=== PATIENT | female | born 1940 | race Caucasian/White ===

== ENCOUNTER → 2016-10-04 | Outpatient (CLI) | payer MEDICARE ==
[~2016-10-04] MED LIST: ALPR.25T; ALPR.25T PO; ALPR.5T PO; ALPR0.5T PO; ALPR1T PO; ALPR1TAB7 PO; AMLO1CAP4 PO; AMLO1CAP7 PO; ARPZ10T PO; ASP81CT PO; ASPI-983 PO; ASPI81TA19 PO; ATOR10TA66 PO; ATOR40TA; ATOR40TA PO; ATOR80TA PO; Apixaban PO; CARI250T; CARV12.53 PO; CARV6.252 PO; CHOL10003 PO; CIPR500T78 PO; CLCX200C PO; CLIN300C3; CLOP75TA PO; CLOP75TA28 PO; CLPD75T PO; CRS350T PO; CYCL5TAB11 PO; DIABETIC MED; DOXA2TAB2 PO; DULO60CA6 PO; DXZS2T PO; ETOD400T PO; FERR-57 PO; FRS325T PO; FRSM20T PO; FURO20TA4 PO; GABA300C; GBPN300C PO; HCT25T; HYDR-34; HYDR-3583 PO; HYDR-3720 PO; HYDR1TAB PO; INSU100I14 SQ; INSU100V6 SQ; INSU100V8; ISM30TCR PO; ISOS30TA3 PO; KETO-22 PO; LEVO250T7 PO; LEVO500T69 PO; LINA5TAB PO; LISI10TA PO; LISI10TA2 PO; LOSA-35 PO; LOSA1TAB20 PO; LOSA25TA15 PO; LRT10T PO; MAGN400C PO; MNTL10T PO; MPR22T TOP; MS15TCR PO; NAPR-243 PO; NITR0.3T6 SL; NOVALOG; NOVALOG INSULIN SQ; NTR.4SL SL; OMEG1CAP51 PO; OXYC-12 PO; OXYC-202 PO; OXYC-465 PO; OXYC1TAB17 PO; OXYC1TAB25 PO; OXYC1TAB28 PO; OXYC1TAB95 PO; Oxycodone Hcl/Acetaminophen PO; PHEN200T27 PO; PNT40TEC PO; POTA10CA43 PO; POTA10TA6 PO; PRAV40TA PO; PRAV40TA2 PO; PROP1TAB77; SULF1TAB35 PO; TIZA4TAB55 PO; TRAM-21 PO; TRAM50TA2 PO; TRM50T PO; VITAMIN D PO; [UNRECOGNIZED DRUG - OTHER]; muscle relaxant
[2016-10-04 09:02] LABS: ALANINE AMINOTRANSFERASE 11 U/L (0-55); ALBUMIN 4.1 GM/DL (3.2-4.5); ANION GAP 8 MMOL/L (5-14); ASPARTATE AMINO TRANSFERASE 15 U/L (5-34); BILIRUBIN,TOTAL 0.5 MG/DL (0.1-1.0); BLOOD UREA NITROGEN 12 MG/DL (7-18); BUN/CREATININE RATIO 17; CALCIUM 9.5 MG/DL (8.5-10.1); CARBON DIOXIDE 24 MMOL/L (21-32); CHLORIDE 107 MMOL/L (98-107); CHOLESTEROL 141 MG/DL (< 200); CREATININE SERUM 0.71 MG/DL (0.60-1.30); DIRECT LDL 83 MG/DL (1-129); GFR ESTIMATED > 60; GLUCOSE 107 MG/DL (70-105); POTASSIUM 4.3 MMOL/L (3.6-5.0); SODIUM 139 MMOL/L (135-145); TOTAL PROTEIN 6.9 GM/DL (6.4-8.2); TRIGLYCERIDES 84 MG/DL (<150); VLDL CHOLESTEROL 17 MG/DL (5-40)
[2016-10-04 09:22] LABS: THYROID STIMULATING HORMONE 0.68 UIU/ML (0.35-4.94)
== END ==
LOC: LAB 08:21
PROVIDERS: ATTEND Internal Medicine Cardiovascular Disease
DX: I25.10 Atherosclerotic heart disease of native coronary artery without angina pectoris (principal); E11.9 Type 2 diabetes mellitus without complications; I65.23 Occlusion and stenosis of bilateral carotid arteries; E78.4 Other hyperlipidemia
CPT/HCPCS: 36415; 80053; 80061; 84443

== ENCOUNTER 2016-11-05 18:47 | Emergency (ER) | payer MEDICARE ==
[~2016-11-05] VITALS: Ht 170.2 cm; Wt 65.3 kg
[~2016-11-05 18:47] MED LIST changes: -SULF1TAB35 PO
[2016-11-05] MEDS ORDERED: ONDANSETRON 4 MG/2 ML (SDV) Z0FRAN IVP ONE (21:30)
[2016-11-05] MEDS ORDERED: KETOROLAC 30 MG/ML VIAL IVP ONE (21:30)
[2016-11-05] MEDS ORDERED: fentaNYL INJECTION 100 MCG/2 ML AMP IVP ONE (21:30)
--- NOTE | 2016-11-05 21:43 | Diagnostic Imaging Report ---
INDICATION: Right forearm injury COMPARISON: None FINDINGS: Two views of the right forearm demonstrate no fracture or dislocation. 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 There is no joint effusion or foreign body. IMPRESSION: No fracture or dislocation Dictated by: Dictated on workstation # [id number]
[2016-11-05 21:46] LABS: BASOPHILS # (AUTO) 0.1 10^3/uL (0.0-0.1); BASOPHILS % (AUTO) 1 % (0-10); EOSINOPHILS # (AUTO) 0.3 10^3/uL (0.0-0.3); EOSINOPHILS % (AUTO) 4 % (0-10); LYMPHOCYTES # (AUTO) 1.1 X 10^3 (1.0-4.0); LYMPHOCYTES % (AUTO) 17 % (12-44); MEAN CORPUSCULAR HEMOGLOBIN 28 PG (25-34); MEAN CORPUSCULAR HGB CONC 33 G/DL (32-36); MEAN CORPUSCULAR VOLUME 87 FL (80-99); MEAN PLATELET VOLUME 9.5 FL (7.4-10.4); MONOCYTES # (AUTO) 0.5 X 10^3 (0.0-1.0); MONOCYTES % (AUTO) 8 % (0-12); NEUTROPHILS # (AUTO) 4.7 X 10^3 (1.8-7.8); NEUTROPHILS % (AUTO) 71 % (42-75); PLATELET COUNT 169 10^3/uL (130-400); RED BLOOD COUNT 4.38 10^6/uL (4.35-5.85); RED CELL DISTRIBUTION WIDTH 13.8 % (10.0-14.5); WHITE BLOOD COUNT 6.7 10^3/uL (4.3-11.0)
--- NOTE | 2016-11-05 21:51 | ED General ---
General Chief Complaint: Upper Extremity Stated Complaint: BITE,SWELLING Nursing Triage Note: Brought to ED with family, family speak for patient and report she awoke at 0800 with swelling and bruising on right FA. Denies injury/falls. Family state a resident at their work awoke with a same situation. Pt reports pain is "10" but she has not taken any of her maintenance "Percocet" today. Nursing Sepsis Screen: No Definite Risk Allergies and Home Medications Allergies Coded Allergies: Penicillins (Verified Allergy, Unknown, 05/12/05) morphine (Verified Allergy, Unknown, TAKES PERCOCET @ HOME, 10/22/15) CAUSES SKIN TO COME OFF FINGERS tetracycline (Verified Allergy, Unknown, 05/12/05) hydromorphone (Unverified Adverse Reaction, Unknown, STATES QUIT BREATHING , TAKES PERCOCET AT HOME, 10/22/15) Uncoded Allergies: PAPER TAPE (Allergy, Mild, 07/28/08) Home Medications Alprazolam 1 Mg Tablet, 1 MG PO Q8H PRN for ANXIETY, (Reported) Alprazolam 0.5 Mg Tablet, 0.5 MG PO TID, #90 Prescribed by: MURIEL PHELAN on 10/23/15 0736 Aspirin 81 Mg Tablet.dr, 81 MG PO BID, (Reported) Atorvastatin Calcium 10 Mg Tablet, 10 MG PO DAILY, #30 Prescribed by: MURIEL PHELAN on 10/23/15 0707 Carvedilol 12.5 Mg Tablet, 12.5 MG PO BID, (Reported) Clopidogrel Bisulfate 75 Mg Tablet, 75 MG PO DAILY, (Reported) Doxazosin Mesylate 2 Mg Tablet, 2 MG PO HS, (Reported) Etodolac 400 Mg Tablet, 400 MG PO BID PRN for MUSCLE SPASMS, (Reported) Linagliptin 5 Mg Tablet, 5 MG PO DAILY, (Reported) Lisinopril 10 Mg Tablet, 10 MG PO DAILY, (Reported) Magnesium Oxide 400 Mg Capsule, 400 MG PO HS, (Reported) Nitroglycerin 0.4 Mg Tab, 0 SL UD PRN for CHEST PAIN, (Reported) 1 TABLET EVERY 5 MINUTES X 3 DOSES NEEDED FOR CHEST PAIN [place]-3 Fatty Acids/Fish Oil 1 Each Capsule, 1,000 MG PO DAILY, (Reported) Oxycodone HCl/Acetaminophen 1 Each Tablet, 1 TAB PO QID, (Reported) Oxycodone HCl/Acetaminophen 1 Each Tablet, 1 EACH PO BID PRN, #60 Prescribed by: MURIEL PHELAN on 10/23/15 0736 Potassium Chloride 10 Meq Capsule.er, 10 MEQ PO DAILY, (Reported) Pravastatin Sodium 40 Mg Tablet, 40 MG PO HS, (Reported) Past Bgqpilu-Zdxayn-Rjernr Hx Patient Social History Alcohol Use: Denies Use Recreational Drug Use: No Smoking Status: Never a Smoker 2nd Hand Smoke Exposure: No Recent Foreign Travel: No Contact w/Someone Who Travel: No Recent Infectious Disease Expo: No Recent Hopitalizations: No Immunizations Up To Date Date of Pneumonia Vaccine: Mar 20, 2010 Date of Influenza Vaccine: Dec 18, 2013 Seasonal Allergies Seasonal Allergies: No Surgeries HX Surgeries: Yes (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) Surgeries: CABG, Coronary Stent, Gallbladder, Joint Replacement, Orthopedic Respiratory Hx Respiratory Disorders: No Cardiovascular Hx Cardiac Disorders: Yes (CABG,STENTS) Cardiac Disorders: Coronary Artery Disease, High Cholesterol, Hypertension Neurological Hx Neurological Disorders: Yes (PERIPHERAL NEUROPATHY) Neurological Disorders: Neuropathy Reproductive System Hx Reproductive Disorders: No Sexually Transmitted Disease: No HIV/AIDS: No Genitourinary Hx Genitourinary Disorders: No Gastrointestinal Hx Gastrointestinal Disorders: Yes Gastrointestinal Disorders: Gastroesophageal Reflux Musculoskeletal Hx Musculoskeletal Disorders: Yes (NECK FX WITH TENDON SPASMS) Musculoskeletal Disorders: Arthritis, Chronic Back Pain, Spasms Endocrine Hx Endocrine Disorders: Yes Endocrine Disorders: Diabetes, Non-Insulin dep HEENT HX ENT Disorders: Yes HEENT Disorders: Cataract Hearing Impairment: Denies Cancer Hx Cancer: No (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) Psychosocial Hx 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) Behavioral Health Disorders: Anxiety, Depression Integumentary HX Skin/Integumentary Disorder: No Blood Transfusions Hx Blood Disorders: Yes (Vit D deficiency) Adverse Reaction to a Blood Tr: Yes Family Medical History Significant Family History: No Pertinent Family Hx Family Medial History: Congestive heart failure 19 MOTHER Family history: Cardiovascular disease Family history: Diabetes mellitus 19 MOTHER Family history: Hypertension 19 FATHER Physical Exam Vital Signs Vital Sign - Last 12Hours 11/05/16 19:00 Temp 97.4 Pulse 60 Resp 20 B/P (MAP) 221/94 Pulse Ox 98 O2 Delivery Room Air Capillary Refill : Less Than 3 Seconds Progress/Results/Core Measures Results/Orders Lab Results Laboratory Tests Test 11/05/16 21:35 Range/Units White Blood Count 6.7 4.3-11.0 10^3/uL Red Blood Count 4.38 4.35-5.85 10^6/uL Hemoglobin 12.4 11.5-16.0 G/DL Hematocrit 38 35-52 % Mean Corpuscular Volume 87 80-99 FL Mean Corpuscular Hemoglobin 28 25-34 PG Mean Corpuscular Hemoglobin Concent 33 32-36 G/DL Red Cell Distribution Width 13.8 10.0-14.5 % Platelet Count 169 130-400 10^3/uL Mean Platelet Volume 9.5 7.4-10.4 FL Neutrophils (%) (Auto) 71 42-75 % Lymphocytes (%) (Auto) 17 12-44 % Monocytes (%) (Auto) 8 0-12 % Eosinophils (%) (Auto) 4 0-10 % Basophils (%) (Auto) 1 0-10 % Neutrophils # (Auto) 4.7 1.8-7.8 X 10^3 Lymphocytes # (Auto) 1.1 1.0-4.0 X 10^3 Monocytes # (Auto) 0.5 0.0-1.0 X 10^3 Eosinophils # (Auto) 0.3 0.0-0.3 10^3/uL Basophils # (Auto) 0.1 0.0-0.1 10^3/uL Sodium Level 142 135-145 MMOL/L Potassium Level 4.2 3.6-5.0 MMOL/L Chloride Level 107 98-107 MMOL/L Carbon Dioxide Level 21 21-32 MMOL/L Anion Gap 14 5-14 MMOL/L Blood Urea Nitrogen 9 7-18 MG/DL Creatinine 0.65 0.60-1.30 MG/DL Estimat Glomerular Filtration Rate > 60 BUN/Creatinine Ratio 14 Glucose Level 104 70-105 MG/DL Calcium Level 9.6 8.5-10.1 MG/DL Total Bilirubin 0.5 0.1-1.0 MG/DL Aspartate Amino Transf (AST/SGOT) 21 5-34 U/L Alanine Aminotransferase (ALT/SGPT) 15 0-55 U/L Alkaline Phosphatase 64 40-136 U/L C-Reactive Protein High Sensitivity 0.16 0.00-0.50 MG/DL Total Protein 7.0 6.4-8.2 GM/DL Albumin 4.1 3.2-4.5 GM/DL My Orders Orders - ROGERIO MONREAL MD Saline Lock/Iv-Start (11/05/16 21:18) Cbc With Automated Diff (11/05/16 21:18) Comprehensive Metabolic Panel (11/05/16 21:18) Hs C Reactive Protein (11/05/16 21:18) Forearm, Right, 2 Views (11/05/16 21:18) Fentanyl Injection (Sublimaze Injection (11/05/16 21:30) Ondansetron Injection (Zofran Injectio (11/05/16 21:30) Ketorolac Injection (Toradol Injection) (11/05/16 21:30) Sulfamethoxazole/Trimet Ds Tab (Bactrim (11/05/16 23:00) Medications Given in ED Current Medications Medications Dose Ordered Sig/Margarita Route Start Time Stop Time Status Last Admin Dose Admin Fentanyl Citrate 75 mcg ONCE ONCE IVP 11/05/16 21:30 11/05/16 21:31 DC 11/05/16 21:45 75 MCG Ketorolac Tromethamine 30 mg ONCE ONCE IVP 11/05/16 21:30 11/05/16 21:31 DC 11/05/16 21:45 30 MG Ondansetron HCl 4 mg ONCE ONCE IVP 11/05/16 21:30 11/05/16 21:31 DC 11/05/16 21:45 4 MG Vital Signs/I&O Vital Sign - Last 12Hours 11/05/16 11/05/16 11/05/16 19:00 21:45 21:45 Temp 97.4 97.4 97.4 Pulse 60 Resp 20 B/P (MAP) 221/94 Pulse Ox 98 O2 Delivery Room Air Blood Pressure Mean: 136 Progress Note : Progress Note x-rays and labs were unremarkable. Blood pressure improved significantly with treatment of pain. Patient was given a dose of Bactrim prior to dismissal. Nausea was treated with Zofran. Diagnostic Imaging Diagonstic Imaging: Xray Plain Films/CT/US/NM/MRI: forearm Comments Right forearm x-ray viewed by me and report reviewed. See report below: NAME: PERLITA PEREZ Mat Richard Pauer - 3P REC#: [id number] PT STATUS: REG ER : 1940 PHYSICIAN: ROGERIO MONREAL MD ADMIT DATE: 11/05/16/ER Signed Date of Exam:11/05/16 FOREARM, RIGHT, 2 VIEWS INDICATION: Right forearm injury COMPARISON: None FINDINGS: Two views of the right forearm demonstrate no fracture or dislocation. 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 There is no joint effusion or foreign body. IMPRESSION: No fracture or dislocation Dictated by: Dictated on workstation # [id number] Dict: 11/05/162139 Trans: 11/05/162143 [facility] [phone] Interpreted by: JOSÉ ALVARENGA Electronically signed by: JOSÉ ALVARENGA 11/05/162143 Departure Impression Impression: Primary Impression: Skin lesion of right arm Additional Impression: Hypertensive urgency Disposition: 01 HOME, SELF-CARE Condition: Improved Departure-Patient Inst. Decision time for Depature: 22:45 Referrals: WEST PHELAN MD (PCP/Family) Primary Care Physician Patient Instructions: Cellulitis (Skin Infection), Adult (DC), Spider Bites Add. Discharge Instructions: The exact cause of your skin lesion is uncertain but it may be related to cellulitis (skin infection and (and/or spider bite. Complete the antibiotics as prescribed. Return to care if symptoms worsen, especially if you develop fever. Follow-up with your primary care provider early next week. All discharge instructions reviewed with patient and/or family. Voiced understanding. Scripts Sulfamethoxazole/Trimethoprim (Bactrim Ds Tablet) 1 Each Tablet 1 EACH PO BID PRN, #14 TAB Prov: ROGERIO MONREAL MD 11/05/16 ROGERIO MONREAL MD Nov 05, 2016 21:51
[2016-11-05 22:06] LABS: ALANINE AMINOTRANSFERASE 15 U/L (0-55); ALBUMIN 4.1 GM/DL (3.2-4.5); ANION GAP 14 MMOL/L (5-14); ASPARTATE AMINO TRANSFERASE 21 U/L (5-34); BILIRUBIN,TOTAL 0.5 MG/DL (0.1-1.0); BLOOD UREA NITROGEN 9 MG/DL (7-18); BUN/CREATININE RATIO 14; CALCIUM 9.6 MG/DL (8.5-10.1); CARBON DIOXIDE 21 MMOL/L (21-32); CHLORIDE 107 MMOL/L (98-107); CREATININE SERUM 0.65 MG/DL (0.60-1.30); GFR ESTIMATED > 60; GLUCOSE 104 MG/DL (70-105); POTASSIUM 4.2 MMOL/L (3.6-5.0); SODIUM 142 MMOL/L (135-145); hs C REACTIVE PROTEIN 0.16 MG/DL (0.00-0.50)
[2016-11-05] MEDS ORDERED: SULF1TAB35 PO (22:57)
[2016-11-05] MEDS ORDERED: TRIM/SULFAMETH 160/800 (SEPTRA DS) TAB PO ONE (23:00)
[2016-11-05 23:16] VITALS: BP 150/66
== END 2016-11-05 23:16 | disposition home or self-care (01) ==
LOC: EDUNIT# 18:47 → ER 18:48
DX: L98.9 Disorder of the skin and subcutaneous tissue, unspecified (principal); I16.0 Hypertensive urgency; F41.9 Anxiety disorder, unspecified; F32.9 Major depressive disorder, single episode, unspecified; E11.40 Type 2 diabetes mellitus with diabetic neuropathy, unspecified; K21.9 Gastro-esophageal reflux disease without esophagitis; I25.10 Atherosclerotic heart disease of native coronary artery without angina pectoris; E78.00 Pure hypercholesterolemia, unspecified; I10 Essential (primary) hypertension; Z95.1 Presence of aortocoronary bypass graft; Z95.5 Presence of coronary angioplasty implant and graft; Z86.018 Personal history of other benign neoplasm; Z79.82 Long term (current) use of aspirin; Z87.81 Personal history of (healed) traumatic fracture; Z96.60 Presence of unspecified orthopedic joint implant
CPT/HCPCS: 36415; 73090; 80053; 85025; 86141; 96374; 96375

== ENCOUNTER 2017-02-17 21:36 | Emergency (ER) | payer MEDICARE ==
[~2017-02-17] VITALS: Ht 170.2 cm; Wt 65.3 kg
[~2017-02-17 21:36] MED LIST changes: +SULF1TAB35 PO
[2017-02-17] MEDS ORDERED: LACTATED RINGERS 1,000 ML IV ONE (22:33)
--- NOTE | 2017-02-17 22:57 | ED Abdominal Pain ---
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 She is having some nausea intermittently but has gotten better now. 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 She routinely takes Percocet every 4 hours as needed. She had a bowel movement yesterday which was hard. She has not vomited. She's had no fevers or chills. Her pain is worse with movement or palpation of her left side of her belly or rib cage. All her bones hurt. She's had her gallbladder and appendix removed in the past. She says the Percocet she took 2 hours ago is just now starting to control her pain and she is not needing anything else for pain at this time. Allergies and Home Medications Allergies Coded Allergies: Penicillins (Verified Allergy, Unknown, 05/12/05) morphine (Verified Allergy, Unknown, TAKES PERCOCET @ HOME, 10/22/15) CAUSES SKIN TO COME OFF FINGERS tetracycline (Verified Allergy, Unknown, 05/12/05) hydromorphone (Unverified Adverse Reaction, Unknown, STATES QUIT BREATHING , TAKES PERCOCET AT HOME, 10/22/15) Uncoded Allergies: PAPER TAPE (Allergy, Mild, 07/28/08) Home Medications Alprazolam 1 Mg Tablet, 1 MG PO Q8H PRN for ANXIETY, (Reported) Alprazolam 0.5 Mg Tablet, 0.5 MG PO TID, #90 Prescribed by: MURIEL PHELAN on 10/23/15 0736 Aspirin 81 Mg Tablet.dr, 81 MG PO BID, (Reported) Atorvastatin Calcium 10 Mg Tablet, 10 MG PO DAILY, #30 Prescribed by: MURIEL PHELAN on 10/23/15 0707 Carvedilol 12.5 Mg Tablet, 12.5 MG PO BID, (Reported) Clopidogrel Bisulfate 75 Mg Tablet, 75 MG PO DAILY, (Reported) Doxazosin Mesylate 2 Mg Tablet, 2 MG PO HS, (Reported) Etodolac 400 Mg Tablet, 400 MG PO BID PRN for MUSCLE SPASMS, (Reported) Linagliptin 5 Mg Tablet, 5 MG PO DAILY, (Reported) Lisinopril 10 Mg Tablet, 10 MG PO DAILY, (Reported) Magnesium Oxide 400 Mg Capsule, 400 MG PO HS, (Reported) Nitroglycerin 0.4 Mg Tab, 0 SL UD PRN for CHEST PAIN, (Reported) 1 TABLET EVERY 5 MINUTES X 3 DOSES NEEDED FOR CHEST PAIN [place]-3 Fatty Acids/Fish Oil 1 Each Capsule, 1,000 MG PO DAILY, (Reported) Oxycodone HCl/Acetaminophen 1 Each Tablet, 1 TAB PO QID, (Reported) Oxycodone HCl/Acetaminophen 1 Each Tablet, 1 EACH PO BID PRN, #60 Prescribed by: MURIEL PHELAN on 10/23/15 0736 Potassium Chloride 10 Meq Capsule.er, 10 MEQ PO DAILY, (Reported) Pravastatin Sodium 40 Mg Tablet, 40 MG PO HS, (Reported) Sulfamethoxazole/Trimethoprim 1 Each Tablet, 1 EACH PO BID PRN, #14 Prescribed by: ROGERIO MCKENZIE on 11/05/16 8469 Review of Systems Constitutional: No chills, No diaphoresis, No fever, No malaise EENTM: No Symptoms Reported, No Blurred Vision, No Double Vision Respiratory: Denies Cough, Denies Shortness of Air Cardiovascular: Denies Chest Pain, Denies Lightheadedness Gastrointestinal: See HPI, Denies Abdomen Distended, Abdominal Pain, Constipated, Nausea, Denies Vomiting Genitourinary: Denies Burning, Denies Discharge Musculoskeletal: back pain, joint pain Skin: No pruritus, No rash Psychiatric/Neurological: Denies Headache, Denies Numbness, Denies Paresthesia Past Dhukjdr-Jllogv-Elhsbu Hx Patient Social History Alcohol Use: Denies Use Recreational Drug Use: No 2nd Hand Smoke Exposure: No Recent Foreign Travel: No Contact w/Someone Who Travel: No Recent Infectious Disease Expo: No Recent Hopitalizations: No Immunizations Up To Date Date of Pneumonia Vaccine: Mar 20, 2010 Date of Influenza Vaccine: Dec 18, 2013 Seasonal Allergies Seasonal Allergies: No Surgeries History of Surgeries: Yes (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) Surgeries: CABG, Coronary Stent, Gallbladder, Joint Replacement, Orthopedic Respiratory History of Respiratory Disorde: No Currently Using CPAP: No Currently Using BIPAP: No Cardiovascular History of Cardiac Disorders: Yes (CABG,STENTS) Cardiac Disorders: Coronary Artery Disease, High Cholesterol, Hypertension Neurological History of Neurological Disord: Yes (PERIPHERAL NEUROPATHY) Neurological Disorders: Neuropathy Reproductive System Hx Reproductive Disorders: No Sexually Transmitted Disease: No HIV/AIDS: No Genitourinary History of Genitourinary Disor: No Gastrointestinal History of Gastrointestinal Di: Yes Gastrointestinal Disorders: Gastroesophageal Reflux Musculoskeletal History of Musculoskeletal Dis: Yes (NECK FX WITH TENDON SPASMS) Musculoskeletal Disorders: Arthritis, Chronic Back Pain, Spasms Endocrine History of Endocrine Disorders: Yes Endocrine Disorders: Diabetes, Non-Insulin dep HEENT History of HEENT Disorders: Yes HEENT Disorders: Cataract Hearing Impairment: Denies Cancer History of Cancer: No (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) Psychosocial History of Psychiatric Problem: Yes (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) Behavioral Health Disorders: Anxiety, Depression Integumentary History of Skin or Integumenta: No Blood Transfusions History of Blood Disorders: Yes (Vit D deficiency) Adverse Reaction to a Blood Tr: Yes Family Medical History Significant Family History: No Pertinent Family Hx Family Medial History: Congestive heart failure 19 MOTHER Family history: Cardiovascular disease Family history: Diabetes mellitus 19 MOTHER Family history: Hypertension 19 FATHER Physical Exam Vital Signs VS - Last 72 Hours, by Label 02/17/17 21:52 Temp 98.7 Pulse 51 Resp 18 B/P (MAP) 163/71 (101) Pulse Ox 96 Capillary Refill : Less Than 3 Seconds General Appearance: WD/WN, moderate distress HEENT: PERRL/EOMI, normal ENT inspection, pharynx normal Neck: non-tender, full range of motion, normal inspection Respiratory: lungs clear, normal breath sounds, no respiratory distress (chest is tender to palpation.), no accessory muscle use, other Cardiovascular: normal peripheral pulses, regular rate, rhythm, no edema Peripheral Pulses: 2+ Radial Pulses (R), 2+ Radial Pulses (L) Gastrointestinal: normal bowel sounds, guarding, tenderness (left upper quadrant), other (no palpable masses. Also tender in right upper quadrant.) Back: normal inspection, no vertebral tenderness Neurologic/Psychiatric: alert, normal mood/affect, oriented x 3 Skin: normal color, warm/dry Focused Exam Evaluation Lactate Level Laboratory Tests 02/18/17 00:36: Lactic Acid Level Laboratory Tests Test 02/18/17 00:36 Progress/Results/Core Measures Results/Orders Lab Results Laboratory Tests Test 02/17/17 23:03 02/17/17 23:10 02/18/17 00:36 Range/Units Urine Color YELLOW Urine Clarity VERY CLOUDY H Urine pH 5 5-9 Urine Specific Rose 1.030 H 1.016-1.022 Urine Protein 2+ H NEGATIVE Urine Glucose (UA) NEGATIVE NEGATIVE Urine Ketones 1+ H NEGATIVE Urine Nitrite NEGATIVE NEGATIVE Urine Bilirubin 1+ H NEGATIVE Urine Urobilinogen 4 H NORMAL MG/DL Urine Leukocyte Esterase 3+ H NEGATIVE Urine RBC (Auto) 2+ H NEGATIVE Urine RBC 0-2 /HPF Urine WBC TNTC H /HPF Urine Squamous Epithelial Cells 10-25 H /HPF Urine Crystals NONE /LPF Urine Bacteria MODERATE H /HPF Urine Casts NONE /LPF Urine Mucus MODERATE H /LPF Urine Culture Indicated YES White Blood Count 6.0 4.3-11.0 10^3/uL Red Blood Count 3.94 L 4.35-5.85 10^6/uL Hemoglobin 11.4 L 11.5-16.0 G/DL Hematocrit 35 35-52 % Mean Corpuscular Volume 88 80-99 FL Mean Corpuscular Hemoglobin 29 25-34 PG Mean Corpuscular Hemoglobin Concent 33 32-36 G/DL Red Cell Distribution Width 13.8 10.0-14.5 % Platelet Count 142 130-400 10^3/uL Mean Platelet Volume 9.3 7.4-10.4 FL Neutrophils (%) (Auto) 67 42-75 % Lymphocytes (%) (Auto) 20 12-44 % Monocytes (%) (Auto) 8 0-12 % Eosinophils (%) (Auto) 4 0-10 % Basophils (%) (Auto) 0 0-10 % Neutrophils # (Auto) 4.0 1.8-7.8 X 10^3 Lymphocytes # (Auto) 1.2 1.0-4.0 X 10^3 Monocytes # (Auto) 0.5 0.0-1.0 X 10^3 Eosinophils # (Auto) 0.2 0.0-0.3 10^3/uL Basophils # (Auto) 0.0 0.0-0.1 10^3/uL Sodium Level 141 135-145 MMOL/L Potassium Level 3.8 3.6-5.0 MMOL/L Chloride Level 107 98-107 MMOL/L Carbon Dioxide Level 27 21-32 MMOL/L Anion Gap 7 5-14 MMOL/L Blood Urea Nitrogen 9 7-18 MG/DL Creatinine 0.68 0.60-1.30 MG/DL Estimat Glomerular Filtration Rate > 60 BUN/Creatinine Ratio 13 Glucose Level 120 H 70-105 MG/DL Calcium Level 8.8 8.5-10.1 MG/DL Total Bilirubin 0.4 0.1-1.0 MG/DL Aspartate Amino Transf (AST/SGOT) 49 H 5-34 U/L Alanine Aminotransferase (ALT/SGPT) 23 0-55 U/L Alkaline Phosphatase 65 40-136 U/L Total Protein 6.3 L 6.4-8.2 GM/DL Albumin 3.8 3.2-4.5 GM/DL My Orders Orders - LAURA RUSSELL Cbc With Automated Diff (02/17/17 22:33) Comprehensive Metabolic Panel (02/17/17 22:33) Ua Culture If Indicated (02/17/17 22:33) Saline Lock/Iv-Start (02/17/17 22:33) Lactated Ringers (Lr 1000 Ml Iv Solution (02/17/17 22:33) Lactic Acid Analyzer (02/17/17 22:33) Urine Culture (02/17/17 23:03) Ct Abdomen/Pelvis W (02/18/17 00:01) Iohexol Injection (Omnipaque 350 Mg/Ml 1 (02/18/17 00:45) Ns (Ivpb) (Sodium Chloride 0.9% Ivpb Bag (02/18/17 00:45) Medications Given in ED Current Medications Medications Dose Ordered Sig/Margarita Route Start Time Stop Time Status Last Admin Dose Admin Iohexol 100 ml ONCE ONCE IV 02/18/17 00:45 02/18/17 00:46 UNV 02/18/17 00:36 100 ML Lactated Ringer's 1,000 ml @ 0 mls/hr Q0M ONCE IV 02/17/17 22:33 12 22:36 DC 02/17/17 23:13 0 MLS/HR Sodium Chloride 80 ml ONCE ONCE IV 02/18/17 00:45 02/18/17 00:46 UNV 02/18/17 00:36 80 ML Vital Signs/I&O Vital Sign - Last 12Hours 02/17/17 21:52 Temp 98.7 Pulse 51 Resp 18 B/P (MAP) 163/71 (101) Pulse Ox 96 Blood Pressure Mean: 101 Progress Note : Time: 22:56 Progress Note Patient says she's had this pain in the past but never this severe. She's never had it worked up. We'll obtain CT as well as Leiden urine samples. Her vitals are okay at this time so we'll give her some fluids IV to help. Certainly opiate -induced constipation rises in the differential. ECG Initial ECG Impression Date: Feb 17, 2017 Initial ECG Impression Time: 22:14 Initial ECG Rate: 44 Initial ECG Rhythm: S.Jaswinder Initial ECG Intervals: Normal Initial ECG Impression: Normal, Nonspecific Changes (left axis deviation) Initial ECG Comparisson: Unchanged (except for its now sinus bradycardia) Comment No T-wave elevation or depression. Diagnostic Imaging Diagonstic Imaging: CT Plain Films/CT/US/NM/MRI: abdomen, pelvis (with contrast) Comments Stat read impression: 1 no evidence of bowel obstruction, appendicitis or diverticular this. 2 no free fluid or free air. 3 mild distention of the debris filled stomach. For cholecystectomy. 5 additional chronic and incidental findings noted above Reviewed: Reviewed by Me Departure Impression Impression: Primary Impression: Urinary tract infection Qualified Codes: N30.01 - Acute cystitis with hematuria Disposition: HOME, SELF-CARE Condition: Stable Departure-Patient Inst. Decision time for Depature: 01:04 Referrals: WEST PHELAN MD (PCP/Family) Primary Care Physician Patient Instructions: Urinary Tract Infection, Adult (DC) Add. Discharge Instructions: Drink a lot of fluids. 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 Follow-up with her primary care physician as needed. Return to the ER for intractable nausea vomiting or fever. All discharge instructions reviewed with patient and/or family. Voiced understanding. Scripts Cephalexin (Cephalexin) 500 Mg Tablet 500 MG PO BID for 7 Days, #13 TAB 0 Refills Prov: LAURA RUSSELL 02/18/17 Copy Copies To 1: WEST PHELAN MD, TITUS J Feb 17, 2017 22:57
[2017-02-17 23:11] LABS: KETONES,URINE 1+ (NEGATIVE); LEUKOCYTE ESTERASE ,URINE 3+ (NEGATIVE); NITRITE,URINE NEGATIVE (NEGATIVE); PH,URINE 5 (5-9); PROTEIN,URINE 2+ (NEGATIVE); UROBILINOGEN,URINE 4 MG/DL (NORMAL)
[2017-02-17 23:21] LABS: BASOPHILS % (AUTO) 0 % (0-10); EOSINOPHILS # (AUTO) 0.2 10^3/uL (0.0-0.3); EOSINOPHILS % (AUTO) 4 % (0-10); LYMPHOCYTES # (AUTO) 1.2 X 10^3 (1.0-4.0); LYMPHOCYTES % (AUTO) 20 % (12-44); MEAN CORPUSCULAR HEMOGLOBIN 29 PG (25-34); MEAN CORPUSCULAR HGB CONC 33 G/DL (32-36); MEAN CORPUSCULAR VOLUME 88 FL (80-99); MEAN PLATELET VOLUME 9.3 FL (7.4-10.4); MONOCYTES # (AUTO) 0.5 X 10^3 (0.0-1.0); MONOCYTES % (AUTO) 8 % (0-12); NEUTROPHILS % (AUTO) 67 % (42-75); PLATELET COUNT 142 10^3/uL (130-400); RED BLOOD COUNT 3.94 10^6/uL (4.35-5.85); RED CELL DISTRIBUTION WIDTH 13.8 % (10.0-14.5)
[2017-02-17 23:25] LABS: BILIRUBIN,URINE 1+ (NEGATIVE); WBC,URINE TNTC /HPF
[2017-02-17 23:36] LABS: ALANINE AMINOTRANSFERASE 23 U/L (0-55); ALBUMIN 3.8 GM/DL (3.2-4.5); ANION GAP 7 MMOL/L (5-14); ASPARTATE AMINO TRANSFERASE 49 U/L (5-34); BILIRUBIN,TOTAL 0.4 MG/DL (0.1-1.0); BLOOD UREA NITROGEN 9 MG/DL (7-18); BUN/CREATININE RATIO 13; CALCIUM 8.8 MG/DL (8.5-10.1); CARBON DIOXIDE 27 MMOL/L (21-32); CHLORIDE 107 MMOL/L (98-107); CREATININE SERUM 0.68 MG/DL (0.60-1.30); GFR ESTIMATED > 60; GLUCOSE 120 MG/DL (70-105); POTASSIUM 3.8 MMOL/L (3.6-5.0); SODIUM 141 MMOL/L (135-145); TOTAL PROTEIN 6.3 GM/DL (6.4-8.2)
[2017-02-18] MEDS ORDERED: IOHEXOL 350 MG/ML 100 ML (OMNIPAQUE 350) VIAL IV ONE (00:45)
[2017-02-18] MEDS ORDERED: NS 100 ML (IVPB) BAG IV ONE (00:45)
[2017-02-18] MEDS ORDERED: CEPH500T PO (01:05)
[2017-02-18 01:22] VITALS: BP 162/85
--- NOTE | 2017-02-18 06:17 | Diagnostic Imaging Report ---
PROCEDURE: CT abdomen and pelvis with contrast. TECHNIQUE: Multiple contiguous axial images were obtained through the abdomen and pelvis after administration of intravenous contrast. INDICATION: Pain COMPARISON: None available. FINDINGS: Bibasilar scarring and/or atelectasis. Prior median sternotomy. Cholecystectomy. The liver, spleen, adrenal glands, and pancreas are unremarkable. Punctate 2 mm nonobstructing right renal calculus. The kidneys are otherwise unremarkable. Extensive vascular calcifications within the abdominal aorta and branch vessels without aneurysmal dilatation of the abdominal aorta. The appendix is unremarkable. The lower pelvis is not optimally evaluated secondary to spray artifact from a left total hip arthroplasty. Within the limits of the examination, the urinary bladder is grossly unremarkable. Calcifications are noted within the uterus. Small duodenal diverticulum without adjacent fat stranding. The stomach is debris-filled. No bowel obstruction or pneumatosis. No significant adenopathy, free air, or free fluid within the abdomen or pelvis. Chronic appearing anterior wedge deformity of T12. Scattered Schmorl's nodes. Scattered degenerative changes. No acute osseous abnormality. IMPRESSION: Cholecystectomy. Mildly distended debris-filled stomach. No evidence of bowel obstruction or free air. Additional chronic and postsurgical changes as above. Calcified uterine fibroids. Agree with preliminary interpretation. Dictated by: Dictated on workstation # [id number]
== END 2017-02-18 01:22 | disposition home or self-care (01) ==
LOC: EDUNIT# 21:36 → ER 21:37
DX: N39.0 Urinary tract infection, site not specified (principal); E78.00 Pure hypercholesterolemia, unspecified; I10 Essential (primary) hypertension; I25.10 Atherosclerotic heart disease of native coronary artery without angina pectoris; K21.9 Gastro-esophageal reflux disease without esophagitis; E11.22 Type 2 diabetes mellitus with diabetic chronic kidney disease; F41.9 Anxiety disorder, unspecified; F32.9 Major depressive disorder, single episode, unspecified; Z95.1 Presence of aortocoronary bypass graft; Z95.5 Presence of coronary angioplasty implant and graft
CPT/HCPCS: 36415; 74177; 80053; 81000; 83605; 85025; 87088

== ENCOUNTER 2017-04-27 20:30 | Emergency (ER) | payer MEDICARE ==
[~2017-04-27] VITALS: Ht 170.2 cm; Wt 62.6 kg
[~2017-04-27 20:30] MED LIST changes: +CEPH500T PO
[2017-04-27 22:44] LABS: BASOPHILS % (AUTO) 0 % (0-10); EOSINOPHILS # (AUTO) 0.1 10^3/uL (0.0-0.3); EOSINOPHILS % (AUTO) 2 % (0-10); HEMATOCRIT 37 % (35-52); HEMOGLOBIN 12.6 G/DL (11.5-16.0); LYMPHOCYTES # (AUTO) 0.5 X 10^3 (1.0-4.0); LYMPHOCYTES % (AUTO) 7 % (12-44); MEAN CORPUSCULAR HEMOGLOBIN 30 PG (25-34); MEAN CORPUSCULAR HGB CONC 34 G/DL (32-36); MEAN CORPUSCULAR VOLUME 88 FL (80-99); MEAN PLATELET VOLUME 10.1 FL (7.4-10.4); MONOCYTES # (AUTO) 0.6 X 10^3 (0.0-1.0); MONOCYTES % (AUTO) 9 % (0-12); NEUTROPHILS # (AUTO) 5.6 X 10^3 (1.8-7.8); NEUTROPHILS % (AUTO) 82 % (42-75); PLATELET COUNT 139 10^3/uL (130-400); RED BLOOD COUNT 4.25 10^6/uL (4.35-5.85); RED CELL DISTRIBUTION WIDTH 14.1 % (10.0-14.5); WHITE BLOOD COUNT 6.8 10^3/uL (4.3-11.0)
[2017-04-27 22:52] LABS: INR 1.1 (0.8-1.4); PROTHROMBIN TIME PATIENT 14.3 SEC (12.2-14.7)
[2017-04-27 22:54] LABS: ALANINE AMINOTRANSFERASE 19 U/L (0-55); ALBUMIN 4.1 GM/DL (3.2-4.5); ALKALINE PHOSPHATASE 70 U/L (40-136); BILIRUBIN,TOTAL 0.8 MG/DL (0.1-1.0); BUN/CREATININE RATIO 18; CALCIUM 9.1 MG/DL (8.5-10.1); CARBON DIOXIDE 24 MMOL/L (21-32); CHLORIDE 105 MMOL/L (98-107); CREATININE SERUM 0.72 MG/DL (0.60-1.30); GFR ESTIMATED > 60; GLUCOSE 146 MG/DL (70-105); MAGNESIUM 2.1 MG/DL (1.8-2.4); POTASSIUM 4.3 MMOL/L (3.6-5.0); SODIUM 140 MMOL/L (135-145); TOTAL PROTEIN 6.8 GM/DL (6.4-8.2)
[2017-04-27 22:59] LABS: BAND NEUTROPHILS 4 %; BASOPHILS % (MANUAL) 0 %; EOSINOPHILS % (MANUAL) 0 %; LYMPHOCYTES % (MANUAL) 7 %; MONOCYTES % (MANUAL) 9 %; NEUTROPHILS % (MANUAL) 80 %; RBC MORPH NORMAL
[2017-04-27 23:01] LABS: MYOGLOBIN SERUM 20.5 NG/ML (10.0-92.0)
[2017-04-27] MEDS ORDERED: ONDANSETRON 4 MG/2 ML (SDV) Z0FRAN IVP ONE (23:15)
[2017-04-28 00:08] LABS: BILIRUBIN,URINE NEGATIVE (NEGATIVE); CLARITY,URINE CLEAR; COLOR,URINE YELLOW; GLUCOSE, URINE (UA) NEGATIVE (NEGATIVE); KETONES,URINE NEGATIVE (NEGATIVE); LEUKOCYTE ESTERASE ,URINE 2+ (NEGATIVE); NITRITE,URINE NEGATIVE (NEGATIVE); PH,URINE 5 (5-9); PROTEIN,URINE 1+ (NEGATIVE); UROBILINOGEN,URINE NORMAL (NORMAL)
[2017-04-28 00:42] LABS: BACTERIA,URINE FEW /HPF; WBC,URINE 0-2 /HPF
--- NOTE | 2017-04-28 02:39 | ED Chest Pain ---
General Chief Complaint: Abdominal/GI Problems Stated Complaint: NECK PAIN, VOMITING Nursing Triage Note: pt reports having severe nausea, headache, being extremely hot, neck pain, excess, gas. pt does report having chest pain earlier but took a pain pill and has had no pain since. hx: cabg approx 8 yrs ago, neck fx 9 yrs ago. Nursing Sepsis Screen: No Definite Risk Source: patient, old records Exam Limitations: no limitations History of Present Illness Date Seen by Provider: Apr 27, 2017 Time Seen by Provider: 22:20 Initial Comments This 76 presents to the emergency room with complaints of chest pain, nausea with dry heaving neck discomfort, and a feeling of being flushed/hot She was mopping when symptoms started.. This happened several hours ago. Patient took a Percocet and went to bed. The pain resolved. She had one brief episode of chest pain in the exam room shortly after initial assessment. Patient does have a significant history of cardiovascular disease. She last had a stress test in 2015 which was negative. She feels relatively well now. Allergies and Home Medications Allergies Coded Allergies: Penicillins (Verified Allergy, Unknown, 05/12/05) morphine (Verified Allergy, Unknown, TAKES PERCOCET @ HOME, 10/22/15) CAUSES SKIN TO COME OFF FINGERS tetracycline (Verified Allergy, Unknown, 05/12/05) hydromorphone (Unverified Adverse Reaction, Unknown, STATES QUIT BREATHING , TAKES PERCOCET AT HOME, 10/22/15) Uncoded Allergies: PAPER TAPE (Allergy, Mild, 07/28/08) Home Medications Alprazolam 0.5 Mg Tablet, 0.5 MG PO TID, #90 Prescribed by: MURIEL PHELAN on 10/23/15 0736 Aspirin 81 Mg Tablet.dr, 81 MG PO BID, (Reported) Atorvastatin Calcium 10 Mg Tablet, 10 MG PO DAILY, #30 Prescribed by: MURIEL PHELAN on 10/23/15 0707 Carvedilol 12.5 Mg Tablet, 12.5 MG PO BID, (Reported) Cephalexin 500 Mg Tablet, 500 MG PO BID for 7 Days, #13 Ref 0 Prescribed by: LAURA RUSSELL on 02/18/17 0105 Clopidogrel Bisulfate 75 Mg Tablet, 75 MG PO DAILY, (Reported) Doxazosin Mesylate 2 Mg Tablet, 2 MG PO HS, (Reported) Etodolac 400 Mg Tablet, 400 MG PO BID PRN for MUSCLE SPASMS, (Reported) Linagliptin 5 Mg Tablet, 5 MG PO DAILY, (Reported) Lisinopril 10 Mg Tablet, 10 MG PO DAILY, (Reported) Magnesium Oxide 400 Mg Capsule, 400 MG PO HS, (Reported) Nitroglycerin 0.4 Mg Tab, 0 SL UD PRN for CHEST PAIN, (Reported) 1 TABLET EVERY 5 MINUTES X 3 DOSES NEEDED FOR CHEST PAIN [place]-3 Fatty Acids/Fish Oil 1 Each Capsule, 1,000 MG PO DAILY, (Reported) Oxycodone HCl/Acetaminophen 1 Each Tablet, 1 TAB PO QID, (Reported) Potassium Chloride 10 Meq Capsule.er, 10 MEQ PO DAILY, (Reported) Review of Systems Constitutional: no symptoms reported EENTM: No Symptoms Reported Respiratory: No Symptoms Reported Cardiovascular: See HPI Gastrointestinal: See HPI Genitourinary: No Symptoms Reported Musculoskeletal: see HPI Skin: no symptoms reported Psychiatric/Neurological: No Symptoms Reported Endocrine: No Symptoms Reported Hematologic/Lymphatic: No Symptoms Reported Past Wzvwsiw-Xlifqa-Fwxomy Hx Patient Social History Alcohol Use: Denies Use Recreational Drug Use: No Smoking Status: Never a Smoker 2nd Hand Smoke Exposure: No Recent Foreign Travel: No Contact w/Someone Who Travel: No Recent Infectious Disease Expo: No Recent Hopitalizations: No Immunizations Up To Date PED Vaccines UTD: Yes Date of Pneumonia Vaccine: Dec 20, 2016 Date of Influenza Vaccine: Dec 20, 2016 Seasonal Allergies Seasonal Allergies: No Surgeries History of Surgeries: Yes (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) Surgeries: CABG, Coronary Stent, Gallbladder, Joint Replacement, Orthopedic Respiratory History of Respiratory Disorde: No Currently Using CPAP: No Currently Using BIPAP: No Cardiovascular History of Cardiac Disorders: Yes (CABG,STENTS) Cardiac Disorders: Coronary Artery Disease, Heart Attack, High Cholesterol, Hypertension Neurological History of Neurological Disord: Yes (PERIPHERAL NEUROPATHY) Neurological Disorders: Neuropathy Reproductive System : No Hx Reproductive Disorders: No Sexually Transmitted Disease: No HIV/AIDS: No Genitourinary History of Genitourinary Disor: No Gastrointestinal History of Gastrointestinal Di: Yes Gastrointestinal Disorders: Gastroesophageal Reflux Musculoskeletal History of Musculoskeletal Dis: Yes (NECK FX WITH TENDON SPASMS) Musculoskeletal Disorders: Arthritis, Chronic Back Pain, Spasms Endocrine History of Endocrine Disorders: Yes Endocrine Disorders: Diabetes, Non-Insulin dep HEENT History of HEENT Disorders: Yes HEENT Disorders: Cataract Hearing Impairment: Denies Cancer History of Cancer: No (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) Psychosocial History of Psychiatric Problem: Yes (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) Behavioral Health Disorders: Anxiety, Depression Integumentary History of Skin or Integumenta: No Blood Transfusions History of Blood Disorders: Yes (Vit D deficiency) Adverse Reaction to a Blood Tr: Yes Family Medical History Significant Family History: No Pertinent Family Hx Family Medial History: Congestive heart failure 19 MOTHER Family history: Cardiovascular disease Family history: Diabetes mellitus 19 MOTHER Family history: Hypertension 19 FATHER Physical Exam Vital Signs Vital Signs - First Documented 04/27/17 21:53 Temp 100.3 Pulse 80 Resp 20 B/P (MAP) 146/70 (95) Pulse Ox 98 O2 Delivery Room Air Capillary Refill : Less Than 3 Seconds General Appearance: No Apparent Distress, WD/WN HEENT: PERRL/EOMI, Normal ENT Inspection, Pharynx Normal Neck: Normal Inspection Respiratory: Lungs Clear, Normal Breath Sounds, No Accessory Muscle Use, No Respiratory Distress Cardiovascular: Regular Rate, Rhythm, No Edema, No Murmur Gastrointestinal: Normal Bowel Sounds, Non Tender, Soft Extremity: Normal Inspection, No Pedal Edema Neurologic/Psychiatric: Alert, Oriented x3, No Motor/Sensory Deficits, Normal 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, 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 Norm as Tested Skin: Normal Color, Warm/Dry Progress/Results/Core Measures Results/Orders Lab Results Laboratory Tests Test 04/27/17 22:06 04/27/17 23:45 04/28/17 01:30 Range/Units White Blood Count 6.8 4.3-11.0 10^3/uL Red Blood Count 4.25 L 4.35-5.85 10^6/uL Hemoglobin 12.6 11.5-16.0 G/DL Hematocrit 37 35-52 % Mean Corpuscular Volume 88 80-99 FL Mean Corpuscular Hemoglobin 30 25-34 PG Mean Corpuscular Hemoglobin Concent 34 32-36 G/DL Red Cell Distribution Width 14.1 10.0-14.5 % Platelet Count 139 130-400 10^3/uL Mean Platelet Volume 10.1 7.4-10.4 FL Neutrophils (%) (Auto) 82 H 42-75 % Lymphocytes (%) (Auto) 7 L 12-44 % Monocytes (%) (Auto) 9 0-12 % Eosinophils (%) (Auto) 2 0-10 % Basophils (%) (Auto) 0 0-10 % Neutrophils # (Auto) 5.6 1.8-7.8 X 10^3 Lymphocytes # (Auto) 0.5 L 1.0-4.0 X 10^3 Monocytes # (Auto) 0.6 0.0-1.0 X 10^3 Eosinophils # (Auto) 0.1 0.0-0.3 10^3/uL Basophils # (Auto) 0.0 0.0-0.1 10^3/uL Neutrophils % (Manual) 80 % Lymphocytes % (Manual) 7 % Monocytes % (Manual) 9 % Eosinophils % (Manual) 0 % Basophils % (Manual) 0 % Band Neutrophils 4 % Blood Morphology Comment NORMAL Prothrombin Time 14.3 12.2-14.7 SEC INR Comment 1.1 0.8-1.4 Activated Partial Thromboplast Time 25 24-35 SEC Sodium Level 140 135-145 MMOL/L Potassium Level 4.3 3.6-5.0 MMOL/L Chloride Level 105 98-107 MMOL/L Carbon Dioxide Level 24 21-32 MMOL/L Anion Gap 11 5-14 MMOL/L Blood Urea Nitrogen 13 7-18 MG/DL Creatinine 0.72 0.60-1.30 MG/DL Estimat Glomerular Filtration Rate > 60 BUN/Creatinine Ratio 18 Glucose Level 146 H 70-105 MG/DL Calcium Level 9.1 8.5-10.1 MG/DL Magnesium Level 2.1 1.8-2.4 MG/DL Total Bilirubin 0.8 0.1-1.0 MG/DL Aspartate Amino Transf (AST/SGOT) 22 5-34 U/L Alanine Aminotransferase (ALT/SGPT) 19 0-55 U/L Alkaline Phosphatase 70 40-136 U/L Myoglobin 20.5 10.0-92.0 NG/ML Troponin I < 0.30 < 0.30 <0.30 NG/ML Total Protein 6.8 6.4-8.2 GM/DL Albumin 4.1 3.2-4.5 GM/DL Urine Color YELLOW Urine Clarity CLEAR Urine pH 5 5-9 Urine Specific [place] 1.025 H 1.016-1.022 Urine Protein 1+ H NEGATIVE Urine Glucose (UA) NEGATIVE NEGATIVE Urine Ketones NEGATIVE NEGATIVE Urine Nitrite NEGATIVE NEGATIVE Urine Bilirubin NEGATIVE NEGATIVE Urine Urobilinogen NORMAL NORMAL MG/DL Urine Leukocyte Esterase 2+ H NEGATIVE Urine RBC (Auto) NEGATIVE NEGATIVE Urine RBC NONE /HPF Urine WBC 0-2 /HPF Urine Squamous Epithelial Cells 2-5 /HPF Urine Crystals NONE /LPF Urine Bacteria FEW H /HPF Urine Casts NONE /LPF Urine Mucus LARGE H /LPF Urine Culture Indicated NO Micro Results Microbiology 04/27/17 Influenza Types A,B Antigen (SEGUNDO) - Final, Complete My Orders Orders - ROGERIO MONREAL MD Cbc With Automated Diff (04/27/17 22:23) Magnesium (04/27/17 22:23) Chest 1 View, Ap/Pa Only (04/27/17 22:23) Ekg Tracing (04/27/17 22:23) Cardiac Profile 1 (04/27/17 22:23) Comprehensive Metabolic Panel (04/27/17 22:23) Myoglobin Serum (04/27/17 22:23) Protime With Inr (04/27/17 22:23) Partial Thromboplastin Time (04/27/17 22:23) O2 (04/27/17 22:23) Monitor-Rhythm Ecg Trace Only (04/27/17 22:23) Saline Lock/Iv-Start (04/27/17 22:23) Manual Differential (04/27/17 22:06) Ua Culture If Indicated (04/27/17 23:13) Influenza A And B Antigens (04/27/17 23:13) Ondansetron Injection (Zofran Injectio (04/27/17 23:15) Troponin I (04/28/17 01:24) Rx-Ondansetron Po (Rx-Zofran Po) (04/28/17 03:15) Iv Push Electrical And Instrumentation Manager Ed (04/27/17 ) Medications Given in ED Vital Signs/I&O Vital Sign - Last 12Hours 04/27/17 04/28/17 21:53 03:30 Temp 100.3 98.0 Pulse 80 70 Resp 20 16 B/P (MAP) 146/70 (95) Pulse Ox 98 100 O2 Delivery Room Air Room Air Blood Pressure Mean: 95 Progress Note : Progress Note Patient had a fairly unremarkable ER stay. She had one brief episode of recurrent chest pain lasting only minutes. Case was reviewed with Dr. Cordoba who recommended either three-hour troponin rule out or admission. Patient did not think highly of admission and requested the three-hour troponin rule out. Troponin was negative and patient had no further chest pain. Patient did have a mild fever. No source of infection was identified.She was dismissed outpatient follow-up. ECG Initial ECG Impression Date: Apr 27, 2017 Initial ECG Impression Time: 22:25 Initial ECG Rate: 72 Initial ECG Rhythm: Normal Sinus Comment sinus rhythm with PACs. No ST elevation or depression. Left axis deviation. Diagnostic Imaging Diagonstic Imaging: Xray Plain Films/CT/US/NM/MRI: chest Comments Chest x-ray viewed by me and compared with prior. Report not yet available. No acute abnormalities appreciated. Departure Impression Impression: Primary Impression: Chest pain Qualified Codes: R07.9 - Chest pain, unspecified Additional Impressions: Nausea and vomiting Qualified Codes: R11.2 - Nausea with vomiting, unspecified Fever Qualified Codes: R50.9 - Fever, unspecified Disposition: 01 HOME, SELF-CARE Condition: Improved Departure-Patient Inst. Decision time for Depature: 02:38 Referrals: WEST PHELAN MD (PCP/Family) Primary Care Physician Patient Instructions: Chest Pain Add. Discharge Instructions: Drink plenty of clear liquids. Follow-up with your primary care provider and floor supervisor as soon as possible. Call tomorrow for appointment. Dissolve Zofran (ondansetron) under the tongue every 4 hours as needed for nausea and vomiting. Continue with your current medicines. Return to the ER if symptoms worsen again. All discharge instructions reviewed with patient and/or family. Voiced understanding. Copy Copies To 1: WEST PHELAN MD, JOSHUA T MD Apr 28, 2017 02:39
[2017-04-28] MEDS ORDERED: RX-ONDANSETRON 4 MG ODT (ZOFRAN) PPK #4 ONE (03:15)
[2017-04-28 03:30] VITALS: BP 176/70
--- NOTE | 2017-04-28 04:25 | Diagnostic Imaging Report ---
Indication: Chest pain and cough Portable chest 10:38 PM There are postop changes from CABG surgery. Heart size and pulmonary vascular normal. Lungs are clear. There are no effusions or pneumothoraces. Impression: No acute abnormalities in the chest Dictated by: Dictated on workstation # [id number]
--- OUTSIDE RECORDS SUMMARY | 2017-04-30 07:25 | XMS REPORT | Continuity of Care Document ---
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 VESSEL, NATIV 10/04/2016 BAIMA, SAURABH L [employer] INSTALLER Ot 447.9 ARTERIAL DISEASE NOS 10/04/2016 BAIMA, SAURABH L [employer] INSTALLER Ot 272.4 HYPERLIPIDEMIA NEC/NOS 10/04/2016 BAIMA, SAURABH L [employer] INSTALLER Ot 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 VESSEL, NATIV 10/04/2016 BAIMA, SAURABH L [employer] INSTALLER Ot 447.9 ARTERIAL DISEASE NOS 10/04/2016 BAIMA, SAURABH L [employer] INSTALLER Ot 782.3 EDEMA 10/04/2016 BAIMA, SAURABH L [employer] INSTALLER Ot 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 10/04/2016 WALE COHEN MD, FACC, FACP CCDS Ot E11.9 TYPE 2 DIABETES MELLITUS WITHOUT COMPLIC 10/04/2016 WALE COHEN MD, FACC, FACP CCDS Ot I25.10 ATHSCL HEART DISEASE OF [place] CORONARY 10/10/2016 NOEL AGUAYO FACC, WALE OMER CCDS Ot E11.9 TYPE 2 DIABETES MELLITUS WITHOUT COMPLIC 10/10/2016 NOEL AGUAYO FACC, ALI FACP CCDS Ot E78.4 OTHER HYPERLIPIDEMIA 10/10/2016 NOEL AGUAYO [facility], ALI FACP CCDS Ot I25.10 ATHSCL HEART DISEASE OF [place] CORONARY 10/10/2016 [facility] F[facility] CCDS Ot 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 10/14/2016 [facility] FACP CCDS Ot E11.9 TYPE 2 DIABETES MELLITUS WITHOUT COMPLIC 10/14/2016 NOEL AGUAYO [facility], ALI FACP CCDS Ot E78.4 OTHER HYPERLIPIDEMIA 10/14/2016 NOEL AGUAYO [facility], ALI FACP CCDS Ot I25.10 ATHSCL HEART DISEASE OF [place] CORONARY 10/14/2016 [facility] FACP CCDS Ot 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 11/05/2016 ROGERIO MONREAL MD Ot E11.40 TYPE 2 DIABETES MELLITUS WITH DIABETIC N 11/05/2016 ROGERIO MONREAL MD, Ot E78.00 PURE HYPERCHOLESTEROLEMIA, UNSPECIFIED 11/05/2016 ROGERIO MONREAL MD Ot F32.9 MAJOR DEPRESSIVE DISORDER, SINGLE EPISOD 11/05/2016 ROGERIO MONREAL MD, Ot F41.9 ANXIETY DISORDER, UNSPECIFIED 11/05/2016 ROGERIO MONREAL MD Ot I10 ESSENTIAL (PRIMARY) HYPERTENSION 11/05/2016 ROGERIO MONREAL MD Ot I16.0 HYPERTENSIVE URGENCY 11/05/2016 ROGERIO MONREAL MD Ot I25.10 ATHSCL HEART DISEASE OF [place] CORONARY 11/05/2016 ROGERIO MONREAL MD Ot K21.9 GASTRO-ESOPHAGEAL REFLUX DISEASE WITHOUT 11/05/2016 ROGERIO MONREAL MD Ot L98.9 DISORDER OF THE SKIN AND SUBCUTANEOUS TI 11/05/2016 ROGERIO MONREAL MD, Ot S50.861A INSECT BITE (NONVENOMOUS) OF RIGHT [place] 11/05/2016 ROGERIO MONREAL MD, Ot Z79.82 [employer] TE[employer]ER (CURRENT) USE OF ASPIRIN 11/05/2016 ROGERIO MONREAL MD, Ot Z86.018 PERSONAL HISTORY OF OTHER BENIGN NEOPLAS 11/05/2016 ROGERIO MONREAL MD, Ot Z87.81 PERSONAL HISTORY OF (HEALED) TRAUMATIC F 11/05/2016 ROGERIO MONREAL MD Ot Z95.1 PRESENCE OF AORTOCORONARY BYPASS GRAFT 11/05/2016 ROGERIO MONREAL MD Ot Z95.5 PRESENCE OF CORONARY ANGIOPLASTY IMPLANT 11/05/2016 ROGERIO MONREAL MD Ot Z96.60 PRESENCE OF UNSPECIFIED ORTHOPEDIC JOINT 11/08/2016 ROGERIO MONREAL MD Ot E11.40 TYPE 2 DIABETES MELLITUS WITH DIABETIC N 11/08/2016 ROGERIO MONREAL MD Ot E78.00 PURE HYPERCHOLESTEROLEMIA, UNSPECIFIED 11/08/2016 ROGERIO MONREAL MD Ot F32.9 MAJOR DEPRESSIVE DISORDER, SINGLE EPISOD 11/08/2016 ROGERIO MONREAL MD, Ot F41.9 ANXIETY DISORDER, UNSPECIFIED 11/08/2016 ROGERIO MONREAL MD Ot I10 ESSENTIAL (PRIMARY) HYPERTENSION 11/08/2016 ROGERIO MONREAL MD Ot I16.0 HYPERTENSIVE URGENCY 11/08/2016 ROGERIO MONREAL MD Ot I25.10 ATHSCL HEART DISEASE OF [place] CORONARY 11/08/2016 ROGERIO MONREAL MD, Ot K21.9 GASTRO-ESOPHAGEAL REFLUX DISEASE WITHOUT 11/08/2016 ROGERIO MONREAL MD Ot L98.9 DISORDER OF THE SKIN AND SUBCUTANEOUS TI 11/08/2016 ROGERIO MONREAL MD Ot S50.861A INSECT BITE (NONVENOMOUS) OF RIGHT [place] 11/08/2016 ROGERIO MONREAL MD Ot Z79.82 [employer] TE[employer]ER (CURRENT) USE OF ASPIRIN 11/08/2016 ROGERIO MONREAL MD Ot Z86.018 PERSONAL HISTORY OF OTHER BENIGN NEOPLAS 11/08/2016 ROGERIO MONREAL MD Ot Z87.81 PERSONAL HISTORY OF (HEALED) TRAUMATIC F 11/08/2016 ROGERIO MONREAL MD Ot Z95.1 PRESENCE OF AORTOCORONARY BYPASS GRAFT 11/08/2016 ROGERIO MONREAL MD Ot Z95.5 PRESENCE OF CORONARY ANGIOPLASTY IMPLANT 11/08/2016 ROGERIO MONREAL MD, Ot Z96.60 PRESENCE OF UNSPECIFIED ORTHOPEDIC JOINT 11/11/2016 ROGERIO MONREAL MD Ot E11.40 TYPE 2 DIABETES MELLITUS WITH DIABETIC N 11/11/2016 ROGERIO MONREAL MD, Ot E78.00 PURE HYPERCHOLESTEROLEMIA, UNSPECIFIED 11/11/2016 ROGERIO MONREAL MD, Ot F32.9 MAJOR DEPRESSIVE DISORDER, SINGLE EPISOD 11/11/2016 ROGERIO MONREAL MD, Ot F41.9 ANXIETY DISORDER, UNSPECIFIED 11/11/2016 ROGERIO MONREAL MD, Ot I10 ESSENTIAL (PRIMARY) HYPERTENSION 11/11/2016 ROGERIO MONREAL MD, Ot I16.0 HYPERTENSIVE URGENCY 11/11/2016 ROGERIO MONREAL MD, Ot I25.10 ATHSCL HEART DISEASE OF [place] CORONARY 11/11/2016 ROGERIO MONREAL MD, Ot K21.9 GASTRO-ESOPHAGEAL REFLUX DISEASE WITHOUT 11/11/2016 ROGERIO MONREAL MD, Ot L98.9 DISORDER OF THE SKIN AND SUBCUTANEOUS TI 11/11/2016 ROGERIO MONREAL MD, Ot S50.861A INSECT BITE (NONVENOMOUS) OF RIGHT [place] 11/11/2016 ROGERIO MONREAL MD, Ot Z79.82 [employer] TE[employer]ER (CURRENT) USE OF ASPIRIN 11/11/2016 ROGERIO MONREAL MD, Ot Z86.018 PERSONAL HISTORY OF OTHER BENIGN NEOPLAS 11/11/2016 ROGERIO MONREAL MD, Ot Z87.81 PERSONAL HISTORY OF (HEALED) TRAUMATIC F 11/11/2016 ROGERIO MONREAL MD, Ot Z95.1 PRESENCE OF AORTOCORONARY BYPASS GRAFT 11/11/2016 ROGERIO MONREAL MD, Ot Z95.5 PRESENCE OF CORONARY ANGIOPLASTY IMPLANT 11/11/2016 ROGERIO MONREAL MD, Ot Z96.60 PRESENCE OF UNSPECIFIED ORTHOPEDIC JOINT 02/18/2017 LAURA RUSSELL MD Ot 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 02/18/2017 LAURA RUSSELL MD Ot E78.00 PURE HYPERCHOLESTEROLEMIA, UNSPECIFIED 02/18/2017 LAURA RUSSELL MD Ot F32.9 MAJOR DEPRESSIVE DISORDER, SINGLE EPISOD 02/18/2017 LAURA RUSSELL MD Ot F41.9 ANXIETY DISORDER, UNSPECIFIED 02/18/2017 LAURA RUSSELL MD Ot I10 ESSENTIAL (PRIMARY) HYPERTENSION 02/18/2017 LAURA RUSSELL MD Ot I25.10 ATHSCL HEART DISEASE OF [place] CORONARY 02/18/2017 LAURA RUSSELL MD Ot K21.9 GASTRO-ESOPHAGEAL REFLUX DISEASE WITHOUT 02/18/2017 LAURA RUSSELL MD Ot N39.0 URINARY TRACT INFECTION, SITE NOT SPECIF 02/18/2017 LAURA RUSSELL MD J Ot Z95.1 PRESENCE OF AORTOCORONARY BYPASS GRAFT 02/18/2017 LAURA RUSSELL MD Ot Z95.5 PRESENCE OF CORONARY ANGIOPLASTY IMPLANT 02/20/2017 LAURA RUSSELL MD Ot 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 02/20/2017 LAURA RUSSELL MD Ot E78.00 PURE HYPERCHOLESTEROLEMIA, UNSPECIFIED 02/20/2017 LAURA RUSSELL MD Ot F32.9 MAJOR DEPRESSIVE DISORDER, SINGLE EPISOD 02/20/2017 LAURA RUSSELL MD Ot F41.9 ANXIETY DISORDER, UNSPECIFIED 02/20/2017 LAURA RUSSELL MD Ot I10 ESSENTIAL (PRIMARY) HYPERTENSION 02/20/2017 LAURA RUSSELL MD Ot I25.10 ATHSCL HEART DISEASE OF [place] CORONARY 02/20/2017 LAURA RUSSELL MD Ot K21.9 GASTRO-ESOPHAGEAL REFLUX DISEASE WITHOUT 02/20/2017 LAURA RUSSELL MD Ot N39.0 URINARY TRACT INFECTION, SITE NOT SPECIF 02/20/2017 LAURA RUSSELL MD Ot Z95.1 PRESENCE OF AORTOCORONARY BYPASS GRAFT 02/20/2017 LAURA RUSSELL MD Ot Z95.5 PRESENCE OF CORONARY ANGIOPLASTY IMPLANT 02/23/2017 LAURA RUSSELL MD J Ot 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 02/23/2017 LAURA RUSSELL MD J Ot E78.00 PURE HYPERCHOLESTEROLEMIA, UNSPECIFIED 02/23/2017 LAURA RUSSELL MD Ot F32.9 MAJOR DEPRESSIVE DISORDER, SINGLE EPISOD 02/23/2017 LAURA RUSSELL MD Ot F41.9 ANXIETY DISORDER, UNSPECIFIED 02/23/2017 LAURA RUSSELL MD Ot I10 ESSENTIAL (PRIMARY) HYPERTENSION 02/23/2017 LAURA RUSSELL MD, Ot I25.10 ATHSCL HEART DISEASE OF [place] CORONARY 02/23/2017 LAURA RUSSELL MD, Ot K21.9 GASTRO-ESOPHAGEAL REFLUX DISEASE WITHOUT 02/23/2017 LAURA RUSSELL MD, Ot N39.0 URINARY TRACT INFECTION, SITE NOT SPECIF 02/23/2017 LAURA RUSSELL MD, Ot Z95.1 PRESENCE OF AORTOCORONARY BYPASS GRAFT 02/23/2017 LAURA RUSSELL MD, Ot Z95.5 PRESENCE OF CORONARY ANGIOPLASTY IMPLANT Procedures Code Description Performed By Performed On 37.22 LEFT HEART CARDIAC CATH 07/09/2012 88.42 CONTRAST AORTOGRAM 07/09/2012 88.53 LT HEART ANGIOCARDIOGRAM 07/09/2012 88.56 CORONAR ARTERIOGR-2 CATH 07/09/2012 81.52 PARTIAL HIP REPLACEMENT 02/05/2014 Results Test Result Range Complete blood count (CBC) with automated white blood cell (WBC) differential - 10/21/15 15:40 Blood leukocytes automated count (number/volume) 6.4 10*3/uL 4.3-11.0 Blood erythrocytes automated count (number/volume) 4.22 10*6/uL 4.35-5.85 Venous blood hemoglobin measurement (mass/volume) 12.2 g/dL 11.5-16.0 Blood hematocrit (volume fraction) 36 % 35-52 Automated erythrocyte mean corpuscular volume 86 [foz_us] 80-99 Automated erythrocyte mean corpuscular hemoglobin (mass per erythrocyte) 29 pg 25-34 Automated erythrocyte mean corpuscular hemoglobin concentration measurement ( mass/volume) 34 g/dL 32-36 Automated erythrocyte distribution width ratio 14.0 % 10.0-14.5 Automated blood platelet count (count/volume) 195 10*3/uL 130-400 Automated blood platelet mean volume measurement 9.4 [foz_us] 7.4-10.4 Automated blood neutrophils/100 leukocytes 66 % 42-75 Automated blood lymphocytes/100 leukocytes 23 % 12-44 Blood monocytes/100 leukocytes 7 % 0-12 Automated blood eosinophils/100 leukocytes 4 % 0-10 Automated blood basophils/100 leukocytes 1 % 0-10 Blood neutrophils automated count (number/volume) 4.2 10*3 1.8-7.8 Blood lymphocytes automated count (number/volume) 1.4 10*3 1.0-4.0 Blood monocytes automated count (number/volume) 0.4 10*3 0.0-1.0 Automated eosinophil count 0.3 10*3/uL 0.0-0.3 Automated blood basophil count (count/volume) 0.0 10*3/uL 0.0-0.1 Comprehensive metabolic panel - 10/21/15 15:40 Serum or plasma sodium measurement (moles/volume) 141 mmol/L 135-145 Serum or plasma potassium measurement (moles/volume) 4.0 mmol/L 3.6-5.0 Serum or plasma chloride measurement (moles/volume) 108 mmol/L 98-107 Carbon dioxide 27 mmol/L 21-32 Serum or plasma anion gap determination (moles/volume) 6 mmol/L 5-14 Serum or plasma urea nitrogen measurement (mass/volume) 10 mg/dL 7-18 Serum or plasma creatinine measurement (mass/volume) 0.72 mg/dL 0.60-1.30 Serum or plasma urea nitrogen/creatinine mass ratio 14 NRG Serum or plasma creatinine measurement with calculation of estimated glomerular filtration rate > NRG Serum or plasma glucose measurement (mass/volume) 158 mg/dL 70-105 Serum or plasma calcium measurement (mass/volume) 9.1 mg/dL 8.5-10.1 Serum or plasma total bilirubin measurement (mass/volume) 0.4 mg/dL 0.1-1.0 Serum or plasma alkaline phosphatase measurement (enzymatic activity/volume) 56 U/L 40-136 Serum or plasma aspartate aminotransferase measurement (enzymatic activity/ volume) 13 U/L 5-34 Serum or plasma alanine aminotransferase measurement (enzymatic activity/volume ) 12 U/L 0-55 Serum or plasma protein measurement (mass/volume) 6.1 g/dL 6.4-8.2 Serum or plasma albumin measurement (mass/volume) 3.8 g/dL 3.2-4.5 Magnesium - 10/21/15 15:40 Magnesium 2.1 mg/dL 1.8-2.4 Serum or plasma troponin i.cardiac measurement (mass/volume) - 10/21/15 15:40 Serum or plasma troponin i.cardiac measurement (mass/volume) < ng/ mL <0.30 Myoglobin, serum - 10/21/15 15:40 Myoglobin, serum 24.5 ng/mL 10.0-92.0 PT panel in platelet poor plasma by coagulation assay - 10/21/15 15:40 Prothrombin time (PT) in platelet poor plasma by coagulation assay 14.1 s 12.2-14.7 INR in platelet poor plasma or blood by coagulation assay 1.1 0.8-1.4 Activated partial thromboplastin time (aPTT) in platelet poor plasma bycoagulation assay - 10/21/15 15:40 Activated partial thromboplastin time (aPTT) in platelet poor plasma bycoagulation assay 27 s 24-35 Serum or plasma creatine kinase measurement (enzymatic activity/volume) - 10/21 02:38 Serum or plasma creatine kinase measurement (enzymatic activity/volume) 22 U/L 29-168 Serum or plasma troponin i.cardiac measurement (mass/volume) - 10/22/15 02:38 Serum or plasma troponin i.cardiac measurement (mass/volume) < ng/ mL <0.30 Lipid 1996 panel - 10/22/15 02:38 Serum or plasma triglyceride measurement (mass/volume) 140 mg/dL <150 Serum or plasma cholesterol measurement (mass/volume) 208 mg/dL < 200 Serum or plasma cholesterol in HDL measurement (mass/volume) 39 mg/ dL 40-60 Cholesterol in LDL [mass/volume] in serum or plasma by direct assay 152 mg/dL 1-129 Serum or plasma cholesterol in VLDL measurement (mass/volume) 28 mg/ dL 5-40 Complete blood count (CBC) with automated white blood cell (WBC) differential - 11/05/16 21:35 Blood leukocytes automated count (number/volume) 6.7 10*3/uL 4.3-11.0 Blood erythrocytes automated count (number/volume) 4.38 10*6/uL 4.35-5.85 Venous blood hemoglobin measurement (mass/volume) 12.4 g/dL 11.5-16.0 Blood hematocrit (volume fraction) 38 % 35-52 Automated erythrocyte mean corpuscular volume 87 [foz_us] 80-99 Automated erythrocyte mean corpuscular hemoglobin (mass per erythrocyte) 28 pg 25-34 Automated erythrocyte mean corpuscular hemoglobin concentration measurement ( mass/volume) 33 g/dL 32-36 Automated erythrocyte distribution width ratio 13.8 % 10.0-14.5 Automated blood platelet count (count/volume) 169 10*3/uL 130-400 Automated blood platelet mean volume measurement 9.5 [foz_us] 7.4-10.4 Automated blood neutrophils/100 leukocytes 71 % 42-75 Automated blood lymphocytes/100 leukocytes 17 % 12-44 Blood monocytes/100 leukocytes 8 % 0-12 Automated blood eosinophils/100 leukocytes 4 % 0-10 Automated blood basophils/100 leukocytes 1 % 0-10 Blood neutrophils automated count (number/volume) 4.7 10*3 1.8-7.8 Blood lymphocytes automated count (number/volume) 1.1 10*3 1.0-4.0 Blood monocytes automated count (number/volume) 0.5 10*3 0.0-1.0 Automated eosinophil count 0.3 10*3/uL 0.0-0.3 Automated blood basophil count (count/volume) 0.1 10*3/uL 0.0-0.1 Comprehensive metabolic panel - 11/05/16 21:35 Serum or plasma sodium measurement (moles/volume) 142 mmol/L 135-145 Serum or plasma potassium measurement (moles/volume) 4.2 mmol/L 3.6-5.0 Serum or plasma chloride measurement (moles/volume) 107 mmol/L 98-107 Carbon dioxide 21 mmol/L 21-32 Serum or plasma anion gap determination (moles/volume) 14 mmol/L 5-14 Serum or plasma urea nitrogen measurement (mass/volume) 9 mg/dL 7-18 Serum or plasma creatinine measurement (mass/volume) 0.65 mg/dL 0.60-1.30 Serum or plasma urea nitrogen/creatinine mass ratio 14 NRG Serum or plasma creatinine measurement with calculation of estimated glomerular filtration rate > NRG Serum or plasma glucose measurement (mass/volume) 104 mg/dL 70-105 Serum or plasma calcium measurement (mass/volume) 9.6 mg/dL 8.5-10.1 Serum or plasma total bilirubin measurement (mass/volume) 0.5 mg/dL 0.1-1.0 Serum or plasma alkaline phosphatase measurement (enzymatic activity/volume) 64 U/L 40-136 Serum or plasma aspartate aminotransferase measurement (enzymatic activity/ volume) 21 U/L 5-34 Serum or plasma alanine aminotransferase measurement (enzymatic activity/volume ) 15 U/L 0-55 Serum or plasma protein measurement (mass/volume) 7.0 g/dL 6.4-8.2 Serum or plasma albumin measurement (mass/volume) 4.1 g/dL 3.2-4.5 Serum or plasma C reactive protein measurement (mass/volume) - 11/05/16 21:35 Serum or plasma C reactive protein measurement (mass/volume) 0.16 mg /dL 0.00-0.50 Complete urinalysis with reflex to culture - 02/17/17 23:03 Urine color determination YELLOW NRG Urine clarity determination VERY CLOUDY NRG Urine pH measurement by test strip 5 5-9 Specific gravity of urine by test strip 1.030 1.016- 1.022 Urine protein assay by test strip, semi-quantitative 2+ NEGATIVE Urine glucose detection by automated test strip NEGATIVE NEGATIVE Erythrocytes detection in urine sediment by light microscopy 2+ NEGATIVE Urine ketones detection by automated test strip 1+ NEGATIVE Urine nitrite detection by test strip NEGATIVE NEGATIVE Urine total bilirubin detection by test strip 1+ NEGATIVE Urine urobilinogen measurement by automated test strip (mass/volume) 4 mg/dL NORMAL Urine leukocyte esterase detection by dipstick 3+ NEGATIVE Automated urine sediment erythrocyte count by microscopy (number/high power field) [HPF] NRG Automated urine sediment leukocyte count by microscopy (number/high power field ) TNTC NRG Bacteria detection in urine sediment by light microscopy MODERATE NRG Squamous epithelial cells detection in urine sediment by light microscopy 10-25 NRG Crystals detection in urine sediment by light microscopy NONE NRG Casts detection in urine sediment by light microscopy NONE NRG Mucus detection in urine sediment by light microscopy MODERATE NRG Complete urinalysis with reflex to culture YES NRG Bacterial urine culture - 02/17/17 23:03 URINE CULTURE RESULTS MORE THAN 3 ISOLATES NRG Complete blood count (CBC) with automated white blood cell (WBC) differential - 02/17/17 23:10 Blood leukocytes automated count (number/volume) 6.0 10*3/uL 4.3-11.0 Blood erythrocytes automated count (number/volume) 3.94 10*6/uL 4.35-5.85 Venous blood hemoglobin measurement (mass/volume) 11.4 g/dL 11.5-16.0 Blood hematocrit (volume fraction) 35 % 35-52 Automated erythrocyte mean corpuscular volume 88 [foz_us] 80-99 Automated erythrocyte mean corpuscular hemoglobin (mass per erythrocyte) 29 pg 25-34 Automated erythrocyte mean corpuscular hemoglobin concentration measurement ( mass/volume) 33 g/dL 32-36 Automated erythrocyte distribution width ratio 13.8 % 10.0-14.5 Automated blood platelet count (count/volume) 142 10*3/uL 130-400 Automated blood platelet mean volume measurement 9.3 [foz_us] 7.4-10.4 Automated blood neutrophils/100 leukocytes 67 % 42-75 Automated blood lymphocytes/100 leukocytes 20 % 12-44 Blood monocytes/100 leukocytes 8 % 0-12 Automated blood eosinophils/100 leukocytes 4 % 0-10 Automated blood basophils/100 leukocytes 0 % 0-10 Blood neutrophils automated count (number/volume) 4.0 10*3 1.8-7.8 Blood lymphocytes automated count (number/volume) 1.2 10*3 1.0-4.0 Blood monocytes automated count (number/volume) 0.5 10*3 0.0-1.0 Automated eosinophil count 0.2 10*3/uL 0.0-0.3 Automated blood basophil count (count/volume) 0.0 10*3/uL 0.0-0.1 Comprehensive metabolic panel - 02/17/17 23:10 Serum or plasma sodium measurement (moles/volume) 141 mmol/L 135-145 Serum or plasma potassium measurement (moles/volume) 3.8 mmol/L 3.6-5.0 Serum or plasma chloride measurement (moles/volume) 107 mmol/L 98-107 Carbon dioxide 27 mmol/L 21-32 Serum or plasma anion gap determination (moles/volume) 7 mmol/L 5-14 Serum or plasma urea nitrogen measurement (mass/volume) 9 mg/dL 7-18 Serum or plasma creatinine measurement (mass/volume) 0.68 mg/dL 0.60-1.30 Serum or plasma urea nitrogen/creatinine mass ratio 13 NRG Serum or plasma creatinine measurement with calculation of estimated glomerular filtration rate > NRG Serum or plasma glucose measurement (mass/volume) 120 mg/dL 70-105 Serum or plasma calcium measurement (mass/volume) 8.8 mg/dL 8.5-10.1 Serum or plasma total bilirubin measurement (mass/volume) 0.4 mg/dL 0.1-1.0 Serum or plasma alkaline phosphatase measurement (enzymatic activity/volume) 65 U/L 40-136 Serum or plasma aspartate aminotransferase measurement (enzymatic activity/ volume) 49 U/L 5-34 Serum or plasma alanine aminotransferase measurement (enzymatic activity/volume ) 23 U/L 0-55 Serum or plasma protein measurement (mass/volume) 6.3 g/dL 6.4-8.2 Serum or plasma albumin measurement (mass/volume) 3.8 g/dL 3.2-4.5 Blood lactic acid measurement (moles/volume) - 02/18/17 00:36 Blood lactic acid measurement (moles/volume) 1.24 mmol/L 0.50-2.00 Complete blood count (CBC) with automated white blood cell (WBC) differential - 04/27/17 22:06 Blood leukocytes automated count (number/volume) 6.8 10*3/uL 4.3-11.0 Blood erythrocytes automated count (number/volume) 4.25 10*6/uL 4.35-5.85 Venous blood hemoglobin measurement (mass/volume) 12.6 g/dL 11.5-16.0 Blood hematocrit (volume fraction) 37 % 35-52 Automated erythrocyte mean corpuscular volume 88 [foz_us] 80-99 Automated erythrocyte mean corpuscular hemoglobin (mass per erythrocyte) 30 pg 25-34 Automated erythrocyte mean corpuscular hemoglobin concentration measurement ( mass/volume) 34 g/dL 32-36 Automated erythrocyte distribution width ratio 14.1 % 10.0-14.5 Automated blood platelet count (count/volume) 139 10*3/uL 130-400 Automated blood platelet mean volume measurement 10.1 [foz_us] 7.4-10.4 Automated blood neutrophils/100 leukocytes 82 % 42-75 Automated blood lymphocytes/100 leukocytes 7 % 12-44 Blood monocytes/100 leukocytes 9 % 0-12 Automated blood eosinophils/100 leukocytes 2 % 0-10 Automated blood basophils/100 leukocytes 0 % 0-10 Blood neutrophils automated count (number/volume) 5.6 10*3 1.8-7.8 Blood lymphocytes automated count (number/volume) 0.5 10*3 1.0-4.0 Blood monocytes automated count (number/volume) 0.6 10*3 0.0-1.0 Automated eosinophil count 0.1 10*3/uL 0.0-0.3 Automated blood basophil count (count/volume) 0.0 10*3/uL 0.0-0.1 Comprehensive metabolic panel - 04/27/17 22:06 Serum or plasma sodium measurement (moles/volume) 140 mmol/L 135-145 Serum or plasma potassium measurement (moles/volume) 4.3 mmol/L 3.6-5.0 Serum or plasma chloride measurement (moles/volume) 105 mmol/L 98-107 Carbon dioxide 24 mmol/L 21-32 Serum or plasma anion gap determination (moles/volume) 11 mmol/L 5-14 Serum or plasma urea nitrogen measurement (mass/volume) 13 mg/dL 7-18 Serum or plasma creatinine measurement (mass/volume) 0.72 mg/dL 0.60-1.30 Serum or plasma urea nitrogen/creatinine mass ratio 18 NRG Serum or plasma creatinine measurement with calculation of estimated glomerular filtration rate > NRG Serum or plasma glucose measurement (mass/volume) 146 mg/dL 70-105 Serum or plasma calcium measurement (mass/volume) 9.1 mg/dL 8.5-10.1 Serum or plasma total bilirubin measurement (mass/volume) 0.8 mg/dL 0.1-1.0 Serum or plasma alkaline phosphatase measurement (enzymatic activity/volume) 70 U/L 40-136 Serum or plasma aspartate aminotransferase measurement (enzymatic activity/ volume) 22 U/L 5-34 Serum or plasma alanine aminotransferase measurement (enzymatic activity/volume ) 19 U/L 0-55 Serum or plasma protein measurement (mass/volume) 6.8 g/dL 6.4-8.2 Serum or plasma albumin measurement (mass/volume) 4.1 g/dL 3.2-4.5 Magnesium - 04/27/17 22:06 Magnesium 2.1 mg/dL 1.8-2.4 PT panel in platelet poor plasma by coagulation assay - 04/27/17 22:06 Prothrombin time (PT) in platelet poor plasma by coagulation assay 14.3 s 12.2-14.7 INR in platelet poor plasma or blood by coagulation assay 1.1 0.8-1.4 Activated partial thromboplastin time (aPTT) in platelet poor plasma bycoagulation assay - 04/27/17 22:06 Activated partial thromboplastin time (aPTT) in platelet poor plasma bycoagulation assay 25 s 24-35 Blood manual differential performed detection - 04/27/17 22:06 Blood monocytes/100 leukocytes 9 % NRG Manual blood segmented neutrophils/100 leukocytes 80 % NRG Blood band neutrophils/100 leukocytes 4 % NRG Manual blood lymphocytes/100 leukocytes 7 % NRG Manual eosinophils/100 leukocytes in nose 0 % NRG Manual blood basophils/100 leukocytes 0 % NRG Blood erythrocyte morphology finding identification NORMAL NRG Serum or plasma troponin i.cardiac measurement (mass/volume) - 04/27/17 22:06 Serum or plasma troponin i.cardiac measurement (mass/volume) < ng/ mL <0.30 Myoglobin, serum - 04/27/17 22:06 Myoglobin, serum 20.5 ng/mL 10.0-92.0 Influenza virus A and B antigen detection - 04/27/17 23:39 FLU RESULT NEGATIVE FOR INFLUENZA A AND B ANTIGENS BY IA NRG Complete urinalysis with reflex to culture - 04/27/17 23:45 Urine color determination YELLOW NRG Urine clarity determination CLEAR NRG Urine pH measurement by test strip 5 5-9 Specific gravity of urine by test strip 1.025 1.016- 1.022 Urine protein assay by test strip, semi-quantitative 1+ NEGATIVE Urine glucose detection by automated test strip NEGATIVE NEGATIVE Erythrocytes detection in urine sediment by light microscopy NEGATIVE NEGATIVE Urine ketones detection by automated test strip NEGATIVE NEGATIVE Urine nitrite detection by test strip NEGATIVE NEGATIVE Urine total bilirubin detection by test strip NEGATIVE NEGATIVE Urine urobilinogen measurement by automated test strip (mass/volume) NORMAL NORMAL Urine leukocyte esterase detection by dipstick 2+ NEGATIVE Automated urine sediment erythrocyte count by microscopy (number/high power field) NONE NRG Automated urine sediment leukocyte count by microscopy (number/high power field ) [HPF] NRG Bacteria detection in urine sediment by light microscopy FEW NRG Squamous epithelial cells detection in urine sediment by light microscopy 2-5 NRG Crystals detection in urine sediment by light microscopy NONE NRG Casts detection in urine sediment by light microscopy NONE NRG Mucus detection in urine sediment by light microscopy LARGE NRG Complete urinalysis with reflex to culture NO NRG Serum or plasma troponin i.cardiac measurement (mass/volume) - 04/28/17 01:30 Serum or plasma troponin i.cardiac measurement (mass/volume) < ng/ mL <0.30 Encounters ACCT No. Visit Date/Time Discharge Status Pt. Type Provider Facility Loc./Unit Complaint [id number] 02/17/2017 21:37:00 02/18/2017 01:22:00 DIS Emergency YVONNE AGUAYO, LAURA Rivero [facility] ER RIB AND STOMACH PAIN [id number] 11/05/2016 18:48:00 11/05/2016 23:16:00 DIS Emergency JOCELIN AGUAYO, ROGERIO Olmos [facility] ER BITE,SWELLING [id number] 10/04/2016 08:21:00 10/04/2016 23:59:59 CLS Outpatient NOEL AGUAYO FACC, WALE OMER CCDS [facility] LAB I25.10 I65.23 E11.9 E78.4 [id number] 10/21/2015 19:20:00 10/23/2015 10:15:00 DIS Inpatient WEST PHELAN MD [facility] 4TH BACK PAIN,CAD [id number] 09/22/2014 08:31:00 09/22/2014 23:59:59 CLS Outpatient SAURABH PARRY [employer]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 CAD,ANKLE EDEMA [id number] 08/15/2014 08:31:00 08/15/2014 23:59:59 CLS Outpatient SAURABH PARRY [facility] LAB CAD,CAROTID ARTERIAL DI,HTN,HLP [id number] 05/02/2014 13:30:00 05/02/2014 23:59:59 CLS Outpatient MATHEW SMALL [facility] REHAB L HIP FX [id number] 04/11/2014 10:09:00 04/11/2014 12:35:00 DIS Emergency 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 SYMPTOMS [id number] 02/24/2014 14:49:00 02/24/2014 23:59:59 CLS Outpatient WEST PHELAN MD [facility] LAB ANEMIA [id number] 02/21/2014 15:00:00 02/21/2014 23:59:59 CLS Outpatient WEST PHELAN MD [facility] HH ANTI COAG THERAPY [id number] 02/20/2014 15:00:00 02/20/2014 23:59:59 CLS Outpatient WEST PHELAN MD [facility] HH ANTICOAG THERAPY [id number] 02/05/2014 13:34:00 02/12/2014 13:32:00 DIS Inpatient CLAUDETTE RAO MD [facility] SURGICAL LEFT HIP FRACTURE [id number] 12/13/2013 19:00:00 12/13/2013 20:44:00 DIS Emergency PURNIMA HAM MD [facility] ER CP [id number] 08/21/2013 11:29:00 08/22/2013 10:20:00 DIS Inpatient NOEL AGUAYO FACC, WALE OMER CCDS [facility] CSD CHEST PAIN BACK PAIN CAD SILVESTRE [id number] 08/06/2013 12:16:00 08/06/2013 13:55:00 DIS Emergency ROXI AGUILERA DO [facility] ER LEFT LEG PAIN [id number] 06/03/2013 16:08:00 06/03/2013 18:02:00 DIS Emergency WILLIE THOMAS MD [facility] ER FALL/HEAD TRAUMA [id number] 04/11/2013 09:15:00 04/11/2013 23:59:59 CLS Outpatient SAURABH PARRY [facility] LAB HYPERLIPADEMIA [id number] 01/26/2013 06:46:00 01/26/2013 23:59:59 CLS Emergency [id number] 01/25/2013 20:15:00 01/26/2013 01:04:00 DIS Emergency BETTIE ANDERSON [facility] ER FELL R SHOULDER PAIN AND NECK PAIN [id number] 01/23/2013 14:21:00 01/23/2013 17:10:00 DIS Emergency EILEEN FLORIAN APRN [facility] ER FALL/RIGHT SHOULDER PAIN [id number] 12/26/2012 09:29:00 12/26/2012 23:59:59 CLS Outpatient SAURABH PARRY [facility] LAB CAD,HLP [id number] 11/02/2012 16:17:00 11/02/2012 19:00:00 DIS Emergency BETTIE ANDERSON [facility] ER CP [id number] 11/01/2012 22:45:00 11/02/2012 00:30:00 DIS Emergency PURNIMA HAM MD [facility] ER BILAT LEG PAIN [id number] 10/28/2012 14:42:00 10/28/2012 15:42:00 DIS Emergency WILLY MOLINA ROXI K [facility] ER PAIN IN BOTH LEGS [id number] 09/03/2012 13:51:00 09/25/2012 15:13:00 DIS Outpatient COLE AGUAYO, GREG Odonnell [facility] 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 [id number] 09/07/2012 14:44:00 09/07/2012 17:21:00 DIS Emergency SANDEEP AMOR MD [facility] ER CP [id number] 08/31/2012 14:20:00 08/31/2012 23:59:59 CLS Outpatient SAURABH PARRY [facility] RAD HX OF DVT, RLE EDEMA [id number] 07/16/2012 08:14:00 07/16/2012 23:59:59 CLS Outpatient SAURABH PARRY [facility] LAB HYPOMAGNESIUM [id number] 04/27/2017 22:48:00 Document Registration [id number] 02/26/2014 09:53:00 Document Registration [id number] 02/26/2014 09:53:00 Document Registration [id number] 02/26/2014 09:53:00 Document Registration [id number] 02/26/2014 09:53:00 Document Registration [id number] 02/26/2014 09:53:00 Document Registration [id number] 02/26/2014 09:52:00 Document Registration [id number] 02/26/2014 09:52:00 Document Registration [id number] 02/26/2014 09:52:00 Document Registration [id number] 02/26/2014 09:52:00 Document Registration [id number] 02/26/2014 09:52:00 Document Registration [id number] 02/26/2014 09:52:00 Document Registration [id number] 02/26/2014 09:52:00 Document Registration [id number] 07/09/2012 10:15:00 Document Registration [id number] 05/03/2012 08:04:00 Document Registration [id number] 04/29/2012 17:40:00 Document Registration [id number] 12/02/2011 08:11:00 Document Registration [id number] 12/01/2011 11:55:00 Document Registration [id number] 11/01/2011 08:51:00 Document Registration [id number] 09/06/2011 13:28:00 Document Registration [id number] 08/24/2011 15:00:00 Document Registration [id number] 08/19/2011 08:39:00 Document Registration [id number] 07/20/2011 22:30:00 Document Registration [id number] 06/14/2011 09:54:00 Document Registration [id number] 06/02/2011 17:00:00 Document Registration [id number] 03/09/2011 17:25:00 Document Registration [id number] 03/03/2011 09:10:00 Document Registration [id number] 02/07/2011 12:24:00 Document Registration [id number] 02/04/2011 23:15:00 Document Registration [id number] 01/03/2011 11:27:00 Document Registration [id number] 12/28/2010 11:05:00 Document Registration [id number] 12/12/2010 20:35:00 Document Registration [id number] 12/07/2010 09:08:00 Document Registration [id number] 11/12/2010 16:52:00 Document Registration [id number] 11/11/2010 14:17:00 Document Registration [id number] 09/26/2010 07:52:00 Document Registration [id number] 09/09/2010 09:17:00 Document Registration [id number] 08/13/2010 09:40:00 Document Registration [id number] 08/04/2010 19:13:00 Document Registration [id number] 06/06/2010 20:40:00 Document Registration [id number] 06/02/2010 09:02:00 Document Registration [id number] 03/16/2010 09:21:00 Document Registration [id number] 03/07/2010 11:57:00 Document Registration [id number] 01/24/2010 19:06:00 Document Registration [id number] 12/23/2009 15:08:00 Document Registration [id number] 12/06/2009 09:11:00 Document Registration [id number] 12/04/2009 08:26:00 Document Registration [id number] 09/25/2009 14:09:00 Document Registration [id number] 09/16/2009 20:06:00 Document Registration [id number] 08/31/2009 12:05:00 Document Registration [id number] 08/28/2009 18:33:00 Document Registration [id number] 08/14/2009 19:02:00 Document Registration [id number] 07/01/2009 13:50:00 Document Registration [id number] 09/10/2008 09:34:00 Document Registration
== END 2017-04-28 03:30 | disposition home or self-care (01) ==
LOC: EDUNIT# 20:30 → ER 20:32
DX: R07.9 Chest pain, unspecified (principal); R11.2 Nausea with vomiting, unspecified; R50.9 Fever, unspecified; I25.10 Atherosclerotic heart disease of native coronary artery without angina pectoris; I25.2 Old myocardial infarction; E78.00 Pure hypercholesterolemia, unspecified; I10 Essential (primary) hypertension; K21.9 Gastro-esophageal reflux disease without esophagitis; E11.40 Type 2 diabetes mellitus with diabetic neuropathy, unspecified; F41.9 Anxiety disorder, unspecified; F32.9 Major depressive disorder, single episode, unspecified; Z88.0 Allergy status to penicillin; Z88.5 Allergy status to narcotic agent; Z86.011 Personal history of benign neoplasm of the brain; Z82.49 Family history of ischemic heart disease and other diseases of the circulatory system; Z88.8 Allergy status to other drugs, medicaments and biological substances; Z79.82 Long term (current) use of aspirin; Z95.1 Presence of aortocoronary bypass graft; Z95.5 Presence of coronary angioplasty implant and graft
CPT/HCPCS: 36415; 71045; 80053; 81000; 83735; 83874; 84484; 85007; 85027; 85610; 85730; 87804; 93005; 93041; 96374

== ENCOUNTER 2017-07-03 12:37 | Emergency (ER) | payer MEDICARE ==
[~2017-07-03] VITALS: Ht 170.2 cm; Wt 66.7 kg
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
[2017-07-03] MEDS ORDERED: KETOROLAC 30 MG/ML VIAL IVP ONE (13:00)
[2017-07-03 13:21] LABS: BASOPHILS % (AUTO) 0 % (0-10); EOSINOPHILS # (AUTO) 0.2 10^3/uL (0.0-0.3); EOSINOPHILS % (AUTO) 4 % (0-10); HEMATOCRIT 33 % (35-52); HEMOGLOBIN 10.7 G/DL (11.5-16.0); LYMPHOCYTES # (AUTO) 0.8 X 10^3 (1.0-4.0); LYMPHOCYTES % (AUTO) 15 % (12-44); MEAN CORPUSCULAR HEMOGLOBIN 29 PG (25-34); MEAN CORPUSCULAR HGB CONC 33 G/DL (32-36); MEAN CORPUSCULAR VOLUME 88 FL (80-99); MEAN PLATELET VOLUME 8.9 FL (7.4-10.4); MONOCYTES # (AUTO) 0.5 X 10^3 (0.0-1.0); MONOCYTES % (AUTO) 8 % (0-12); NEUTROPHILS # (AUTO) 4.1 X 10^3 (1.8-7.8); NEUTROPHILS % (AUTO) 72 % (42-75); PLATELET COUNT 165 10^3/uL (130-400); RED BLOOD COUNT 3.68 10^6/uL (4.35-5.85); WHITE BLOOD COUNT 5.6 10^3/uL (4.3-11.0)
--- NOTE | 2017-07-03 13:30 | Diagnostic Imaging Report ---
INDICATION: Bilateral rib pain, no known injury. PA and lateral chest obtained at 141 hours p.m. and compared to 04/27/2017. There is cardiomegaly and post sternotomy change. There is mild central vascular prominence. There is perhaps some minimal infiltrate in the right base. Left lung is clear. There is no pneumothorax or pleural fluid. IMPRESSION: Cardiomegaly and post sternotomy change. No pneumothorax or pleural fluid. Questioned minimal infiltrate in right base. There is no overt bony abnormality. Dictated by: Dictated on workstation # [id number]
[2017-07-03 13:33] LABS: INR 1.1 (0.8-1.4); PROTHROMBIN TIME PATIENT 14.4 SEC (12.2-14.7)
[2017-07-03 13:42] LABS: ALANINE AMINOTRANSFERASE 23 U/L (0-55); ALBUMIN 3.7 GM/DL (3.2-4.5); ALKALINE PHOSPHATASE 62 U/L (40-136); BILIRUBIN,TOTAL 0.4 MG/DL (0.1-1.0); BUN/CREATININE RATIO 19; CALCIUM 8.8 MG/DL (8.5-10.1); CARBON DIOXIDE 27 MMOL/L (21-32); CHLORIDE 106 MMOL/L (98-107); CREATININE SERUM 0.63 MG/DL (0.60-1.30); GFR ESTIMATED > 60; GLUCOSE 174 MG/DL (70-105); MAGNESIUM 1.9 MG/DL (1.8-2.4); SODIUM 139 MMOL/L (135-145); TOTAL PROTEIN 5.9 GM/DL (6.4-8.2)
[2017-07-03 13:48] LABS: MYOGLOBIN SERUM 23.1 NG/ML (10.0-92.0)
--- NOTE | 2017-07-03 14:26 | ED Chest Pain ---
General Chief Complaint: Chest Wall/Rib Pain Stated Complaint: BILAT RIB PAIN Nursing Triage Note: ARRIVED VIA WC TO ROOM 07. 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 PT TOOK A PERCOCET AROUND 0930 FOR OTHER PAIN ISSUES. Nursing Sepsis Screen: No Definite Risk Source: patient, old records Exam Limitations: no limitations History of Present Illness Date Seen by Provider: Jul 03, 2017 Time Seen by Provider: 12:50 Initial Comments This 76-year-old woman presents to the emergency room with complaints of bilateral lower chest wall pain which she identifies as "rib pain". She describes a condition in which her ribs at the costal margins invert and cause her pain. She has increasing pain with movement of the torso and deep breathing. Patient also has history of coronary artery disease and CABG. Dr. Covarrubias is her operations and intelligence assistant and she saw him this morning. She follows closely with cardiology. Pain started about 20 minutes prior to arrival. She describes it as a squeezing sensation and rates it as a 9 out of 10. She took Percocet this morning around 09:30 but has not taken anything else. The affected area is tender to the touch bilaterally. She denies any cough or shortness of breath. She states this pain is distinctly different than cardiac pain she has had in the past. Allergies and Home Medications Allergies Coded Allergies: Penicillins (Verified Allergy, Unknown, 05/12/05) morphine (Verified Allergy, Unknown, TAKES PERCOCET @ HOME, 10/22/15) CAUSES SKIN TO COME OFF FINGERS tetracycline (Verified Allergy, Unknown, 05/12/05) hydromorphone (Unverified Adverse Reaction, Unknown, STATES QUIT BREATHING , TAKES PERCOCET AT HOME, 10/22/15) Uncoded Allergies: PAPER TAPE (Allergy, Mild, 07/28/08) Home Medications Alprazolam 0.5 Mg Tablet, 0.5 MG PO TID Prescribed by: MURIEL PHELAN on 10/23/15 0736 Aspirin 81 Mg Tablet., 81 MG PO BID, (Reported) Atorvastatin Calcium 10 Mg Tablet, 10 MG PO DAILY Prescribed by: MURIEL PHELAN on 10/23/15 0707 Carvedilol 12.5 Mg Tablet, 12.5 MG PO BID, (Reported) Cephalexin 500 Mg Tablet, 500 MG PO BID Prescribed by: LAURA RUSSELL on 02/18/17 0105 Clopidogrel Bisulfate 75 Mg Tablet, 75 MG PO DAILY, (Reported) Doxazosin Mesylate 2 Mg Tablet, 2 MG PO HS, (Reported) Etodolac 400 Mg Tablet, 400 MG PO BID PRN for MUSCLE SPASMS, (Reported) Linagliptin 5 Mg Tablet, 5 MG PO DAILY, (Reported) Lisinopril 10 Mg Tablet, 10 MG PO DAILY, (Reported) Magnesium Oxide 400 Mg Capsule, 400 MG PO HS, (Reported) Nitroglycerin 0.4 Mg Tab, 0 SL UD PRN for CHEST PAIN, (Reported) 1 TABLET EVERY 5 MINUTES X 3 DOSES NEEDED FOR CHEST PAIN [place]-3 Fatty Acids/Fish Oil 1 Each Capsule, 1,000 MG PO DAILY, (Reported) Oxycodone HCl/Acetaminophen 1 Each Tablet, 1 TAB PO QID, (Reported) Potassium Chloride 10 Meq Capsule.er, 10 MEQ PO DAILY, (Reported) Patient Home Medication List Home Medication List Reviewed: Yes Review of Systems Constitutional: no symptoms reported EENTM: No Symptoms Reported Respiratory: See HPI Cardiovascular: No Symptoms Reported Gastrointestinal: No Symptoms Reported Genitourinary: No Symptoms Reported Musculoskeletal: see HPI Skin: no symptoms reported Psychiatric/Neurological: No Symptoms Reported Endocrine: No Symptoms Reported Past Uyeyfki-Walsxh-Zpqtof Hx Patient Social History Alcohol Use: Denies Use Recreational Drug Use: No Smoking Status: Never a Smoker 2nd Hand Smoke Exposure: No Recent Foreign Travel: No Contact w/Someone Who Travel: No Recent Infectious Disease Expo: No Recent Hopitalizations: No Immunizations Up To Date PED Vaccines UTD: Yes Date of Pneumonia Vaccine: Dec 20, 2016 Date of Influenza Vaccine: Dec 20, 2016 Seasonal Allergies Seasonal Allergies: No Past Medical History Surgeries: Yes (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) CABG, Coronary Stent, Gallbladder, Joint Replacement, Orthopedic Respiratory: No Currently Using CPAP: No Currently Using BIPAP: No Cardiac: Yes (CABG,STENTS) Coronary Artery Disease, Heart Attack, High Cholesterol, Hypertension Neurological: Yes (PERIPHERAL NEUROPATHY) Neuropathy Reproductive Disorders: No Sexually Transmitted Disease: No HIV/AIDS: No Genitourinary: No Gastrointestinal: Yes Gastroesophageal Reflux Musculoskeletal: Yes (NECK FX WITH TENDON SPASMS) Arthritis, Chronic Back Pain, Spasms Endocrine: Yes Diabetes, Non-Insulin dep HEENT: Yes Cataract Hearing Impairment: Denies Cancer: No (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) 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) Anxiety, Depression Integumentary: No Blood Disorders: Yes (Vit D deficiency) Adverse Reaction/Blood Tranf: Yes Family Medical History Congestive heart failure 19 MOTHER Family history: Cardiovascular disease Family history: Diabetes mellitus 19 MOTHER Family history: Hypertension 19 FATHER No Pertinent Family Hx Physical Exam Vital Signs Vital Signs - First Documented 07/03/17 12:40 Temp 97.8 Pulse 53 Resp 18 B/P (MAP) 170/76 (107) Pulse Ox 100 O2 Delivery Room Air Capillary Refill : Less Than 3 Seconds General Appearance: WD/WN, Mild Distress HEENT: PERRL/EOMI, Normal ENT Inspection Neck: Normal Inspection, Other (postsurgical changes posteriorly) Respiratory: Lungs Clear, Normal Breath Sounds, No Accessory Muscle Use, No Respiratory Distress, Other (anterior chest tender to palpation bilaterally at the costal margins) Cardiovascular: Regular Rate, Rhythm, No Edema, No Murmur Gastrointestinal: Normal Bowel Sounds, Non Tender, Soft Extremity: Normal Capillary Refill, Normal Inspection, No Pedal Edema Neurologic/Psychiatric: Alert, Oriented x3, No Motor/Sensory Deficits, Normal Mood/Affect, embedder II-XII Norm as Tested Skin: Normal Color, Warm/Dry Progress/Results/Core Measures Lab Results Laboratory Tests Test 07/03/17 13:15 Range/Units White Blood Count 5.6 4.3-11.0 10^3/uL Red Blood Count 3.68 L 4.35-5.85 10^6/uL Hemoglobin 10.7 L 11.5-16.0 G/DL Hematocrit 33 L 35-52 % Mean Corpuscular Volume 88 80-99 FL Mean Corpuscular Hemoglobin 29 25-34 PG Mean Corpuscular Hemoglobin Concent 33 32-36 G/DL Red Cell Distribution Width 14.0 10.0-14.5 % Platelet Count 165 130-400 10^3/uL Mean Platelet Volume 8.9 7.4-10.4 FL Neutrophils (%) (Auto) 72 42-75 % Lymphocytes (%) (Auto) 15 12-44 % Monocytes (%) (Auto) 8 0-12 % Eosinophils (%) (Auto) 4 0-10 % Basophils (%) (Auto) 0 0-10 % Neutrophils # (Auto) 4.1 1.8-7.8 X 10^3 Lymphocytes # (Auto) 0.8 L 1.0-4.0 X 10^3 Monocytes # (Auto) 0.5 0.0-1.0 X 10^3 Eosinophils # (Auto) 0.2 0.0-0.3 10^3/uL Basophils # (Auto) 0.0 0.0-0.1 10^3/uL Prothrombin Time 14.4 12.2-14.7 SEC INR Comment 1.1 0.8-1.4 Activated Partial Thromboplast Time 26 24-35 SEC Sodium Level 139 135-145 MMOL/L Potassium Level 4.0 3.6-5.0 MMOL/L Chloride Level 106 98-107 MMOL/L Carbon Dioxide Level 27 21-32 MMOL/L Anion Gap 6 5-14 MMOL/L Blood Urea Nitrogen 12 7-18 MG/DL Creatinine 0.63 0.60-1.30 MG/DL Estimat Glomerular Filtration Rate > 60 BUN/Creatinine Ratio 19 Glucose Level 174 H 70-105 MG/DL Calcium Level 8.8 8.5-10.1 MG/DL Magnesium Level 1.9 1.8-2.4 MG/DL Total Bilirubin 0.4 0.1-1.0 MG/DL Aspartate Amino Transf (AST/SGOT) 49 H 5-34 U/L Alanine Aminotransferase (ALT/SGPT) 23 0-55 U/L Alkaline Phosphatase 62 40-136 U/L Myoglobin 23.1 10.0-92.0 NG/ML Troponin I < 0.30 <0.30 NG/ML C-Reactive Protein High Sensitivity 0.19 0.00-0.50 MG/DL Total Protein 5.9 L 6.4-8.2 GM/DL Albumin 3.7 3.2-4.5 GM/DL My Orders Orders - ROGERIO MONREAL MD Cbc With Automated Diff (07/03/17 12:57) Magnesium (07/03/17 12:57) Ekg Tracing (07/03/17 12:57) Cardiac Profile 1 (07/03/17 12:57) Comprehensive Metabolic Panel (07/03/17 12:57) Myoglobin Serum (07/03/17 12:57) Protime With Inr (07/03/17 12:57) Partial Thromboplastin Time (07/03/17 12:57) Monitor-Rhythm Ecg Trace Only (07/03/17 12:57) Saline Lock/Iv-Start (07/03/17 12:57) Chest Pa/Lat (2 View) (07/03/17 12:57) Ketorolac Injection (Toradol Injection) (07/03/17 13:00) Hs C Reactive Protein (07/03/17 13:53) Medications Given in ED Vital Signs/I&O 07/03/17 07/03/17 12:40 14:40 Temp 97.8 Pulse 53 49 Resp 18 18 B/P (MAP) 170/76 (107) 132/57 Pulse Ox 100 96 O2 Delivery Room Air Room Air Blood Pressure Mean: 107 Progress Note : Progress Note The nature of patient's pain and exam suggested a musculoskeletal etiology. However, because of patient's history of coronary artery disease, troponin and EKG were also obtained. These were unremarkable. Toradol was given for pain and was effective. Chest x-ray showed some changes in the right lower lung. These were not felt to be pneumonia as she had no cough, fever, leukocytosis, or elevation in CRP. Patient was dismissed and advised to follow-up with her primary care team. She was advised to use naproxen or ibuprofen for this particular type of pain. Initial ECG Impression Date: Jul 03, 2017 Initial ECG Impression Time: 13:22 Initial ECG Rate: 50 Initial ECG Rhythm: Normal Sinus Initial ECG Intervals: Normal Initial ECG Impression: Normal Comment Normal sinus rhythm with no ST elevation or depression. No abnormal intervals or axis deviation. Automated read states left anterior fascicular block. Diagonstic Imaging: Xray Plain Films/CT/US/NM/MRI: chest Comments Chest x-ray viewed by me and report reviewed. Compared with prior. See report below: NAME: PERLITA PEREZ [email or web address] REC#: [id number] PT STATUS: DEP ER : 1940 PHYSICIAN: ROGERIO MONREAL MD ADMIT DATE: 07/03/17/ER Signed Date of Exam: 07/03/17 CHEST PA/LAT (2 VIEW) INDICATION: Bilateral rib pain, no known injury. PA and lateral chest obtained at 141 hours p.m. and compared to 04/27/2017. There is cardiomegaly and post sternotomy change. There is mild central vascular prominence. There is perhaps some minimal infiltrate in the right base. Left lung is clear. There is no pneumothorax or pleural fluid. IMPRESSION: Cardiomegaly and post sternotomy change. No pneumothorax or pleural fluid. Questioned minimal infiltrate in right base. There is no overt bony abnormality. Dictated by: Dictated on workstation # [id number] Dict: 07/03/17 1327 Trans: 07/03/17 1546 Interpreted by: DOREEN AMBROSIO MD Electronically signed by: DOREEN AMBROSIO MD 07/03/17 1546 Departure Impression Primary Impression: Chest wall pain Disposition: 01 HOME, SELF-CARE Condition: Improved Departure-Patient Inst. Decision time for Depature: 14:23 Referrals: WEST PHELAN MD (PCP/Family) Primary Care Physician Patient Instructions: Chest Pain That Is Not Caused by the Heart (DC) Add. Discharge Instructions: You may take an anti-inflammatory medication such as naproxen (Aleve) up to 500 mg twice daily or ibuprofen up to 600 mg every 6 hours. Take with food or milk to avoid irritation on your stomach. You may add your Percocet to these medications for additional pain relief. Follow-up with your primary care provider regarding your chest wall pain. Make an appointment as soon as possible. If you develop symptoms of pneumonia such as cough, fever, or shortness of breath, please return to care for further evaluation. All discharge instructions reviewed with patient and/or family. Voiced understanding. Copy Copies To 1: WALE COVARRUBIAS MD FACP [facility] CCDS Copies To 2: WEST PHELAN MD, JOSHUA T MD Jul 03, 2017 14:26
[2017-07-03 14:40] VITALS: BP 132/57
== END 2017-07-03 14:42 | disposition home or self-care (01) ==
LOC: EDUNIT# 12:37 → ER 12:39
DX: R07.89 Other chest pain (principal); I25.10 Atherosclerotic heart disease of native coronary artery without angina pectoris; I25.2 Old myocardial infarction; E78.00 Pure hypercholesterolemia, unspecified; I10 Essential (primary) hypertension; K21.9 Gastro-esophageal reflux disease without esophagitis; E11.42 Type 2 diabetes mellitus with diabetic polyneuropathy; F41.9 Anxiety disorder, unspecified; F32.9 Major depressive disorder, single episode, unspecified; Z95.1 Presence of aortocoronary bypass graft; Z88.0 Allergy status to penicillin; Z82.49 Family history of ischemic heart disease and other diseases of the circulatory system; Z88.5 Allergy status to narcotic agent; Z88.1 Allergy status to other antibiotic agents; Z91.048 Other nonmedicinal substance allergy status; Z79.82 Long term (current) use of aspirin; Z95.5 Presence of coronary angioplasty implant and graft
CPT/HCPCS: 36415; 71046; 80053; 83735; 83874; 84484; 85025; 85610; 85730; 86141; 93005; 93041; 96374

== ENCOUNTER → 2017-07-26 | Outpatient (CLI) | payer MEDICARE ==
[2017-07-26 08:57] LABS: BASOPHILS # (AUTO) 0.1 10^3/uL (0.0-0.1); BASOPHILS % (AUTO) 1 % (0-10); EOSINOPHILS # (AUTO) 0.5 10^3/uL (0.0-0.3); EOSINOPHILS % (AUTO) 8 % (0-10); HEMATOCRIT 37 % (35-52); LYMPHOCYTES # (AUTO) 1.3 X 10^3 (1.0-4.0); LYMPHOCYTES % (AUTO) 24 % (12-44); MEAN CORPUSCULAR HEMOGLOBIN 29 PG (25-34); MEAN CORPUSCULAR HGB CONC 33 G/DL (32-36); MEAN CORPUSCULAR VOLUME 90 FL (80-99); MEAN PLATELET VOLUME 9.6 FL (7.4-10.4); MONOCYTES # (AUTO) 0.4 X 10^3 (0.0-1.0); MONOCYTES % (AUTO) 8 % (0-12); NEUTROPHILS # (AUTO) 3.2 X 10^3 (1.8-7.8); NEUTROPHILS % (AUTO) 59 % (42-75); PLATELET COUNT 156 10^3/uL (130-400); RED BLOOD COUNT 4.11 10^6/uL (4.35-5.85); RED CELL DISTRIBUTION WIDTH 14.6 % (10.0-14.5); WHITE BLOOD COUNT 5.5 10^3/uL (4.3-11.0)
[2017-07-26 09:08] LABS: ALANINE AMINOTRANSFERASE 13 U/L (0-55); ALBUMIN 4.2 GM/DL (3.2-4.5); ALKALINE PHOSPHATASE 62 U/L (40-136); BILIRUBIN,TOTAL 0.5 MG/DL (0.1-1.0); BUN/CREATININE RATIO 17; CALCIUM 9.2 MG/DL (8.5-10.1); CARBON DIOXIDE 28 MMOL/L (21-32); CHLORIDE 107 MMOL/L (98-107); CREATININE SERUM 0.66 MG/DL (0.60-1.30); GFR ESTIMATED > 60; GLUCOSE 107 MG/DL (70-105); MAGNESIUM 2.4 MG/DL (1.8-2.4); POTASSIUM 4.1 MMOL/L (3.6-5.0); SODIUM 144 MMOL/L (135-145); TOTAL PROTEIN 6.4 GM/DL (6.4-8.2)
[2017-07-26 09:40] LABS: ERYTHROCYTE SEDIMENTATION RATE 12 MM/HR (0-30)
== END ==
LOC: LAB 08:05
PROVIDERS: ATTEND Internal Medicine Cardiovascular Disease
DX: E11.9 Type 2 diabetes mellitus without complications (principal); I25.10 Atherosclerotic heart disease of native coronary artery without angina pectoris; G89.4 Chronic pain syndrome; I10 Essential (primary) hypertension; E78.5 Hyperlipidemia, unspecified; Z86.73 Personal history of transient ischemic attack (TIA), and cerebral infarction without residual deficits; Z86.39 Personal history of other endocrine, nutritional and metabolic disease
CPT/HCPCS: 36415; 80053; 83735; 84443; 85025; 85652

== ENCOUNTER → 2017-07-26 | Outpatient (CLI) | payer MEDICARE | LOC: CARD 11:57 | PROVIDERS: ATTEND Internal Medicine Cardiovascular Disease | DX: I25.10 Atherosclerotic heart disease of native coronary artery without angina pectoris (principal); I10 Essential (primary) hypertension; E78.5 Hyperlipidemia, unspecified; E11.9 Type 2 diabetes mellitus without complications; G89.4 Chronic pain syndrome; Z86.73 Personal history of transient ischemic attack (TIA), and cerebral infarction without residual deficits | CPT/HCPCS: 93306 ==

== ENCOUNTER 2019-08-20 16:01 | Emergency (ER) | payer MEDICARE ==
[~2019-08-20] VITALS: Ht 167 cm; Wt 59.0 kg
[~2019-08-20 16:01] MED LIST changes: -OXYC-202 PO; +OXYC1TAB12 PO
--- NOTE | 2019-08-20 16:52 | ED EENT ---
History of Present Illness General Chief Complaint: Oral/Throat Problems Stated Complaint: ABSCESS Nursing Triage Note: ARRIVED VIA WC TO ROOM 07 ET STATES SHE WAS TOLD TO COME BY DR COX FOR A THROAT ABSCESS. Source: patient Exam Limitations: no limitations History of Present Illness Date Seen by Provider: Aug 20, 2019 Time Seen by Provider: 16:52 Initial Comments 79 year old female who was sent to the ER by Dr. Po Cox for a scan of her neck due to possible abscess. Patient reports that she has been unable to wear her dentures for a couple of weeks due to right lower gum swelling and tenderness. She reports that Dr. Cox is concerned that she has an abscess in her throat. Denies fevers or drainage. Location: mouth Associated Symptoms: facial pain/swelling Allergies and Home Medications Allergies Coded Allergies: Penicillins (Verified Allergy, Unknown, 05/12/05) morphine (Verified Allergy, Unknown, TAKES PERCOCET @ HOME, 10/22/15) CAUSES SKIN TO COME OFF FINGERS tetracycline (Verified Allergy, Unknown, 05/12/05) hydromorphone (Unverified Adverse Reaction, Unknown, STATES QUIT BREATHING, TAKES PERCOCET AT HOME, 10/22/15) Uncoded Allergies: PAPER TAPE (Allergy, Mild, 07/28/08) Home Medications Alprazolam 0.5 Mg Tablet, 0.5 MG PO TID Prescribed by: MURIEL PHELAN on 10/23/15 0736 Aspirin 81 Mg Tablet.dr, 81 MG PO BID, (Reported) Atorvastatin Calcium 10 Mg Tablet, 10 MG PO DAILY Prescribed by: MURIEL PHELAN on 10/23/15 0707 Carvedilol 12.5 Mg Tablet, 12.5 MG PO BID, (Reported) Cephalexin 500 Mg Tablet, 500 MG PO BID Prescribed by: LAURA RUSSELL on 02/18/17 0105 Clindamycin HCl 300 Mg Capsule, 300 MG PO TID Prescribed by: YONY JOYA on 08/20/19 1857 Clopidogrel Bisulfate 75 Mg Tablet, 75 MG PO DAILY, (Reported) Doxazosin Mesylate 2 Mg Tablet, 2 MG PO HS, (Reported) Etodolac 400 Mg Tablet, 400 MG PO BID PRN for MUSCLE SPASMS, (Reported) Linagliptin 5 Mg Tablet, 5 MG PO DAILY, (Reported) Lisinopril 10 Mg Tablet, 10 MG PO DAILY, (Reported) Magnesium Oxide 400 Mg Capsule, 400 MG PO HS, (Reported) Nitroglycerin 0.4 Mg Tab, 0 SL UD PRN for CHEST PAIN, (Reported) 1 TABLET EVERY 5 MINUTES X 3 DOSES NEEDED FOR CHEST PAIN [place]-3 Fatty Acids/Fish Oil 1 Each Capsule, 1,000 MG PO DAILY, (Reported) Oxycodone HCl/Acetaminophen 1 Each Tablet, 1 TAB PO QID, (Reported) Potassium Chloride 10 Meq Capsule.er, 10 MEQ PO DAILY, (Reported) Patient Home Medication List Home Medication List Reviewed: Yes Review of Systems Review of Systems Constitutional: see HPI; No chills, No fever Mouth: see HPI, pain, swelling All Other Systems Reviewed Negative Unless Noted: Yes Past Ipavpog-Aeusnb-Ixsawx Hx Past Med/Social Hx: Reviewed Nursing Past Med/Soc Hx Patient Social History 2nd Hand Smoke Exposure: No Recent Foreign Travel: No Contact w/Someone Who Travel: No Recent Infectious Disease Expo: No Recent Hopitalizations: No Immunizations Up To Date PED Vaccines UTD: Yes Date of Pneumonia Vaccine: Dec 20, 2016 Date of Influenza Vaccine: Dec 20, 2016 Seasonal Allergies Seasonal Allergies: No Past Medical History Surgeries: Yes (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) CABG, Coronary Stent, Gallbladder, Joint Replacement, Orthopedic Respiratory: No Currently Using CPAP: No Currently Using BIPAP: No Cardiac: Yes (CABG,STENTS) Coronary Artery Disease, Heart Attack, High Cholesterol, Hypertension Neurological: Yes (PERIPHERAL NEUROPATHY) Neuropathy Reproductive Disorders: No Sexually Transmitted Disease: No HIV/AIDS: No Genitourinary: No Gastrointestinal: Yes Gastroesophageal Reflux Musculoskeletal: Yes (NECK FX WITH TENDON SPASMS) Arthritis, Chronic Back Pain, Spasms Endocrine: Yes Diabetes, Non-Insulin dep HEENT: Yes Cataract Hearing Impairment: Denies Cancer: No (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) 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 0.0oz. 66.791831zh; 21.00 BMI Method:Stated General Appearance: WD/WN, no apparent distress Mouth/Throat: other (swelling and redness to right lower gums. No flucuations to the area. Area is tender.) Cardiovascular: normal peripheral pulses, regular rate, rhythm, no edema, no gallop, no JVD, no murmur Respiratory: chest non-tender, lungs clear, normal breath sounds, no respiratory distress, no accessory muscle use Neurologic/Psychiatric: alert, normal mood/affect, oriented x 3 Skin: normal color, warm/dry Progress/Results/Core Measures Results/Orders Lab Results Laboratory Tests Test 08/20/19 17:35 Range/Units White Blood Count 6.6 4.3-11.0 10^3/uL Red Blood Count 4.29 L 4.35-5.85 10^6/uL Hemoglobin 12.3 11.5-16.0 G/DL Hematocrit 37 35-52 % Mean Corpuscular Volume 87 80-99 FL Mean Corpuscular Hemoglobin 29 25-34 PG Mean Corpuscular Hemoglobin Concent 33 32-36 G/DL Red Cell Distribution Width 13.8 10.0-14.5 % Platelet Count 192 130-400 10^3/uL Mean Platelet Volume 9.1 7.4-10.4 FL Neutrophils (%) (Auto) 66 42-75 % Lymphocytes (%) (Auto) 22 12-44 % Monocytes (%) (Auto) 9 0-12 % Eosinophils (%) (Auto) 4 0-10 % Basophils (%) (Auto) 1 0-10 % Neutrophils # (Auto) 4.3 1.8-7.8 X 10^3 Lymphocytes # (Auto) 1.4 1.0-4.0 X 10^3 Monocytes # (Auto) 0.6 0.0-1.0 X 10^3 Eosinophils # (Auto) 0.2 0.0-0.3 10^3/uL Basophils # (Auto) 0.0 0.0-0.1 10^3/uL Sodium Level 140 135-145 MMOL/L Potassium Level 3.8 3.6-5.0 MMOL/L Chloride Level 105 98-107 MMOL/L Carbon Dioxide Level 25 21-32 MMOL/L Anion Gap 10 5-14 MMOL/L Blood Urea Nitrogen 12 7-18 MG/DL Creatinine 0.76 0.60-1.30 MG/DL Estimat Glomerular Filtration Rate > 60 BUN/Creatinine Ratio 16 Glucose Level 122 H 70-105 MG/DL Calcium Level 9.0 8.5-10.1 MG/DL Corrected Calcium 9.1 8.5-10.1 MG/DL Total Bilirubin 0.3 0.1-1.0 MG/DL Aspartate Amino Transf (AST/SGOT) 11 5-34 U/L Alanine Aminotransferase (ALT/SGPT) 6 0-55 U/L Alkaline Phosphatase 62 40-136 U/L Total Protein 6.4 6.4-8.2 GM/DL Albumin 3.9 3.2-4.5 GM/DL My Orders Orders - YONY JOYA Comprehensive Metabolic Panel (08/20/19 17:28) Ed Iv/Invasive Line Start (08/20/19 17:28) Cbc With Automated Diff (08/20/19 17:28) Ct Neck (Soft Tissue) W (08/20/19 18:06) Iohexol Injection (Omnipaque 350 Mg/Ml 1 (08/20/19 18:15) Received Contrast (Hold Metformin- Contr (08/20/19 18:15) Ns (Ivpb) (Sodium Chloride 0.9% Ivpb Bag (08/20/19 18:15) Medications Given in ED Vital Signs/I&O Blood Pressure Mean: 130 Progress Progress Note : Time: 18:56 Progress Note I have seen and evaluated the patient. I have informed her of laboratory and imaging studies. She agrees with plan of care, plans for discharge, return precuations were given. Departure Impression Primary Impression: Dental infection Disposition: 01 HOME, SELF-CARE Condition: Stable/Unchanged Departure-Patient Inst. Decision time for Depature: 18:56 Referrals: PO COX MD (PCP/Family) Primary Care Physician Patient Instructions: Dental Pain (DC) Add. Discharge Instructions: Take medication as directed. Follow-up with Dr. Cox within 1 week for recheck. Return back to the emergency room for worsening symptoms or concerns as needed. All discharge instructions reviewed with patient and/or family. Voiced understanding. Scripts Clindamycin HCl (Clindamycin HCl) 300 Mg Capsule 300 MG PO TID for 7 Days, #21 CAP Prov: YONY JOYA 08/20/19 YONY JOYA Aug 20, 2019 16:52
[2019-08-20 17:43] LABS: BASOPHILS % (AUTO) 1 % (0-10); EOSINOPHILS # (AUTO) 0.2 10^3/uL (0.0-0.3); EOSINOPHILS % (AUTO) 4 % (0-10); HEMATOCRIT 37 % (35-52); HEMOGLOBIN 12.3 G/DL (11.5-16.0); LYMPHOCYTES # (AUTO) 1.4 X 10^3 (1.0-4.0); LYMPHOCYTES % (AUTO) 22 % (12-44); MEAN CORPUSCULAR HEMOGLOBIN 29 PG (25-34); MEAN CORPUSCULAR HGB CONC 33 G/DL (32-36); MEAN CORPUSCULAR VOLUME 87 FL (80-99); MEAN PLATELET VOLUME 9.1 FL (7.4-10.4); MONOCYTES # (AUTO) 0.6 X 10^3 (0.0-1.0); MONOCYTES % (AUTO) 9 % (0-12); NEUTROPHILS # (AUTO) 4.3 X 10^3 (1.8-7.8); NEUTROPHILS % (AUTO) 66 % (42-75); PLATELET COUNT 192 10^3/uL (130-400); RED CELL DISTRIBUTION WIDTH 13.8 % (10.0-14.5); WHITE BLOOD COUNT 6.6 10^3/uL (4.3-11.0)
--- OUTSIDE RECORDS SUMMARY | 2019-08-20 17:57 | XMS REPORT ---
Author Author Trinity Cervantes Doctor Organization [facility] Address Unknown Phone Unavailable Care Team Providers Care Guest Services Assistant Name Role Phone Migration, Doctor Unavailable Unavailable PROBLEMS Unknown Problems ALLERGIES No Information ENCOUNTERS Encounter Location Date Diagnosis [facility] [address] [id number] [address] [place] [phone] Nov, [facility] [address] [id number] [address] [place] [phone] Feb, [facility] [address] [id number] [address] [place] [phone] Feb, [facility] [address] [id number] [address] [place] [phone] Jan, [facility] [address] [id number] [address] [place] [phone] Jan, [facility] [address] [id number] [address] [place] [phone] Dec, [facility] [address] [id number] [address] [place] [phone] Dec, [facility] [address] [id number] [address] [place] [phone] Oct, [facility] [address] [id number] [address] [place] [phone] Oct, [facility] [address] [id number] [address] [place] [phone] Sep, [facility] [address] [id number] [address] [place] [phone] July, [facility] [address] [id number] [address] [place] [phone] May, [facility] [address] [id number] [address] [place] [address], [place] [phone] Feb, [facility] [address] [id number] [address] [place] [address], [place] [phone] Feb, [facility] [address] [id number] [address] [place] [address], [place] [phone] Feb, [facility] [address] [id number] [address] [place] [address], [place] [phone] Feb, [facility] [address] [id number] [address] [place] [address], [place] [id number] Feb, [facility] [address] [id number] [address] [place] [address], [place] [phone] Feb, [facility] [address] [id number] [address] [place] [address], [place] [phone] Jan, [facility] [address] [id number] [address] [place] [address], [place] [phone] Jan, [facility] [address] [id number] [address] [place] [address], [place] [id number] 10 Jan, 2010 [facility] [address] [id number] [address] [place] [address], [place] [id number] 02 Jan, 2010 [facility] [address] [id number] [address] [place] [address], [place] [phone] 15 Nov, 2009 [facility] [address] [id number] [address] [place] [address], [place] [id number] 12 Sep, 2009 [facility] [address] [id number] [address] [place] [address], [place] [id number] 20 Jun, 2009 [facility] [address] [id number] [address] [place] [address], [place] [id number] 13 Jun, 2009 [facility] [address] [id number] [address] [place] [address], [place] [id number] 30 Feb, 2009 [facility] [address] [id number] [address] [place] [address], [place] [id number] Feb, [facility] [address] [facility] [id number] [address] [place] [phone] Feb, [facility] [address] [facility] [id number] [address] [place] [phone] Jan, [facility] [address] [facility] [id number] [address] [place] [phone] Jan, [facility] [address] [facility] [id number] [address] [place] [phone] Dec, [facility] [address] [facility] [id number] [address] [place] [phone] Sep, [facility] [address] [facility] [id number] [address] [place] [phone] July, [facility] [address] [facility] [id number] [address] [place] [phone] Jun, [facility] [address] [facility] [id number] [address] [place] [phone] Apr, IMMUNIZATIONS No Known Immunizations SOCIAL HISTORY Never Assessed REASON FOR VISIT EMR[place] [place] OF CARE VITAL SIGNS MEDICATIONS Unknown Medications RESULTS No Results PROCEDURES No Known procedures INSTRUCTIONS MEDICATIONS ADMINISTERED No Known Medications
--- OUTSIDE RECORDS SUMMARY | 2019-08-20 17:57 | XMS REPORT ---
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 Zofran (ondansetron) under the tongue every 4 hours as needed for nausea and vomiting. Continue with your current medicines. Return to the ER if symptoms worsen again. All discharge instructions reviewed with patient and/or family. Voiced understanding. Goals No Information Social History The data below is from unstructured sources History Response Recorde d Date/Time Hx Family Cancer Y DAUGHTER, COMPLET E HYSTERECTOMY 07/08/12 8:00pm Hx Family Cardiac Disorders Y 07/08/12 8:00pm Hx Family Stroke Y MOTHER SLIGHT CVA 07/08/12 8:00pm Hx Family Hypertension Y BROTHER, MOTHER 07/08/12 8:00pm History Response Recorde d Date/Time Alcohol Use Denies Use 0 11/02/12 4:32pm Recreational Drug Use N 11/02/12 4:32pm Recent Foreign Travel N 11/02/12 4:32pm Hospitalization with Isolation Denies 11/02/12 4:32pm History Response Recorde d Date/Time Alcohol Use Denies Use 0 09/07/12 3:21pm Recreational Drug Use N 09/07/12 3:21pm Recent Foreign Travel N 09/07/12 3:21pm Recent Infectious Disease Exposure N 09/07/12 3:21pm Hospitalization with Isolation Denies 09/07/12 3:21pm History Response Recorde d Date/Time Alcohol Use Denies Use 0 11/01/12 10:46pm Recreational Drug Use N 11/01/12 10:46pm Recent Foreign Travel N 11/01/12 10:46pm Hospitalization with Isolation Denies 11/01/12 10:46pm History Response Recorde d Date/Time Alcohol Use Denies Use 0 10/28/12 2:46pm Recreational Drug Use N 10/28/12 2:46pm Recent Foreign Travel N 10/28/12 2:46pm Hospitalization with Isolation Denies 10/28/12 2:46pm Functional Status The data below is from unstructured sources Query Response Date Eric rded Patient Orientation Person Place Time Situation October 23, 2015 10:18am Patient Orientation Person Place Time Situation Eyes Open October 23, 2015 10:18am Comprehension Ability Understands Co ncepts October 23, 2015 7:47am Query Response Date Eric rded Patient Orientation Person Place Time Situation February 12, 2014 1:42pm Comprehension Ability Understands Co ncepts February 11, 2014 8:00pm Mental Status No Information Encounters Encounter Normalized Encounter Encounter Diagnosis Care Provi viola Organization Date Type 07-03-2017 Emergency department no information no name no organization name - patient visit 07-03-2017 11-05-2016 Emergency department no information no name no organization name - patient visit 11-06-2016 12-13-2013 Emergency department no information no name no organization name - patient visit 12-13-2013 08-06-2013 Emergency department no information no name no organization name - patient visit 08-06-2013 06-03-2013 Emergency department no information no name no organization name - patient visit 06-03-2013 01-25-2013 Emergency department no information no name no organization name - patient visit 01-26-2013 01-23-2013 Emergency department no information no name no organization name - patient visit 01-23-2013 05-03-2012 Emergency department no information no name no organization name - patient visit 05-03-2012 04-29-2012 Emergency department no information no name no organization name - patient visit 04-29-2012 09-06-2011 Emergency department no information no name no organization name - patient visit 09-06-2011 06-02-2011 Emergency department no information no name no organization name - patient visit 06-02-2011 08-21-2013 Evaluation and no information no name no organ ization name - management of 08-22-2013 inpatient 08-24-2011 Evaluation and no information no name no organ ization name - management of 08-25-2011 inpatient 07-20-2011 Evaluation and no information no name no organ ization name - management of 07-21-2011 inpatient 07-26-2017 Patient encounter no information no name no or ganization name 07-26-2017 Patient encounter no information no name no or ganization name 07-03-2017 Patient encounter no information no name no or ganization name 02-17-2017 Patient encounter no information no name no or ganization name 10-04-2016 Patient encounter no information no name no or ganization name 09-22-2014 Patient encounter no information no name no or ganization name 08-15-2014 Patient encounter no information no name no or ganization name 05-02-2014 Patient encounter no information no name no or ganization name - 05-12-2014 02-24-2014 Patient encounter no information no name no or ganization name 02-21-2014 Patient encounter no information no name no or ganization name 02-20-2014 Patient encounter no information no name no or ganization name 04-11-2013 Patient encounter no information no name no or ganization name 12-26-2012 Patient encounter no information no name no or ganization name 09-03-2012 Patient encounter no information no name no or ganization name - 09-25-2012 08-31-2012 Patient encounter no information no name no or ganization name 07-16-2012 Patient encounter no information no name no or ganization name 05-20-2019 Patient encounter no information (no phone) [facility] (no phone) 04-24-2019 Patient encounter no information no name no or ganization name procedure 11-05-2016 Patient encounter no information no name no or ganization name procedure 12-02-2011 Patient encounter no information no name no or ganization name procedure 12-01-2011 Patient encounter no information no name no or ganization name procedure 11-01-2011 Patient encounter no information no name no or ganization name procedure 08-19-2011 Patient encounter no information no name no or ganization name procedure 06-14-2011 Patient encounter no information no name no or ganization name procedure Medical Equipment No Information Payers The data below is from unstructured sources Payer Name Policy Number Subscriber Name Relationship [employer] Choice [id number] Trinity Erazo 01 Self / Same As Patient Advance Directives Directive Response Recor ded Date/Time Advance Directives No 7:20pm Health Care Power of Machine Cage Maker No 10/21/15 7:20pm Organ Donor Yes 10/21/15 7:20pm Resuscitation Status Full Code 10/21/15 7:20pm Directive Response Recor ded Date Advance Directives N 4:32pm Health Care Power of Machine Cage Maker N 11/02/12 4:32pm Organ Donor N 11/02/12 4 :32pm Directive Response Recor ded Date/Time Advance Directives No 8:02pm Health Care Power of Machine Cage Maker No 02/05/14 8:02pm Organ Donor No 02/05/14 8:02pm Resuscitation Status Full Code 02/05/14 8:02pm Directive Response Recor ded Date Advance Directives N 3:21pm Health Care Power of Machine Cage Maker N 09/07/12 3:21pm Organ Donor N 09/07/12 3 :21pm Directive Response Recor ded Date Advance Directives N 10:46pm Health Care Power of Machine Cage Maker N 11/01/12 10:46pm Organ Donor N 11/01/12 1 0:46pm Directive Response Recor ded Date/Time Advance Directives No 7:10pm Health Care Power of Machine Cage Maker No 12/13/13 7:10pm Organ Donor No 12/13/13 7:10pm Resuscitation Status Full Code 12/13/13 7:10pm Directive Response Recor ded Date/Time Advance Directives No 10:23am Health Care Power of Machine Cage Maker No 04/11/14 10:23am Organ Donor No 04/11/14 10:23am Resuscitation Status Full Code 04/11/14 10:23am Directive Response Recor ded Date/Time Advance Directives No 10:23am Health Care Power of Machine Cage Maker No 04/11/14 10:23am Organ Donor No 04/11/14 10:23am Directive Response Recor ded Date Advance Directives N 01/30 2:46pm Health Care Power of Machine Cage Maker N 10/28/12 2:46pm Organ Donor N 10/28/12 2 :46pm Directive Response Recor ded Date/Time Advance Directives No 9:52pm Health Care Power of Machine Cage Maker No 02/17/17 9:52pm Organ Donor No 02/17/17 9:52pm Resuscitation Status Full Code 02/17/17 9:52pm Directive Response Recor ded Date/Time Advance Directives No 10:07pm Health Care Power of Machine Cage Maker No 04/27/17 10:07pm Organ Donor No 04/27/17 10:07pm Resuscitation Status Full Code 04/27/17 10:07pm Discharge Instructions Patient Instructions Physician Instructions Prescription: Transmitted to Pharmacy Patient Instructions: Followup in my office one week Discharge Diet: ADA Diet Diet for 24 Hours: No Alcohol Driving Instructions: No Driving for 1 Week Care Plan Patient Instructions:: Followup in my office one week No hospital discharge instructions.No hospital discharge instructions.No hospital discharge instructions.No hospital discharge instructions.No hospital discharge instruction information available.No hospital discharge instruction information available. Additional Source Comments This clinical document has been generated using [employer] software that has been certified by the Office of the National Coordinator for Health Information Technology (ONC 15.99.04.3023.Diam.31.00.0.685473) and the National Committee for Arson And Bomb Investigator (NCQA, as an eMeasure certified technology). FOR RECORDS PERTAINING TO PATIENTS WHO ARE OR HAVE BEEN ENROLLED IN A CHEMICAL D EPENDENCY/SUBSTANCE ABUSE PROGRAM, SOME INFORMATION MAY BE OMITTED. This clinica l summary was aggregated from multiple sources. Caution should be exercised in using it in the provision of clinical care. This summary normalizes information from multiple sources, and as a consequence, information in this document may ma terially change the coding, format and clinical context of patient data. In chitra tion, data may be omitted in some cases. CLINICAL DECISIONS SHOULD BE BASED ON T HE PRIMARY CLINICAL RECORDS. [employer] provides no warranty or guara ntee of the accuracy or completeness of information in this document.The followi ng information is based on time limited clinical information UNRECOGNIZED CONTENT PROVIDED BELOW FOR UNRECOGNIZED SECTION REASON FOR VISIT [id number]
--- OUTSIDE RECORDS SUMMARY | 2019-08-20 17:57 | XMS REPORT ---
Author Author Trinity Cervantes Doctor Organization [facility] Address Unknown Phone Unavailable Care Team Providers Care Data Engineer Name Role Phone Migration, Doctor Unavailable Unavailable PROBLEMS Unknown Problems ALLERGIES No Information ENCOUNTERS Encounter Location Date Diagnosis [facility] [address] [id number] [address] [place] [phone] Nov, [facility] [address] [id number] [address] [place] [phone] Feb, [facility] [address] [id number] [address] [place] [phone] Feb, [facility] [address] [id number] [address] [place] [phone] Jan, [facility] [address] [id number] [address] [place] [phone] Jan, [facility] [address] [id number] [address] [place] [phone] Dec, [facility] [address] [id number] [address] [place] [phone] Dec, [facility] [address] [id number] [address] [place] [phone] Oct, [facility] [address] [id number] [address] [place] [phone] Oct, [facility] [address] [id number] [address] [place] [phone] Sep, [facility] [address] [id number] [address] [place] [phone] July, [facility] [address] [id number] [address] [place] [phone] May, [facility] [address] [id number] [address] [place] [address], [place] [address] Feb, [facility] [address] [id number] [address] [place] [address], [place] [address] Feb, [facility] [address] [id number] [address] [place] [address], [place] [address] Feb, [facility] [address] [id number] [address] [place] [address], [place] [address] Feb, [facility] [address] [id number] [address] [place] [address], [place] [address] Feb, [facility] [address] [id number] [address] [place] [address], [place] [phone] Feb, [facility] [address] [id number] [address] [place] [address], [place] [address] Jan, [facility] [address] [id number] [address] [place] [address], [place] [address] Jan, [facility] [address] [id number] [address] [place] [address], [place] [address] 10 Jan, 2010 [facility] [address] [id number] [address] [place] [address], [place] [address] 02 Jan, 2010 [facility] [address] [id number] [address] [place] [address], [place] [address] 15 Nov, 2009 [facility] [address] [id number] [address] [place] [address], [place] [address] 12 Sep, 2009 [facility] [address] [id number] [address] [place] [address], [place] [address] 20 Jun, 2009 [facility] [address] [id number] [address] [place] [address], [place] [address] 13 Jun, 2009 [facility] [address] [id number] [address] [place] [address], [place] [address] 30 Feb, 2009 [facility] [address] [id number] [address] [place] [address], [place] [address] Feb, [facility] [address] [facility] [id number] [address] [place] [phone] Feb, [facility] [address] [facility] [id number] [address] [place] [phone] Jan, [facility] [address] [facility] [id number] [address] [place] [phone] Jan, [facility] [address] [facility] [id number] [address] [place] [phone] Dec, [facility] [address] [facility] [id number] [address] [place] [phone] Sep, [facility] [address] [facility] [id number] [address] [place] [phone] July, [facility] [address] [facility] [id number] [address] [place] [phone] Jun, [facility] [address] [facility] [id number] [address] [place] [phone] Apr, IMMUNIZATIONS No Known Immunizations SOCIAL HISTORY Never Assessed REASON FOR VISIT [place] [place] C[place] VITAL SIGNS MEDICATIONS Unknown Medications RESULTS No Results PROCEDURES No Known procedures INSTRUCTIONS MEDICATIONS ADMINISTERED No Known Medications
--- OUTSIDE RECORDS SUMMARY | 2019-08-20 17:57 | XMS REPORT ---
Author Author Trinity Cervantes Doctor Organization [facility] Address Unknown Phone Unavailable Care Team Providers Care Mortgage Closer Name Role Phone Migration, Doctor Unavailable Unavailable PROBLEMS Unknown Problems ALLERGIES No Information ENCOUNTERS Encounter Location Date Diagnosis [facility] [address] [id number] [address] [place] [phone] Nov, [facility] [address] [id number] [address] [place] [phone] Feb, [facility] [address] [id number] [address] [place] [phone] Feb, [facility] [address] [id number] [address] [place] [phone] Jan, [facility] [address] [id number] [address] [place] [phone] Jan, [facility] [address] [id number] [address] [place] [phone] Dec, [facility] [address] [id number] [address] [place] [phone] Dec, [facility] [address] [id number] [address] [place] [phone] Oct, [facility] [address] [id number] [address] [place] [phone] Oct, [facility] [address] [id number] [address] [place] [phone] Sep, [facility] [address] [id number] [address] [place] [phone] July, [facility] [address] [id number] [address] [place] [phone] May, [facility] [address] [id number] [address] [place] [address], [place] [address] Feb, [facility] [address] [id number] [address] [place] [address], [place] [address] Feb, [facility] [address] [id number] [address] [place] [address], [place] [address] Feb, [facility] [address] [id number] [address] [place] [address], [place] [address] Feb, [facility] [address] [id number] [address] [place] [address], [place] [address] Feb, [facility] [address] [id number] [address] [place] [address], [place] [address] Feb, [facility] [address] [id number] [address] [place] [address], [place] [address] Jan, [facility] [address] [id number] [address] [place] [address], [place] [address] Jan, [facility] [address] [id number] [address] [place] [address], [place] [address] 10 Jan, 2010 [facility] [address] [id number] [address] [place] [address], [place] [address] 02 Jan, 2010 [facility] [address] [id number] [address] [place] [address], [place] [address] 15 Nov, 2009 [facility] [address] [id number] [address] [place] [address], [place] [address] 12 Sep, 2009 [facility] [address] [id number] [address] [place] [address], [place] [address] 20 Jun, 2009 [facility] [address] [id number] [address] [place] [address], [place] [address] 13 Jun, 2009 [facility] [address] [id number] [address] [place] [address], [place] [address] 30 Feb, 2009 [facility] [address] [id number] [address] [place] [address], [place] [address] Feb, [facility] [address] [facility] [id number] [address] [place] [phone] Feb, [facility] [address] [facility] [id number] [address] [place] [phone] Jan, [facility] [address] [facility] [id number] [address] [place] [phone] Jan, [facility] [address] [facility] [id number] [address] [place] [phone] Dec, [facility] [address] [facility] [id number] [address] [place] [phone] Sep, [facility] [address] [facility] [id number] [address] [place] [phone] July, [facility] [address] [facility] [id number] [address] [place] [phone] Jun, [facility] [address] [facility] [id number] [address] [place] [phone] Apr, IMMUNIZATIONS No Known Immunizations SOCIAL HISTORY Never Assessed REASON FOR VISIT [place] [place] VITAL SIGNS MEDICATIONS Unknown Medications RESULTS No Results PROCEDURES No Known procedures INSTRUCTIONS MEDICATIONS ADMINISTERED No Known Medications
[2019-08-20 17:59] LABS: ALBUMIN 3.9 GM/DL (3.2-4.5); CHLORIDE 105 MMOL/L (98-107); POTASSIUM 3.8 MMOL/L (3.6-5.0); SODIUM 140 MMOL/L (135-145)
--- OUTSIDE RECORDS SUMMARY | 2019-08-20 17:59 | XMS REPORT | Continuity of Care Document ---
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 04/28/2017 ROGERIO MONREAL MD, Ot R50.9 FEVER, UNSPECIFIED 04/28/2017 ROGERIO MONREAL MD, Ot Z79.82 USP (CURRENT) USE OF ASPIRIN 04/28/2017 ROGERIO MONREAL MD, Ot Z82.49 FAMILY HX OF [place] HEART DIS AND OTH DI 04/28/2017 ROGERIO MONREAL MD, Ot 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 04/28/2017 ROGERIO MONREAL MD, Ot Z88.0 ALLERGY STATUS TO PENICILLIN 04/28/2017 ROGERIO MONREAL MD, Ot Z88.5 ALLERGY STATUS TO NARCOTIC AGENT STATUS 04/28/2017 ROGERIO MONREAL MD, Ot Z88.8 ALLERGY STATUS TO OT DRUG/MEDS/BIOL SUB 04/28/2017 ROGERIO MONREAL MD Ot Z95.1 PRESENCE OF AORTOCORONARY BYPASS GRAFT 04/28/2017 ROGERIO MONREAL MD, Ot 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 PRESENCE OF CORONARY ANGIOPLASTY IMPLANT 07/03/2017 ROGERIO MONREAL MD Ot 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 MELLITUS WITH DIABETIC P 07/03/2017 ROGERIO MONREAL MD, Ot E78.00 PURE HYPERCHOLESTEROLEMIA, UNSPECIFIED 07/03/2017 ROGERIO MONREAL MD Ot F32.9 MAJOR DEPRESSIVE DISORDER, SINGLE EPISOD 07/03/2017 ROGERIO MONREAL MD, Ot F41.9 ANXIETY DISORDER, UNSPECIFIED 07/03/2017 ROGERIO MONREAL MD Ot I10 ESSENTIAL (PRIMARY) HYPERTENSION 07/03/2017 ROGERIO MONREAL MD, Ot I25.10 ATHSCL HEART DISEASE OF [place] CORONARY 07/03/2017 ROGERIO MONREAL MD, Ot I25.2 OLD MYOCARDIAL INFARCTION 07/03/2017 ROGERIO MONRAEL MD, Ot K21.9 GASTRO-ESOPHAGEAL REFLUX DISEASE WITHOUT 07/03/2017 ROGERIO MONREAL MD Ot R07.89 OTHER CHEST PAIN 07/03/2017 ROGERIO MONREAL MD Ot Z79.82 USP (CURRENT) USE OF ASPIRIN 07/03/2017 ROGERIO MONREAL MD Ot Z82.49 FAMILY HX OF [place] HEART DIS AND OTH DI 07/03/2017 ROGERIO MONREAL MD Ot Z88.0 ALLERGY STATUS TO PENICILLIN 07/03/2017 ROGERIO MONREAL MD Ot Z88.1 ALLERGY STATUS TO OTHER ANTIBIOTIC AGENT 07/03/2017 ROGERIO MONREAL MD Ot Z88.5 ALLERGY STATUS TO NARCOTIC AGENT STATUS 07/03/2017 ROGERIO MONREAL MD Ot Z91.048 OTHER NONMEDICINAL SUBSTANCE ALLERGY STA 07/03/2017 ROGERIO MONREAL MD Ot Z95.1 PRESENCE OF AORTOCORONARY BYPASS GRAFT 07/03/2017 ROGERIO MONREAL MD Ot Z95.5 PRESENCE OF CORONARY ANGIOPLASTY IMPLANT 07/05/2017 ROGERIO MONREAL MD Ot 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 MELLITUS WITH DIABETIC P 07/05/2017 ROGERIO MONREAL MD Ot E78.00 PURE HYPERCHOLESTEROLEMIA, UNSPECIFIED 07/05/2017 ROGERIO MONREAL MD Ot F32.9 MAJOR DEPRESSIVE DISORDER, SINGLE EPISOD 07/05/2017 ROGERIO MONREAL MD Ot F41.9 ANXIETY DISORDER, UNSPECIFIED 07/05/2017 ROGERIO MONREAL MD Ot I10 ESSENTIAL (PRIMARY) HYPERTENSION 07/05/2017 ROGERIO MONREAL MD Ot I25.10 ATHSCL HEART DISEASE OF [place] CORONARY 07/05/2017 ROGERIO MONREAL MD Ot I25.2 OLD MYOCARDIAL INFARCTION 07/05/2017 ROGERIO MONREAL MD Ot K21.9 GASTRO-ESOPHAGEAL REFLUX DISEASE WITHOUT 07/05/2017 ROGERIO MONREAL MD Ot R07.89 OTHER CHEST PAIN 07/05/2017 ROGERIO MONREAL MD Ot 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 07/05/2017 ROGERIO MONREAL MD Ot Z82.49 FAMILY HX OF [place] HEART DIS AND OTH DI 07/05/2017 JOCELIN AGUAYO, ROGERIO Olmos Ot Z88.0 ALLERGY STATUS TO PENICILLIN 07/05/2017 JOCELIN AGUAYO, ROGERIO Olmos Ot Z88.1 ALLERGY STATUS TO OTHER ANTIBIOTIC AGENT 07/05/2017 ROGERIO MONREAL MD Ot Z88.5 ALLERGY STATUS TO NARCOTIC AGENT STATUS 07/05/2017 ROGERIO MONREAL MD Ot Z91.048 OTHER NONMEDICINAL SUBSTANCE ALLERGY STA 07/05/2017 ROGERIO MONREAL MD Ot Z95.1 PRESENCE OF AORTOCORONARY BYPASS GRAFT 07/05/2017 ROGERIO MONREAL MD Ot Z95.5 PRESENCE OF CORONARY ANGIOPLASTY IMPLANT 07/24/2017 SAURABH PARRY L REGION MANAGER Ot 275.2 DIS MAGNESIUM METABOLISM 07/24/2017 FABIO PARRYHER L REGION MANAGER Ot 782.3 EDEMA 07/24/2017 FABIO PARRYHER L REGION MANAGER Ot V12.51 HX-VENOUS THROMBOSIS EMBOLISM 07/24/2017 SOHAN SAURABH L REGION MANAGER Ot 272.4 HYPERLIPIDEMIA NEC/NOS 07/24/2017 SOHAN SAURABH L REGION MANAGER Ot 414.01 CORONARY ATHEROSCLEROSIS OF [place] CORON 07/24/2017 SAURABH PARRY L REGION MANAGER Ot 272.4 HYPERLIPIDEMIA NEC/NOS 07/24/2017 SOHAN SAURABH L REGION MANAGER Ot V58.69 OTH MED,LT,CURRENT USE 07/24/2017 ZHANE AGUAYO, WEST R Ot V58. 61 ANTICOAGULANTS,LT,CURRENT USE 07/24/2017 ZHANE AGUAYO, WEST R Ot V58. 83 ENCOUNTER FOR THERAPEUTIC DRUG MONITORIN 07/24/2017 ZHANE AGUAYO, WEST R Ot 285. 9 ANEMIA NOS 07/24/2017 ZHANE AGUAYO, WEST R Ot 285. 9 ANEMIA NOS 07/24/2017 SAURABH PARRY L REGION MANAGER Ot 272.4 HYPERLIPIDEMIA NEC/NOS 07/24/2017 SOHAN SAURABH L REGION MANAGER Ot 401.9 HYPERTENSION NOS 07/24/2017 SOHAN SAURABH L REGION MANAGER Ot 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 VESSEL, NATIV 07/24/2017 SOHAN SAURABH L REGION MANAGER Ot 447.9 ARTERIAL DISEASE NOS 07/24/2017 SOHAN SAURABH L REGION MANAGER Ot 272.4 HYPERLIPIDEMIA NEC/NOS 07/24/2017 SAURABH PARRY REGION MANAGER Ot 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 VESSEL, NATIV 07/24/2017 SAURABH PARRY REGION MANAGER Ot 447.9 ARTERIAL DISEASE NOS 07/24/2017 ALEXISSAURABH HAIRSTON REGION MANAGER Ot 782.3 EDEMA 07/24/2017 SAURABH PARRY REGION MANAGER Ot 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 07/24/2017 NOEL AGUAYO FACC, WALE FACP CCDS Ot E11.9 TYPE 2 DIABETES MELLITUS WITHOUT COMPLIC 07/24/2017 NOEL AGUAYO FACC, ALI FACP CCDS Ot E78.4 OTHER HYPERLIPIDEMIA 07/24/2017 NOEL AGUAYO FACC, ALI FACP CCDS Ot I25.10 ATHSCL HEART DISEASE OF [place] CORONARY 07/24/2017 NOEL AGUAYO FACC, ALI FACP CCDS Ot 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 07/27/2017 NOEL AGUAYO FACC, ALI FACP CCDS Ot E11.9 TYPE 2 DIABETES MELLITUS WITHOUT COMPLIC 07/27/2017 NOEL AGUAYO FACC, WALE FACP CCDS Ot E78.5 HYPERLIPIDEMIA, UNSPECIFIED 07/27/2017 NOEL AGUAYO FACC, WALE FACP CCDS Ot G89.4 CHRONIC PAIN SYNDROME 07/27/2017 NOEL AGUAYO FACC, WALE FACP CCDS Ot I10 ESSENTIAL (PRIMARY) HYPERTENSION 07/27/2017 NOEL AGUAYO FACC, ALI FACP CCDS Ot I25.10 ATHSCL HEART DISEASE OF [place] CORONARY 07/27/2017 NOEL AGUAYO FACC, WALE FACP CCDS Ot Z86.39 PERSONAL HISTORY OF ENDO, NUTRITIONAL AN 07/27/2017 NOEL AGUAYO FACC, ALI FACP CCDS Ot Z86.73 PRSNL HX OF TIA (TIA), AND CEREB INFRC W 08/04/2017 NOEL AGUAYO FACC, ALI FACP CCDS Ot E11.9 TYPE 2 DIABETES MELLITUS WITHOUT COMPLIC 08/04/2017 NOEL AGUAYO FACC, ALI FACP CCDS Ot E78.5 HYPERLIPIDEMIA, UNSPECIFIED 08/04/2017 NOEL AGUAYO FACC, ALI FACP CCDS Ot G89.4 CHRONIC PAIN SYNDROME 08/04/2017 NOEL AGUAYO FACC, ALI FACP CCDS Ot I10 ESSENTIAL (PRIMARY) HYPERTENSION 08/04/2017 NOEL AGUAYO FACC, ALI FACP CCDS Ot I25.10 ATHSCL HEART DISEASE OF [place] CORONARY 08/04/2017 NOEL AGUAYO FACC, ALI FACP CCDS Ot Z86.73 PRSNL HX OF TIA (TIA), AND CEREB INFRC W 08/04/2017 NOEL AGUAYO FACC, ALI FACP CCDS Ot E11.9 TYPE 2 DIABETES MELLITUS WITHOUT COMPLIC 08/04/2017 NOEL AGUAYO FACC, ALI FACP CCDS Ot E78.5 HYPERLIPIDEMIA, UNSPECIFIED 08/04/2017 NOEL AGUAYO FACC, ALI FACP CCDS Ot G89.4 CHRONIC PAIN SYNDROME 08/04/2017 NOEL AGUAYO FACC, ALI FACP CCDS Ot I10 ESSENTIAL (PRIMARY) HYPERTENSION 08/04/2017 NOEL AGUAYO FACC, ALI FACP CCDS Ot I25.10 ATHSCL HEART DISEASE OF [place] CORONARY 08/04/2017 NOEL AGUAYO FACC, ALI FACP CCDS Ot Z86.39 PERSONAL HISTORY OF ENDO, NUTRITIONAL AN 08/04/2017 NOEL AGUAYO FACC, ALI FACP CCDS Ot Z86.73 PRSNL HX OF TIA (TIA), AND CEREB INFRC W Procedures Code Description Performed By Per miguel On 37.22 LEFT HEART CARDIAC CATH 07/09/2012 88.42 CONT RAST AORTOGRAM 07/09/2012 88.53 LT H EART ANGIOCARDIOGRAM 07/09/2012 88.56 IRWIN TUAN ARTERIOGR-2 CATH 07/09/2012 81.52 PART IAL HIP REPLACEMENT 02/05/2014 Results Test Result Range Complete blood count (CBC) with automate d white blood cell (WBC) differential - 10/21/15 15:40 Blood leukocytes automated count (number/volume) 6.4 10*3/uL 4.3-11.0 Blood erythrocytes automated count (number/volume) 4.22 10*6/uL 4.35-5.85 Venous blood hemoglobin measurement (mass/volume) 12.2 g/dL 11.5-16.0 Blood hematocrit (volume fraction) 36 % 35-52 Automated erythrocyte mean corpuscular volume 86 [ foz_us] 80-99 Automated erythrocyte mean corpuscular h emoglobin (mass per erythrocyte) 29 pg 25-34 Automated erythrocyte mean corpuscular h emoglobin concentration measurement (mass/volume) 34 g/dL 32-36 Automated erythrocyte distribution width ratio 14. 0 % 10.0- 14.5 Automated blood platelet count (count/volume) 195 10*3/uL [...] 10*3 1.0-4.0 Blood monocytes automated count (number/volume) 0. 4 10*3 0.0-1.0 Automated eosinophil count 0.3 10*3/uL 0 .0-0.3 Automated blood basophil count (count/volume) 0.0 10*3/uL 0.0-0.1 Comprehensive metabolic panel - 10/21/15 15:40 Serum or plasma sodium measurement (moles/volume) 141 mmol/L 135-145 Serum or plasma potassium measurement (moles/volume) 4.0 mmol/L 3.6-5.0 Serum or plasma chloride measurement (moles/volume) 108 mmol/L 98-107 Carbon dioxide 27 mmol/L 21-32 Serum or plasma anion gap determination (moles/volume) 6 mmol/L 5-14 Serum or plasma urea nitrogen measurement (mass/volume ) 10 mg/dL 7-18 Serum or plasma creatinine measurement (mass/volume) 0.72 mg/dL 0.60-1.30 Serum or plasma urea nitrogen/creatinine mass ratio 14 NRG Serum or plasma creatinine measurement w ith calculation of estimated glomerular filtration rate > NRG Serum or plasma glucose measurement (mass/volume) 158 mg/dL 70-105 Serum or plasma calcium measurement (mass/volume) 9.1 mg/dL 8.5-10.1 Serum or plasma total bilirubin measurement (mass/volu me) 0.4 mg/dL 0.1-1.0 Serum or plasma alkaline phosphatase mariama surement (enzymatic activity/volume) 56 U/L 40-136 Serum or plasma aspartate aminotransfera se measurement (enzymatic activity/volume) 13 U/L 5-34 Serum or plasma alanine aminotransferase measurement (enzymatic activity/volume) 12 U/L 0-55 Serum or plasma protein measurement (mass/volume) 6.1 g/dL 6.4-8.2 Serum or plasma albumin measurement (mass/volume) 3.8 g/dL 3.2-4.5 Magnesium - 10/21/15 15:40 Magnesium 2.1 mg/dL 1.8-2.4 Serum or plasma troponin i.cardiac measu rement (mass/volume) - 10/21/15 15:40 Serum or plasma troponin i.cardiac measurement (mass/v olume) < ng/mL <0.30 Myoglobin, serum - 10/21/15 15:40 Myoglobin, serum 24.5 ng/mL 10.0-92.0 PT panel in platelet poor plasma by coag ulation assay - 10/21/15 15:40 Prothrombin time (PT) in platelet poor plasma by coagu lation assay 14.1 s 12.2-14.7 INR in platelet poor plasma or blood by coagulation as say 1.1 0.8-1.4 Activated partial thromboplastin time (a PTT) in platelet poor plasma bycoagulation assay - 10/21/15 15:40 Activated partial thromboplastin time (a PTT) in platelet poor plasma bycoagulation assay 27 s 24-35 Serum or plasma creatine kinase measurem ent (enzymatic activity/volume) - 10/22/15 02:38 Serum or plasma creatine kinase measurem ent (enzymatic activity/volume) 22 U/L 29-168 Serum or plasma troponin i.cardiac measu rement (mass/volume) - 10/22/15 02:38 Serum or plasma troponin i.cardiac measurement (mass/v olume) < ng/mL <0.30 Lipid 1996 panel - 10/22/15 02:38 Serum or plasma triglyceride measurement (mass/volume) 140 mg/dL <150 Serum or plasma cholesterol measurement (mass/volume) 208 mg/dL < 200 Serum or plasma cholesterol in HDL measurement (mass/v olume) 39 mg/dL 40-60 Cholesterol in LDL [mass/volume] in serum or plasma by direct assay 152 mg/dL 1-129 Serum or plasma cholesterol in VLDL measurement (mass/ volume) 28 mg/dL 5-40 Complete blood count (CBC) with automate d white blood cell (WBC) differential - 11/05/16 21:35 Blood leukocytes automated count (number/volume) 6.7 10*3/uL 4.3-11.0 Blood erythrocytes automated count (number/volume) 4.38 10*6/uL 4.35-5.85 Venous blood hemoglobin measurement (mass/volume) 12.4 g/dL 11.5-16.0 Blood hematocrit (volume fraction) 38 % 35-52 Automated erythrocyte mean corpuscular volume 87 [ foz_us] 80-99 Automated erythrocyte mean corpuscular h emoglobin (mass per erythrocyte) 28 pg 25-34 Automated erythrocyte mean corpuscular h emoglobin concentration measurement (mass/volume) 33 g/dL 32-36 Automated erythrocyte distribution width ratio 13. 8 % 10.0- 14.5 Automated blood platelet count (count/volume) 169 10*3/uL [...] 10*3 1.0-4.0 Blood monocytes automated count (number/volume) 0. 5 10*3 0.0-1.0 Automated eosinophil count 0.3 10*3/uL 0 .0-0.3 Automated blood basophil count (count/volume) 0.1 10*3/uL 0.0-0.1 Comprehensive metabolic panel - 11/05/16 21:35 Serum or plasma sodium measurement (moles/volume) 142 mmol/L 135-145 Serum or plasma potassium measurement (moles/volume) 4.2 mmol/L 3.6-5.0 Serum or plasma chloride measurement (moles/volume) 107 mmol/L 98-107 Carbon dioxide 21 mmol/L 21-32 Serum or plasma anion gap determination (moles/volume) 14 mmol/L 5-14 Serum or plasma urea nitrogen measurement (mass/volume ) 9 mg/dL 7-18 Serum or plasma creatinine measurement (mass/volume) 0.65 mg/dL 0.60-1.30 Serum or plasma urea nitrogen/creatinine mass ratio 14 NRG Serum or plasma creatinine measurement w ith calculation of estimated glomerular filtration rate > NRG Serum or plasma glucose measurement (mass/volume) 104 mg/dL 70-105 Serum or plasma calcium measurement (mass/volume) 9.6 mg/dL 8.5-10.1 Serum or plasma total bilirubin measurement (mass/volu me) 0.5 mg/dL 0.1-1.0 Serum or plasma alkaline phosphatase mariama surement (enzymatic activity/volume) 64 U/L 40-136 Serum or plasma aspartate aminotransfera se measurement (enzymatic activity/volume) 21 U/L 5-34 Serum or plasma alanine aminotransferase measurement (enzymatic activity/volume) 15 U/L 0-55 Serum or plasma protein measurement (mass/volume) 7.0 g/dL 6.4-8.2 Serum or plasma albumin measurement (mass/volume) 4.1 g/dL 3.2-4.5 Serum or plasma C reactive protein measu rement (mass/volume) - 11/05/16 21:35 Serum or plasma C reactive protein measurement (mass/v olume) 0.16 mg/dL 0.00-0.50 Complete urinalysis with reflex to cultu re - 02/17/17 23:03 Urine color determination YELLOW NRG Urine clarity determination VERY CLOUDY NRG Urine pH measurement by test strip 5 5-9 Specific gravity of urine by test strip 1.030 1.016-1.022 Urine protein assay by test strip, semi-quantitative 2+ NEGATIVE Urine glucose detection by automated test strip NE GATIVE NEGATIVE Erythrocytes detection in urine sediment by light micr oscopy 2+ NEGATIVE Urine ketones detection by automated test strip 1+ NEGATIVE Urine nitrite detection by test strip NEGATIVE NEGATIVE Urine total bilirubin detection by test strip 1+ NEGATIVE Urine urobilinogen measurement by automated test strip (mass/volume) 4 mg/dL NORMAL Urine leukocyte esterase detection by dipstick 3+ NEGATIVE Automated urine sediment erythrocyte cou nt by microscopy (number/high power field) [HPF] NRG Automated urine sediment leukocyte count by microscopy (number/high power field) TNTC NRG Bacteria detection in urine sediment by light microsco py MODERATE NRG Squamous epithelial cells detection in u rine sediment by light microscopy 10-25 NRG Crystals detection in urine sediment by light microsco py NONE NRG Casts detection in urine sediment by light microscopy NONE NRG Mucus detection in urine sediment by light microscopy MODERATE NRG Complete urinalysis with reflex to culture YES NRG Bacterial urine culture - 02/17/17 23:03 URINE CULTURE RESULTS MORE THAN 3 ISOLATES NRG Complete blood count (CBC) with automate d white blood cell (WBC) differential - 02/17/17 23:10 Blood leukocytes automated count (number/volume) 6.0 10*3/uL 4.3-11.0 Blood erythrocytes automated count (number/volume) 3.94 10*6/uL 4.35-5.85 Venous blood hemoglobin measurement (mass/volume) 11.4 g/dL 11.5-16.0 Blood hematocrit (volume fraction) 35 % 35-52 Automated erythrocyte mean corpuscular volume 88 [ foz_us] 80-99 Automated erythrocyte mean corpuscular h emoglobin (mass per erythrocyte) 29 pg 25-34 Automated erythrocyte mean corpuscular h emoglobin concentration measurement (mass/volume) 33 g/dL 32-36 Automated erythrocyte distribution width ratio 13. 8 % 10.0- 14.5 Automated blood platelet count (count/volume) 142 10*3/uL [...] 10*3 1.0-4.0 Blood monocytes automated count (number/volume) 0. 5 10*3 0.0-1.0 Automated eosinophil count 0.2 10*3/uL 0 .0-0.3 Automated blood basophil count (count/volume) 0.0 10*3/uL 0.0-0.1 Comprehensive metabolic panel - 02/17/17 23:10 Serum or plasma sodium measurement (moles/volume) 141 mmol/L 135-145 Serum or plasma potassium measurement (moles/volume) 3.8 mmol/L 3.6-5.0 Serum or plasma chloride measurement (moles/volume) 107 mmol/L 98-107 Carbon dioxide 27 mmol/L 21-32 Serum or plasma anion gap determination (moles/volume) 7 mmol/L 5-14 Serum or plasma urea nitrogen measurement (mass/volume ) 9 mg/dL 7-18 Serum or plasma creatinine measurement (mass/volume) 0.68 mg/dL 0.60-1.30 Serum or plasma urea nitrogen/creatinine mass ratio 13 NRG Serum or plasma creatinine measurement w ith calculation of estimated glomerular filtration rate > NRG Serum or plasma glucose measurement (mass/volume) 120 mg/dL 70-105 Serum or plasma calcium measurement (mass/volume) 8.8 mg/dL 8.5-10.1 Serum or plasma total bilirubin measurement (mass/volu me) 0.4 mg/dL 0.1-1.0 Serum or plasma alkaline phosphatase mariama surement (enzymatic activity/volume) 65 U/L 40-136 Serum or plasma aspartate aminotransfera se measurement (enzymatic activity/volume) 49 U/L 5-34 Serum or plasma alanine aminotransferase measurement (enzymatic activity/volume) 23 U/L 0-55 Serum or plasma protein measurement (mass/volume) 6.3 g/dL 6.4-8.2 Serum or plasma albumin measurement (mass/volume) 3.8 g/dL 3.2-4.5 Blood lactic acid measurement (moles/vol ume) - 02/18/17 00:36 Blood lactic acid measurement (moles/volume) 1.24 mmol/L 0.50-2.00 Complete blood count (CBC) with automate d white blood cell (WBC) differential - 04/27/17 22:06 Blood leukocytes automated count (number/volume) 6.8 10*3/uL 4.3-11.0 Blood erythrocytes automated count (number/volume) 4.25 10*6/uL 4.35-5.85 Venous blood hemoglobin measurement (mass/volume) 12.6 g/dL 11.5-16.0 Blood hematocrit (volume fraction) 37 % 35-52 Automated erythrocyte mean corpuscular volume 88 [ foz_us] 80-99 Automated erythrocyte mean corpuscular h emoglobin (mass per erythrocyte) 30 pg 25-34 Automated erythrocyte mean corpuscular h emoglobin concentration measurement (mass/volume) 34 g/dL 32-36 Automated erythrocyte distribution width ratio 14. 1 % 10.0- 14.5 Automated blood platelet count (count/volume) 139 10*3/uL [...] 10*3 1.0-4.0 Blood monocytes automated count (number/volume) 0. 6 10*3 0.0-1.0 Automated eosinophil count 0.1 10*3/uL 0 .0-0.3 Automated blood basophil count (count/volume) 0.0 10*3/uL 0.0-0.1 Comprehensive metabolic panel - 04/27/17 22:06 Serum or plasma sodium measurement (moles/volume) 140 mmol/L 135-145 Serum or plasma potassium measurement (moles/volume) 4.3 mmol/L 3.6-5.0 Serum or plasma chloride measurement (moles/volume) 105 mmol/L 98-107 Carbon dioxide 24 mmol/L 21-32 Serum or plasma anion gap determination (moles/volume) 11 mmol/L 5-14 Serum or plasma urea nitrogen measurement (mass/volume ) 13 mg/dL 7-18 Serum or plasma creatinine measurement (mass/volume) 0.72 mg/dL 0.60-1.30 Serum or plasma urea nitrogen/creatinine mass ratio 18 NRG Serum or plasma creatinine measurement w ith calculation of estimated glomerular filtration rate > NRG Serum or plasma glucose measurement (mass/volume) 146 mg/dL 70-105 Serum or plasma calcium measurement (mass/volume) 9.1 mg/dL 8.5-10.1 Serum or plasma total bilirubin measurement (mass/volu me) 0.8 mg/dL 0.1-1.0 Serum or plasma alkaline phosphatase mariama surement (enzymatic activity/volume) 70 U/L 40-136 Serum or plasma aspartate aminotransfera se measurement (enzymatic activity/volume) 22 U/L 5-34 Serum or plasma alanine aminotransferase measurement (enzymatic activity/volume) 19 U/L 0-55 Serum or plasma protein measurement (mass/volume) 6.8 g/dL 6.4-8.2 Serum or plasma albumin measurement (mass/volume) 4.1 g/dL 3.2-4.5 Magnesium - 04/27/17 22:06 Magnesium 2.1 mg/dL 1.8-2.4 PT panel in platelet poor plasma by coag ulation assay - 04/27/17 22:06 Prothrombin time (PT) in platelet poor plasma by coagu lation assay 14.3 s 12.2-14.7 INR in platelet poor plasma or blood by coagulation as say 1.1 0.8-1.4 Activated partial thromboplastin time (a PTT) in platelet poor plasma bycoagulation assay - 04/27/17 22:06 Activated partial thromboplastin time (a PTT) in platelet poor plasma bycoagulation assay 25 s 24-35 Blood manual differential performed dete ction - 04/27/17 22:06 Blood monocytes/100 leukocytes 9 % NRG Manual blood segmented neutrophils/100 leukocytes 80 % NRG Blood band neutrophils/100 leukocytes 4 % NRG Manual blood lymphocytes/100 leukocytes 7 % NRG Manual eosinophils/100 leukocytes in nose 0 % NRG Manual blood basophils/100 leukocytes 0 % NRG Blood erythrocyte morphology finding identification NORMAL NRG Serum or plasma troponin i.cardiac measu rement (mass/volume) - 04/27/17 22:06 Serum or plasma troponin i.cardiac measurement (mass/v olume) < ng/mL <0.30 Myoglobin, serum - 04/27/17 22:06 Myoglobin, serum 20.5 ng/mL 10.0-92.0 Influenza virus A and B antigen detectio n - 04/27/17 23:39 FLU RESULT NEGATIVE FOR INFLUENZA A AND B ANTIGENS BY IA NRG Complete urinalysis with reflex to cultu re - 04/27/17 23:45 Urine color determination YELLOW NRG Urine clarity determination CLEAR NR G Urine pH measurement by test strip 5 5-9 Specific gravity of urine by test strip 1.025 1.016-1.022 Urine protein assay by test strip, semi-quantitative 1+ NEGATIVE Urine glucose detection by automated test strip NE GATIVE NEGATIVE Erythrocytes detection in urine sediment by light micr oscopy NEGATIVE NEGATIVE Urine ketones detection by automated test strip NE GATIVE NEGATIVE Urine nitrite detection by test strip NEGATIVE NEGATIVE Urine total bilirubin detection by test strip NEGA TIVE NEGATIVE Urine urobilinogen measurement by automated test strip (mass/volume) NORMAL NORMAL Urine leukocyte esterase detection by dipstick 2+ NEGATIVE Automated urine sediment erythrocyte cou nt by microscopy (number/high power field) NONE NRG Automated urine sediment leukocyte count by microscopy (number/high power field) [HPF] NRG Bacteria detection in urine sediment by light microsco py FEW NRG Squamous epithelial cells detection in u rine sediment by light microscopy 2-5 NRG Crystals detection in urine sediment by light microsco py NONE NRG Casts detection in urine sediment by light microscopy NONE NRG Mucus detection in urine sediment by light microscopy LARGE NRG Complete urinalysis with reflex to culture NO NRG Serum or plasma troponin i.cardiac measu rement (mass/volume) - 04/28/17 01:30 Serum or plasma troponin i.cardiac measurement (mass/v olume) < ng/mL <0.30 Complete blood count (CBC) with automate d white blood cell (WBC) differential - 07/03/17 13:15 Blood leukocytes automated count (number/volume) 5.6 10*3/uL 4.3-11.0 Blood erythrocytes automated count (number/volume) 3.68 10*6/uL 4.35-5.85 Venous blood hemoglobin measurement (mass/volume) 10.7 g/dL 11.5-16.0 Blood hematocrit (volume fraction) 33 % 35-52 Automated erythrocyte mean corpuscular volume 88 [ foz_us] 80-99 Automated erythrocyte mean corpuscular h emoglobin (mass per erythrocyte) 29 pg 25-34 Automated erythrocyte mean corpuscular h emoglobin concentration measurement (mass/volume) 33 g/dL 32-36 Automated erythrocyte distribution width ratio 14. 0 % 10.0- 14.5 Automated blood platelet count (count/volume) 165 10*3/uL 130-400 Automated blood platelet mean volume measurement 8.9 [foz_us] 7.4-10.4 Automated blood neutrophils/100 leukocytes 72 % 42-75 Automated blood lymphocytes/100 leukocytes 15 % 12-44 Blood monocytes/100 leukocytes 8 % 0-12 Automated blood eosinophils/100 leukocytes 4 % 0-10 Automated blood basophils/100 leukocytes 0 % 0-10 Blood neutrophils automated count (number/volume) 4.1 10*3 1.8-7.8 Blood lymphocytes automated count (number/volume) 0.8 10*3 1.0-4.0 Blood monocytes automated count (number/volume) 0. 5 10*3 0.0-1.0 Automated eosinophil count 0.2 10*3/uL 0 .0-0.3 Automated blood basophil count (count/volume) 0.0 10*3/uL 0.0-0.1 PT panel in platelet poor plasma by coag ulation assay - 07/03/17 13:15 Prothrombin time (PT) in platelet poor plasma by coagu lation assay 14.4 s 12.2-14.7 INR in platelet poor plasma or blood by coagulation as say 1.1 0.8-1.4 Activated partial thromboplastin time (a PTT) in platelet poor plasma bycoagulation assay - 07/03/17 13:15 Activated partial thromboplastin time (a PTT) in platelet poor plasma bycoagulation assay 26 s 24-35 Comprehensive metabolic panel - 07/03/17 13:15 Serum or plasma sodium measurement (moles/volume) 139 mmol/L 135-145 Serum or plasma potassium measurement (moles/volume) 4.0 mmol/L 3.6-5.0 Serum or plasma chloride measurement (moles/volume) 106 mmol/L 98-107 Carbon dioxide 27 mmol/L 21-32 Serum or plasma anion gap determination (moles/volume) 6 mmol/L 5-14 Serum or plasma urea nitrogen measurement (mass/volume ) 12 mg/dL 7-18 Serum or plasma creatinine measurement (mass/volume) 0.63 mg/dL 0.60-1.30 Serum or plasma urea nitrogen/creatinine mass ratio 19 NRG Serum or plasma creatinine measurement w ith calculation of estimated glomerular filtration rate > NRG Serum or plasma glucose measurement (mass/volume) 174 mg/dL 70-105 Serum or plasma calcium measurement (mass/volume) 8.8 mg/dL 8.5-10.1 Serum or plasma total bilirubin measurement (mass/volu me) 0.4 mg/dL 0.1-1.0 Serum or plasma alkaline phosphatase mariama surement (enzymatic activity/volume) 62 U/L 40-136 Serum or plasma aspartate aminotransfera se measurement (enzymatic activity/volume) 49 U/L 5-34 Serum or plasma alanine aminotransferase measurement (enzymatic activity/volume) 23 U/L 0-55 Serum or plasma protein measurement (mass/volume) 5.9 g/dL 6.4-8.2 Serum or plasma albumin measurement (mass/volume) 3.7 g/dL 3.2-4.5 Magnesium - 07/03/17 13:15 Magnesium 1.9 mg/dL 1.8-2.4 Serum or plasma troponin i.cardiac measu rement (mass/volume) - 07/03/17 13:15 Serum or plasma troponin i.cardiac measurement (mass/v olume) < ng/mL <0.30 Myoglobin, serum - 07/03/17 13:15 Myoglobin, serum 23.1 ng/mL 10.0-92.0 Serum or plasma C reactive protein measu rement (mass/volume) - 07/03/17 13:15 Serum or plasma C reactive protein measurement (mass/v olume) 0.19 mg/dL 0.00-0.50 Complete blood count (CBC) with automate d white blood cell (WBC) differential - 08/20/19 17:35 Blood leukocytes automated count (number/volume) 6.6 10*3/uL 4.3-11.0 Blood erythrocytes automated count (number/volume) 4.29 10*6/uL 4.35-5.85 Venous blood hemoglobin measurement (mass/volume) 12.3 g/dL 11.5-16.0 Blood hematocrit (volume fraction) 37 % 35-52 Automated erythrocyte mean corpuscular volume 87 [ foz_us] 80-99 Automated erythrocyte mean corpuscular h emoglobin (mass per erythrocyte) 29 pg 25-34 Automated erythrocyte mean corpuscular h emoglobin concentration measurement (mass/volume) 33 g/dL 32-36 Automated erythrocyte distribution width ratio 13. 8 % 10.0- 14.5 Automated blood platelet count (count/volume) 192 10*3/uL 130-400 Automated blood platelet mean volume measurement 9.1 [foz_us] 7.4-10.4 Automated blood neutrophils/100 leukocytes 66 % 42-75 Automated blood lymphocytes/100 leukocytes 22 % 12-44 Blood monocytes/100 leukocytes 9 % 0-12 Automated blood eosinophils/100 leukocytes 4 % 0-10 Automated blood basophils/100 leukocytes 1 % 0-10 Blood neutrophils automated count (number/volume) 4.3 10*3 1.8-7.8 Blood lymphocytes automated count (number/volume) 1.4 10*3 1.0-4.0 Blood monocytes automated count (number/volume) 0. 6 10*3 0.0-1.0 Automated eosinophil count 0.2 10*3/uL 0 .0-0.3 Automated blood basophil count (count/volume) 0.0 10*3/uL 0.0-0.1 Encounters ACCT No. Visit Date/Time Discharge Status Pt. Type Provider Facility Loc./Unit Complaint [id number] 07/26/2017 11:57:00 018 23:59:59 CLS Outpatient NOEL AGUAYO FACC, WALE RIVASP CC DS [facility] CARD I25.10 CAD [id number] 07/26/2017 08:05:00 018 23:59:59 CLS Outpatient WALE COHEN MD, FACC, FACP CC DS [facility] LAB I25.10 [id number] 07/03/2017 12:39:00 018 14:42:00 DIS Emergency ROGERIO MONREAL MD [facility] ER BILAT RIB PAIN [id number] 04/27/2017 20:32:00 018 03:30:00 DIS Emergency ROGERIO MONREAL MD [facility] ER NECK PAIN, VOMI TING [id number] 02/17/2017 21:37:00 017 01:22:00 DIS Emergency LAURA RUSSELL MD [facility] ER RIB AND STOMACH PAIN [id number] 11/05/2016 18:48:00 017 23:16:00 DIS Emergency ROGERIO MONREAL MD [facility] ER BITE,SWELLING [id number] 10/04/2016 08:21:00 017 23:59:59 CLS Outpatient NOEL AGUAYO FACC, WALE RIVASP CC DS [facility] LAB I25.10 I65. 23 E11.9 E78.4 [id number] 10/21/2015 19:20:00 016 10:15:00 DIS Inpatient WEST PHELAN MD [facility] 4TH BACK PAIN,CAD [id number] 09/22/2014 08:31:00 23:59:59 CLS Outpatient SAURABH PARRY [facility] CARD CAD,ANKLE EDEMA [id number] 08/15/2014 08:31:00 23:59:59 CLS Outpatient SAURABH PARRY [facility] LAB CAD,CAROTID ART ERIAL DI,HTN,HLP [id number] 05/02/2014 13:30:00 23:59:59 CLS Outpatient MATHEW SMALL [facility] REHAB L HIP FX [id number] 04/11/2014 10:09:00 12:35:00 DIS Emergency EILEEN FLORIAN APRN [facility] ER FLU SYMPTOMS [id number] 02/24/2014 14:49:00 23:59:59 CLS Outpatient WEST PHELAN MD [facility] LAB ANEMIA [id number] 02/21/2014 15:00:00 23:59:59 CLS Outpatient WEST PHELAN MD [facility] ANTI COAG THERAPY [id number] 02/20/2014 15:00:00 014 23:59:59 CLS Outpatient WEST PHELAN MD [facility] ANTICOAG THERAPY [id number] 02/05/2014 13:34:00 014 13:32:00 DIS Inpatient CLAUDETTE RAO MD [facility] SURGICAL LEFT HIP FRACTURE [id number] 12/13/2013 19:00:00 014 20:44:00 DIS Emergency PURNIMA HAM MD [facility] ER CP [id number] 08/21/2013 11:29:00 014 10:20:00 DIS Inpatient NOEL AGUAYO FAC, WALE ROCHE S [facility] CSD CHEST PAIN COLLETTE K PAIN CAD SILVESTRE [id number] 08/06/2013 12:16:00 014 13:55:00 DIS Emergency WILLY , ROXI K [facility] ER LEFT LEG PAIN [id number] 06/03/2013 16:08:00 014 18:02:00 DIS Emergency WILLIE THOMAS MD [facility] ER FALL/HEAD TRAUM A [id number] 04/11/2013 09:15:00 23:59:59 CLS Outpatient SAURABH PARRY [facility] LAB HYPERLIPADEMIA [id number] 01/26/2013 06:46:00 23:59:59 CLS Emergency [id number] 01/25/2013 20:15:00 013 01:04:00 DIS Emergency BETTIE ANDERSON [facility] ER FELL R SHOULDER PAIN A ND NECK PAIN [id number] 01/23/2013 14:21:00 17:10:00 DIS Emergency EILEEN FLORIAN APRN [facility] ER FALL/RIGHT SHOULDER RUDDY N [id number] 12/26/2012 09:29:00 23:59:59 CLS Outpatient SAURABH PARRY [facility] LAB CAD,HLP [id number] 11/02/2012 16:17:00 013 19:00:00 DIS Emergency BETTIE ANDERSON [facility] ER CP [id number] 11/01/2012 22:45:00 00:30:00 DIS Emergency PURNIMA HAM MD [facility] ER BILAT LEG PAIN [id number] 10/28/2012 14:42:00 013 15:42:00 DIS Emergency DEVON AGUILERA DOA Sj paulson [facility] ER PAIN IN BOTH LEGS [id number] 09/03/2012 13:51:00 15:13:00 DIS Outpatient GREG GALVAN MD [facility] REHAB CERVICAL SPINE PAIN CO NGENITAL FUSION C2-3 [id number] 09/07/2012 14:44:00 17:21:00 DIS Emergency SANDEEP AMOR MD [facility] ER CP [id number] 08/31/2012 14:20:00 23:59:59 CLS Outpatient SAURABH PARRYP [facility] RAD HX OF DVT, RLE EDEMA [id number] 07/16/2012 08:14:00 23:59:59 CLS Outpatient SAURABH PARRY [employer] [facility] LAB HYPOMAGNESIUM [id number] 08/20/2019 17:44:00 Document Registration [id number] 02/26/2014 09:53:00 Document Registration [id number] 02/26/2014 09:53:00 Document Registration [id number] 02/26/2014 09:53:00 Document Registration [id number] 02/26/2014 09:53:00 Document Registration [id number] 02/26/2014 09:53:00 Document Registration [id number] 02/26/2014 09:52:00 Document Registration [id number] 02/26/2014 09:52:00 Document Registration [id number] 02/26/2014 09:52:00 Document Registration [id number] 02/26/2014 09:52:00 Document Registration [id number] 02/26/2014 09:52:00 Document Registration [id number] 02/26/2014 09:52:00 Document Registration [id number] 02/26/2014 09:52:00 Document Registration [id number] 07/09/2012 10:15:00 Document Registration [id number] 05/03/2012 08:04:00 Document Registration [id number] 04/29/2012 17:40:00 Document Registration [id number] 12/02/2011 08:11:00 Document Registration [id number] 12/01/2011 11:55:00 Document Registration [id number] 11/01/2011 08:51:00 Document Registration [id number] 09/06/2011 13:28:00 Document Registration [id number] 08/24/2011 15:00:00 Document Registration [id number] 08/19/2011 08:39:00 Document Registration [id number] 07/20/2011 22:30:00 Document Registration [id number] 06/14/2011 09:54:00 Document Registration [id number] 06/02/2011 17:00:00 Document Registration [id number] 03/09/2011 17:25:00 Document Registration [id number] 03/03/2011 09:10:00 Document Registration [id number] 02/07/2011 12:24:00 Document Registration [id number] 02/04/2011 23:15:00 Document Registration [id number] 01/03/2011 11:27:00 Document Registration [id number] 12/28/2010 11:05:00 Document Registration [id number] 12/12/2010 20:35:00 Document Registration [id number] 12/07/2010 09:08:00 Document Registration [id number] 11/12/2010 16:52:00 Document Registration [id number] 11/11/2010 14:17:00 Document Registration [id number] 09/26/2010 07:52:00 Document Registration [id number] 09/09/2010 09:17:00 Document Registration [id number] 08/13/2010 09:40:00 Document Registration [id number] 08/04/2010 19:13:00 Document Registration [id number] 06/06/2010 20:40:00 Document Registration [id number] 06/02/2010 09:02:00 Document Registration [id number] 03/16/2010 09:21:00 Document Registration [id number] 03/07/2010 11:57:00 Document Registration [id number] 01/24/2010 19:06:00 Document Registration [id number] 12/23/2009 15:08:00 Document Registration [id number] 12/06/2009 09:11:00 Document Registration [id number] 12/04/2009 08:26:00 Document Registration [id number] 09/25/2009 14:09:00 Document Registration [id number] 09/16/2009 20:06:00 Document Registration [id number] 08/31/2009 12:05:00 Document Registration [id number] 08/28/2009 18:33:00 Document Registration [id number] 08/14/2009 19:02:00 Document Registration [id number] 07/01/2009 13:50:00 Document Registration [id number] 09/10/2008 09:34:00 Document Registration
[2019-08-20 18:01] LABS: GLUCOSE 122 MG/DL (70-105); TOTAL PROTEIN 6.4 GM/DL (6.4-8.2)
[2019-08-20 18:02] LABS: CARBON DIOXIDE 25 MMOL/L (21-32)
[2019-08-20 18:03] LABS: BILIRUBIN,TOTAL 0.3 MG/DL (0.1-1.0)
[2019-08-20 18:05] LABS: ALKALINE PHOSPHATASE 62 U/L (40-136); CREATININE SERUM 0.76 MG/DL (0.60-1.30); GFR ESTIMATED > 60
[2019-08-20 18:06] LABS: BUN/CREATININE RATIO 16
[2019-08-20 18:08] LABS: ALANINE AMINOTRANSFERASE 6 U/L (0-55)
[2019-08-20] MEDS ORDERED: HOLD METFORMIN - RECEIVED CONTRAST 20 ML VIAL IV SCH (18:15)
[2019-08-20] MEDS ORDERED: IOHEXOL 350 MG/ML 100 ML (OMNIPAQUE 350) VIAL IV ONE (18:15)
[2019-08-20] MEDS ORDERED: NS 100 ML (IVPB) BAG IV ONE (18:15)
--- NOTE | 2019-08-20 18:40 | Diagnostic Imaging Report ---
PROCEDURE: CT neck soft tissue with contrast. TECHNIQUE: Multiple contiguous axial images were obtained through the neck after the administration of contrast. Auto Exposure Controls were utilized during the CT exam to meet ALARA standards for radiation dose reduction. INDICATION: Throat pain and swelling The epiglottis appears normal. There is no prevertebral soft tissue swelling. Submandibular glands appear normal. Parotid glands appear normal. There is no pharyngeal mucosal thickening. There is no evidence for retropharyngeal abscess. There are some calcifications at the carotid bifurcations. Thyroid appears normal. IMPRESSION: Unremarkable CT of the neck. Dictated by: Dictated on workstation # [id number]
[2019-08-20] MEDS ORDERED: CLIN300C11 PO (18:57)
--- NOTE | 2019-08-20 18:58 | NUR ---
PT'S DAUGHTER NOTIFIED OF FINDINGS AND THAT SHE IS READY TO BE PICKED UP. REPORT GIVEN TO STEFANI
[2019-08-20 19:14] VITALS: BP 146/92
== END 2019-08-20 19:15 | disposition home or self-care (01) ==
LOC: EDUNIT# 16:01 → ER 16:02
DX: K04.7 Periapical abscess without sinus (principal); I10 Essential (primary) hypertension; I25.2 Old myocardial infarction; E78.00 Pure hypercholesterolemia, unspecified; I25.10 Atherosclerotic heart disease of native coronary artery without angina pectoris; E11.42 Type 2 diabetes mellitus with diabetic polyneuropathy; F41.9 Anxiety disorder, unspecified; F32.9 Major depressive disorder, single episode, unspecified; Z88.0 Allergy status to penicillin; Z88.5 Allergy status to narcotic agent; Z88.1 Allergy status to other antibiotic agents; Z88.8 Allergy status to other drugs, medicaments and biological substances; Z79.82 Long term (current) use of aspirin; Z79.02 Long term (current) use of antithrombotics/antiplatelets; Z79.84 Long term (current) use of oral hypoglycemic drugs; Z95.1 Presence of aortocoronary bypass graft; Z95.5 Presence of coronary angioplasty implant and graft; Z82.49 Family history of ischemic heart disease and other diseases of the circulatory system
CPT/HCPCS: 36415; 70491; 80053; 85025; 99281

== ENCOUNTER 2019-09-12 19:02 | Emergency (ER) | payer MEDICARE ==
[~2019-09-12] VITALS: Ht 170 cm; Wt 64.0 kg
[~2019-09-12 19:02] MED LIST changes: +CLIN300C11 PO
--- NOTE | 2019-09-12 19:24 | ED General ---
General Stated Complaint: FEVER, SOA, SORE THROAT Source of Information: Patient Exam Limitations: No Limitations History of Present Illness Date Seen by Provider: Sep 12, 2019 Time Seen by Provider: 19:23 Initial Comments to ER by private vehicle with reports that her flu shot has worn off and she now has the worst cold of her life. She reports a sore throat, hacking cough and chills/general malaise for about 3 days.reports that she is currently being treated for a mouth infection with some antibiotics, unknown what kind. She has 3 pills left at home. Timing/Duration: 2-3 Days Severity: Moderate Modifying Factors: improves with Medication Associated Systoms: Cough, Fever/Chills Allergies and Home Medications Allergies Coded Allergies: Penicillins (Verified Allergy, Unknown, 05/12/05) morphine (Verified Allergy, Unknown, TAKES PERCOCET @ HOME, 10/22/15) CAUSES SKIN TO COME OFF FINGERS tetracycline (Verified Allergy, Unknown, 05/12/05) hydromorphone (Unverified Adverse Reaction, Unknown, STATES QUIT BREATHING, TAKES PERCOCET AT HOME, 10/22/15) Uncoded Allergies: PAPER TAPE (Allergy, Mild, 07/28/08) Home Medications Alprazolam 0.5 Mg Tablet, 0.5 MG PO TID Prescribed by: MURIEL PHELAN on 10/23/15 0736 Aspirin 81 Mg Tablet.dr, 81 MG PO BID, (Reported) Atorvastatin Calcium 10 Mg Tablet, 10 MG PO DAILY Prescribed by: MURIEL PHELAN on 10/23/15 0707 Carvedilol 12.5 Mg Tablet, 12.5 MG PO BID, (Reported) Cephalexin 500 Mg Tablet, 500 MG PO BID Prescribed by: LAURA RUSSELL on 02/18/17 0105 Clindamycin HCl 300 Mg Capsule, 300 MG PO TID Prescribed by: YONY JOYA on 08/20/19 1857 Clopidogrel Bisulfate 75 Mg Tablet, 75 MG PO DAILY, (Reported) Doxazosin Mesylate 2 Mg Tablet, 2 MG PO HS, (Reported) Etodolac 400 Mg Tablet, 400 MG PO BID PRN for MUSCLE SPASMS, (Reported) Linagliptin 5 Mg Tablet, 5 MG PO DAILY, (Reported) Lisinopril 10 Mg Tablet, 10 MG PO DAILY, (Reported) Magnesium Oxide 400 Mg Capsule, 400 MG PO HS, (Reported) Nitroglycerin 0.4 Mg Tab, 0 SL UD PRN for CHEST PAIN, (Reported) 1 TABLET EVERY 5 MINUTES X 3 DOSES NEEDED FOR CHEST PAIN [place]-3 Fatty Acids/Fish Oil 1 Each Capsule, 1,000 MG PO DAILY, (Reported) Oxycodone HCl/Acetaminophen 1 Each Tablet, 1 TAB PO QID, (Reported) Potassium Chloride 10 Meq Capsule.er, 10 MEQ PO DAILY, (Reported) Patient Home Medication List Home Medication List Reviewed: Yes Review of Systems Review of Systems Constitutional: see HPI EENTM: see HPI Respiratory: see HPI, cough Cardiovascular: no symptoms reported Genitourinary: no symptoms reported Musculoskeletal: no symptoms reported Skin: no symptoms reported Psychiatric/Neurological: No Symptoms Reported Hematologic/Lymphatic: No Symptoms Reported Immunological/Allergic: no symptoms reported Past Fgtlgif-Vvuocd-Lczyrq Hx Patient Social History 2nd Hand Smoke Exposure: No Recent Hopitalizations: No Immunizations Up To Date PED Vaccines UTD: Yes Date of Pneumonia Vaccine: Dec 20, 2016 Date of Influenza Vaccine: Dec 20, 2016 Seasonal Allergies Seasonal Allergies: No Past Medical History Surgeries: Yes (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) CABG, Coronary Stent, Gallbladder, Joint Replacement, Orthopedic Respiratory: No Currently Using CPAP: No Currently Using BIPAP: No Cardiac: Yes (CABG,STENTS) Coronary Artery Disease, Heart Attack, High Cholesterol, Hypertension Neurological: Yes (PERIPHERAL NEUROPATHY) Neuropathy Reproductive Disorders: No Sexually Transmitted Disease: No HIV/AIDS: No Genitourinary: No Gastrointestinal: Yes Gastroesophageal Reflux Musculoskeletal: Yes (NECK FX WITH TENDON SPASMS) Arthritis, Chronic Back Pain, Spasms Endocrine: Yes Diabetes, Non-Insulin dep HEENT: Yes Cataract Hearing Impairment: Denies Cancer: No (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) 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 0.0oz. 66.287884gx; 21.00 BMI Method:Stated General Appearance: No Apparent Distress, WD/WN, Other (very talkative no distress; temperature 102.4 on arrival.) Eyes: Bilateral Eye Normal Inspection, Bilateral Eye PERRL, Bilateral Eye EOMI HEENT: Normal ENT Inspection, Pharynx Normal Neck: Full Range of Motion, Normal Inspection, Other (there is no erythema of her neck but she does have some tenderness to palpation of the submandibular region) Respiratory: No Accessory Muscle Use, No Respiratory Distress Cardiovascular: Regular Rate, Rhythm, Normal Peripheral Pulses Gastrointestinal: Normal Bowel Sounds, Non Tender, Soft Extremity: Normal Capillary Refill, Normal Inspection Neurologic/Psychiatric: Alert, Oriented x3 Skin: Normal Color, Warm/Dry Focused Exam Lactate Level 09/12/19 19:23: Lactic Acid Level 1.68 Lactic Acid Level Laboratory Tests Test 09/12/19 19:23 Lactic Acid Level 1.68 MMOL/L (0.50-2.00) Progress/Results/Core Measures Suspected Sepsis SIRS Temperature: Pulse: Respiratory Rate: Laboratory Tests 09/12/19 19:23: White Blood Count 9.2 Blood Pressure / Mean: 09/12/19 19:23: Lactic Acid Level 1.68 Laboratory Tests 09/12/19 19:23: Creatinine 0.70, Platelet Count 179, Total Bilirubin 0.8 Results/Orders Lab Results Laboratory Tests Test 09/12/19 19:23 09/12/19 19:27 09/12/19 20:23 Range/Units White Blood Count 9.2 4.3-11.0 10^3/uL Red Blood Count 4.13 L 4.35-5.85 10^6/uL Hemoglobin 12.1 11.5-16.0 G/DL Hematocrit 35 35-52 % Mean Corpuscular Volume 86 80-99 FL Mean Corpuscular Hemoglobin 29 25-34 PG Mean Corpuscular Hemoglobin Concent 34 32-36 G/DL Red Cell Distribution Width 13.5 10.0-14.5 % Platelet Count 179 130-400 10^3/uL Mean Platelet Volume 9.2 7.4-10.4 FL Neutrophils (%) (Auto) 81 H 42-75 % Lymphocytes (%) (Auto) 11 L 12-44 % Monocytes (%) (Auto) 7 0-12 % Eosinophils (%) (Auto) 1 0-10 % Basophils (%) (Auto) 0 0-10 % Neutrophils # (Auto) 7.5 1.8-7.8 X 10^3 Lymphocytes # (Auto) 1.0 1.0-4.0 X 10^3 Monocytes # (Auto) 0.6 0.0-1.0 X 10^3 Eosinophils # (Auto) 0.1 0.0-0.3 10^3/uL Basophils # (Auto) 0.0 0.0-0.1 10^3/uL Sodium Level 138 135-145 MMOL/L Potassium Level 3.9 3.6-5.0 MMOL/L Chloride Level 104 98-107 MMOL/L Carbon Dioxide Level 23 21-32 MMOL/L Anion Gap 11 5-14 MMOL/L Blood Urea Nitrogen 8 7-18 MG/DL Creatinine 0.70 0.60-1.30 MG/DL Estimat Glomerular Filtration Rate > 60 BUN/Creatinine Ratio 11 Glucose Level 145 H 70-105 MG/DL Lactic Acid Level 1.68 0.50-2.00 MMOL/L Calcium Level 9.1 8.5-10.1 MG/DL Corrected Calcium 9.1 8.5-10.1 MG/DL Total Bilirubin 0.8 0.1-1.0 MG/DL Aspartate Amino Transf (AST/SGOT) 12 5-34 U/L Alanine Aminotransferase (ALT/SGPT) 8 0-55 U/L Alkaline Phosphatase 62 40-136 U/L C-Reactive Protein High Sensitivity 0.44 0.00-0.50 MG/DL B-Type Natriuretic Peptide 200.4 H <100.0 PG/ML Total Protein 6.5 6.4-8.2 GM/DL Albumin 4.0 3.2-4.5 GM/DL My Orders Orders - EILEEN FLORIAN APRN Ua Culture If Indicated (09/12/19 19:03) Cbc With Automated Diff (09/12/19 19:03) Comprehensive Metabolic Panel (09/12/19 19:03) Rapid Strep A Screen (09/12/19 19:03) Hs C Reactive Protein (09/12/19 19:03) Coronavirus Sars-Cov-2 So 2018 (09/12/19 19:03) Chest 1 View, Ap/Pa Only (09/12/19 19:03) BNP (09/12/19 19:08) Ekg Tracing (09/12/19 19:08) Blood Culture (09/12/19 19:21) Lactic Acid Analyzer (09/12/19 19:21) Acetaminophen Tablet (Tylenol Tablet) (09/12/19 19:30) Ibuprofen Tablet (Motrin Tablet) (09/12/19 19:30) Lactated Ringers (Lr 1000 Ml Iv Solution (09/12/19 19:30) Amlodipine Tablet (Norvasc Tablet) (09/12/19 19:30) Ct Neck (Soft Tissue) W (09/12/19 19:48) Iohexol Injection (Omnipaque 350 Mg/Ml 1 (09/12/19 20:15) Received Contrast (Hold Metformin- Contr (09/12/19 20:15) Sodium Chloride Flush (Catheter Flush Sy (09/12/19 20:15) Ns (Ivpb) (Sodium Chloride 0.9% Ivpb Bag (09/12/19 20:15) Medications Given in ED Current Medications Medications Dose Ordered Sig/Margarita Route Start Time Stop Time Status Last Admin Dose Admin Acetaminophen 1,000 mg ONCE ONCE PO 09/12/19 19:30 09/12/19 19:31 DC 09/12/19 19:49 1,000 MG Amlodipine Besylate 5 mg ONCE ONCE PO 09/12/19 19:30 09/12/19 19:31 DC 09/12/19 20:15 5 MG Ibuprofen 600 mg ONCE ONCE PO 09/12/19 19:30 09/12/19 19:31 DC 09/12/19 19:49 600 MG Iohexol 100 ml ONCE ONCE IV 09/12/19 20:15 09/12/19 20:16 DC 09/12/19 20:35 75 ML Sodium Chloride 10 ml NEEDED PRN IV 09/12/19 20:15 09/12/19 20:35 10 ML Sodium Chloride 100 ml ONCE ONCE IV 09/12/19 20:15 09/12/19 20:16 DC 09/12/19 20:35 80 ML Vital Signs/I&O 09/12/19 09/12/19 09/12/19 09/12/19 19:44 19:49 19:49 20:49 Temp 39.3 39.3 39.3 37.3 Pulse 77 62 Resp 18 16 B/P (MAP) 200/89 (126) 181/83 Pulse Ox 96 98 O2 Delivery Room Air Room Air Capillary Refill : Diagnostic Imaging Comments NAME: PERLITA PEREZ [facility] REC#: [id number] PT STATUS: REG ER : 1940 PHYSICIAN: EILEEN FLORIAN APRN ADMIT DATE: 09/12/19/ER Draft Date of Exam:09/12/19 CT NECK (SOFT TISSUE) W PROCEDURE: CT neck soft tissue with contrast. TECHNIQUE: Multiple contiguous axial images were obtained through the neck after the administration of contrast. Auto Exposure Controls were utilized during the CT exam to meet ALARA standards for radiation dose reduction. INDICATION: Fever, shortness of air, sore throat, history of meningioma at the back. EXAMINATION: CT soft tissue neck dated 09/12/2019 COMPARISON: 08/20/2019 FINDINGS: No soft tissue mass or abscess seen within the prevertebral or retropharyngeal soft tissues. Soft tissues of the neck overall stable from recent imaging with scattered atherosclerotic disease noted. The remaining visualized soft tissues appear unremarkable. Visualized upper lungs demonstrate a nodule on the right, image #73 measuring a centimeter in size. This is nonspecific and should be reevaluated non-emergently with CT chest. Remaining visualized upper lungs demonstrate diffuse chronic changes. The osseous structures stable with diffuse osteopenia and degenerative disease. Within the mediastinum, there are multiple serpiginous appearing areas nonspecific, some of these could represent prominent lymph nodes, others may represent collateral vasculature of uncertain etiology. IMPRESSION: 1. No evidence for abscess or acute process. 2. Nodule right lung; see above recommendations. Other incidental findings as discussed above. Dictated on workstation # [id number] Dict: 09/12/192046 Trans: 09/12/192054 [facility] [id number] Interpreted by: DARSHAN FELICIANO MD Electronically signed by: Departure Impression Primary Impression: Febrile illness Additional Impression: Sore throat Disposition: 01 HOME, SELF-CARE Condition: Stable Departure-Patient Inst. Referrals: PO COX MD (PCP/Family) Primary Care Physician EILEEN FLORIAN APRN Sep 12, 2019 19:24
[2019-09-12] MEDS ORDERED: amLODIPine 5 MG (NORVASC) TAB PO ONE (19:30)
[2019-09-12] MEDS ORDERED: LACTATED RINGERS 1,000 ML IV SCH (19:30)
[2019-09-12] MEDS ORDERED: IBUPROFEN TABLET 200 MG TAB PO ONE (19:30)
[2019-09-12] MEDS ORDERED: ACETAMINOPHEN 500 MG TAB (TYLENOL) PO ONE (19:30)
[2019-09-12 19:49] LABS: BASOPHILS % (AUTO) 0 % (0-10); EOSINOPHILS # (AUTO) 0.1 10^3/uL (0.0-0.3); EOSINOPHILS % (AUTO) 1 % (0-10); HEMATOCRIT 35 % (35-52); HEMOGLOBIN 12.1 G/DL (11.5-16.0); LYMPHOCYTES % (AUTO) 11 % (12-44); MEAN CORPUSCULAR HEMOGLOBIN 29 PG (25-34); MEAN CORPUSCULAR HGB CONC 34 G/DL (32-36); MEAN CORPUSCULAR VOLUME 86 FL (80-99); MEAN PLATELET VOLUME 9.2 FL (7.4-10.4); MONOCYTES # (AUTO) 0.6 X 10^3 (0.0-1.0); MONOCYTES % (AUTO) 7 % (0-12); NEUTROPHILS # (AUTO) 7.5 X 10^3 (1.8-7.8); NEUTROPHILS % (AUTO) 81 % (42-75); PLATELET COUNT 179 10^3/uL (130-400); RED CELL DISTRIBUTION WIDTH 13.5 % (10.0-14.5); WHITE BLOOD COUNT 9.2 10^3/uL (4.3-11.0)
--- NOTE | 2019-09-12 19:55 | Diagnostic Imaging Report ---
INDICATION: Fever, shortness of air, sore throat, person under investigation. EXAMINATION: Chest 09/12/2019 COMPARISON: 07/03/2017 FINDINGS: Single view of the chest Heart stable. Pulmonary vasculature normal. Atelectasis or infiltrate left lung base with minimal adjacent fluid. Chronic changes throughout the interstitium bilaterally. IMPRESSION: 1. Stable chronic changes. No acute process. Dictated by: Dictated on workstation # [id number]
[2019-09-12 20:13] LABS: ALANINE AMINOTRANSFERASE 8 U/L (0-55); ALKALINE PHOSPHATASE 62 U/L (40-136); BILIRUBIN,TOTAL 0.8 MG/DL (0.1-1.0); BUN/CREATININE RATIO 11; CALCIUM 9.1 MG/DL (8.5-10.1); CARBON DIOXIDE 23 MMOL/L (21-32); CHLORIDE 104 MMOL/L (98-107); GFR ESTIMATED > 60; GLUCOSE 145 MG/DL (70-105); POTASSIUM 3.9 MMOL/L (3.6-5.0); SODIUM 138 MMOL/L (135-145); TOTAL PROTEIN 6.5 GM/DL (6.4-8.2)
[2019-09-12] MEDS ORDERED: NS 100 ML (IVPB) BAG IV ONE (20:15)
[2019-09-12] MEDS ORDERED: CATHETER FLUSH 10 ML SYR IV PRN (20:15)
[2019-09-12] MEDS ORDERED: IOHEXOL 350 MG/ML 100 ML (OMNIPAQUE 350) VIAL IV ONE (20:15)
[2019-09-12] MEDS ORDERED: HOLD METFORMIN - RECEIVED CONTRAST 20 ML VIAL IV SCH (20:15)
[2019-09-12 20:46] LABS: BILIRUBIN,URINE NEGATIVE (NEGATIVE); CLARITY,URINE CLEAR; COLOR,URINE YELLOW; GLUCOSE, URINE (UA) NEGATIVE (NEGATIVE); KETONES,URINE NEGATIVE (NEGATIVE); LEUKOCYTE ESTERASE ,URINE TRACE (NEGATIVE); NITRITE,URINE NEGATIVE (NEGATIVE); PROTEIN,URINE NEGATIVE (NEGATIVE)
--- NOTE | 2019-09-12 20:56 | Diagnostic Imaging Report ---
PROCEDURE: CT neck soft tissue with contrast. TECHNIQUE: Multiple contiguous axial images were obtained through the neck after the administration of contrast. Auto Exposure Controls were utilized during the CT exam to meet ALARA standards for radiation dose reduction. INDICATION: Fever, shortness of air, sore throat, history of meningioma at the back. EXAMINATION: CT soft tissue neck dated 09/12/2019 COMPARISON: 08/20/2019 FINDINGS: No soft tissue mass or abscess seen within the prevertebral or retropharyngeal soft tissues. Soft tissues of the neck overall stable from recent imaging with scattered atherosclerotic disease noted. The remaining visualized soft tissues appear unremarkable. Visualized upper lungs demonstrate a nodule on the right, image #[id number] measuring a centimeter in size. This is nonspecific and should be reevaluated non-emergently with CT chest. Remaining visualized upper lungs demonstrate diffuse chronic changes. The osseous structures stable with diffuse osteopenia and degenerative disease. Within the mediastinum, there are multiple serpiginous appearing areas nonspecific, some of these could represent prominent lymph nodes, others may represent collateral vasculature of uncertain etiology. IMPRESSION: 1. No evidence for abscess or acute process. 2. Nodule right lung; see above recommendations. Other incidental findings as discussed above. Dictated by: Dictated on workstation # [id number]
[2019-09-12 21:09] LABS: BACTERIA,URINE TRACE /HPF; WBC,URINE 0-2 /HPF
[2019-09-12 21:28] VITALS: BP 161/70
== END 2019-09-12 21:30 | disposition home or self-care (01) ==
LOC: EDUNIT# 19:02 → ER 19:03
DX: J02.9 Acute pharyngitis, unspecified (principal); I10 Essential (primary) hypertension; I25.2 Old myocardial infarction; I25.10 Atherosclerotic heart disease of native coronary artery without angina pectoris; E11.42 Type 2 diabetes mellitus with diabetic polyneuropathy; G89.29 Other chronic pain; M54.9 Dorsalgia, unspecified; E78.00 Pure hypercholesterolemia, unspecified; F41.9 Anxiety disorder, unspecified; F32.9 Major depressive disorder, single episode, unspecified; Z20.828 Contact with and (suspected) exposure to other viral communicable diseases; Z88.0 Allergy status to penicillin; Z88.5 Allergy status to narcotic agent; Z88.1 Allergy status to other antibiotic agents; Z88.8 Allergy status to other drugs, medicaments and biological substances; Z79.82 Long term (current) use of aspirin; Z79.02 Long term (current) use of antithrombotics/antiplatelets; Z79.84 Long term (current) use of oral hypoglycemic drugs; Z95.5 Presence of coronary angioplasty implant and graft; Z95.1 Presence of aortocoronary bypass graft; Z79.891 Long term (current) use of opiate analgesic; Z82.49 Family history of ischemic heart disease and other diseases of the circulatory system
CPT/HCPCS: 70491; 71045; 80053; 81000; 83605; 83880; 85025; 86141; 87040; 87430; 99284; U0002; 36415; 87635

== ENCOUNTER 2019-10-31 15:32 | Emergency (ER) | payer MEDICARE ==
[~2019-10-31] VITALS: Ht 170 cm; Wt 62.7 kg
--- NOTE | 2019-10-31 15:58 | ED Integumentary General ---
General Chief Complaint: Skin/Wound Problems Stated Complaint: R FOOT INFECTION, FEVER, FATIGUE Source: patient Exam Limitations: no limitations History of Present Illness Date Seen by Provider: Oct 31, 2019 Time Seen by Provider: 15:56 Initial Comments To ER with right foot infection between the first and third toes ongoing for about a month. She's been spraying [id number] athlete's foot cream on it without improvement. She has intermittent fevers. Timing/Duration: getting worse Severity: moderate Associated Symptoms: denies symptoms Allergies and Home Medications Allergies Coded Allergies: Penicillins (Verified Allergy, Unknown, 05/12/05) morphine (Verified Allergy, Unknown, TAKES PERCOCET @ HOME, 10/22/15) CAUSES SKIN TO COME OFF FINGERS tetracycline (Verified Allergy, Unknown, 05/12/05) hydromorphone (Unverified Adverse Reaction, Unknown, STATES QUIT BREATHING, TAKES PERCOCET AT HOME, 10/22/15) Uncoded Allergies: PAPER TAPE (Allergy, Mild, 07/28/08) Home Medications Alprazolam 0.5 Mg Tablet, 0.5 MG PO TID Prescribed by: MURIEL PHELAN on 10/23/15 0736 Aspirin 81 Mg Tablet.dr, 81 MG PO BID, (Reported) Atorvastatin Calcium 10 Mg Tablet, 10 MG PO DAILY Prescribed by: MURIEL PHELAN on 10/23/15 0707 Carvedilol 12.5 Mg Tablet, 12.5 MG PO BID, (Reported) Cephalexin 500 Mg Tablet, 500 MG PO BID Prescribed by: LAURA RUSSELL on 02/18/17 0105 Clindamycin HCl 300 Mg Capsule, 300 MG PO TID Prescribed by: YONY JOYA on 08/20/19 1857 Clopidogrel Bisulfate 75 Mg Tablet, 75 MG PO DAILY, (Reported) Clotrimazole 15 Gm Cream..g., 15 GM TP BID Prescribed by: EILEEN FLORIAN on 10/31/19 1639 Doxazosin Mesylate 2 Mg Tablet, 2 MG PO HS, (Reported) Doxycycline Hyclate 100 Mg Tablet, 100 MG PO BID Prescribed by: EILEEN FLORIAN on 10/31/19 1639 Etodolac 400 Mg Tablet, 400 MG PO BID PRN for MUSCLE SPASMS, (Reported) Hydrocodone/Acetaminophen 1 Each Tablet, 1 EACH PO Q4-6HR PRN for PAIN-MODERATE Prescribed by: EILEEN FLORIAN on 10/31/19 1639 Linagliptin 5 Mg Tablet, 5 MG PO DAILY, (Reported) Lisinopril 10 Mg Tablet, 10 MG PO DAILY, (Reported) Magnesium Oxide 400 Mg Capsule, 400 MG PO HS, (Reported) Nitroglycerin 0.4 Mg Tab, 0 SL UD PRN for CHEST PAIN, (Reported) 1 TABLET EVERY 5 MINUTES X 3 DOSES NEEDED FOR CHEST PAIN [place]-3 Fatty Acids/Fish Oil 1 Each Capsule, 1,000 MG PO DAILY, (Reported) Oxycodone HCl/Acetaminophen 1 Each Tablet, 1 TAB PO QID, (Reported) Potassium Chloride 10 Meq Capsule.er, 10 MEQ PO DAILY, (Reported) Patient Home Medication List Home Medication List Reviewed: Yes Review of Systems Review of Systems Constitutional: see HPI; No chills, No fever EENTM: see HPI Respiratory: no symptoms reported Cardiovascular: no symptoms reported Genitourinary: no symptoms reported Musculoskeletal: no symptoms reported Past Kmrzkxh-Cjyiev-Ydzbme Hx Patient Social History 2nd Hand Smoke Exposure: No Recent Hopitalizations: No Immunizations Up To Date PED Vaccines UTD: Yes Date of Pneumonia Vaccine: Dec 20, 2016 Date of Influenza Vaccine: Dec 20, 2016 Seasonal Allergies Seasonal Allergies: No Past Medical History Surgeries: Yes (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) CABG, Coronary Stent, Gallbladder, Joint Replacement, Orthopedic Respiratory: No Currently Using CPAP: No Currently Using BIPAP: No Cardiac: Yes (CABG,STENTS) Coronary Artery Disease, Heart Attack, High Cholesterol, Hypertension Neurological: Yes (PERIPHERAL NEUROPATHY) Neuropathy Reproductive Disorders: No Sexually Transmitted Disease: No HIV/AIDS: No Genitourinary: No Gastrointestinal: Yes Gastroesophageal Reflux Musculoskeletal: Yes (NECK FX WITH TENDON SPASMS) Arthritis, Chronic Back Pain, Spasms Endocrine: Yes Diabetes, Non-Insulin dep HEENT: Yes Cataract Hearing Impairment: Denies Cancer: No (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) 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) Anxiety, Depression Integumentary: No Blood Disorders: Yes (Vit D deficiency) Adverse Reaction/Blood Tranf: Yes Family Medical History Congestive heart failure 19 MOTHER Family history: Cardiovascular disease Family history: Diabetes mellitus 19 MOTHER Family history: Hypertension 19 FATHER No Pertinent Family Hx Physical Exam Vital Signs Vital Signs - First Documented 10/31/19 16:11 Temp 36.7 Pulse 76 Resp 16 B/P (MAP) 112/78 (89) Pulse Ox 96 O2 Delivery Room Air Capillary Refill : General Appearance: WD/WN, no apparent distress, other (alert ,oriented, pleasant, unkempt) Respiratory: no respiratory distress, no accessory muscle use Extremities: normal range of motion, other Neurologic/Psychiatric: alert, normal mood/affect Skin: normal color, warm/dry Skin Problem Character: other (there is erythema between the second and third toes dorsally as well as some maceration of the skin to the plantar surface of the foot at the same location. Minimal erythema. Very tender to touch. The plantar surface of her foot is covered in animal hair and feces.) Comments strong dp pulse on right. Progress/Results/Core Measures Results/Orders Lab Results Laboratory Tests Test 10/31/19 16:00 Range/Units White Blood Count 6.2 4.3-11.0 10^3/uL Red Blood Count 4.44 4.35-5.85 10^6/uL Hemoglobin 12.6 11.5-16.0 G/DL Hematocrit 38 35-52 % Mean Corpuscular Volume 85 80-99 FL Mean Corpuscular Hemoglobin 28 25-34 PG Mean Corpuscular Hemoglobin Concent 33 32-36 G/DL Red Cell Distribution Width 13.9 10.0-14.5 % Platelet Count 195 130-400 10^3/uL Mean Platelet Volume 9.4 7.4-10.4 FL Neutrophils (%) (Auto) 61 42-75 % Lymphocytes (%) (Auto) 25 12-44 % Monocytes (%) (Auto) 7 0-12 % Eosinophils (%) (Auto) 7 0-10 % Basophils (%) (Auto) 1 0-10 % Neutrophils # (Auto) 3.8 1.8-7.8 X 10^3 Lymphocytes # (Auto) 1.5 1.0-4.0 X 10^3 Monocytes # (Auto) 0.4 0.0-1.0 X 10^3 Eosinophils # (Auto) 0.5 H 0.0-0.3 10^3/uL Basophils # (Auto) 0.0 0.0-0.1 10^3/uL Erythrocyte Sedimentation Rate 14 0-30 MM/HR Sodium Level 140 135-145 MMOL/L Potassium Level 3.9 3.6-5.0 MMOL/L Chloride Level 105 98-107 MMOL/L Carbon Dioxide Level 24 21-32 MMOL/L Anion Gap 11 5-14 MMOL/L Blood Urea Nitrogen 13 7-18 MG/DL Creatinine 0.79 0.60-1.30 MG/DL Estimat Glomerular Filtration Rate > 60 BUN/Creatinine Ratio 16 Glucose Level 193 H 70-105 MG/DL Calcium Level 8.8 8.5-10.1 MG/DL Corrected Calcium 9.0 8.5-10.1 MG/DL Total Bilirubin 0.5 0.1-1.0 MG/DL Aspartate Amino Transf (AST/SGOT) 11 5-34 U/L Alanine Aminotransferase (ALT/SGPT) 7 0-55 U/L Alkaline Phosphatase 55 40-136 U/L C-Reactive Protein High Sensitivity 0.36 0.00-0.50 MG/DL Total Protein 6.6 6.4-8.2 GM/DL Albumin 3.8 3.2-4.5 GM/DL My Orders Orders - EILEEN FLORIAN APRN Erythrocyte Sedimentation Rate (10/31/19 15:55) Hs C Reactive Protein (10/31/19 15:55) Foot, Right, 3 View (10/31/19 15:55) Cbc With Automated Diff (10/31/19 15:55) Comprehensive Metabolic Panel (10/31/19 15:55) Ed Iv/Invasive Line Start (10/31/19 15:55) Ceftriaxone For Iv Use (Rocephin For I (10/31/19 16:45) Medications Given in ED Current Medications Medications Dose Ordered Sig/Margarita Route Start Time Stop Time Status Last Admin Dose Admin Ceftriaxone Sodium 1000 mg/ Sterile Water 10 ml @ 200 mls/hr ONCE ONCE IV 10/31/19 16:45 10/31/19 16:47 DC 10/31/19 17:00 200 MLS/HR Vital Signs/I&O 10/31/19 16:11 Temp 36.7 Pulse 76 Resp 16 B/P (MAP) 112/78 (89) Pulse Ox 96 O2 Delivery Room Air Departure Impression Primary Impression: Soft tissue infection Additional Impression: interdigital tinea Disposition: 01 HOME, SELF-CARE Condition: Stable Departure-Patient Inst. Decision time for Depature: 16:36 Referrals: PO [facility] MD (PCP/Family) Primary Care Physician Patient Instructions: Wound Infection Add. Discharge Instructions: Keep this wound very clean. Wear socks and shoes at all times to keep the dirt and other material off of your feet. Take the pain medication and antibiotics as directed. Follow-up with your doctor next week. All discharge instructions reviewed with patient and/or family. Voiced understanding. Scripts Clotrimazole (Clotrimazole) 15 Gm Cream..g. 15 GM TP BID, #1 TUBE Prov: EILEEN FLORIAN APRN 10/31/19 Doxycycline Hyclate (Doxycycline Hyclate) 100 Mg Tablet 100 MG PO BID, #14 TAB Prov: EILEEN FLORIAN APRN 10/31/19 Hydrocodone/Acetaminophen (Lorcet 5-325 mg Tablet) 1 Each Tablet 1 EACH PO Q4-6HR PRN for PAIN-MODERATE MDD 10 for 7 Days, #10 TAB Prov: EILEEN FLORIAN APRN 10/31/19 EILEEN FLORIAN APRN Oct 31, 2019 15:58
[2019-10-31 16:10] LABS: BASOPHILS % (AUTO) 1 % (0-10); EOSINOPHILS # (AUTO) 0.5 10^3/uL (0.0-0.3); EOSINOPHILS % (AUTO) 7 % (0-10); HEMATOCRIT 38 % (35-52); HEMOGLOBIN 12.6 G/DL (11.5-16.0); LYMPHOCYTES # (AUTO) 1.5 X 10^3 (1.0-4.0); LYMPHOCYTES % (AUTO) 25 % (12-44); MEAN CORPUSCULAR HEMOGLOBIN 28 PG (25-34); MEAN CORPUSCULAR HGB CONC 33 G/DL (32-36); MEAN CORPUSCULAR VOLUME 85 FL (80-99); MEAN PLATELET VOLUME 9.4 FL (7.4-10.4); MONOCYTES # (AUTO) 0.4 X 10^3 (0.0-1.0); MONOCYTES % (AUTO) 7 % (0-12); NEUTROPHILS # (AUTO) 3.8 X 10^3 (1.8-7.8); NEUTROPHILS % (AUTO) 61 % (42-75); PLATELET COUNT 195 10^3/uL (130-400); RED CELL DISTRIBUTION WIDTH 13.9 % (10.0-14.5); WHITE BLOOD COUNT 6.2 10^3/uL (4.3-11.0)
[2019-10-31 16:29] LABS: ALANINE AMINOTRANSFERASE 7 U/L (0-55); ALBUMIN 3.8 GM/DL (3.2-4.5); ALKALINE PHOSPHATASE 55 U/L (40-136); BILIRUBIN,TOTAL 0.5 MG/DL (0.1-1.0); BUN/CREATININE RATIO 16; CALCIUM 8.8 MG/DL (8.5-10.1); CARBON DIOXIDE 24 MMOL/L (21-32); CHLORIDE 105 MMOL/L (98-107); CREATININE SERUM 0.79 MG/DL (0.60-1.30); GFR ESTIMATED > 60; GLUCOSE 193 MG/DL (70-105); POTASSIUM 3.9 MMOL/L (3.6-5.0); SODIUM 140 MMOL/L (135-145); TOTAL PROTEIN 6.6 GM/DL (6.4-8.2)
--- NOTE | 2019-10-31 16:30 | Diagnostic Imaging Report ---
INDICATION: Right foot infection. Fever. Fatigue. COMPARISON: None FINDINGS: 3 radiographic views of the right foot were obtained. No acute appearing osseous abnormality is seen. Osseous structures are intact. Joint spaces are maintained. No osteolytic or blastic lesions are seen. There is mild generalized soft tissue edema. No unexpected radiopaque foreign bodies are identified. IMPRESSION:. No acute osseous abnormality of the right foot. Dictated by: Dictated on workstation # [id number]
[2019-10-31 16:38] LABS: ERYTHROCYTE SEDIMENTATION RATE 14 MM/HR (0-30)
[2019-10-31] MEDS ORDERED: DOXY100T2 PO (16:39)
[2019-10-31] MEDS ORDERED: HYDR-3870 PO (16:39)
[2019-10-31] MEDS ORDERED: CLOT15CR28 TP (16:39)
[2019-10-31] MEDS ORDERED: cefTRIAXone FOR IV USE 1,000 MG in WATER (STERILE) FOR INJECTION 10 ML IV ONE (16:45)
[2019-10-31 17:27] VITALS: BP 103/63
== END 2019-10-31 17:27 | disposition home or self-care (01) ==
LOC: EDUNIT# 15:32 → ER 15:34
DX: L08.9 Local infection of the skin and subcutaneous tissue, unspecified (principal); B35.3 Tinea pedis; I10 Essential (primary) hypertension; E11.42 Type 2 diabetes mellitus with diabetic polyneuropathy; E78.00 Pure hypercholesterolemia, unspecified; I25.10 Atherosclerotic heart disease of native coronary artery without angina pectoris; I25.2 Old myocardial infarction; F41.9 Anxiety disorder, unspecified; F32.9 Major depressive disorder, single episode, unspecified; G89.29 Other chronic pain; M54.9 Dorsalgia, unspecified; Z95.1 Presence of aortocoronary bypass graft; Z88.0 Allergy status to penicillin; Z88.5 Allergy status to narcotic agent; Z88.8 Allergy status to other drugs, medicaments and biological substances; Z79.82 Long term (current) use of aspirin; Z79.02 Long term (current) use of antithrombotics/antiplatelets; Z79.84 Long term (current) use of oral hypoglycemic drugs; Z95.5 Presence of coronary angioplasty implant and graft; Z79.891 Long term (current) use of opiate analgesic; Z82.49 Family history of ischemic heart disease and other diseases of the circulatory system
CPT/HCPCS: 36415; 73630; 80053; 85025; 85652; 86141

== ENCOUNTER 2019-12-06 14:08 | Emergency (ER) | payer MEDICARE ==
[~2019-12-06] VITALS: Ht 170.2 cm; Wt 58.9 kg
[~2019-12-06 14:08] MED LIST changes: +ASPI-1238 PO; -ASPI-983 PO; +CLOT15CR28 TP; +DOXY100T2 PO; +HYDR-3870 PO; -OXYC-465 PO; +OXYC-556 PO
[2019-12-06] MEDS ORDERED: NITROGLYCERIN 0.4 MG SL TABS BTL 25'S SL PRN (14:45)
[2019-12-06] MEDS ORDERED: ASPIRIN 81 MG CHEW (CHILDREN'S ASA) PO ONE (14:45)
--- NOTE | 2019-12-06 14:45 | ED General ---
General Stated Complaint: COUGH;SORE THROAT;SOA Source of Information: Patient Exam Limitations: No Limitations History of Present Illness Date Seen by Provider: Dec 06, 2019 Time Seen by Provider: 14:43 Initial Comments To ER with sore throat, shortness of breath, cough, nausea, malaise for about 2 weeks. The shortness of breath however only started today. Timing/Duration: Getting Worse, Intermittent Severity: Moderate Associated Systoms: Malaise, Weakness Allergies and Home Medications Allergies Coded Allergies: Penicillins (Verified Allergy, Unknown, 05/12/05) fentanyl (Verified Allergy, Unknown, 12/06/19) morphine (Verified Allergy, Unknown, TAKES PERCOCET @ HOME, 10/22/15) CAUSES SKIN TO COME OFF FINGERS tetracycline (Verified Allergy, Unknown, 05/12/05) hydromorphone (Unverified Adverse Reaction, Unknown, STATES QUIT BREATHING, TAKES PERCOCET AT HOME, 10/22/15) Uncoded Allergies: PAPER TAPE (Allergy, Mild, 07/28/08) Home Medications Alprazolam 0.5 Mg Tablet, 0.5 MG PO TID Prescribed by: MURIEL PHELAN on 10/23/15 0736 Aspirin 81 Mg Tablet.dr, 81 MG PO BID, (Reported) Atorvastatin Calcium 10 Mg Tablet, 10 MG PO DAILY Prescribed by: MURIEL PHELAN on 10/23/15 0707 Carvedilol 12.5 Mg Tablet, 12.5 MG PO BID, (Reported) Cephalexin 500 Mg Tablet, 500 MG PO BID Prescribed by: LAURA RUSSELL on 02/18/17 0105 Clindamycin HCl 300 Mg Capsule, 300 MG PO TID Prescribed by: YONY JOYA on 08/20/19 1857 Clopidogrel Bisulfate 75 Mg Tablet, 75 MG PO DAILY, (Reported) Clotrimazole 15 Gm Cream..g., 15 GM TP BID Prescribed by: EILEEN FLORIAN on 10/31/19 1639 Doxazosin Mesylate 2 Mg Tablet, 2 MG PO HS, (Reported) Doxycycline Hyclate 100 Mg Tablet, 100 MG PO BID Prescribed by: EILEEN FLORIAN on 10/31/19 1639 Etodolac 400 Mg Tablet, 400 MG PO BID PRN for MUSCLE SPASMS, (Reported) Hydrocodone/Acetaminophen 1 Each Tablet, 1 EACH PO Q4-6HR PRN for PAIN-MODERATE Prescribed by: EILEEN FLORIAN on 10/31/19 1639 Linagliptin 5 Mg Tablet, 5 MG PO DAILY, (Reported) Lisinopril 10 Mg Tablet, 10 MG PO DAILY, (Reported) Magnesium Oxide 400 Mg Capsule, 400 MG PO HS, (Reported) Nitroglycerin 0.4 Mg Tab, 0 SL UD PRN for CHEST PAIN, (Reported) 1 TABLET EVERY 5 MINUTES X 3 DOSES NEEDED FOR CHEST PAIN [place]-3 Fatty Acids/Fish Oil 1 Each Capsule, 1,000 MG PO DAILY, (Reported) Oxycodone HCl/Acetaminophen 1 Each Tablet, 1 TAB PO QID, (Reported) Potassium Chloride 10 Meq Capsule.er, 10 MEQ PO DAILY, (Reported) Patient Home Medication List Home Medication List Reviewed: Yes Review of Systems Review of Systems Constitutional: see HPI, chills, malaise, weakness EENTM: see HPI Respiratory: see HPI, cough, dyspnea on exertion, short of breath Cardiovascular: see HPI, chest pain Gastrointestinal: nausea Genitourinary: no symptoms reported Musculoskeletal: no symptoms reported Skin: no symptoms reported Psychiatric/Neurological: No Symptoms Reported Hematologic/Lymphatic: No Symptoms Reported Immunological/Allergic: no symptoms reported Past Jswqayz-Sapuur-Jezbbf Hx Patient Social History 2nd Hand Smoke Exposure: No Recent Hopitalizations: No Immunizations Up To Date PED Vaccines UTD: Yes Date of Pneumonia Vaccine: Dec 20, 2016 Date of Influenza Vaccine: Dec 20, 2016 Seasonal Allergies Seasonal Allergies: No Past Medical History Surgeries: Yes (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) CABG, Coronary Stent, Gallbladder, Joint Replacement, Orthopedic Respiratory: No Currently Using CPAP: No Currently Using BIPAP: No Cardiac: Yes (CABG,STENTS) Coronary Artery Disease, Heart Attack, High Cholesterol, Hypertension Neurological: Yes (PERIPHERAL NEUROPATHY) Neuropathy Reproductive Disorders: No Sexually Transmitted Disease: No HIV/AIDS: No Genitourinary: No Gastrointestinal: Yes Gastroesophageal Reflux Musculoskeletal: Yes (NECK FX WITH TENDON SPASMS) Arthritis, Chronic Back Pain, Spasms Endocrine: Yes Diabetes, Non-Insulin dep HEENT: Yes Cataract Hearing Impairment: Denies Cancer: No (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) 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 0.0oz. [id number]; 21.00 BMI Method:Stated General Appearance: No Apparent Distress, WD/WN, Chronically ill, Other (diaphoretic, hypertensive 180/100) Eyes: Bilateral Eye Normal Inspection, Bilateral Eye PERRL, Bilateral Eye EOMI Neck: Full Range of Motion, Normal Inspection Respiratory: Normal Breath Sounds, No Accessory Muscle Use, No Respiratory Distress Gastrointestinal: Non Tender, Soft Extremity: Normal Capillary Refill, Normal Inspection Neurologic/Psychiatric: Alert, Oriented x3 Skin: Normal Color, Warm/Dry Progress/Results/Core Measures Suspected Sepsis SIRS Temperature: Pulse: Respiratory Rate: Laboratory Tests 12/06/19 14:40: White Blood Count 6.7 Blood Pressure / Mean: Laboratory Tests 12/06/19 14:40: Creatinine 0.61, Platelet Count 231, Total Bilirubin 0.7 Results/Orders Lab Results Laboratory Tests Test 12/06/19 14:40 12/06/19 16:45 Range/Units White Blood Count 6.7 4.3-11.0 10^3/uL Red Blood Count 4.88 4.35-5.85 10^6/uL Hemoglobin 13.8 11.5-16.0 G/DL Hematocrit 41 35-52 % Mean Corpuscular Volume 83 80-99 FL Mean Corpuscular Hemoglobin 28 25-34 PG Mean Corpuscular Hemoglobin Concent 34 32-36 G/DL Red Cell Distribution Width 13.9 10.0-14.5 % Platelet Count 231 130-400 10^3/uL Mean Platelet Volume 9.7 7.4-10.4 FL Neutrophils (%) (Auto) 65 42-75 % Lymphocytes (%) (Auto) 23 12-44 % Monocytes (%) (Auto) 8 0-12 % Eosinophils (%) (Auto) 4 0-10 % Basophils (%) (Auto) 0 0-10 % Neutrophils # (Auto) 4.4 1.8-7.8 X 10^3 Lymphocytes # (Auto) 1.6 1.0-4.0 X 10^3 Monocytes # (Auto) 0.5 0.0-1.0 X 10^3 Eosinophils # (Auto) 0.3 0.0-0.3 10^3/uL Basophils # (Auto) 0.0 0.0-0.1 10^3/uL Sodium Level 141 135-145 MMOL/L Potassium Level 3.1 L 3.6-5.0 MMOL/L Chloride Level 104 98-107 MMOL/L Carbon Dioxide Level 26 21-32 MMOL/L Anion Gap 11 5-14 MMOL/L Blood Urea Nitrogen 5 L 7-18 MG/DL Creatinine 0.61 0.60-1.30 MG/DL Estimat Glomerular Filtration Rate > 60 BUN/Creatinine Ratio 8 Glucose Level 110 H 70-105 MG/DL Calcium Level 9.1 8.5-10.1 MG/DL Corrected Calcium 9.1 8.5-10.1 MG/DL Total Bilirubin 0.7 0.1-1.0 MG/DL Aspartate Amino Transf (AST/SGOT) 16 5-34 U/L Alanine Aminotransferase (ALT/SGPT) 8 0-55 U/L Alkaline Phosphatase 57 40-136 U/L Troponin I < 0.028 < 0.028 <0.028 NG/ML C-Reactive Protein High Sensitivity 0.23 0.00-0.50 MG/DL B-Type Natriuretic Peptide 65.8 <100.0 PG/ML Total Protein 6.7 6.4-8.2 GM/DL Albumin 4.0 3.2-4.5 GM/DL Coronavirus 2019 ([facility]) Negative Negative Urine Color YELLOW Urine Clarity CLEAR Urine pH 6.0 5-9 Urine Specific [place] 1.025 H 1.016-1.022 Urine Protein 1+ H NEGATIVE Urine Glucose (UA) NEGATIVE NEGATIVE Urine Ketones TRACE H NEGATIVE Urine Nitrite NEGATIVE NEGATIVE Urine Bilirubin 1+ H NEGATIVE Urine Urobilinogen 2.0 < = 1.0 MG/DL Urine Leukocyte Esterase 1+ H NEGATIVE Urine RBC (Auto) NEGATIVE NEGATIVE Urine RBC 5-10 H /HPF Urine WBC 50-100 H /HPF Urine Squamous Epithelial Cells 5-10 /HPF Urine Crystals NONE /LPF Urine Bacteria LARGE H /HPF Urine Casts NONE /LPF Urine Mucus MODERATE H /LPF Urine Culture Indicated YES Micro Results Microbiology 12/06/19 Influenza Types A,B Antigen (SEGUNDO) - Final, Complete My Orders Orders - EILEEN FLORIAN OPHTHALMIC SURGEON Cbc With Automated Diff (12/06/19 14:37) Comprehensive Metabolic Panel (12/06/19 14:37) Troponin I (12/06/19 14:37) BNP (12/06/19 14:37) Ekg Tracing (12/06/19 14:37) Ua Culture If Indicated (12/06/19 14:37) Straight Cath (Urinary) (12/06/19 14:37) Chest 1 View, Ap/Pa Only (12/06/19 14:37) Hs C Reactive Protein (12/06/19 14:37) Aspirin Chewable Tablet (Baby Aspirin Ch (12/06/19 14:45) Nitroglycerin 0.4 Mg Btl 25's (Nitrostat (12/06/19 14:45) Influenza A And B Antigens (12/06/19 14:37) Covid 19 Inhouse Test (12/06/19 14:37) Coronavirus Sars-Cov-2 So 2018 (12/06/19 14:37) Blood Culture (12/06/19 15:43) Clonidine Tablet (Catapres Tablet) (12/06/19 15:45) Troponin I (12/06/19 16:36) Ketorolac Injection (Toradol Injection) (12/06/19 16:45) Fentanyl Injection (Sublimaze Injection (12/06/19 16:45) Urine Culture (12/06/19 16:45) Medications Given in ED Current Medications Medications Dose Ordered Sig/Margarita Route Start Time Stop Time Status Last Admin Dose Admin Aspirin 324 mg ONCE ONCE PO 12/06/19 14:45 12/06/19 14:46 DC 12/06/19 14:43 324 MG Clonidine HCl 0.1 mg ONCE ONCE PO 12/06/19 15:45 12/06/19 15:46 DC 12/06/19 16:20 0.1 MG Ketorolac Tromethamine 15 mg ONCE ONCE IVP 12/06/19 16:45 12/06/19 16:46 DC 12/06/19 16:54 15 MG Nitroglycerin 1 TAB Q 5 MIN X 3 NEEDED PRN SL 12/06/19 14:45 12/06/19 14:44 0.4 MG Vital Signs/I&O 12/06/19 12/06/19 14:20 14:20 Temp 36.8 Pulse 90 Resp 18 B/P (MAP) 188/126 (146) Pulse Ox 96 O2 Delivery Room Air Room Air Capillary Refill : Departure Impression Primary Impression: Urinary tract infectious disease Additional Impression: General weakness Disposition: HOME, SELF-CARE Condition: Stable Departure-Patient Inst. Decision time for Depature: 17:36 Referrals: [facility] MD (PCP/Family) Primary Care Physician Patient Instructions: Generalized Weakness, Urinary Tract Infection, Adult (DC) Add. Discharge Instructions: 1. Take antibiotics as directed. Return to ER for any concerns. Follow-up with her doctor next week. Scripts Cefuroxime Axetil (Cefuroxime) 250 Mg Tablet 250 MG PO BID, #10 TAB Prov: EILEEN FLORIAN APRN 12/06/19 EILEEN FLORIAN APRN Dec 06, 2019 14:44
[2019-12-06 14:47] LABS: BASOPHILS % (AUTO) 0 % (0-10); EOSINOPHILS # (AUTO) 0.3 10^3/uL (0.0-0.3); EOSINOPHILS % (AUTO) 4 % (0-10); HEMATOCRIT 41 % (35-52); HEMOGLOBIN 13.8 G/DL (11.5-16.0); LYMPHOCYTES # (AUTO) 1.6 X 10^3 (1.0-4.0); LYMPHOCYTES % (AUTO) 23 % (12-44); MEAN CORPUSCULAR HEMOGLOBIN 28 PG (25-34); MEAN CORPUSCULAR HGB CONC 34 G/DL (32-36); MEAN CORPUSCULAR VOLUME 83 FL (80-99); MEAN PLATELET VOLUME 9.7 FL (7.4-10.4); MONOCYTES # (AUTO) 0.5 X 10^3 (0.0-1.0); MONOCYTES % (AUTO) 8 % (0-12); NEUTROPHILS # (AUTO) 4.4 X 10^3 (1.8-7.8); NEUTROPHILS % (AUTO) 65 % (42-75); PLATELET COUNT 231 10^3/uL (130-400); WHITE BLOOD COUNT 6.7 10^3/uL (4.3-11.0)
[2019-12-06 15:03] LABS: CHLORIDE 104 MMOL/L (98-107); POTASSIUM 3.1 MMOL/L (3.6-5.0); SODIUM 141 MMOL/L (135-145)
[2019-12-06 15:04] LABS: CALCIUM 9.1 MG/DL (8.5-10.1)
[2019-12-06 15:05] LABS: GLUCOSE 110 MG/DL (70-105)
[2019-12-06 15:06] LABS: TOTAL PROTEIN 6.7 GM/DL (6.4-8.2)
[2019-12-06 15:07] LABS: BILIRUBIN,TOTAL 0.7 MG/DL (0.1-1.0); CARBON DIOXIDE 26 MMOL/L (21-32)
[2019-12-06 15:09] LABS: ALKALINE PHOSPHATASE 57 U/L (40-136); CREATININE SERUM 0.61 MG/DL (0.60-1.30); GFR ESTIMATED > 60
[2019-12-06 15:10] LABS: BUN/CREATININE RATIO 8
[2019-12-06 15:12] LABS: ALANINE AMINOTRANSFERASE 8 U/L (0-55)
[2019-12-06] MEDS ORDERED: cloNIDine 0.1 MG (CATAPRES) TAB PO ONE (15:45)
--- NOTE | 2019-12-06 15:49 | Diagnostic Imaging Report ---
INDICATION: Chest pain and shortness of air as well as dizziness and headache. TIME OF EXAM: 3:31 p.m. COMPARISON: Prior chest from 09/12/2019. FINDINGS: The heart is enlarged but stable. There are changes of median sternotomy and CABG. Lungs appear to be clear. No infiltrate is detected. The pulmonary vascularity is normal. No effusion or pneumothorax is detected. IMPRESSION: No acute cardiopulmonary process detected. Dictated by: Dictated on workstation # [id number]
[2019-12-06] MEDS ORDERED: KETOROLAC 30 MG/ML VIAL IVP ONE (16:45)
[2019-12-06] MEDS: fentaNYL INJECTION 100 MCG/2 ML AMP IVP ONE ×2 (16:54→17:03)
--- NOTE | 2019-12-06 17:03 | NUR ---
Pt refuses fentanyl reporting she is allergic to medication.
[2019-12-06 17:08] LABS: BILIRUBIN,URINE 1+ (NEGATIVE); CLARITY,URINE CLEAR; COLOR,URINE YELLOW; GLUCOSE, URINE (UA) NEGATIVE (NEGATIVE); KETONES,URINE TRACE (NEGATIVE); LEUKOCYTE ESTERASE ,URINE 1+ (NEGATIVE); NITRITE,URINE NEGATIVE (NEGATIVE); PROTEIN,URINE 1+ (NEGATIVE)
[2019-12-06 17:15] LABS: BACTERIA,URINE LARGE /HPF; WBC,URINE 50-100 /HPF
[2019-12-06] MEDS ORDERED: CEFU250T80 PO (17:37)
[2019-12-06] MEDS ORDERED: cefTRIAXone FOR IV USE 1,000 MG in WATER (STERILE) FOR INJECTION 10 ML IV ONE (17:45)
[2019-12-06 18:03] VITALS: BP 125/71
== END 2019-12-06 18:00 | disposition home or self-care (01) ==
LOC: EDUNIT# 14:08 → ER 14:09
DX: N39.0 Urinary tract infection, site not specified (principal); I10 Essential (primary) hypertension; I25.10 Atherosclerotic heart disease of native coronary artery without angina pectoris; I25.2 Old myocardial infarction; E78.00 Pure hypercholesterolemia, unspecified; E11.42 Type 2 diabetes mellitus with diabetic polyneuropathy; G89.29 Other chronic pain; M54.9 Dorsalgia, unspecified; F32.9 Major depressive disorder, single episode, unspecified; F41.9 Anxiety disorder, unspecified; Z88.0 Allergy status to penicillin; Z88.5 Allergy status to narcotic agent; Z88.1 Allergy status to other antibiotic agents; Z88.8 Allergy status to other drugs, medicaments and biological substances; Z79.82 Long term (current) use of aspirin; Z79.02 Long term (current) use of antithrombotics/antiplatelets; Z79.84 Long term (current) use of oral hypoglycemic drugs; Z95.1 Presence of aortocoronary bypass graft; Z95.5 Presence of coronary angioplasty implant and graft; Z79.891 Long term (current) use of opiate analgesic; Z82.49 Family history of ischemic heart disease and other diseases of the circulatory system
CPT/HCPCS: 71045; 80053; 81000; 83880; 84484; 85025; 86141; 87040; 87088; 87804; 93005; 99284; U0002; 36415; 87635

== ENCOUNTER 2020-03-23 09:09 | Inpatient (IN) | payer MEDICARE ==
[~2020-03-23] VITALS: Ht 167 cm; Wt 65.9 kg
[~2020-03-23 09:09] MED LIST changes: +CEFU250T80 PO; -CLIN300C11 PO; +CLIN300C12 PO
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
[2020-03-23 09:34] LABS: BASOPHILS % (AUTO) 0 % (0-10); EOSINOPHILS % (AUTO) 0 % (0-10); HEMATOCRIT 38 % (35-52); HEMOGLOBIN 12.4 g/dL (11.5-16.0); LYMPHOCYTES # (AUTO) 0.9 10^3/uL (1.0-4.0); LYMPHOCYTES % (AUTO) 8 % (12-44); MEAN CORPUSCULAR HEMOGLOBIN 29 pg (25-34); MEAN CORPUSCULAR HGB CONC 33 g/dL (32-36); MEAN CORPUSCULAR VOLUME 88 fL (80-99); MEAN PLATELET VOLUME 9.2 fL (9.0-12.2); MONOCYTES # (AUTO) 0.8 10^3/uL (0.0-1.0); MONOCYTES % (AUTO) 7 % (0-12); NEUTROPHILS # (AUTO) 10.3 10^3/uL (1.8-7.8); NEUTROPHILS % (AUTO) 85 % (42-75); PLATELET COUNT 251 10^3/uL (130-400); WHITE BLOOD COUNT 12.2 10^3/uL (4.3-11.0)
[2020-03-23 09:35] LABS: ALBUMIN 3.7 GM/DL (3.2-4.5)
[2020-03-23 09:36] LABS: CHLORIDE 98 MMOL/L (98-107); POTASSIUM 4.3 MMOL/L (3.6-5.0); SODIUM 136 MMOL/L (135-145)
[2020-03-23 09:37] LABS: CALCIUM 9.3 MG/DL (8.5-10.1)
[2020-03-23 09:38] LABS: GLUCOSE 159 MG/DL (70-105); TOTAL PROTEIN 6.6 GM/DL (6.4-8.2)
[2020-03-23 09:39] LABS: CARBON DIOXIDE 27 MMOL/L (21-32)
[2020-03-23 09:40] LABS: BILIRUBIN,TOTAL 1.1 MG/DL (0.1-1.0); INR 1.2 (0.8-1.4); PROTHROMBIN TIME PATIENT 15.3 SEC (12.2-14.7)
[2020-03-23 09:41] LABS: ALKALINE PHOSPHATASE 60 U/L (40-136)
[2020-03-23 09:42] LABS: GFR ESTIMATED > 60
[2020-03-23 09:43] LABS: BUN/CREATININE RATIO 27
[2020-03-23 09:44] LABS: LYMPHOCYTES % (MANUAL) 8 %; MONOCYTES % (MANUAL) 5 %; NEUTROPHILS % (MANUAL) 87 %
[2020-03-23 09:45] LABS: ALANINE AMINOTRANSFERASE 13 U/L (0-55); RBC MORPH NORMAL
--- NOTE | 2020-03-23 09:51 | ED General ---
General Chief Complaint: General Problems/Pain Stated Complaint: KIDNEY PROBLEMS Nursing Triage Note: PT BROUGHT IN BY [facility] FROM HOME WITH COMPLAINT OF FEVER, INCREASED PAIN, AND INCONTINENCE. PER EMS, PT WAS FOUND SITTING IN URINE/FECES IN RECLINER. EMS ALSO REPORTS THAT LIVING CONDITIONS ARE POOR, ANIMAL URINE/FECES ALL OVER, CEILING FALLING IN, ETC. PT HAS PITTING EDEMA TO BILATERAL LOWER EXTREMITIES. PT HAS EXTENSIVE SKIN BREAK DOWN ON COCCYX, RIGHT HIP, AND ELVIA AREA. Pt states she was diagnosed w/ back cancer last monday and has been unable to move since last monday. Pt states it's 10/10 stabbing pain to back and LE bilaterally since last monday. Pt lives with daughter. Pt states she has 1 cat and 1 dog but reports other pets in the home and doesn't know how many. Pt states she give herself sponge baths 2x/day. reports last cleaned and changed yesterday by daughter. Nursing Sepsis Screen: No Definite Risk Source of Information: Patient Exam Limitations: Physical Impairments (immobile, stiff joints) (MYLENE KIRKLAND MED STUDENT) History of Present Illness Date Seen by Provider: Mar 23, 2020 Time Seen by Provider: 09:40 Modifying Factors: improves with Immobilization, improves with Movement Associated Systoms: Rash (MYLENE KIRKLAND MED STUDENT) Allergies and Home Medications Allergies Coded Allergies: fentanyl (Verified Allergy, Unknown, 12/06/19) morphine (Verified Allergy, Unknown, TAKES PERCOCET @ HOME, 10/22/15) CAUSES SKIN TO COME OFF FINGERS tetracycline (Verified Allergy, Unknown, 05/12/05) Penicillins (Verified Adverse Reaction, Unknown, Vomiting, 03/23/20) hydromorphone (Unverified Adverse Reaction, Unknown, STATES QUIT BREATHING, TAKES PERCOCET AT HOME, 10/22/15) Uncoded Allergies: PAPER TAPE (Allergy, Mild, 07/28/08) Home Medications Alprazolam 0.5 Mg Tablet, 0.5 MG PO TID Prescribed by: MURIEL PHELAN on 10/23/15 0736 Aspirin 81 Mg Tablet.dr, 81 MG PO BID, (Reported) Atorvastatin Calcium 10 Mg Tablet, 10 MG PO DAILY Prescribed by: MURIEL PHELAN on 10/23/15 0707 Carvedilol 12.5 Mg Tablet, 12.5 MG PO BID, (Reported) Cefuroxime Axetil 250 Mg Tablet, 250 MG PO BID Prescribed by: EILEEN FLORIAN on 12/06/19 1737 Cephalexin 500 Mg Tablet, 500 MG PO BID Prescribed by: LAURA RUSSELL on 02/18/17 0105 Clindamycin HCl 300 Mg Capsule, 300 MG PO TID Prescribed by: YONY JOYA on 08/20/19 1857 Clopidogrel Bisulfate 75 Mg Tablet, 75 MG PO DAILY, (Reported) Clotrimazole 15 Gm Cream..g., 15 GM TP BID Prescribed by: EILEEN FLORIAN on 10/31/19 163 Doxazosin Mesylate 2 Mg Tablet, 2 MG PO HS, (Reported) Doxycycline Hyclate 100 Mg Tablet, 100 MG PO BID Prescribed by: EILEEN FLORIAN on 10/31/19 163 Etodolac 400 Mg Tablet, 400 MG PO BID PRN for MUSCLE SPASMS, (Reported) Hydrocodone/Acetaminophen 1 Each Tablet, 1 EACH PO Q4-6HR PRN for PAIN-MODERATE Prescribed by: EILEEN FLORIAN on 10/31/19 163 Linagliptin 5 Mg Tablet, 5 MG PO DAILY, (Reported) Lisinopril 10 Mg Tablet, 10 MG PO DAILY, (Reported) Magnesium Oxide 400 Mg Capsule, 400 MG PO HS, (Reported) Nitroglycerin 0.4 Mg Tab, 0 SL UD PRN for CHEST PAIN, (Reported) 1 TABLET EVERY 5 MINUTES X 3 DOSES NEEDED FOR CHEST PAIN [place]-3 Fatty Acids/Fish Oil 1 Each Capsule, 1,000 MG PO DAILY, (Reported) Oxycodone HCl/Acetaminophen 1 Each Tablet, 1 TAB PO QID, (Reported) Potassium Chloride 10 Meq Capsule.er, 10 MEQ PO DAILY, (Reported) Patient Home Medication List Home Medication List Reviewed: Yes (ROGERIO MONREAL MD) Review of Systems Review of Systems Gastrointestinal: other (uses adult briefs) Genitourinary: incontinence, pain (pain in genital area w/ warts and skin breakdown), other (adult briefs) Musculoskeletal: back pain, joint pain Skin: change in color, lesions (genital area, buttocks, thighs), rash (MYLENE KIRKLAND MED STUDENT) Constitutional: weakness EENTM: no symptoms reported Respiratory: no symptoms reported Cardiovascular: no symptoms reported Gastrointestinal: no symptoms reported Genitourinary: see HPI (Incontinence) : No Hematologic/Lymphatic: No Symptoms Reported Immunological/Allergic: no symptoms reported (ROGERIO MONREAL MD) Past Ianfkif-Roidvm-Jqgsdp Hx Past Med/Social Hx: Reviewed Nursing Past Med/Soc Hx (ROGERIO MONREAL MD) Patient Social History Alcohol Use: Denies Use Recreational Drug Use: No Smoking Status: Never a Smoker 2nd Hand Smoke Exposure: No Recent Foreign Travel: No Contact w/Someone Who Travel: No Recent Infectious Disease Expo: No Recent Hopitalizations: No (MYLENE KIRKLAND STUDENT) Immunizations Up To Date PED Vaccines UTD: Yes Date of Pneumonia Vaccine: Dec 20, 2016 Date of Influenza Vaccine: Dec 20, 2016 (MYLENE KIRKLAND) Seasonal Allergies Seasonal Allergies: No (MYLENE KIRKLAND) Past Medical History Surgeries: Yes (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) CABG, Coronary Stent, Gallbladder, Joint Replacement, Orthopedic Respiratory: No Currently Using CPAP: No Currently Using BIPAP: No Cardiac: Yes (CABG,STENTS) Coronary Artery Disease, Heart Attack, High Cholesterol, Hypertension Neurological: Yes (PERIPHERAL NEUROPATHY) Neuropathy Reproductive Disorders: No Sexually Transmitted Disease: No HIV/AIDS: No Genitourinary: No Gastrointestinal: Yes Gastroesophageal Reflux Musculoskeletal: Yes (NECK FX WITH TENDON SPASMS) Arthritis, Chronic Back Pain, Spasms Endocrine: Yes Diabetes, Non-Insulin dep HEENT: Yes Cataract Hearing Impairment: Denies Cancer: No (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) 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) Anxiety, Depression Integumentary: No Blood Disorders: Yes (Vit D deficiency) Adverse Reaction/Blood Tranf: Yes (MYLENE KIRKLAND STUDENT) Family Medical History Congestive heart failure 19 MOTHER Family history: Cardiovascular disease Family history: Diabetes mellitus 19 MOTHER Family history: Hypertension 19 FATHER No Pertinent Family Hx (MYLENE KIRKLAND) Physical Exam Vital Signs Vital Signs - First Documented 03/23/20 03/23/20 09:10 17:45 Temp 36.4 Pulse 119 Resp 20 B/P (MAP) 192/116 (141) Pulse Ox 99 O2 Delivery Room Air O2 Flow Rate 0.00 (ROGERIO MONREAL MD) Vital Signs Capillary Refill : Less Than 3 Seconds (MYLENE KIRKLAND X MED STUDENT) Height, Weight, BMI Height: 5'7.00" Weight: 147lbs. 0.0oz. [id number]; 27.00 BMI Method:Stated Comments Upon inspection, pt has wound breakdown to labia majoria and outer areas. No wounds in labia minora or inside vagina. Pustules around genitals. Open wounds on buttocks and inner and outer thigh. Urination and feces running up back, down legs, and soaked through underwear into pants suggesting pt hasn't been changed in more than a couple of days. Pt was in pain upon being rolled. 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 The perineal area exhibits erythematous inflamed skin and pustules. She has decubitus ulcers on the sacral and buttock regions including a necrotic patch of skin on the right buttock. There is some skin breakdown on the feet as well. Significant swelling of the skin with feces, dirt, and pet hair.) (ROGERIO MONREAL MD) Focused Exam Lactate Level 03/23/20 09:39: Lactic Acid Level 2.09*H 03/23/20 11:50: Lactic Acid Level 1.88 (ROGERIO MONREAL MD) Lactic Acid Level (ROGERIO MONREAL MD) Progress/Results/Core Measures Suspected Sepsis Recent Fever Within 48 Hours: No Infection Criteria Present: None New/Unexplained Altered Menta: No Sepsis Screen: No Definite Risk SIRS Temperature: Pulse: 119 Respiratory Rate: 20 Laboratory Tests 03/23/20 09:14: White Blood Count 12.2H Blood Pressure 192 /116 Mean: 141 03/23/20 09:39: Laboratory Tests 03/23/20 09:14: Creatinine 0.60, INR Comment 1.2, Platelet Count 251, Total Bilirubin 1.1H (MYLENE KIRKLAND MED STUDENT) Results/Orders Lab Results Laboratory Tests Test 03/23/20 09:14 03/23/20 09:39 03/23/20 11:50 03/23/20 13:13 Range/Units White Blood Count 12.2 H 4.3-11.0 10^3/uL Red Blood Count 4.28 3.80-5.11 10^6/uL Hemoglobin 12.4 11.5-16.0 g/dL Hematocrit 38 35-52 % Mean Corpuscular Volume 88 80-99 fL Mean Corpuscular Hemoglobin 29 25-34 pg Mean Corpuscular Hemoglobin Concent 33 32-36 g/dL Red Cell Distribution Width 13.2 10.0-14.5 % Platelet Count 251 130-400 10^3/uL Mean Platelet Volume 9.2 9.0-12.2 fL Immature Granulocyte % (Auto) 0 % Neutrophils (%) (Auto) 85 H 42-75 % Lymphocytes (%) (Auto) 8 L 12-44 % Monocytes (%) (Auto) 7 0-12 % Eosinophils (%) (Auto) 0 0-10 % Basophils (%) (Auto) 0 0-10 % Neutrophils # (Auto) 10.3 H 1.8-7.8 10^3/uL Lymphocytes # (Auto) 0.9 L 1.0-4.0 10^3/uL Monocytes # (Auto) 0.8 0.0-1.0 10^3/uL Eosinophils # (Auto) 0.0 0.0-0.3 10^3/uL Basophils # (Auto) 0.0 0.0-0.1 10^3/uL Immature Granulocyte # (Auto) 0.1 0.0-0.1 10^3/uL Neutrophils % (Manual) 87 % Lymphocytes % (Manual) 8 % Monocytes % (Manual) 5 % Blood Morphology Comment NORMAL Prothrombin Time 15.3 H 12.2-14.7 SEC INR Comment 1.2 0.8-1.4 Activated Partial Thromboplast Time 27 24-35 SEC Sodium Level 136 135-145 MMOL/L Potassium Level 4.3 3.6-5.0 MMOL/L Chloride Level 98 98-107 MMOL/L Carbon Dioxide Level 27 21-32 MMOL/L Anion Gap 11 5-14 MMOL/L Blood Urea Nitrogen 16 7-18 MG/DL Creatinine 0.60 0.60-1.30 MG/DL Estimat Glomerular Filtration Rate > 60 BUN/Creatinine Ratio 27 Glucose Level 159 H 70-105 MG/DL Calcium Level 9.3 8.5-10.1 MG/DL Corrected Calcium 9.5 8.5-10.1 MG/DL Total Bilirubin 1.1 H 0.1-1.0 MG/DL Aspartate Amino Transf (AST/SGOT) 16 5-34 U/L Alanine Aminotransferase (ALT/SGPT) 13 0-55 U/L Alkaline Phosphatase 60 40-136 U/L Lactate Dehydrogenase 318 H 125-220 U/L C-Reactive Protein High Sensitivity 11.25 H 0.00-0.50 MG/DL Total Protein 6.6 6.4-8.2 GM/DL Albumin 3.7 3.2-4.5 GM/DL Procalcitonin 0.06 <0.10 NG/ML Urine Color EM H Urine Clarity CLEAR Urine pH 5.5 5-9 Urine Specific [place] >=1.030 1.016-1.022 Urine Protein TRACE H NEGATIVE Urine Glucose (UA) NEGATIVE NEGATIVE Urine Ketones 1+ H NEGATIVE Urine Nitrite POSITIVE H NEGATIVE Urine Bilirubin NEGATIVE NEGATIVE Urine Urobilinogen 2.0 < = 1.0 MG/DL Urine Leukocyte Esterase TRACE H NEGATIVE Urine RBC (Auto) TRACE-I NEGATIVE Urine RBC 0-2 /HPF Urine WBC 10-25 H /HPF Urine Crystals NONE /LPF Urine Bacteria LARGE H /HPF Urine Casts NONE /LPF Urine Mucus NEGATIVE /LPF Urine Culture Indicated CULTURE PENDING Lactic Acid Level 2.09 *H 1.88 0.50-2.00 MMOL/L Coronavirus 2019 ([facility]) Negative Negative (ROGERIO MONREAL MD) My Orders Orders - ROGERIO MONREAL MD Cbc With Automated Diff (03/23/20 09:26) Comprehensive Metabolic Panel (03/23/20 09:26) Blood Culture (03/23/20 09:26) Sputum Culture (03/23/20 09:26) Urinalysis (03/23/20 09:26) Urine Culture (03/23/20 09:26) Protime With Inr (03/23/20 09:26) Partial Thromboplastin Time (03/23/20 09:26) Chest 1 View, Ap/Pa Only (03/23/20 09:26) Ed Iv/Invasive Line Start (03/23/20 09:26) Ed Iv/Invasive Line Start (03/23/20 09:26) Vital Signs Adult Sepsis Patie Q15M (03/23/20 09:26) O2 (03/23/20 09:26) Remove Rings In Anticipation O (03/23/20 09:26) Lactic Acid Analyzer (03/23/20 09:26) Manual Differential (03/23/20 09:14) Ct Head/Cervical Spine Wo (03/23/20 10:28) Ct Chest/Abdomen/Pelvis W (03/23/20 10:28) Ceftriaxone For Iv Use (Rocephin For I (03/23/20 10:45) Iohexol Injection (Omnipaque 350 Mg/Ml 1 (03/23/20 10:45) Received Contrast (Hold Metformin- Contr (03/23/20 10:45) Sodium Chloride Flush (Catheter Flush Sy (03/23/20 10:45) Ns (Ivpb) (Sodium Chloride 0.9% Ivpb Bag (03/23/20 10:45) Procalcitonin (Pct) (03/23/20 13:08) Hs C Reactive Protein (03/23/20 13:08) LDH (03/23/20 13:08) Covid 19 Inhouse Test (03/23/20 13:08) Lactated Ringers (Lr 1000 Ml Iv Solution (03/23/20 13:45) Aspirin Tablet (Aspirin Tablet) (03/23/20 13:44) (ROGERIO MONREAL MD) Medications Given in ED Current Medications Medications Dose Ordered Sig/Margarita Route Start Time Stop Time Status Last Admin Dose Admin Ceftriaxone Sodium 1000 mg/ Sterile Water 10 ml @ 200 mls/hr ONCE ONCE IV 03/23/20 10:45 03/23/20 10:47 DC 03/23/20 10:50 200 MLS/HR Iohexol 100 ml ONCE ONCE IV 03/23/20 10:45 03/23/20 10:53 DC 03/23/20 12:44 100 ML Lactated Ringer's 1,000 ml @ 0 mls/hr Q0M ONCE IV 03/23/20 13:45 03/23/20 13:46 DC 03/23/20 13:50 0 MLS/HR Sodium Chloride 10 ml NEEDED PRN IV 03/23/20 10:45 03/23/20 16:24 DC 03/23/20 12:44 10 ML Sodium Chloride 100 ml ONCE ONCE IV 03/23/20 10:45 03/23/20 10:53 DC 03/23/20 12:44 80 ML (ROGERIO MONREAL MD) Vital Signs/I&O 03/23/20 03/23/20 03/23/20 03/23/20 09:10 16:26 17:30 17:45 Temp 36.4 37.0 Pulse 119 108 106 Resp 20 18 B/P (MAP) 192/116 (141) 140/95 Pulse Ox 99 98 98 O2 Delivery Room Air Room Air Room Air O2 Flow Rate 0.00 03/23/20 18:18 Temp 36.4 Pulse 114 Resp 16 B/P (MAP) 176/89 Pulse Ox 98 O2 Delivery Room Air (ROGERIO MONREAL MD) Vital Signs/I&O Capillary Refill : Less Than 3 Seconds (MYLENE KIRKLAND MED STUDENT) Blood Pressure Mean: 141 Progress Note : Time: 09:40 Progress Note open wounds - urine and feces cleaned off of back, butt, thighs, and genitals. bandaged. siddiqui inserted. sepsis - UA collected. following sepsis protocol (MYLENE KIRKLAND STUDENT) Diagnostic Imaging Diagonstic Imaging: CT Plain Films/CT/US/NM/MRI: c-spine, head Comments NAME: PERLITA PEREZ Mat MED REC#: [id number] PT STATUS: ADM IN : 1940 PHYSICIAN: ROGERIO MONREAL MD ADMIT DATE: 03/23/20 Signed Date of Exam:03/23/20 CT HEAD/CERVICAL SPINE WO PROCEDURE: CT head and CT cervical spine without contrast. TECHNIQUE: Multiple contiguous axial images were obtained through the brain and cervical spine without the use of intravenous contrast. Sagittal and coronal reformations through the cervical spine were then performed. Auto Exposure Controls were utilized during the CT exam to meet ALARA standards for radiation dose reduction. INDICATION: Trauma. Fever. Pain. COMPARISON: 06/03/2013 FINDINGS: CT HEAD: The ventricles and cortical sulci are diffusely prominent, compatible with age-related volume loss. There are confluent areas of abnormal, low attenuation in the periventricular white matter. This is consistent with chronic small vessel ischemic changes. There is no midline shift or mass-effect. No acute intra-axial hemorrhage is seen. There are no abnormal areas of increased or decreased density to suggest acute hemorrhage or edema. No extra-axial masses or collections are present. The bony calvarium is intact. The visualized paranasal sinuses are unremarkable. The mastoid air cells are clear. CT CERVICAL SPINE: Evaluation of static alignment shows significant exaggerated kyphosis of the upper thoracic spine and exaggerated lordosis of the cervical spine. This does result in suboptimal positioning of patient within the CT Gantry. There is no significant anterolisthesis or retrolisthesis. There is no evidence of jumped facets. Vertebral body heights are maintained. There is no acute fracture. No bony fragments are seen within the spinal canal. There are moderate multilevel degenerative changes consistent with intervertebral disc height loss and multilevel facet arthropathy. There is no significant osseous spinal canal stenosis. Pre and paravertebral soft tissue structures are unremarkable. Note is made of calcified carotid atherosclerosis. Included portions of the lungs show cluster of micronodules within the posterior medial margins of the right upper lobe, which may be on the basis of underlying infectious or inflammatory process. IMPRESSION: 1. No acute intracranial abnormality. No CT evidence of mass, acute infarct or intracranial hemorrhage. 2. Chronic small vessel ischemic changes in the deep white matter. 3. No acute fracture or dislocation of the cervical spine. Dictated by: Dictated on workstation # [id number] Dict: 03/23/20 1250 Trans: 03/23/201656 [facility] [id number] Interpreted by: HARRY ALVAREZ MD Electronically signed by: HARRY ALVAREZ MD 03/23/20 0657 Reviewed: Reviewed by Me Diagonstic Imaging: CT Plain Films/CT/US/NM/MRI: abdomen, pelvis Comments NAME: CHRISPERLITA J MED REC#: [id number] PT STATUS: ADM IN : 1940 PHYSICIAN: ROGERIO MONREAL MD ADMIT DATE: 03/23/20 Signed Date of Exam:03/23/20 CT CHEST/ABDOMEN/PELVIS W PROCEDURE: CT chest, abdomen, and pelvis with contrast. TECHNIQUE: Multiple contiguous axial images were obtained through the chest, abdomen, and pelvis after the administration of intravenous contrast. Auto Exposure Controls were utilized during the CT exam to meet ALARA standards for radiation dose reduction. INDICATION: Fever, increasing pain and incontinence. COMPARISON: Correlation is made with prior CT from 02/18/2017. FINDINGS: CT chest: No axillary lymphadenopathy is identified. No mediastinal or hilar lymphadenopathy is detected. No pericardial or pleural fluid is detected. There appears to be some linear scarring or atelectasis in the left and right lower lobes. Minimal infiltrate versus atelectasis in right upper lobe posteriorly is identified. No pulmonary mass is identified. The bony structures are nonacute. IMPRESSION: There is some minimal infiltrate versus atelectasis/scarring in right upper lobe and bilateral lung bases. Otherwise, the lungs are clear. No mass or thoracic lymphadenopathy is detected. CT abdomen and pelvis: No discrete liver mass is identified. Gallbladder is surgically absent. There is no biliary ductal dilatation. Pancreas and spleen are unremarkable. No adrenal mass is detected. Kidneys are unremarkable. Aorta is non-aneurysmal. No central retroperitoneal or mesenteric lymphadenopathy is seen. No definite pelvic lymphadenopathy is identified. Uterus is unremarkable. Bladder is decompressed by Siddiqui catheter. Bowel loops are normal caliber. There is no obstruction. Moderate stool in the colon. No free fluid or fluid collection is seen. Postoperative changes to the left hip are noted. IMPRESSION: No acute feature in the abdomen or pelvis is identified. There is moderate stool in the colon suggestive of constipation. No other significant abnormality is seen. Dictated by: Dictated on workstation # [id number] Dict: 03/23/20 1254 Trans: 03/23/20 1558 [facility] [id number] Interpreted by: ROBER CHANDRA MD Electronically signed by: ROBER CHANDRA MD 03/23/20 8564 Reviewed: Reviewed by Me Diagonstic Imaging: Xray Plain Films/CT/US/NM/MRI: chest Comments NAME: PERLITA PEREZ REC#: [id number] PT STATUS: ADM IN : 1940 PHYSICIAN: ROGERIO MONREAL MD ADMIT DATE: 03/23/20 Signed Date of Exam:03/23/20 CHEST 1 VIEW, AP/PA ONLY INDICATION: Sepsis. TIME OF EXAM: 10:50 AM. COMPARISON: Correlation is made to the prior chest from 12/06/2019. FINDINGS: Changes of median sternotomy and CABG are noted. The lungs are clear. No infiltrates are seen. There is no effusion or pneumothorax. IMPRESSION: Status post CABG. No acute cardiopulmonary process is detected. Dictated by: Dictated on workstation # [id number] Dict: 03/23/20 1053 Trans: 03/23/20 1557 [id number] Interpreted by: ROBER CHANDRA MD Electronically signed by: ROBER CHANDRA MD 03/23/20 1557 (ROGERIO MONREAL MD) Departure Communication (Admissions) Time/Spoke to Admitting Phy: 14:00 Dr. Chisholm Time/Spoke to Consulting Phy: 14:05 Dr. Castillo (ROGERIO MONREAL MD) Impression Primary Impression: Sepsis Qualified Codes: A41.9 - Sepsis, unspecified organism Additional Impressions: UTI (urinary tract infection) Qualified Codes: N39.0 - Urinary tract infection, site not specified Decubitus ulcer Qualified Codes: L89.316 - Pressure-induced deep tissue damage of right buttock Generalized weakness Disposition: ADMITTED INPATIENT Condition: Improved Admissions Decision to Admit Reason: Admit from ER (General) Decision to Admit/Date: Mar 23, 2020 Time/Decision to Admit Time: 19:50 (ROGERIO MONREAL MD) Departure-Patient Inst. Referrals: PO COX MD (PCP/Family) Primary Care Physician This patient was interviewed and examined by me personally along with Mylene Kirkland, MS 3. I have reviewed MS 3 and agree with her documentation except where otherwise noted including history, physical, and assessments. Septic work-up was pursued and patient was found to have urinary tract infection. She was treated initially with Rocephin and IV fluids. She had extensive skin breakdown. Skin was cleaned and dressed by nursing staff. CT imaging of the head through pelvis was obtained, partially due to patient's report of a fall a few days ago and pain in the tailbone region. No serious injuries were identified. There was some question of infiltrate on the CT scan. For this reason a Covid swab was obtained which was negative. Patient was admitted to Dr. Chisholm and Dr. Castillo was consulted for evaluation of the skin wounds. I discussed CODE STATUS with patient and she elects to remain a full code. (ROGERIO MONREAL MD) MYLENE KIRKLAND MED STUDENT Mar 23, 2020 09:50 ROGERIO MONREAL MD Mar 23, 2020 14:14
[2020-03-23 09:52] LABS: BILIRUBIN,URINE NEGATIVE (NEGATIVE); CLARITY,URINE CLEAR; COLOR,URINE AMBER; GLUCOSE, URINE (UA) NEGATIVE (NEGATIVE); KETONES,URINE 1+ (NEGATIVE); LEUKOCYTE ESTERASE ,URINE TRACE (NEGATIVE); NITRITE,URINE POSITIVE (NEGATIVE); PH,URINE 5.5 (5-9); PROTEIN,URINE TRACE (NEGATIVE)
[2020-03-23 10:01] LABS: BACTERIA,URINE LARGE /HPF; RBC,URINE 0-2 /HPF
[2020-03-23] MEDS ORDERED: cefTRIAXone FOR IV USE 1,000 MG in WATER (STERILE) FOR INJECTION 10 ML IV ONE (10:45)
[2020-03-23] MEDS ORDERED: IOHEXOL 350 MG/ML 100 ML (OMNIPAQUE 350) VIAL IV ONE (10:45)
[2020-03-23] MEDS ORDERED: NS 100 ML (IVPB) BAG IV ONE (10:45)
[2020-03-23] MEDS ORDERED: HOLD METFORMIN - RECEIVED CONTRAST 20 ML VIAL IV SCH (10:45)
[2020-03-23] MEDS ORDERED: CATHETER FLUSH 10 ML SYR IV PRN ×2 (10:45→16:30)
--- NOTE | 2020-03-23 10:55 | Diagnostic Imaging Report ---
INDICATION: Sepsis. TIME OF EXAM: 10:50 AM. COMPARISON: Correlation is made to the prior chest from 12/06/2019. FINDINGS: Changes of median sternotomy and CABG are noted. The lungs are clear. No infiltrates are seen. There is no effusion or pneumothorax. IMPRESSION: Status post CABG. No acute cardiopulmonary process is detected. Dictated by: Dictated on workstation # [id number]
--- NOTE | 2020-03-23 13:03 | Diagnostic Imaging Report ---
PROCEDURE: CT chest, abdomen, and pelvis with contrast. TECHNIQUE: Multiple contiguous axial images were obtained through the chest, abdomen, and pelvis after the administration of intravenous contrast. Auto Exposure Controls were utilized during the CT exam to meet ALARA standards for radiation dose reduction. INDICATION: Fever, increasing pain and incontinence. COMPARISON: Correlation is made with prior CT from 02/18/2017. FINDINGS: CT chest: No axillary lymphadenopathy is identified. No mediastinal or hilar lymphadenopathy is detected. No pericardial or pleural fluid is detected. There appears to be some linear scarring or atelectasis in the left and right lower lobes. Minimal infiltrate versus atelectasis in right upper lobe posteriorly is identified. No pulmonary mass is identified. The bony structures are nonacute. IMPRESSION: There is some minimal infiltrate versus atelectasis/scarring in right upper lobe and bilateral lung bases. Otherwise, the lungs are clear. No mass or thoracic lymphadenopathy is detected. CT abdomen and pelvis: No discrete liver mass is identified. Gallbladder is surgically absent. There is no biliary ductal dilatation. Pancreas and spleen are unremarkable. No adrenal mass is detected. Kidneys are unremarkable. Aorta is non-aneurysmal. No central retroperitoneal or mesenteric lymphadenopathy is seen. No definite pelvic lymphadenopathy is identified. Uterus is unremarkable. Bladder is decompressed by [place] catheter. Bowel loops are normal caliber. There is no obstruction. Moderate stool in the colon. No free fluid or fluid collection is seen. Postoperative changes to the left hip are noted. IMPRESSION: No acute feature in the abdomen or pelvis is identified. There is moderate stool in the colon suggestive of constipation. No other significant abnormality is seen. Dictated by: Dictated on workstation # [id number]
--- NOTE | 2020-03-23 13:04 | Diagnostic Imaging Report ---
PROCEDURE: CT head and CT cervical spine without contrast. TECHNIQUE: Multiple contiguous axial images were obtained through the brain and cervical spine without the use of intravenous contrast. Sagittal and coronal reformations through the cervical spine were then performed. Auto Exposure Controls were utilized during the CT exam to meet ALARA standards for radiation dose reduction. INDICATION: Trauma. Fever. Pain. COMPARISON: 06/03/2013 FINDINGS: CT HEAD: The ventricles and cortical sulci are diffusely prominent, compatible with age-related volume loss. There are confluent areas of abnormal, low attenuation in the periventricular white matter. This is consistent with chronic small vessel ischemic changes. There is no midline shift or mass-effect. No acute intra-axial hemorrhage is seen. There are no abnormal areas of increased or decreased density to suggest acute hemorrhage or edema. No extra-axial masses or collections are present. The bony calvarium is intact. The visualized paranasal sinuses are unremarkable. The mastoid air cells are clear. CT CERVICAL SPINE: Evaluation of static alignment shows significant exaggerated kyphosis of the upper thoracic spine and exaggerated lordosis of the cervical spine. This does result in suboptimal positioning of patient within the CT Gantry. There is no significant anterolisthesis or retrolisthesis. There is no evidence of jumped facets. Vertebral body heights are maintained. There is no acute fracture. No bony fragments are seen within the spinal canal. There are moderate multilevel degenerative changes consistent with intervertebral disc height loss and multilevel facet arthropathy. There is no significant osseous spinal canal stenosis. Pre and paravertebral soft tissue structures are unremarkable. Note is made of calcified carotid atherosclerosis. Included portions of the lungs show cluster of micronodules within the posterior medial margins of the right upper lobe, which may be on the basis of underlying infectious or inflammatory process. IMPRESSION: 1. No acute intracranial abnormality. No CT evidence of mass, acute infarct or intracranial hemorrhage. 2. Chronic small vessel ischemic changes in the deep white matter. 3. No acute fracture or dislocation of the cervical spine. Dictated by: Dictated on workstation # [id number]
[2020-03-23] MEDS ORDERED: ASPIRIN 325 MG (5 GR) TABLET ONE (13:44)
[2020-03-23] MEDS ORDERED: LACTATED RINGERS 1,000 ML IV ONE (13:45)
[2020-03-23] MEDS ORDERED: ONDANSETRON 4 MG/2 ML (SDV) Z0FRAN IV PRN (16:30)
[2020-03-23 17:00] VITALS: BP 176/89
--- NOTE | 2020-03-23 17:03 | Consultation - Surgery ---
SAURABH WOODY,MED STUDENT 03/23/20 1703: History of Present Illness History of Present Illness Patient Consulted On(roney/time) 03/23/20 17:02 Date Seen by Provider: Mar 23, 2020 Time Seen by Provider: 16:50 History of Present Illness Pt is a 79 year old female with a PMH of HTN, HLD, CAD s/p CABG and stents, non- insulin dependent DM, Spinal hemangioma, AFIB and GERD who presented to the ED via EMS. Per report she was found in urine and feces. Surgery was consulted regarding a sacral decubitus ulcer. Pt states that she started having pain in her buttock-area yesterday. Pain is sharp, constant and is 10/10 at its worst. Nothing has helped it improve, and movement and pressure makes it worse. She lives with her daughter and has trouble getting around on her own. She states that her pain was so bad yesterday that she did not let her daughter lift her out of bed. She denies fever, chills, SOB, chest pain, n/v and abdominal pain. She does report tingling in her upper extremities and weakness in her legs. Allergies and Home Medications Allergies Coded Allergies: fentanyl (Verified Allergy, Unknown, 12/06/19) morphine (Verified Allergy, Unknown, TAKES PERCOCET @ HOME, 10/22/15) CAUSES SKIN TO COME OFF FINGERS tetracycline (Verified Allergy, Unknown, 05/12/05) Penicillins (Verified Adverse Reaction, Unknown, Vomiting, 03/23/20) hydromorphone (Unverified Adverse Reaction, Unknown, STATES QUIT BREATHING, TAKES PERCOCET AT HOME, 10/22/15) Uncoded Allergies: PAPER TAPE (Allergy, Mild, 07/28/08) Home Medications Alprazolam 0.5 Mg Tablet, 0.5 MG PO TID Prescribed by: MURIEL PHELAN on 10/23/15 0736 Aspirin 81 Mg Tablet.dr, 81 MG PO BID, (Reported) Atorvastatin Calcium 10 Mg Tablet, 10 MG PO DAILY Prescribed by: MURIEL PHELAN on 10/23/15 0707 Carvedilol 12.5 Mg Tablet, 12.5 MG PO BID, (Reported) Cefuroxime Axetil 250 Mg Tablet, 250 MG PO BID Prescribed by: EILEEN FLORIAN on 12/06/19 1737 Cephalexin 500 Mg Tablet, 500 MG PO BID Prescribed by: LAURA RUSSELL on 02/18/17 0105 Clindamycin HCl 300 Mg Capsule, 300 MG PO TID Prescribed by: YONY JOYA on 08/20/19 185 Clopidogrel Bisulfate 75 Mg Tablet, 75 MG PO DAILY, (Reported) Clotrimazole 15 Gm Cream..g., 15 GM TP BID Prescribed by: EILEEN FLORIAN on 10/31/19 163 Doxazosin Mesylate 2 Mg Tablet, 2 MG PO HS, (Reported) Doxycycline Hyclate 100 Mg Tablet, 100 MG PO BID Prescribed by: EILEEN FLORIAN on 10/31/19 163 Etodolac 400 Mg Tablet, 400 MG PO BID PRN for MUSCLE SPASMS, (Reported) Hydrocodone/Acetaminophen 1 Each Tablet, 1 EACH PO Q4-6HR PRN for PAIN-MODERATE Prescribed by: EILEEN FLORIAN on 10/31/191638 Linagliptin 5 Mg Tablet, 5 MG PO DAILY, (Reported) Lisinopril 10 Mg Tablet, 10 MG PO DAILY, (Reported) Magnesium Oxide 400 Mg Capsule, 400 MG PO HS, (Reported) Nitroglycerin 0.4 Mg Tab, 0 SL UD PRN for CHEST PAIN, (Reported) 1 TABLET EVERY 5 MINUTES X 3 DOSES NEEDED FOR CHEST PAIN Ferriday-3 Fatty Acids/Fish Oil 1 Each Capsule, 1,000 MG PO DAILY, (Reported) Oxycodone HCl/Acetaminophen 1 Each Tablet, 1 TAB PO QID, (Reported) Potassium Chloride 10 Meq Capsule.er, 10 MEQ PO DAILY, (Reported) Past Gsuvfjm-Olsytf-Furibf Hx Patient Social History Alcohol Use: Denies Use Recreational Drug Use: No Smoking Status: Never a Smoker 2nd Hand Smoke Exposure: No Recent Foreign Travel: No Contact w/Someone Who Travel: No Recent Infectious Disease Expo: No Recent Hopitalizations: No Immunizations Up To Date PED Vaccines UTD: Yes Date of Pneumonia Vaccine: Dec 20, 2016 Date of Influenza Vaccine: Dec 20, 2016 Seasonal Allergies Seasonal Allergies: No Surgeries History of Surgeries: Yes (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) Surgeries: CABG, Coronary Stent, Gallbladder, Joint Replacement, Orthopedic Respiratory History of Respiratory Disorde: No Cardiovascular History of Cardiac Disorders: Yes (CABG,STENTS) Cardiac Disorders: Coronary Artery Disease, Heart Attack, High Cholesterol, Hypertension Neurological History of Neurological Disord: Yes (PERIPHERAL NEUROPATHY) Neurological Disorders: Neuropathy Reproductive System Hx Reproductive Disorders: No Sexually Transmitted Disease: No HIV/AIDS: No Genitourinary History of Genitourinary Disor: No Gastrointestinal History of Gastrointestinal Di: Yes Gastrointestinal Disorders: Gastroesophageal Reflux Musculoskeletal History of Musculoskeletal Dis: Yes (NECK FX WITH TENDON SPASMS) Musculoskeletal Disorders: Arthritis, Chronic Back Pain, Spasms Endocrine History of Endocrine Disorders: Yes Endocrine Disorders: Diabetes, Non-Insulin dep HEENT History of HEENT Disorders: Yes HEENT Disorders: Cataract Hearing Impairment: Denies Cancer History of Cancer: Yes Cancer: Bone (Vertebral Hemangioma) Psychosocial History of Psychiatric Problem: Yes (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) Behavioral Health Disorders: Anxiety, Depression Integumentary History of Skin or Integumenta: No Blood Transfusions History of Blood Disorders: Yes (Vit D deficiency) Adverse Reaction to a Blood Tr: Yes Family Medical History Significant Family History: No Pertinent Family Hx Family Medial History: Congestive heart failure 19 MOTHER Family history: Cardiovascular disease Family history: Diabetes mellitus 19 MOTHER Family history: Hypertension 19 FATHER Review of Systems-General Constitutional: No chills, No dizziness, No fever EENTM: other (light sensitivity); No nose congestion, No throat pain Respiratory: No cough, No short of breath Cardiovascular: No chest pain; edema, Hx of Intervention Gastrointestinal: No abdominal pain, No constipation, No diarrhea, No nausea, No vomiting Genitourinary: discharge, incontinence Musculoskeletal: back pain, muscle weakness (BLE) Skin: change in color, rash Psychiatric/Neurological: Anxiety; Denies Headache, Denies Numbness; Tingling (BUE), Weakness (BLE) Other Heme: denies easy bleeding/bruising Physical Exam-General Problems Physical Exam Vital Signs Vital Signs - First Documented 03/23/20 09:10 Temp 36.4 Pulse 119 Resp 20 B/P (MAP) 192/116 (141) Pulse Ox 99 O2 Delivery Room Air Capillary Refill : Less Than 3 Seconds General Appearance: other (unkept, chronically ill, smells of urine) HEENT: PERRL/EOMI; No scleral icterus (R), No scleral icterus (L) Neck: non-tender, supple Respiratory: lungs clear, no respiratory distress, no accessory muscle use Cardiovascular: no murmur, irregularly irregular Peripheral Pulses: 2+ Dorsalis Pedis (R), 2+ Left Dors-Pedis (L), 2+ Radial Pulses (R), 2+ Radial Pulses (L) Gastrointestinal: normal bowel sounds, non tender, soft; No distended Rectal: deferred Genital/Rectal: other (siddiqui in place, breakdown, erythema and herpetic-like lesions to bilateral labia majora and inner thighs) Back: vertebral tenderness (coccygeal/sacral area) Extremities: normal capillary refill, pedal edema (bilateral, pitting) Neurologic/Psychiatric: alert, oriented x 3, depressed affect Skin: other (large ulcer to R sacral area with smaller area of breakdown at coccyx, both with surrounding erythema and purulent drainage. Some black eschar on R sacral area. Linear area of superficial breakdown to R inguinal area) Data Review Labs Laboratory Tests 03/23/20 09:14: White Blood Count 12.2H, Red Blood Count 4.28, Hemoglobin 12.4, Hematocrit 38, Mean Corpuscular Volume 88, Mean Corpuscular Hemoglobin 29, Mean Corpuscular Hemoglobin Concent 33, Red Cell Distribution Width 13.2, Platelet Count 251, Mean Platelet Volume 9.2, Immature Granulocyte % (Auto) 0, Neutrophils (%) (Auto) 85H, Lymphocytes (%) (Auto) 8L, Monocytes (%) (Auto) 7, Eosinophils (%) (Auto) 0, Basophils (%) (Auto) 0, Neutrophils # (Auto) 10.3H, Lymphocytes # (Auto) 0.9L, Monocytes # (Auto) 0.8, Eosinophils # (Auto) 0.0, Basophils # (Auto) 0.0, Immature Granulocyte # (Auto) 0.1, Neutrophils % (Manual) 87, Lymphocytes % (Manual) 8, Monocytes % (Manual) 5, Blood Morphology Comment NORMAL, Prothrombin Time 15.3H, INR Comment 1.2, Activated Partial Thromboplast Time 27, Sodium Level 136, Potassium Level 4.3, Chloride Level 98, Carbon Dioxide Level 27, Anion Gap 11, Blood Urea Nitrogen 16, Creatinine 0.60, Estimat Glomerular Filtration Rate > 60, BUN/Creatinine Ratio 27, Glucose Level 159H, Calcium Level 9.3, Corrected Calcium 9.5, Total Bilirubin 1.1H, Aspartate Amino Transf (AST/SGOT) 16, Alanine Aminotransferase (ALT/SGPT) 13, Alkaline Phosphatase 60, Lactate Dehydrogenase 318H, C-Reactive Protein High Sensitivity 11.25H, Total Protein 6.6, Albumin 3.7, Procalcitonin 0.06 03/23/20 09:39: Urine Color AMBERH, Urine Clarity CLEAR, Urine pH 5.5, Urine Specific [place] >=1.030, Urine Protein TRACEH, Urine Glucose (UA) NEGATIVE, Urine Ketones 1+H, Urine Nitrite POSITIVEH, Urine Bilirubin NEGATIVE, Urine Urobilinogen 2.0, Urine Leukocyte Esterase TRACEH, Urine RBC (Auto) TRACE-I, Urine RBC 0-2, Urine WBC 10-25H, Urine Crystals NONE, Urine Bacteria LARGEH, Urine Casts NONE, Urine Mucus NEGATIVE, Urine Culture Indicated CULTURE PENDING, Lactic Acid Level 2.09*H 03/23/20 11:50: Lactic Acid Level 1.88 03/23/20 13:13: Coronavirus 2019 ([facility]) Negative Assessment/Plan Assessment/Plan Assessment/Plan Stage III sacral decubitus ulcer UTI Sepsis, WBC count 12.2, LDH 318, CRP 11.25 Hx of Vertebral Hemangioma Non insulin dependent DM type 2 Hx of AFib on anticoagulation Hx of CABG and Stents IV fluids, ceftriaxone and pain control Acyclovir for herpetic genital lesions Collagenase to area of eschar on R sacral ulcer Will re-examine wound tomorrow with possible bedside debridement SCDs and Lovenox for DVT ppx Encourage IS PT/OT CM for dispo planning Medical management per primary team CAMERON WILEY DO 03/23/201922: History of Present Illness History of Present Illness History of Present Illness Consult requested by Dr. Chisholm. Patient is a 79 ian old female found in urine and feces. Was in bed most of yesterday and today. Has sacral decubitus ulcer which she is unsure how long she has had. Started having pain in the buttock area yesterday. Constant sharp pain. Rates at worse 10/10. Nothing helps and pressure and movement makes worse. States she has difficulty ambulating. Has no other complaints at this time. Denies n/v fever sweats chills shortness of breath or chest pain. Allergies and Home Medications Allergies Coded Allergies: fentanyl (Verified Allergy, Unknown, 12/06/19) morphine (Verified Allergy, Unknown, TAKES PERCOCET @ HOME, 10/22/15) CAUSES SKIN TO COME OFF FINGERS tetracycline (Verified Allergy, Unknown, 05/12/05) Penicillins (Verified Adverse Reaction, Unknown, Vomiting, 03/23/20) hydromorphone (Unverified Adverse Reaction, Unknown, STATES QUIT BREATHING, TAKES PERCOCET AT HOME, 10/22/15) Uncoded Allergies: PAPER TAPE (Allergy, Mild, 07/28/08) Home Medications Alprazolam 0.5 Mg Tablet, 0.5 MG PO TID Prescribed by: MURIEL PHELAN on 10/23/15 0736 Aspirin 81 Mg Tablet.dr, 81 MG PO BID, (Reported) Atorvastatin Calcium 10 Mg Tablet, 10 MG PO DAILY Prescribed by: MURIEL PHELAN on 10/23/15 0707 Carvedilol 12.5 Mg Tablet, 12.5 MG PO BID, (Reported) Cefuroxime Axetil 250 Mg Tablet, 250 MG PO BID Prescribed by: EILEEN FLORIAN on 12/06/19 1737 Cephalexin 500 Mg Tablet, 500 MG PO BID Prescribed by: LAURA RUSSELL on 02/18/17 0105 Clindamycin HCl 300 Mg Capsule, 300 MG PO TID Prescribed by: YONY JOYA on 08/20/19 1857 Clopidogrel Bisulfate 75 Mg Tablet, 75 MG PO DAILY, (Reported) Clotrimazole 15 Gm Cream..g., 15 GM TP BID Prescribed by: EILEEN FLORIAN on 10/31/19 1639 Doxazosin Mesylate 2 Mg Tablet, 2 MG PO HS, (Reported) Doxycycline Hyclate 100 Mg Tablet, 100 MG PO BID Prescribed by: EILEEN FLORIAN on 10/31/19 1639 Etodolac 400 Mg Tablet, 400 MG PO BID PRN for MUSCLE SPASMS, (Reported) Hydrocodone/Acetaminophen 1 Each Tablet, 1 EACH PO Q4-6HR PRN for PAIN-MODERATE Prescribed by: EILEEN FLORIAN on 10/31/19 1639 Linagliptin 5 Mg Tablet, 5 MG PO DAILY, (Reported) Lisinopril 10 Mg Tablet, 10 MG PO DAILY, (Reported) Magnesium Oxide 400 Mg Capsule, 400 MG PO HS, (Reported) Nitroglycerin 0.4 Mg Tab, 0 SL UD PRN for CHEST PAIN, (Reported) 1 TABLET EVERY 5 MINUTES X 3 DOSES NEEDED FOR CHEST PAIN Ferriday-3 Fatty Acids/Fish Oil 1 Each Capsule, 1,000 MG PO DAILY, (Reported) Oxycodone HCl/Acetaminophen 1 Each Tablet, 1 TAB PO QID, (Reported) Potassium Chloride 10 Meq Capsule.er, 10 MEQ PO DAILY, (Reported) Patient Home Medication List Home Medication List Reviewed: Yes Past Trsuudd-Rbndfg-Wgsoyx Hx Reviewed Nursing Assessment Reviewed/Agree w Nursing PMH: Yes Family Medical History Significant Family History: No Pertinent Family Hx Family Medial History: Congestive heart failure 19 MOTHER Family history: Cardiovascular disease Family history: Diabetes mellitus 19 MOTHER Family history: Hypertension 19 FATHER Review of Systems-General Constitutional: No chills, No dizziness, No fever EENTM: other (light sensitivity); No nose congestion, No throat pain Respiratory: No cough, No short of breath Cardiovascular: No chest pain; edema, Hx of Intervention Genitourinary: discharge, incontinence Musculoskeletal: back pain, muscle weakness (BLE) Skin: change in color, rash Psychiatric/Neurological: Anxiety; Denies Headache, Denies Numbness; Tingling (BUE), Weakness (BLE) All Other Systems Reviewed Negative Unless Noted: Yes (Negative excepted noted.) Physical Exam-General Problems Physical Exam General Appearance: other (unkept, chronically ill, smells of urine) HEENT: PERRL/EOMI; No scleral icterus (R), No scleral icterus (L) Neck: non-tender, supple Respiratory: chest non-tender, no respiratory distress, no accessory muscle use Cardiovascular: no JVD, irregularly irregular Gastrointestinal: non tender, soft; No distended Rectal: deferred Genital/Rectal: tenderness, other (siddiqui in place, breakdown, erythema and herpetic-like lesions to bilateral labia majora and inner thighs) Back: vertebral tenderness (coccygeal/sacral area) Extremities: normal capillary refill, pedal edema (bilateral, pitting) Neurologic/Psychiatric: alert, oriented x 3, depressed affect Skin: other (large ulcer to R sacral area with smaller area of breakdown at coccyx, both with surrounding erythema and purulent drainage. Some black eschar on R sacral area. Linear area of superficial breakdown to R inguinal area) Lymphatic: no adenopathy Assessment/Plan Assessment/Plan Assessment/Plan Stage III sacral decubitus ulcer UTI Sepsis, WBC count 12.2, LDH 318, CRP 11.25 Hx of Vertebral Hemangioma Non insulin dependent DM type 2 Hx of AFib on anticoagulation Hx of CABG and Stents IV fluids, ceftriaxone and pain control Consider Acyclovir if worsens Collagenase (Santyl) to area of eschar on R sacral ulcer Will re-examine wound tomorrow with possible bedside debridement SCDs and Lovenox for DVT ppx Encourage IS PT/OT CM for dispo planning Medical management per primary team Supervisory-Addendum Brief Verification & Attestation Participated in pt care: history, MDM, physical Personally performed: exam, history, MDM, supervision of care Care discussed with: Medical Student Procedures: n/a Results interpretation: Verified all documentation Verification and Attestation of Medical Student E/M Service A medical student performed and documented this service in my presence. I reviewed and verified all information documented by the medical student and made modifications to such information, when appropriate. I personally performed the physical exam and medical decision making. Cameron Wiley, Mar 23, 2020,19:32 SAURABH WOODY,MED STUDENT Mar 23, 2020 17:03 CAMERON WILEY DO Mar 23, 2020 19:23
--- NOTE | 2020-03-23 18:00 | NUR ---
Perlita Perez admitted to room 404-1, with an admitting diagnosis of sepis, UTI, back pain , on 03/23/20 from ER via stretcher accompanied by ER staff.PERLITA PEREZ introduced to surroundings, call light, bed controls, phone, TV, temperature control, lights, meal times, smoking policy, visitor policy, side rail policy, bathrooms and showers. Patient Rights given to patient in the handbook.PERLITA PEREZ verbalizes understanding that [facility] is not responsible for the loss or damage to any personal effects or valuables that are kept in the patients posession during their hospitalization.
[2020-03-23] MEDS: LACTATED RINGERS 1,000 ML IV SCH (18:05)
[2020-03-23] MEDS: ENOXAPARIN 40 MG/0.4 ML (LOVENOX) SYR SC SCH (18:05)
[2020-03-23 18:18] VITALS: BP 176/89
[2020-03-23] MEDS ORDERED: FLU QUAD HIGH DOSE 240 MCG/0.7 ML 2020-21 (FLUZONE) IM ONE (19:15)
[2020-03-23] MEDS ORDERED: MIRT15TA6 PO (19:31)
[2020-03-23 19:45] VITALS: BP 150/73
[2020-03-23] MEDS: doxAzosin 2 MG (CARDURA) TAB PO SCH (20:23)
[2020-03-23] MEDS: CARVEDILOL 12.5 MG (COREG) TABLET PO SCH (20:23)
[2020-03-23] MEDS: MIRTAZAPINE 15 MG (REMERON) TAB PO SCH (20:24)
[2020-03-23] MEDS: COLLAGENASE 30 GM (SANTYL) TUBE TP SCH (20:24)
[2020-03-24] VITALS: BP 134/79
[2020-03-24] MEDS: LACTATED RINGERS 1,000 ML IV SCH ×5 (00:28→20:02)
[2020-03-24 04:00] VITALS: BP 125/70
[2020-03-24 05:09] LABS: BASOPHILS % (AUTO) 0 % (0-10); EOSINOPHILS # (AUTO) 0.1 10^3/uL (0.0-0.3); EOSINOPHILS % (AUTO) 1 % (0-10); HEMATOCRIT 29 % (35-52); HEMOGLOBIN 9.5 g/dL (11.5-16.0); LYMPHOCYTES # (AUTO) 0.8 10^3/uL (1.0-4.0); LYMPHOCYTES % (AUTO) 13 % (12-44); MEAN CORPUSCULAR HEMOGLOBIN 29 pg (25-34); MEAN CORPUSCULAR HGB CONC 33 g/dL (32-36); MEAN CORPUSCULAR VOLUME 88 fL (80-99); MEAN PLATELET VOLUME 9.5 fL (9.0-12.2); MONOCYTES # (AUTO) 0.6 10^3/uL (0.0-1.0); MONOCYTES % (AUTO) 8 % (0-12); NEUTROPHILS # (AUTO) 5.2 10^3/uL (1.8-7.8); NEUTROPHILS % (AUTO) 78 % (42-75); PLATELET COUNT 185 10^3/uL (130-400); WHITE BLOOD COUNT 6.7 10^3/uL (4.3-11.0)
[2020-03-24 05:17] LABS: ALBUMIN 2.8 GM/DL (3.2-4.5); CHLORIDE 104 MMOL/L (98-107)
[2020-03-24 05:18] LABS: POTASSIUM 3.4 MMOL/L (3.6-5.0); SODIUM 138 MMOL/L (135-145)
[2020-03-24 05:19] LABS: CALCIUM 8.3 MG/DL (8.5-10.1)
[2020-03-24 05:20] LABS: GLUCOSE 97 MG/DL (70-105); TOTAL PROTEIN 4.9 GM/DL (6.4-8.2)
[2020-03-24 05:21] LABS: CARBON DIOXIDE 26 MMOL/L (21-32)
[2020-03-24 05:22] LABS: BILIRUBIN,TOTAL 0.7 MG/DL (0.1-1.0)
[2020-03-24 05:23] LABS: ALKALINE PHOSPHATASE 47 U/L (40-136); GFR ESTIMATED > 60
[2020-03-24 05:24] LABS: BUN/CREATININE RATIO 32
[2020-03-24 05:26] LABS: ALANINE AMINOTRANSFERASE 8 U/L (0-55)
--- NOTE | 2020-03-24 07:13 | Progress Note - Surgery ---
SAURABH WOODY,MED STUDENT 03/24/20 0713: Subjective Date Seen by a Provider: Mar 24, 2020 Time Seen by a Provider: 06:58 Subjective/Events-last exam Patient seen and examined this AM. Nursing reports she was very somnolent throughout the night, and was somnolent this AM as well. She was Oriented x3 but was falling asleep throughout the exam. She denies any pain, fever, chills, SOB, chest pain, abd pain, nausea or vomiting. Review of Systems General: No Chills HEENT: No Head Aches, No Visual Changes Pulmonary: No Dyspnea, No Cough Cardiovascular: Edema; No: Chest Pain Gastrointestinal: No: Nausea, Vomiting, Abdominal Pain Neurological: Weakness; No: Numbness, Confusion Focused Exam Lactate Level 03/23/20 09:39: Lactic Acid Level 2.09*H 03/23/20 11:50: Lactic Acid Level 1.88 Objective Exam Vital Signs Date Time Temp Pulse Resp B/P (MAP) Pulse Ox O2 Delivery O2 Flow Rate FiO2 03/24/20 04:00 37.2 88 16 125/70 (88) 96 Room Air 03/24/20 01:31 96 03/24/20 00:00 36.1 92 16 134/79 (97) 94 Room Air 03/23/20 20:30 93 03/23/20 20:00 Room Air 03/23/20 19:45 36.8 103 20 150/73 (98) 93 Room Air 03/23/20 19:00 99 03/23/20 18:18 36.4 114 16 176/89 98 Room Air 03/23/20 17:45 98 Room Air 0.00 03/23/20 17:30 106 03/23/20 17:00 36.4 114 16 176/89 (118) 98 Room Air 03/23/20 16:26 37.0 108 18 140/95 98 Room Air 03/23/20 09:10 36.4 119 20 192/116 (141) 99 Room Air I & O 03/24/20 07:00 Intake Total 150 ml Output Total 625 ml Balance -475 ml Capillary Refill : Less Than 3 SecondsLess Than 3 Seconds General Appearance: No Apparent Distress, Thin, Other (lethargic, somnolent) HEENT: PERRL/EOMI, Other (Oropharynx somewhat dry) Neck: Normal Inspection, Non Tender Respiratory: Lungs Clear, No Accessory Muscle Use, No Respiratory Distress Cardiovascular: No Murmur, Tachycardia, Other (Moderate lower extremity pitting edema) Peripheral Pulses: 2+ Dorsalis Pedis (R), 2+ Left Dors-Pedis (L), 2+ Radial Pulses (R), 2+ Radial Pulses (L) Gastrointestinal: non tender, soft; No distended Extremity: Pedal Edema Neurologic/Psychiatric: Oriented x3, No Motor/Sensory Deficits, Motor Weakness (Generalized), Other (somnolent) Skin: Normal Color, Warm/Dry, Other (dressings in place to right inguinal area and sacrum. some surrounding erythema) Results Lab Laboratory Tests 03/23/20 09:14: White Blood Count 12.2H, Red Blood Count 4.28, Hemoglobin 12.4, Hematocrit 38, Mean Corpuscular Volume 88, Mean Corpuscular Hemoglobin 29, Mean Corpuscular Hemoglobin Concent 33, Red Cell Distribution Width 13.2, Platelet Count 251, Mean Platelet Volume 9.2, Immature Granulocyte % (Auto) 0, Neutrophils (%) (Auto) 85H, Lymphocytes (%) (Auto) 8L, Monocytes (%) (Auto) 7, Eosinophils (%) (Auto) 0, Basophils (%) (Auto) 0, Neutrophils # (Auto) 10.3H, Lymphocytes # (Auto) 0.9L, Monocytes # (Auto) 0.8, Eosinophils # (Auto) 0.0, Basophils # (A uto) 0.0, Immature Granulocyte # (Auto) 0.1, Neutrophils % (Manual) 87, Lymphocytes % (Manual) 8, Monocytes % (Manual) 5, Blood Morphology Comment NORMAL, Prothrombin Time 15.3H, INR Comment 1.2, Activated Partial Thromboplast Time 27, Sodium Level 136, Potassium Level 4.3, Chloride Level 98, Carbon Dioxide Level 27, Anion Gap 11, Blood Urea Nitrogen 16, Creatinine 0.60, Estimat Glomerular Filtration Rate > 60, BUN/Creatinine Ratio 27, Glucose Level 159H, Calcium Level 9.3, Corrected Calcium 9.5, Total Bilirubin 1.1H, Aspartate Amino Transf (AST/SGOT) 16, Alanine Aminotransferase (ALT/SGPT) 13, Alkaline Phosphatase 60, Lactate Dehydrogenase 318H, C-Reactive Protein High Sensitivity 11.25H, Total Protein 6.6, Albumin 3.7, Procalcitonin 0.06 03/23/20 09:39: Urine Color AMBERH, Urine Clarity CLEAR, Urine pH 5.5, Urine Specific [place] >=1.030, Urine Protein TRACEH, Urine Glucose (UA) NEGATIVE, Urine Ketones 1+H, Urine Nitrite POSITIVEH, Urine Bilirubin NEGATIVE, Urine Urobilinogen 2.0, Urine Leukocyte Esterase TRACEH, Urine RBC (Auto) TRACE-I, Urine RBC 0-2, Urine WBC 10-25H, Urine Crystals NONE, Urine Bacteria LARGEH, Urine Casts NONE, Urine Mucus NEGATIVE, Urine Culture Indicated CULTURE PENDING, Lactic Acid Level 2.09*H 03/23/20 11:50: Lactic Acid Level 1.88 03/23/20 13:13: Coronavirus 2019 ([facility]) Negative 03/24/20 04:30: White Blood Count 6.7, Red Blood Count 3.31L, Hemoglobin 9.5#L, Hematocrit 29L, Mean Corpuscular Volume 88, Mean Corpuscular Hemoglobin 29, Mean Corpuscular Hemoglobin Concent 33, Red Cell Distribution Width 13.2, Platelet Count 185, Mean Platelet Volume 9.5, Immature Granulocyte % (Auto) 0, Neutrophils (%) (Auto) 78H, Lymphocytes (%) (Auto) 13, Monocytes (%) (Auto) 8, Eosinophils (%) (Auto) 1, Basophils (%) (Auto) 0, Neutrophils # (Auto) 5.2, Lymphocytes # (Auto) 0.8L, Monocytes # (Auto) 0.6, Eosinophils # (Auto) 0.1, Basophils # (Auto) 0.0, Immature Granulocyte # (Auto) 0.0, Sodium Level 138, Potassium Level 3.4L, Chloride Level 104, Carbon Dioxide Level 26, Anion Gap 8, Blood Urea Nitrogen 16, Creatinine 0.50L, Estimat Glomerular Filtration Rate > 60, BUN/Creatinine Ratio 32, Glucose Level 97, Calcium Level 8.3L, Corrected Calcium 9.3, Total Bilirubin 0.7, Aspartate Amino Transf (AST/SGOT) 14, Alanine Aminotransferase (ALT/SGPT) 8, Alkaline Phosphatase 47, Total Protein 4.9L, Albumin 2.8L Assessment/Plan Assessment/Plan Assessment/Plan Stage III sacral decubitus ulcer UTI Sepsis, WBC count improved this AM to 6.7 Hypokalemia, K 3.4 this AM Hx of Vertebral Hemangioma Non insulin dependent DM type 2 Hx of AFib on anticoagulation Hx of CABG and Stents IV fluids, ceftriaxone and pain control Replace potassium Consider Acyclovir if worsens Collagenase (Santyl) to area of eschar on R sacral ulcer Will re-examine wound today with possible bedside debridement SCDs and Lovenox for DVT ppx Encourage IS PT/OT CM for dispo planning Medical management per primary team Clinical Quality Measures DVT/VTE Risk/Contraindication: Risk Factor Score Per Nursin RFS Level Per Nursing on Admit: 4+=Very High CAMERON CASTILLO DO 03/24/201927: Subjective Subjective/Events-last exam Patient fatigued. No new complaints. Pain slightly better to bottom area. Denies n/v fever sweats chills shortness of breath or chest pain. Objective Exam General Appearance: No Apparent Distress, Other (fatigued) HEENT: PERRL/EOMI Neck: Normal Inspection, Non Tender Respiratory: Chest Non Tender, No Accessory Muscle Use, No Respiratory Distress Cardiovascular: Regular Rate, Rhythm, No JVD Gastrointestinal: non tender, soft; No distended Extremity: Non Tender, Pedal Edema Neurologic/Psychiatric: Alert, Oriented x3, Motor Weakness (Generalized) Skin: Other (large ulcer to R sacral area with smaller area of breakdown at coccyx, less erythema and minimal drainage. less black eschar on R sacral area. Linear area of superficial breakdown to R inguinal area) Assessment/Plan Assessment/Plan Assessment/Plan Stage III sacral decubitus ulcer UTI Sepsis, WBC count improved this AM to 6.7 Hypokalemia, K 3.4 this AM Hx of Vertebral Hemangioma Non insulin dependent DM type 2 Hx of AFib on anticoagulation Hx of CABG and Stents IV fluids, ceftriaxone and pain control Replace potassium HSV pending Consider Acyclovir Collagenase (Santyl) to area of eschar on R sacral ulcer SCDs and Lovenox for DVT ppx Encourage IS PT/OT CM for dispo planning Medical management per primary team Supervisory-Addendum Brief Verification & Attestation Participated in pt care: history, MDM, physical Personally performed: exam, history, MDM, supervision of care Care discussed with: Medical Student Procedures: n/a Results interpretation: Verified all documentation Verification and Attestation of Medical Student E/M Service A medical student performed and documented this service in my presence. I reviewed and verified all information documented by the medical student and made modifications to such information, when appropriate. I personally performed the physical exam and medical decision making. Cameron Castillo, Mar 24, 2020,19:39 SAURABH WOODY,MED STUDENT Mar 24, 2020 07:13 CAMERON CASTILLO DO Mar 24, 2020 19:28
[2020-03-24 08:00] VITALS: BP 149/80
[2020-03-24] MEDS ORDERED: KCL 20 MEQ TAB (K-DUR) PO NR (08:00)
[2020-03-24] MEDS: cefTRIAXone 1,000 MG/SWFI 10 ML IV PUSH IV SCH ×2 (09:51)
[2020-03-24] MEDS: lisINopril 10 MG (PRINIVIL) TABLET PO SCH (09:51)
[2020-03-24] MEDS: CARVEDILOL 12.5 MG (COREG) TABLET PO SCH ×2 (09:51→20:02)
[2020-03-24] MEDS: COLLAGENASE 30 GM (SANTYL) TUBE TP SCH ×2 (09:52→20:03)
--- NOTE | 2020-03-24 10:06 | History & Physical ---
MI PENA III MED STUDENT 03/24/20 1006: History of Present Illness History of Present Illness Reason for visit/HPI Pt is a 79yo female who was brought to the hospital via EMS on 03/23. EMS report notes that patient was found in urine and feces by her daughter that prompted the call for EMS. When questioned, the pt states that she was brought to the hospital due to "the crick in her neck" that she states has been going on for about a week in addition to contracture in her legs. These problems have most likely been going on for longer according to previous notes. She notes that she has both diarrhea and constipation that switches back and forth that is not well controlled with stool softeners. She has had some dysuria and frequency recently at home going on for about a week. On admission, a stage 3 sacral decubitus ulcer was noted and surgery was consulted for management. Date of Admission Mar 23, 2020 at 14:25 Date Seen by a Provider: Mar 24, 2020 Time Seen by a Provider: 10:30 I consulted on this patient on 03/24/20 10:01 Attending Physician Lilliana Campos MD Admitting Physician Misty Mariano MD Consult Allergies and Home Medications Allergies Coded Allergies: fentanyl (Verified Allergy, Unknown, 12/06/19) morphine (Verified Allergy, Unknown, TAKES PERCOCET @ HOME, 10/22/15) CAUSES SKIN TO COME OFF FINGERS tetracycline (Verified Allergy, Unknown, 05/12/05) Penicillins (Verified Adverse Reaction, Unknown, Vomiting, 03/23/20) hydromorphone (Unverified Adverse Reaction, Unknown, STATES QUIT B REATHING, TAKES PERCOCET AT HOME, 10/22/15) Uncoded Allergies: PAPER TAPE (Allergy, Mild, 07/28/08) Home Medications Alprazolam 0.5 Mg Tablet, 0.5 MG PO TID Prescribed by: MURIEL PHELAN on 10/23/15 0736 Aspirin 81 Mg Tablet.dr, 81 MG PO BID, (Reported) Atorvastatin Calcium 10 Mg Tablet, 10 MG PO DAILY Prescribed by: MURIEL PHELAN on 10/23/15 0707 Carvedilol 12.5 Mg Tablet, 12.5 MG PO BID, (Reported) Cefuroxime Axetil 250 Mg Tablet, 250 MG PO BID Prescribed by: EILEEN FLORIAN on 12/06/19 1737 Clopidogrel Bisulfate 75 Mg Tablet, 75 MG PO DAILY, (Reported) Clotrimazole 15 Gm Cream..g., 15 GM TP BID Prescribed by: EILEEN FLORIAN on 10/31/19 1639 Doxazosin Mesylate 2 Mg Tablet, 2 MG PO HS, (Reported) Etodolac 400 Mg Tablet, 400 MG PO BID PRN for MUSCLE SPASMS, (Reported) Linagliptin 5 Mg Tablet, 5 MG PO DAILY, (Reported) Lisinopril 10 Mg Tablet, 10 MG PO DAILY, (Reported) Magnesium Oxide 400 Mg Capsule, 400 MG PO HS, (Reported) Mirtazapine 15 Mg Tablet, 15 MG PO HS Prescribed by: YUSRA SIMENTAL on 03/23/20 193 Nitroglycerin 0.4 Mg Tab, 0 SL UD PRN for CHEST PAIN, (Reported) 1 TABLET EVERY 5 MINUTES X 3 DOSES NEEDED FOR CHEST PAIN [place]-3 Fatty Acids/Fish Oil 1 Each Capsule, 1,000 MG PO DAILY, (Reported) Oxycodone HCl/Acetaminophen 1 Each Tablet, 1 TAB PO QID, (Reported) Potassium Chloride 10 Meq Capsule.er, 10 MEQ PO DAILY, (Reported) Patient Home Medication List Home Medication List Reviewed: Yes Past Psigqrh-Mxjscb-Beqicq Hx Patient Social History Living Status: lives at home with her daughter and son-in-law Alcohol Use: Denies Use Recreational Drug Use: No Smoking Status: Never a Smoker 2nd Hand Smoke Exposure: No Recent Foreign Travel: No Contact w/other who traveled: No Recent Hopitalizations: No Recent Infectious Disease Expo: No Immunizations Up To Date Pediatric: Yes Date of Pneumonia Vaccine: Dec 20, 2016 Date of Influenza Vaccine: Dec 20, 2016 Seasonal Allergies Seasonal Allergies: No Surgeries Yes (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) CABG, Coronary Stent, Gallbladder, Joint Replacement, Orthopedic Respiratory No Currently Using CPAP: No Currently Using BIPAP: No Cardiovascular Yes (CABG,STENTS) Atrial Fibrillation (on Aspirin and clopidogrel), Coronary Artery Disease (s/p CABG), Heart Attack, High Cholesterol, Hypertension Neurological Yes (PERIPHERAL NEUROPATHY) Neuropathy Reproductive System Hx Reproductive Disorders: No Sexually Transmitted Disease: No HIV/AIDS: No Genitourinary No Gastrointestinal Yes Gastroesophageal Reflux Musculoskeletal Yes (NECK FX WITH TENDON SPASMS) Arthritis, Chronic Back Pain, Spasms Endocrine History of Endocrine Disorders: Yes Endocrine Disorders: Diabetes, Non-Insulin dep HEENT History of HEENT Disorders: Yes HEENT Disorders: Cataract Hearing Impairment: Denies Cancer Yes Bone (Vertebral Hemangioma) Cancer Comment: Also hx of vertebral hemangioma Psychosocial History of Psychiatric Problem: Yes (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) Behavioral Health Disorders: Anxiety, Depression Integumentary History of Skin or Integumenta: No Blood Transfusions History of Blood Disorders: Yes (Vit D deficiency) Adverse Reaction to a Blood Tr: Yes Reviewed Nursing Assessment Reviewed/Agree w Nursing PMH: Yes Family Medical History Significant Family History: No Pertinent Family Hx Family Hx: Congestive heart failure 19 MOTHER Family history: Cardiovascular disease Family history: Diabetes mellitus 19 MOTHER Family history: Hypertension 19 FATHER Review of Systems Constitutional: weakness EENTM: no symptoms reported Respiratory: no symptoms reported Cardiovascular: no symptoms reported Gastrointestinal: abdominal pain, constipation, diarrhea Genitourinary: dysuria, frequency Musculoskeletal: neck pain (she has a neck contracture that is causing her pain) Skin: lesions (sacral decubitus ulcer that has been hurting her recently ) Physical Exam Vital Signs Vital Signs - First Documented 03/23/20 03/23/20 09:10 17:45 Temp 36.4 Pulse 119 Resp 20 B/P (MAP) 192/116 (141) Pulse Ox 99 O2 Delivery Room Air O2 Flow Rate 0.00 Capillary Refill : Less Than 3 SecondsLess Than 3 Seconds Height, Weight, BMI Height: 5'7.00" Weight: 147lbs. 0.0oz. 66.578287kb; 23.62 BMI Method:Stated General Appearance: No Apparent Distress HEENT: PERRL/EOMI Neck: Limited Range of Motion Respiratory: Chest Non Tender, Lungs Clear, Normal Breath Sounds, No Accessory Muscle Use, No Respiratory Distress Cardiovascular: No Edema, No Gallop, No JVD, Irregularly Irregular Gastrointestinal: Normal Bowel Sounds Genital/Rectal: Other (lesions that are most likely from chronic irritation and excoriation noted on upper inner thigh ) Extremity: Normal Capillary Refill, Other (contractures bilaterally at knees) Neurologic/Psychiatric: Alert, Oriented x3 Assessment/Plan Assessment and Plan PT is a 79 year old female who presents to the hospital with a UTI w/ concerns for sepsis with initial elevated white count UTI Stage 3 sacral decubitus ulcer Afib Cervical lordosis causing neck pain Chronic back pain Anemia (hgb of 9.5) Plan: Plan to call daughter for more information about home life Continue rocephin for UTI Pt is asymptomatic with hgb of 9.5, continue to monitor and repeat CBC Continue to monitor afib status, may consider repeat ECG Surgery already consulted for decubitus ulcer, treat per their notes PT/OT consulted for contractures and cervical lordosis for improved ROM and mobility Obtain HSV swab for culture and AB test to rule out HSV infection (consider acyclovir if positive) Problems: (1) Sepsis Status: Resolved Qualifiers: Qualified Codes: A41.51 - Sepsis due to Escherichia coli [e. coli] (2) UTI (urinary tract infection) Status: Acute Qualifiers: Qualified Codes: N30.01 - Acute cystitis with hematuria (3) Decubitus ulcer Status: Acute Qualifiers: Qualified Codes: L89.316 - Pressure-induced deep tissue damage of right buttock (4) Chronic pain Status: Chronic Clinical Quality Measures DVT/VTE Risk/Contraindication: Risk Factor Score Per Nursin RFS Level Per Nursing on Admit: 4+=Very High LILLIANA CAMPOS MD 03/24/20 1931: Allergies and Home Medications Allergies Coded Allergies: fentanyl (Verified Allergy, Unknown, 12/06/19) morphine (Verified Allergy, Unknown, TAKES PERCOCET @ HOME, 10/22/15) CAUSES SKIN TO COME OFF FINGERS tetracycline (Verified Allergy, Unknown, 05/12/05) Penicillins (Verified Adverse Reaction, Unknown, Vomiting, 03/23/20) hydromorphone (Unverified Adverse Reaction, Unknown, STATES QUIT BREATHING, TAKES PERCOCET AT HOME, 10/22/15) Uncoded Allergies: PAPER TAPE (Allergy, Mild, 07/28/08) Home Medications Alprazolam 0.5 Mg Tablet, 0.5 MG PO TID Prescribed by: MURIEL PHELAN on 10/23/15 0736 Aspirin 81 Mg Tablet.dr, 81 MG PO BID, (Reported) Atorvastatin Calcium 10 Mg Tablet, 10 MG PO DAILY Prescribed by: MURIEL PHELAN on 10/23/15 0707 Carvedilol 12.5 Mg Tablet, 12.5 MG PO BID, (Reported) Cefuroxime Axetil 250 Mg Tablet, 250 MG PO BID Prescribed by: EILEEN FLORIAN on 12/06/19 1737 Clopidogrel Bisulfate 75 Mg Tablet, 75 MG PO DAILY, (Reported) Clotrimazole 15 Gm Cream..g., 15 GM TP BID Prescribed by: EILEEN FLORIAN on 10/31/19 1639 Doxazosin Mesylate 2 Mg Tablet, 2 MG PO HS, (Reported) Etodolac 400 Mg Tablet, 400 MG PO BID PRN for MUSCLE SPASMS, (Reported) Linagliptin 5 Mg Tablet, 5 MG PO DAILY, (Reported) Lisinopril 10 Mg Tablet, 10 MG PO DAILY, (Reported) Magnesium Oxide 400 Mg Capsule, 400 MG PO HS, (Reported) Mirtazapine 15 Mg Tablet, 15 MG PO HS Prescribed by: YUSRA SIMENTAL on 03/23/20 1931 Nitroglycerin 0.4 Mg Tab, 0 SL UD PRN for CHEST PAIN, (Reported) 1 TABLET EVERY 5 MINUTES X 3 DOSES NEEDED FOR CHEST PAIN [place]-3 Fatty Acids/Fish Oil 1 Each Capsule, 1,000 MG PO DAILY, (Reported) Oxycodone HCl/Acetaminophen 1 Each Tablet, 1 TAB PO QID, (Reported) Potassium Chloride 10 Meq Capsule.er, 10 MEQ PO DAILY, (Reported) Past Hqmailt-Umbwpt-Wtrsoo Hx Family Medical History Family Hx: Congestive heart failure 19 MOTHER Family history: Cardiovascular disease Family history: Diabetes mellitus 19 MOTHER Family history: Hypertension 19 FATHER Physical Exam General Appearance: No Apparent Distress HEENT: PERRL/EOMI Neck: Limited Range of Motion Respiratory: Lungs Clear, Normal Breath Sounds, No Respiratory Distress Cardiovascular: Regular Rate, Rhythm, No Murmur Gastrointestinal: Normal Bowel Sounds, Non Tender Genital/Rectal: Other (erythematous papules in groin and on labia majora) Neurologic/Psychiatric: Alert, Oriented x3, marble carver II-XII Norm as Tested Skin: Warm/Dry, Other (did not examine ulcer given recent dressing changes and already evaluated by Surgery) Assessment/Plan Assessment and Plan Problems: (1) Sepsis Status: Resolved Qualifiers: Qualified Codes: A41.51 - Sepsis due to Escherichia coli [e. coli] Assessment & Plan: Secondary to UTI, culture with E coli on prelim. Continue ceftriaxone. (2) Chronic pain Status: Chronic (3) Decubitus ulcer Status: Acute Qualifiers: Qualified Codes: L89.316 - Pressure-induced deep tissue damage of right buttock Assessment & Plan: Appreciate surgery recommendations. Discussed with patient need for offloading and position changes and the difficulty she appeared to be having with that at home, she states she "will be okay" and is hesitant to consider other discharge plans. (4) UTI (urinary tract infection) Status: Acute Qualifiers: Qualified Codes: N30.01 - Acute cystitis with hematuria (5) Diabetes mellitus, type 2 Status: Chronic Qualifiers: Qualified Codes: E11.622 - Type 2 diabetes mellitus with other skin ulcer (6) Hypertension Status: Chronic Qualifiers: Qualified Codes: I10 - Essential (primary) hypertension (7) Anxiety Status: Chronic (8) Coronary artery disease Status: Chronic (9) Hyperlipidemia Status: Chronic (10) DVT prophylaxis Status: Acute Assessment & Plan: Enoxaparin Admission Diagnosis Admission Status: Inpatient Order (span 2 midnights) Reason for Inpatient Admission: Sepsis with underlying comboribidities Supervisory-Addendum Brief Verification & Attestation Participated in pt care: history, MDM, physical Personally performed: exam, history Care discussed with: Medical Student Procedures: n/a I personally saw and examined this patient and did my own history and exam today. See my notes. Heart rate regular for me, no noted history of A fib, monitor tele. MI PENA III MED STUDENT Mar 24, 2020 10:06 LILLIANA CAMPOS MD Mar 24, 2020 19:31
--- NOTE | 2020-03-24 10:07 | Physical Therapy Evaluation ---
PT Evaluation-General Medical Diagnosis Admission Date Mar 23, 2020 at 14:25 Medical Diagnosis: sepsis/UTI Onset Date: Mar 23, 2020 Therapy Diagnosis Therapy Diagnosis: debility/weakness Height/Weight Height (Feet): 5 Height (Inches): 7.00 Weight (Pounds): 147 Weight (Ounces): 0.0 Precautions Precautions/Isolations: Standard Precautions, Pressure Ulcer Weight Bear Status Right Lower Extremity: Right Weight Bearing/Tolerated Left Lower Extremity: Left Weight Bearing/Tolerated Referral Physician: Phan Reason for Referral: Evaluation/Treatment Medical History Pertinent Medical History: CABG, CAD, DM, HTN, NH, Neuropathy Additional Medical History just diagnosis with cancer per report Current History EMS secondary to fever/found in recliner covered in urine and feces Reviewed History: Yes Social History Current Living Status: Other Family Prior Prior Level of Function SCALE: Activities may be completed with or without assistive devices. 4-Uppkzkzhoz-sxskmxe completes the activity by him/herself with no assistance from a helper. 5-Set-up or Clean-up Assistance-helper sets up or cleans up; patient completes activity. [place] assists only prior to or following the activity. 4-Supervision or Touching Assistance-helper provides verbal cues and/or touching/steadying and/or contact guard assistance as patient completes activity. Assistance may be provided throughout the activity or intermittently. 3-Partial/Moderate Assistance-helper does LESS THAN HALF the effort. [place] lifts, holds or supports trunk or limbs, but provides less than half the effort. 2-Substantial/Maximal Assistance-helper does MORE THAN HALF the effort. [place] lifts or holds trunk or limbs and provides more than half the effort. 4-Oelxyjyee-qkukif does ALL the effort. Patient does none of the effort to complete the activity. Or, the assistance of 2 or more helpers is required for the patient to complete the activity. If activity was not attempted, code reason: 7-Patient Refused. 9-Not Applicable-not attempted and the patient did not perform the activity before the current illness, exacerbation or injury. 10-Not Attempted due to Environmental Limitations-(lack of equipment, weather restraints, etc.). 88-Not Attempted due to Medical Conditions or Safety Concerns. Bed Mobility: 1 Transfers (B,C,W/C): 1 Gait: 9 Stairs: 9 Indoor Mobility (Ambulation): Not [place] Stairs: Not [place] PT Evaluation-Current Subjective Patient does wake up with PT performing ROM. Patient yells in pain of bilateral LE ROM. Pain Numeric Pain Scale: 10-Worst Possible Pain Location: Right, Left Location Body Site: Generalized Comment: FLACC Objective Patient Orientation: Confused Attachments: [place] Catheter, IV ROM/Strength ROM Lower Extremities bilateral knee flexion contractures (~20 degrees) Strength Lower Extremities 1/5 grossly bilateral LE (draws up minimal due to pain) Integumentary/Posture Integumentary refer to nursing notes Bowel Incontinence: Yes Bladder Incontinence: Yes Posture severe left cervical rotation contracture Neuromuscular (Tone, Coordination, Reflexes) severely diminished with all Sensory Vision: Wears Glasses Hearing: Functional Transfers Roll Left to Right (QC): 1 Sit to Lying (QC): 88 Lying to Sitting/Side of Bed(Q: 88 Sit to Stand (QC): 88 Chair/Dqn-qs-Spcot Xfer(QC): 88 Toilet Transfer (QC): 88 Gait Does the Patient Walk?: No and Walking Goal NOT indicated Assessment/Needs 79 y.o. female, will be seen short term by skilled PT to address bilateral LE ROM and bed mobility activity. It appears patient has not been mobile for a long period of time due to bilateral knee flexion and head/cervical rotation (left). Per report, patient has compromised skin condition as well of pierre area. Rehab Potential: Poor PT Mcc Goals Front Tender Goals PT Front Tender Goals Time Frame: Apr 03, 2020 Roll Left & Right (QC): 2 Sit to Lying (QC): 2 Lying-Sitting on Side/Bed(QC): 2 PT Plan Problem List Problem List: Activity Tolerance, Functional Strength, Safety, Balance, Transfer, Bed Mobility, ROM Treatment/Plan Treatment Plan: Continue Plan of Care Treatment Plan: Bed Mobility, Education, Functional Activity Mich, Functional Strength, Safety, Therapeutic Exercise, Transfers Treatment Duration: Apr 03, 2020 Frequency: 5 times per week Estimated Hrs Per Day: .25 hour per day Discharge Recommendations Therapy Discharge Recommendati: Other, See Comments ([facility]) Time/GCodes Time In: 820 Time Out: 838 Total Billed Treatment Time: 18 Total Billed Treatment 1 visit EVMod 18 min MARIE WARE PT Mar 24, 2020 10:07
--- NOTE | 2020-03-24 10:44 | NUR ---
CM/SS: Visited with pt as to her plan for discharge and as per Social Work consult related to living conditions. Plan: Undetermined at this time. Pt is from home, and will likely need a residential facility to address skin breakdown. Summary: In talking with pt as to her current status. She reports she lives at home with her daughter and son in law. They care for her. She is reminded by this worker that the EMS staff was concerned as to her home conditions and that she was in her urine and feces, as well as the animals and overall home conditions. She reports that she wants to go back home and not to a correction. Pt is reminded that we will work to get her well while here at the hospital, and see if her daughter needs more help in caring for her. Pt gives permission for this worker to call alise Mehta [phone]. Pt does report she has a walker and her daughter was going to get her a commode. This worker will follow up with daughter.
--- NOTE | 2020-03-24 10:58 | NUR ---
CM/SS: Telephone call to daughter - Janine - [phone] - talk with her as to her mother and the state the she was in with her skin breakdown at her time of admission. Addressed the concerns with EMS with the home and the state that the pt was in at the time of admission. Daughter admits that pt would not leave her chair due to being in pain to toilet herself. Daughter also reports that the home is not in good shape and if does not have a roof, and it needs lots of work. Talk with daughter as the concerns for pt's condition and that when pt's usually come in with the skin breakdown and in urine and feces, that we usually make a report to the state. Daughter reports she has had contact with Rosmery Bunch with [facility] as to home conditions in the past. She believes the case is closed. Daughter is notified that a report will be made. She is ok with that. Daughter is also ok with pt going to a facility to get skin breakdown healed. She prefers [facility], [facility], and [facility] in that order. She will talk with pt as to that option for care. This worker will follow up. Daughter will also send a current copy of pt's [employer] - Medicare card.
[2020-03-24 12:00] VITALS: BP 120/66
[2020-03-24] MEDS: oxyCODONE/APAP 10/325MG (PERCOCET 10) TABLET PO SCH ×4 (13:07→22:47)
--- NOTE | 2020-03-24 14:12 | NUR ---
"RD ASSESSMENT PMHx: CAD; hypercholesterolemia; HTN; GERD; DM; PT INTERACTION: Pt was awake and pleasant during nutrition assessment. Pt states current appetite is good. Note avg PO intake 50% x2meal, per chart review. Pt states following a regular diet at home, and has no issues with chewing/swallowing food. Pt states some recent issues with diarrhea, and that her last BM was 1/5. Note pt not currently on bowel regimen per chart review. Pt states recent wt gain, but is unsure of amount/timeframe. Note recent 15# wt gain x4mon, per chart review. Pt states current DM management is pretty good. Note unable to determine recent HbA1c, per chart review. Note presence of wound (stage III decubitus ulcer), per chart review. Est. kcal needs: 7193-6660 kcal | 25-30 kcal/kg Est. Pro needs: 79-92 g Pro | 1.2-1.4 g Pro/kg PES STATEMENT: Inadequate oral intake (NI-2.1) related to diarrhea, as evidenced by pt interview, and avg PO intake 50% x2meal. Inadequate protein intake (NI-5.6.1) related to increased protein needs as evidenced by presence of wound (stage III decubitus ulcer). INTERVENTION: Continue with current diet order of Regular diet. Pt may benefit from consistent CHO diet, as pt has hx of DM. Add Ensure HP (vary) to meals TID. Provides 160 kcal and 16 g Pro per serving, for perceived benefit to wound healing. Offered diet education on DM management, but pt declined at this time. Will attempt to offer again prior to discharge. Will continue to follow and reassess as pt needs, intake, and status change. Michelle JUÁREZ, MS RD LD [phone] cell"
[2020-03-24 16:34] VITALS: BP 128/63
[2020-03-24] MEDS: ENOXAPARIN 40 MG/0.4 ML (LOVENOX) SYR SC SCH (17:55)
[2020-03-24 19:21] VITALS: BP 144/66
[2020-03-24] MEDS: doxAzosin 2 MG (CARDURA) TAB PO SCH (20:02)
[2020-03-24] MEDS: MIRTAZAPINE 15 MG (REMERON) TAB PO SCH (20:02)
[2020-03-25] VITALS (7 sets, daily range): BP systolic 121–167; BP diastolic 57–76
[2020-03-25] MEDS: LACTATED RINGERS 1,000 ML IV SCH ×4 (03:09→23:18)
[2020-03-25 05:56] LABS: BASOPHILS % (AUTO) 1 % (0-10); EOSINOPHILS # (AUTO) 0.2 10^3/uL (0.0-0.3); EOSINOPHILS % (AUTO) 4 % (0-10); HEMATOCRIT 28 % (35-52); LYMPHOCYTES # (AUTO) 0.6 10^3/uL (1.0-4.0); LYMPHOCYTES % (AUTO) 13 % (12-44); MEAN CORPUSCULAR HEMOGLOBIN 29 pg (25-34); MEAN CORPUSCULAR HGB CONC 32 g/dL (32-36); MEAN CORPUSCULAR VOLUME 89 fL (80-99); MEAN PLATELET VOLUME 9.2 fL (9.0-12.2); MONOCYTES # (AUTO) 0.3 10^3/uL (0.0-1.0); MONOCYTES % (AUTO) 7 % (0-12); NEUTROPHILS # (AUTO) 3.3 10^3/uL (1.8-7.8); NEUTROPHILS % (AUTO) 75 % (42-75); PLATELET COUNT 171 10^3/uL (130-400); WHITE BLOOD COUNT 4.4 10^3/uL (4.3-11.0)
[2020-03-25 06:05] LABS: CHLORIDE 107 MMOL/L (98-107); POTASSIUM 3.7 MMOL/L (3.6-5.0); SODIUM 139 MMOL/L (135-145)
[2020-03-25 06:06] LABS: CALCIUM 7.9 MG/DL (8.5-10.1)
[2020-03-25 06:07] LABS: GLUCOSE 86 MG/DL (70-105)
[2020-03-25 06:08] LABS: CARBON DIOXIDE 25 MMOL/L (21-32)
[2020-03-25 06:11] LABS: CREATININE SERUM 0.51 MG/DL (0.60-1.30); GFR ESTIMATED > 60
[2020-03-25 06:12] LABS: BUN/CREATININE RATIO 24
--- NOTE | 2020-03-25 07:01 | Progress Note - Surgery ---
JACOBO WHITLEY MED STUDENT 03/25/20 0701: Subjective Date Seen by a Provider: Mar 25, 2020 Time Seen by a Provider: 06:55 Subjective/Events-last exam Pt asleep upon entering the room. Pt difficult to aroused by myself or nursing staff. Nursing staff reports she was awake earlier. Most information gained from nurse. Pt had BM x1 and refused pain medication as she did not need it. Pt notes soreness from ulcer. Limited information gained from pt due to somnolence. Review of Systems Cardiovascular: No: Chest Pain Gastrointestinal: No: Abdominal Pain Musculoskeletal: other (Decubitus ulcer pain) Neurological: Other (somnolence) Focused Exam Lactate Level 03/23/20 09:39: Lactic Acid Level 2.09*H 03/23/20 11:50: Lactic Acid Level 1.88 Objective Exam Vital Signs Date Time Temp Pulse Resp B/P (MAP) Pulse Ox O2 Delivery O2 Flow Rate FiO2 03/25/20 04:00 37.8 81 24 167/74 (105) 96 Room Air 03/25/20 01:00 74 03/25/20 00:12 36.9 80 20 121/57 (78) 91 Room Air 03/24/20 20:02 Room Air 03/24/20 19:21 36.6 81 18 144/66 (92) 98 Room Air 03/24/20 19:00 71 03/24/20 16:34 37.1 76 18 128/63 (84) 94 Room Air 03/24/20 12:29 84 03/24/20 12:00 37.6 89 18 120/66 (84) 97 Room Air 03/24/20 08:00 37.0 82 14 149/80 (103) 98 Room Air 03/24/20 08:00 Room Air I & O 03/25/20 06:59 Intake Total 2760 ml Output Total 525 ml Balance 2235 ml Capillary Refill : Less Than 3 SecondsLess Than 3 Seconds General Appearance: No Apparent Distress, Other (fatigued) Neck: Normal Inspection, Non Tender Respiratory: Chest Non Tender, No Accessory Muscle Use, No Respiratory Distress Cardiovascular: Regular Rate, Rhythm, No JVD Peripheral Pulses: 2+ Dorsalis Pedis (R), 2+ Left Dors-Pedis (L), 2+ Radial Pulses (R), 2+ Radial Pulses (L) Gastrointestinal: non tender, soft; No distended Extremity: Non Tender, Pedal Edema Neurologic/Psychiatric: Alert, Oriented x3, Motor Weakness (Generalized) Skin: Other (large ulcer to R sacral area with smaller area of breakdown at coccyx, less erythema and minimal drainage. less black eschar on R sacral area. Linear area of superficial breakdown to R inguinal area) Results Lab Laboratory Tests 03/25/20 05:31: White Blood Count 4.4, Red Blood Count 3.13L, Hemoglobin 9.0L, Hematocrit 28L, Mean Corpuscular Volume 89, Mean Corpuscular Hemoglobin 29, Mean Corpuscular Hemoglobin Concent 32, Red Cell Distribution Width 13.1, Platelet Count 171, Mean Platelet Volume 9.2, Immature Granulocyte % (Auto) 1, Neutrophils (%) (Auto) 75, Lymphocytes (%) (Auto) 13, Monocytes (%) (Auto) 7, Eosinophils (%) (Auto) 4, Basophils (%) (Auto) 1, Neutrophils # (Auto) 3.3, Lymphocytes # (Auto) 0.6L, Monocytes # (Auto) 0.3, Eosinophils # (Auto) 0.2, Basophils # (Auto) 0.0, Immature Granulocyte # (Auto) 0.0, Sodium Level 139, Potassium Level 3.7, Chloride Level 107, Carbon Dioxide Level 25, Anion Gap 7, Blood Urea Nitrogen 12, Creatinine 0.51L, Estimat Glomerular Filtration Rate > 60, BUN/Creatinine Ratio 24, Glucose Level 86, Calcium Level 7.9L Microbiology 03/23/20 Blood Culture - Preliminary, Resulted No growth 03/23/20 Urine Culture - Preliminary, Resulted Escherichia coli Assessment/Plan Assessment/Plan Assessment/Plan Stage III sacral decubitus ulcer UTI Sepsis, WBC count improved this AM to 4.4 Hypokalemia, K 3.7 this AM Hx of Vertebral Hemangioma Non insulin dependent DM type 2 Hx of CABG and Stents IV fluids, ceftriaxone and pain control Replace potassium HSV pending Consider Acyclovir Collagenase (Santyl) to area of eschar on R sacral ulcer SCDs and Lovenox for DVT ppx Encourage IS PT/OT CM for dispo planning Medical management per primary team Clinical Quality Measures DVT/VTE Risk/Contraindication: Risk Factor Score Per Nursin RFS Level Per Nursing on Admit: 4+=Very High CAMERON CASTILLO DO 03/25/202104: Subjective Subjective/Events-last exam Pain continues to improve. Patient is slightly fatigued. No new complaints. Patient wounds improving. She denies nausea vomiting fever sweats chills vijaya rtness of breath or chest pain. Objective Exam General Appearance: No Apparent Distress, Other (fatigued) HEENT: Normal ENT Inspection, Pharynx Normal Neck: Normal Inspection, Non Tender Respiratory: Chest Non Tender, No Accessory Muscle Use, No Respiratory Distress Cardiovascular: Regular Rate, Rhythm, No JVD Gastrointestinal: non tender, soft; No distended Extremity: Non Tender, Pedal Edema Neurologic/Psychiatric: Alert, Oriented x3, Motor Weakness (Generalized) Skin: Normal Color, Warm/Dry, Other (large ulcer to R sacral area with smaller area of breakdown at coccyx, less erythema and minimal drainage. less black eschar on R sacral area. Linear area of superficial breakdown to R inguinal area) Lymphatic: No Adenopathy Assessment/Plan Assessment/Plan Assessment/Plan Stage III sacral decubitus ulcer UTI Sepsis, WBC count improved this AM to 4.4 Hypokalemia, K 3.7 this AM Hx of Vertebral Hemangioma Non insulin dependent DM type 2 Hx of CABG and Stents IV fluids, ceftriaxone and pain control Replace potassium HSV pending Consider Acyclovir if result positive Collagenase (Santyl) to area of eschar on R sacral ulcer, which continues to improve SCDs and Lovenox for DVT ppx Encourage IS PT/OT CM for dispo planning Medical management per primary team Supervisory-Addendum Brief Verification & Attestation Participated in pt care: history, MDM, physical Personally performed: exam, history, MDM, supervision of care Care discussed with: Medical Student Procedures: n/a Results interpretation: Verified all documentation Verification and Attestation of Medical Student E/M Service A medical student performed and documented this service in my presence. I reviewed and verified all information documented by the medical student and made modifications to such information, when appropriate. I personally performed the physical exam and medical decision making. Cameron Castillo, Mar 25, 2020,08:05 JACOBO WHITLEY MED STUDENT Mar 25, 2020 07:01 CAMERON CASTILLO DO Mar 25, 2020 21:05
--- NOTE | 2020-03-25 08:54 | Physical Therapy Daily Note ---
PT Daily Note-Current Subjective Patient in bed pre tx, agrees to PT with the nod of the head but also seems very confused, has unrated pain in both legs. Appearance Patient in bed post tx, with nurse call, phone, tray, bed alarm on, on left side with pillow support, has boot on right side for heel protection. Mental Status Patient Orientation: Person, Confused Attachments: [place] Catheter, IV Transfers SCALE: Activities may be completed with or without assistive devices. 6-Qwpdtcnsvl-skbytvw completes the activity by him/herself with no assistance from a helper. 5-Set-up or Clean-up Assistance-helper sets up or cleans up; patient completes activity. [place] assists only prior to or following the activity. 4-Supervision or Touching Assistance-helper provides verbal cues and/or touching/steadying and/or contact guard assistance as patient completes activity. Assistance may be provided throughout the activity or intermittently. 3-Partial/Moderate Assistance-helper does LESS THAN HALF the effort. [place] lifts, holds or supports trunk or limbs, but provides less than half the effort. 2-Substantial/Maximal Assistance-helper does MORE THAN HALF the effort. [place] lifts or holds trunk or limbs and provides more than half the effort. 6-Sbsqjotes-zebpgu does ALL the effort. Patient does none of the effort to complete the activity. Or, the assistance of 2 or more helpers is required for the patient to complete the activity. If activity was not attempted, code reason: 7-Patient Refused. 9-Not Applicable-not attempted and the patient did not perform the activity before the current illness, exacerbation or injury. 10-Not Attempted due to Environmental Limitations-(lack of equipment, weather restraints, etc.). 88-Not Attempted due to Medical Conditions or Safety Concerns. Roll Left & Right (QC): 1 Lying to Sitting/Side of Bed(Q: 1 attempted to sit on the side of the bed but patient had too much leg pain bilaterally, got about group home before returning to supine. Patient is unable to elaborate on her pain but she starts yelling and crying while attempting to sit. Weight Bearing Right Lower Extremity: Right Weight Bearing/Tolerated Left Lower Extremity: Left Weight Bearing/Tolerated Exercises Supine Ex: Ankle pumps, Heel Slides Supine Reps: 10 Patient can do ankle pumps on her own but heel slides with AAROM and really she can only bend about 20 degrees before having too much pain to continue. Patient has bilateral knee contractures of about 20 degrees. Treatments ROM, attempted sitting Assessment Current Status: Poor Progress Poor mobility PT Longterm Goals [place]ep Tender Goals PT Longterm Goals Time Frame: Apr 03, 2020 Roll Left & Right (QC): 2 Sit to Lying (QC): 2 Lying-Sitting on Side/Bed(QC): 2 PT Plan Problem List Problem List: Activity Tolerance, Functional Strength, Safety, Balance, Gait, Transfer, Bed Mobility, ROM Treatment/Plan Treatment Plan: Continue Plan of Care Treatment Plan: Bed Mobility, Education, Functional Activity [place], Functional Strength, Safety, Therapeutic Exercise, Transfers Treatment Duration: Apr 03, 2020 Frequency: 5 times per week Estimated Hrs Per Day: .25 hour per day Safety Risks/Education Patient Education: Correct Positioning, Safety Issues Teaching Recipient: Patient Teaching Methods: Demonstration, Discussion Response to Teaching: Reinforcement Needed Time/GCodes Time In: 0835 Time Out: 0945 Total Billed Treatment Time: 10 Total Billed Treatment 1 visit EX EMMANUEL MCALLISTER PT Mar 25, 2020 08:54
[2020-03-25] MEDS: CARVEDILOL 12.5 MG (COREG) TABLET PO SCH ×2 (09:26→21:17)
[2020-03-25] MEDS: oxyCODONE/APAP 10/325MG (PERCOCET 10) TABLET PO SCH ×4 (09:27→21:17)
[2020-03-25] MEDS: lisINopril 10 MG (PRINIVIL) TABLET PO SCH (09:27)
[2020-03-25] MEDS: cefTRIAXone 1,000 MG/SWFI 10 ML IV PUSH IV SCH ×2 (09:28)
[2020-03-25] MEDS: COLLAGENASE 30 GM (SANTYL) TUBE TP SCH ×2 (09:29→21:20)
[2020-03-25] MEDS ORDERED: NITR0.4T39 SL (10:11)
[2020-03-25] MEDS ORDERED: POTA10TA17 PO (10:11)
[2020-03-25] MEDS ORDERED: ATOR10TA66 PO (10:11)
[2020-03-25] MEDS ORDERED: MIRT-96 PO (10:11)
[2020-03-25] MEDS ORDERED: ALPR0.5T7 PO (10:11)
[2020-03-25] MEDS ORDERED: BUPR1PAT9 TD (10:16)
[2020-03-25] MEDS ORDERED: ETOD400T PO (10:18)
--- NOTE | 2020-03-25 10:19 | NUR ---
SPOKE WITH THE PT, CALLED THE PTS DAUGHTER (NILS), GOT A MED LIST FROM [facility] (PUT A COPY ON HER CHART) AND CALLED [facility] TO COMPLETE THE MED REC WHEN I SPOKE WITH THE PT SHE WAS UNABLE TO GIVE ME ANY INFORMATION ABOUT HER MEDICATIONS. I THEN CALLED NILS TO FIND OUT ABOUT HER MEDICATIONS AND SHE WAS NOT ABLE TO PROVIDE ME ANY INFORMATION EITHER. SHE LET ME KNOW THE PT TAKES CARE OF HER OWN MEDS AND SAID "MOM SAYS SHE TAKES THEM EVERYDAY". WHEN I EXPLAINED SOME OF THE PAST DUE REFILLS I FOUND WHEN I CALLED HER PHARMACIES, SHE WAS NOT ABLE TO GIVE ANY INFORMATION. THEREFORE THE MEDICATIONS ON THE MED REC WERE ENTERED USING THE [facility] LIST AND I ALSO INCLUDED ALL FILL DATES IN THE MED REC NOTES. [facility] HAS FILLED THE FOLLOWIN03-25-2019 ETODOLAC 400MG #60/30DS 05-20-2019 CLOPIDOGREL 75MG #90/90DS 06-20-2019 LISINOPRIL 10MG #90/90DS 07-19-2019 MIRTAZAPINE 15MG #30/30DS 08-06-2019 ATORVASTATIN 10MG #90/90DS [facility] HAS FILLED THE FOLLOWIN08-28-2019 DOXAZOSIN 2MG #90/90DS 11-26-2019 POTASSIUM CIT 1080 #90/90DS 11-26-2019 CARVEDILOL 12.5MG #180/90DS 11-26-2019 ALPRAZOLAM 0.5MG #30/30DS 02-24-2020 BUTRANS 5MCG PATCH #4/28DS PT WAS UNSURE WHAT DAY OF THE WEEK SHE APPLIES THE BUTRANS PATCH AND HER DAUGHTER DID NOT KNOW EITHER
--- NOTE | 2020-03-25 10:54 | Progress Note ---
MI PENA III MED STUDENT 03/25/20 1053: Subjective Date Seen by a Provider: Mar 25, 2020 Time Seen by a Provider: 09:45 Subjective/Events-last exam Pt is a 79 yo female who presented to the hospital on 03/23 w/ UTI as well as concerns for AMS while at home. She says she is doing much better today with less pain in her neck which was her big problem yesterday. Both her and family are willing to go to a LTC facility for continued health monitoring after discharge Review of Systems General: No Chills, No Night Sweats, No Fatigue, No Malaise HEENT: No Head Aches, No Eye Pain, No Ear Pain, No Dysphasia, No Sinus Congestion, No Post Nasal Drip, No Sore Throat Pulmonary: No Dyspnea, No Cough, No Pleuritic Chest Pain Cardiovascular: No: Chest Pain, Palpitations, Orthopnea, Paroxysmal Noc. Dyspnea, Edema, Lt Headedness Gastrointestinal: Diarrhea, Constipation; No: Nausea, Abdominal Pain Genitourinary: Dysuria, Frequency Musculoskeletal: neck pain, leg pain Focused Exam Lactate Level 03/23/20 09:39: Lactic Acid Level 2.09*H 03/23/20 11:50: Lactic Acid Level 1.88 Objective Exam Last Set of Vital Signs Vital Signs Date Time Temp Pulse Resp B/P (MAP) Pulse Ox O2 Delivery O2 Flow Rate FiO2 03/25/20 08:00 36.8 83 20 141/63 (89) 95 Room Air 03/23/20 17:45 0.00 Capillary Refill : Less Than 3 SecondsLess Than 3 Seconds I&O Intake and Output 03/25/20 00:00 Intake Total 1760 ml Output Total 425 ml Balance 1335 ml Intake Oral 760 ml IV Total 1000 ml Output Urine Total 425 ml General: Alert, Oriented X3, Cooperative HEENT: Atraumatic, PERRLA Neck: Other (Neck stiffness with limited head turning capabilities, most likely 2/2 cervical lordosis) Lungs: Clear to Auscultation, Normal Air Movement Heart: Regular Rate, Normal S1, Normal S2, No Murmurs Abdomen: Normal Bowel Sounds, Soft Extremities: Normal Pulses, Other (trace pedal edema in feet R>L, but improving. Some bilateral leg pain past knees most likely from contractures) Skin: Other (sacral decubitus ucler that is being monitored by surgery) Psych/Mental Status: Mental Status NL, Mood NL Results Lab Laboratory Tests Test 03/23/20 11:50 03/23/20 13:13 03/24/20 04:30 03/25/20 05:31 Range/Units Lactic Acid Level 1.88 0.50-2.00 MMOL/L Coronavirus 2019 ([facility]) Negative Negative White Blood Count 6.7 4.4 4.3-11.0 10^3/uL Red Blood Count 3.31 L 3.13 L 3.80-5.11 10^6/uL Hemoglobin 9.5 #L 9.0 L 11.5-16.0 g/dL Hematocrit 29 L 28 L 35-52 % Mean Corpuscular Volume 88 89 80-99 fL Mean Corpuscular Hemoglobin 29 29 25-34 pg Mean Corpuscular Hemoglobin Concent 33 32 32-36 g/dL Red Cell Distribution Width 13.2 13.1 10.0-14.5 % Platelet Count 185 171 130-400 10^3/uL Mean Platelet Volume 9.5 9.2 9.0-12.2 fL Immature Granulocyte % (Auto) 0 1 % Neutrophils (%) (Auto) 78 H 75 42-75 % Lymphocytes (%) (Auto) 13 13 12-44 % Monocytes (%) (Auto) 8 7 0-12 % Eosinophils (%) (Auto) 1 4 0-10 % Basophils (%) (Auto) 0 1 0-10 % Neutrophils # (Auto) 5.2 3.3 1.8-7.8 10^3/uL Lymphocytes # (Auto) 0.8 L 0.6 L 1.0-4.0 10^3/uL Monocytes # (Auto) 0.6 0.3 0.0-1.0 10^3/uL Eosinophils # (Auto) 0.1 0.2 0.0-0.3 10^3/uL Basophils # (Auto) 0.0 0.0 0.0-0.1 10^3/uL Immature Granulocyte # (Auto) 0.0 0.0 0.0-0.1 10^3/uL Sodium Level 138 139 135-145 MMOL/L Potassium Level 3.4 L 3.7 3.6-5.0 MMOL/L Chloride Level 104 107 98-107 MMOL/L Carbon Dioxide Level 26 25 21-32 MMOL/L Anion Gap 8 7 5-14 MMOL/L Blood Urea Nitrogen 16 12 7-18 MG/DL Creatinine 0.50 L 0.51 L 0.60-1.30 MG/DL Estimat Glomerular Filtration Rate > 60 > 60 BUN/Creatinine Ratio 32 24 Glucose Level 97 86 70-105 MG/DL Calcium Level 8.3 L 7.9 L 8.5-10.1 MG/DL Corrected Calcium 9.3 8.5-10.1 MG/DL Total Bilirubin 0.7 0.1-1.0 MG/DL Aspartate Amino Transf (AST/SGOT) 14 5-34 U/L Alanine Aminotransferase (ALT/SGPT) 8 0-55 U/L Alkaline Phosphatase 47 40-136 U/L Total Protein 4.9 L 6.4-8.2 GM/DL Albumin 2.8 L 3.2-4.5 GM/DL Herpes Simplex Virus I IgG Antibody 59.70 H 0.00-0.89 Index Herpes Simplex Virus I IgG Interp Positive H Negative Herpes Simplex Virus I IgM Interp Negative Negative Herpes Simplex Virus II IgG Ab 0.22 0.00-0.89 Index Laboratory Tests 03/25/20 05:31 Laboratory Tests Test 03/25/20 05:31 Range/Units White Blood Count 4.4 4.3-11.0 10^3/uL Red Blood Count 3.13 L 3.80-5.11 10^6/uL Hemoglobin 9.0 L 11.5-16.0 g/dL Hematocrit 28 L 35-52 % Mean Corpuscular Volume 89 80-99 fL Mean Corpuscular Hemoglobin 29 25-34 pg Mean Corpuscular Hemoglobin Concent 32 32-36 g/dL Red Cell Distribution Width 13.1 10.0-14.5 % Platelet Count 171 130-400 10^3/uL Mean Platelet Volume 9.2 9.0-12.2 fL Immature Granulocyte % (Auto) 1 % Neutrophils (%) (Auto) 75 42-75 % Lymphocytes (%) (Auto) 13 12-44 % Monocytes (%) (Auto) 7 0-12 % Eosinophils (%) (Auto) 4 0-10 % Basophils (%) (Auto) 1 0-10 % Neutrophils # (Auto) 3.3 1.8-7.8 10^3/uL Lymphocytes # (Auto) 0.6 L 1.0-4.0 10^3/uL Monocytes # (Auto) 0.3 0.0-1.0 10^3/uL Eosinophils # (Auto) 0.2 0.0-0.3 10^3/uL Basophils # (Auto) 0.0 0.0-0.1 10^3/uL Immature Granulocyte # (Auto) 0.0 0.0-0.1 10^3/uL Sodium Level 139 135-145 MMOL/L Potassium Level 3.7 3.6-5.0 MMOL/L Chloride Level 107 98-107 MMOL/L Carbon Dioxide Level 25 21-32 MMOL/L Anion Gap 7 5-14 MMOL/L Blood Urea Nitrogen 12 7-18 MG/DL Creatinine 0.51 L 0.60-1.30 MG/DL Estimat Glomerular Filtration Rate > 60 BUN/Creatinine Ratio 24 Glucose Level 86 70-105 MG/DL Calcium Level 7.9 L 8.5-10.1 MG/DL Microbiology 03/23/20 Blood Culture - Preliminary, Resulted No growth 03/23/20 Urine Culture - Final, Complete Escherichia coli Meds Home Meds Active Reported Etodolac 400 Mg Tablet 400 Mg PO BID PRN LAST FILLED 03-25-2019 #60/30 DAY SUPPLY Butrans (Buprenorphine) 1 Each Patch.tdwk 1 Patch TD WEEK 5MCG PATCH LAST FILLED 02-24-2020 #428 DAY SUPPLY Nitroglycerin 0.4 Mg Tab.subl 0.4 Mg SL UD PRN Potassium Citrate ER (Potassium Citrate) 10 Meq Tablet.er 10 Meq PO DAILY LAST FILLED 11-26-2019 #90/90 DAY SUPPLY Remeron (Mirtazapine) 15 Mg Tablet 15 Mg PO HS LAST FILLED 08-19-2019 #90/90 DAY SUPPLY Alprazolam 0.5 Mg Tablet 0.5 Mg PO DAILY PRN Atorvastatin Calcium 10 Mg Tablet 10 Mg PO DAILY LAST FILLED 08-06-2019 #90/90 DAY SUPPLY Lisinopril 10 Mg Tablet 10 Mg PO DAILY LAST FILLED 06-20-2019 #90/90 DAY SUPPLY Clopidogrel (Clopidogrel Bisulfate) 75 Mg Tablet 75 Mg PO DAILY LAST FILLED 05-20-2019 #90/90 DAY SUPPLY Carvedilol 12.5 Mg Tablet 12.5 Mg PO BID LAST FILLED 11-26-2019 #180/90 DAY SUPPLY Doxazosin Mesylate 2 Mg Tablet 2 Mg PO HS LAST FILLED 08-28-2019 #90/90 DAY SUPPLY Aspirin EC (Aspirin) 81 Mg Tablet. 81 Mg PO DAILY Assessment/Plan Assessment/Plan Assess & Plan/Chief Complaint PT is a 79 year old female who presents to the hospital with a UTI w/ concerns for sepsis with initial elevated white count UTI on rocephin Stage 3 sacral decubitus ulcer Cervical lordosis causing neck pain Chronic back pain Anemia (hgb of 9.0) Plan: Continue rocephin for UTI Pt is asymptomatic with hgb of 9.0, continue to monitor and repeat CBC Continue to monitor ecg for any afib status Surgery already consulted for decubitus ulcer, treat per their notes PT/OT consulted for contractures and cervical lordosis for improved ROM and mobility 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 no need for acyclovir at this time. Contacted family about placement in LTC, dispo most likely to one of three LTC of families preference Final Diagnosis UTI w/ E. coli Diagnosis/Problems Diagnosis/Problems (1) Sepsis Status: Resolved Qualifiers: Qualified Codes: A41.51 - Sepsis due to Escherichia coli [e. coli] Resolution Date/Time: 03/24/20 @ 10:56 (2) UTI (urinary tract infection) Status: Acute Assessment & Plan: On rocephin Qualifiers: Qualified Codes: N30.01 - Acute cystitis with hematuria (3) Decubitus ulcer Status: Acute Assessment & Plan: being managed by the surgical team Qualifiers: Qualified Codes: L89.316 - Pressure-induced deep tissue damage of right buttock (4) Diabetes mellitus, type 2 Status: Chronic Qualifiers: Qualified Codes: E11.622 - Type 2 diabetes mellitus with other skin ulcer (5) Hypertension Status: Chronic Qualifiers: Qualified Codes: I10 - Essential (primary) hypertension (6) Upper back pain Status: Chronic Assessment & Plan: Consulted PT/OT for ROM exercises to help with neck and leg pain related to contractures (7) Coronary artery disease Status: Chronic (8) Chronic pain Status: Chronic (9) Hyperlipidemia Status: Chronic (10) DVT prophylaxis Status: Acute Assessment & Plan: on lovenox Clinical Quality Measures DVT/VTE Risk/Contraindication: Risk Factor Score Per Nursin RFS Level Per Nursing on Admit: 4+=Very High BETH,LILLIANA N MD 03/25/20 1152: Supervisory-Addendum Brief Verification & Attestation Participated in pt care: history, MDM, physical Personally performed: exam, history, MDM Care discussed with: Medical Student Procedures: n/a I personally saw this patient today and did my own history and exam which confirm that documented by the medical student. I directed the plan of care as documented. MI PENA III MED STUDENT Mar 25, 2020 10:53 LILLIANA CAMPOS MD Mar 25, 2020 11:52
--- NOTE | 2020-03-25 10:57 | NUR ---
CM/SS: ADULT PROTECTIVE SERVICES REPORT MADE - REPORT NUMBER #[id number] - Rosmery Bunch with [facility] also notified via email of the Adult Protective Service Report.
--- NOTE | 2020-03-25 11:00 | NUR ---
CM/SS: Referral to [facility] - attn Kimmy for skilled placement. They have current openings and will review to ensure they can meet the pt's needs.
--- NOTE | 2020-03-25 13:10 | NUR ---
CM/SS: Pt has been accepted at [facility] - pending insurance approved - [employer]. They will keep us posted on when they can accept.
--- NOTE | 2020-03-25 14:18 | NUR ---
CM/SS: Daughter notified that [facility] - pending insurance approval. She has talked with pt and she was not as open to going but knows that she will need to do so.
--- NOTE | 2020-03-25 16:30 | NUR ---
CM/SS: Visited with pt as to plan for discharge letting her know that she has been accepted to [facility] pending insurance approval. She is also told that daughter is aware of the plan for [facility]. She is ok with that. Plan: Pt has been admitted to [facility] pending - awaiting insurance approval to determine date of discharge. Summary: Today pt seems ok to going to a facility - yesterday she was not as open to be going to a intermediate facility. She is aware we are awaiting on insurance approval. Pt seems to be having a pretty good day. Pt is in bed and watching television. This worker will follow up once approval is received and date of discharge determined.
[2020-03-25] MEDS: ENOXAPARIN 40 MG/0.4 ML (LOVENOX) SYR SC SCH (17:00)
[2020-03-25] MEDS: MIRTAZAPINE 15 MG (REMERON) TAB PO SCH (21:17)
[2020-03-25] MEDS: doxAzosin 2 MG (CARDURA) TAB PO SCH (21:17)
[2020-03-26 00:14] VITALS: BP 156/75
[2020-03-26 04:00] VITALS: BP 129/80
[2020-03-26] MEDS: LACTATED RINGERS 1,000 ML IV SCH (06:13)
[2020-03-26 06:26] LABS: HEMOGLOBIN 9.9 g/dL (11.5-16.0); MEAN PLATELET VOLUME 9.4 fL (9.0-12.2); WHITE BLOOD COUNT 3.8 10^3/uL (4.3-11.0)
[2020-03-26 06:48] LABS: CHLORIDE 105 MMOL/L (98-107); SODIUM 140 MMOL/L (135-145)
[2020-03-26 06:49] LABS: CALCIUM 8.1 MG/DL (8.5-10.1); GLUCOSE 105 MG/DL (70-105)
[2020-03-26 06:51] LABS: CARBON DIOXIDE 23 MMOL/L (21-32)
[2020-03-26 06:53] LABS: CREATININE SERUM 0.54 MG/DL (0.60-1.30); GFR ESTIMATED > 60
[2020-03-26 06:54] LABS: BUN/CREATININE RATIO 15
--- NOTE | 2020-03-26 07:08 | NUR ---
pt requesting pain medication for back & leg pain-pt reports 12/27 intermittent-this rn contacted dr. barrett-this was given the ok to give the 0900 Percocet now instead of at 0900. -Percocet given
[2020-03-26] MEDS: oxyCODONE/APAP 10/325MG (PERCOCET 10) TABLET PO SCH (07:14)
--- NOTE | 2020-03-26 07:15 | Progress Note - Surgery ---
JACOBO WHITLEY MED STUDENT 03/26/20 0715: Subjective Date Seen by a Provider: Mar 26, 2020 Time Seen by a Provider: 06:40 Subjective/Events-last exam Pt is asleep upon entering, but more easily aroused than the day(s) before. Pt complains of pain in neck/ shoulders, L leg (describes as pins and needles), and buttock. Pt tearfully describes her conflicts with nursing aids. BM and flatus noted by pt. Nurse notes continued IV fluids of 150 per hr and is concerned about the possibility of fluid overload. Review of Systems General: No Chills Pulmonary: No Cough Cardiovascular: No: Chest Pain Gastrointestinal: No: Nausea, Vomiting, Abdominal Pain Musculoskeletal: neck pain, shoulder pain, back pain, leg pain (Loss of feeling/ Pins and needles) Focused Exam Lactate Level 03/23/20 09:39: Lactic Acid Level 2.09*H 03/23/20 11:50: Lactic Acid Level 1.88 Objective Exam Vital Signs Date Time Temp Pulse Resp B/P (MAP) Pulse Ox O2 Delivery O2 Flow Rate FiO2 03/26/20 04:00 36.5 83 18 129/80 (96) 94 Room Air 03/26/20 01:25 78 03/26/20 00:14 36.2 82 17 156/75 (102) 96 Room Air 03/25/20 21:26 82 167/76 (106) 03/25/20 19:50 36.8 68 16 146/68 (94) 95 Room Air 03/25/20 19:34 64 03/25/20 19:30 Room Air 03/25/20 16:41 36.6 67 14 135/69 (91) 96 Room Air 03/25/20 12:31 73 03/25/20 12:00 36.9 64 20 144/65 (91) 96 Room Air 03/25/20 08:00 36.8 83 20 141/63 (89) 95 Room Air 03/25/20 08:00 96 Room Air 0.00 I & O 03/26/20 07:00 Intake Total 777 ml Output Total 1460 ml Balance -683 ml Capillary Refill : Less Than 3 SecondsLess Than 3 Seconds General Appearance: No Apparent Distress, Other (fatigued) HEENT: Normal ENT Inspection, Pharynx Normal Neck: Normal Inspection, Non Tender Respiratory: Chest Non Tender, Lungs Clear, Normal Breath Sounds, No Accessory Muscle Use, No Respiratory Distress Cardiovascular: Regular Rate, Rhythm, No JVD Peripheral Pulses: 2+ Dorsalis Pedis (R), 2+ Left Dors-Pedis (L), 2+ Radial Pulses (R), 2+ Radial Pulses (L) Gastrointestinal: non tender, soft; No distended Extremity: Pedal Edema, Other (Pain upon palpation of L LE) Neurologic/Psychiatric: Alert, Oriented x3, Motor Weakness (Generalized), Other (Tearful during conversation) Skin: Normal Color, Warm/Dry, Other (large ulcer to R sacral area with smaller area of breakdown at coccyx, less erythema and minimal drainage. less black e schar on R sacral area. Linear area of superficial breakdown to R inguinal area) Lymphatic: No Adenopathy Results Lab Laboratory Tests 03/26/20 05:39: White Blood Count 3.8L, Red Blood Count 3.36L, Hemoglobin 9.9L, Hematocrit 30L, Mean Corpuscular Volume 90, Mean Corpuscular Hemoglobin 30, Mean Corpuscular Hemoglobin Concent 33, Red Cell Distribution Width 12.9, Platelet Count 168, Mean Platelet Volume 9.4, Sodium Level 140, Potassium Level 4.0, Chloride Level 105, Carbon Dioxide Level 23, Anion Gap 12, Blood Urea Nitrogen 8, Creatinine 0.54L, Estimat Glomerular Filtration Rate > 60, BUN/Creatinine Ratio 15, Glucose Level 105, Calcium Level 8.1L Microbiology 03/23/20 Blood Culture - Preliminary, Resulted No growth 03/23/20 Urine Culture - Final, Complete Escherichia coli Assessment/Plan Assessment/Plan Assessment/Plan Stage III sacral decubitus ulcer UTI Sepsis, WBC count improved yesterday to 4.4 Hypokalemia, K 3.7 yesterday Hx of Vertebral Hemangioma Non insulin dependent DM type 2 Hx of CABG and Stents IV fluids, ceftriaxone and pain control Replace potassium HSV pending Consider Acyclovir if result positive Collagenase (Santyl) to area of eschar on R sacral ulcer, which continues to improve SCDs and Lovenox for DVT ppx Encourage IS PT/OT CM for dispo planning Medical management per [facility] facility following hospital stay Clinical Quality Measures DVT/VTE Risk/Contraindication: Risk Factor Score Per Nursin RFS Level Per Nursing on Admit: 4+=Very High CAMERON CASTILLO DO 03/26/20 1423: Subjective Subjective/Events-last exam Patient still has some pain and discomfort to the lower back. Patient states overall she feels about the same as yesterday. Patient tolerating dressing changes. She has no other complaints at this time. She denies any nausea vomit ing fever sweats chills shortness of breath or chest pain. Objective Exam General Appearance: No Apparent Distress HEENT: PERRL/EOMI, Normal ENT Inspection, Pharynx Normal Neck: Normal Inspection, Non Tender Respiratory: Chest Non Tender, No Accessory Muscle Use, No Respiratory Distress Cardiovascular: Regular Rate, Rhythm, No JVD Gastrointestinal: non tender, soft; No distended Extremity: Pedal Edema Neurologic/Psychiatric: Alert, Oriented x3, Motor Weakness (Generalized), Other Skin: Normal Color, Warm/Dry, Other (large ulcer to R sacral area with smaller area of breakdown at coccyx, less erythema and minimal drainage. less black eschar on R sacral area. Linear area of superficial breakdown to R inguinal area) Lymphatic: No Adenopathy Assessment/Plan Assessment/Plan Assessment/Plan Stage III sacral decubitus ulcer UTI Sepsis, WBC count improved yesterday to 4.4 Hypokalemia, resolved Hx of Vertebral Hemangioma Non insulin dependent DM type 2 Hx of CABG and Stents IV fluids, ceftriaxone and pain control Collagenase (Santyl) to area of eschar on R sacral ulcer, continues to improve SCDs and Lovenox for DVT ppx Encourage IS PT/OT CM for dispo planning Medical management per [facility] facility following hospital stay Plan to follow up with wound care once discharged. Supervisory-Addendum Brief Verification & Attestation Participated in pt care: history, MDM, physical Personally performed: exam, history, MDM, supervision of care Care discussed with: Medical Student Procedures: n/a Results interpretation: Verified all documentation Verification and Attestation of Medical Student E/M Service A medical student performed and documented this service in my presence. I revi ewed and verified all information documented by the medical student and made modifications to such information, when appropriate. I personally performed the physical exam and medical decision making. Cameron Castillo, Mar 26, 2020,14:27 JACOBO WHITLEY MED STUDENT Mar 26, 2020 07:15 CAMERON CASTILLO DO Mar 26, 2020 14:23
[2020-03-26 08:00] VITALS: BP 139/71
[2020-03-26] MEDS: cefTRIAXone 1,000 MG/SWFI 10 ML IV PUSH IV SCH ×2 (08:57)
[2020-03-26] MEDS: lisINopril 10 MG (PRINIVIL) TABLET PO SCH (08:57)
[2020-03-26] MEDS: CARVEDILOL 12.5 MG (COREG) TABLET PO SCH (08:57)
[2020-03-26] MEDS: COLLAGENASE 30 GM (SANTYL) TUBE TP SCH (08:58)
[2020-03-26] MEDS ORDERED: ASPIRIN E.C. 81 MG (ECOTRIN) TAB PO SCH (09:00)
--- NOTE | 2020-03-26 10:14 | Physical Therapy Daily Note ---
PT Daily Note-Current Subjective Patient very alert and agrees to PT. Pain Numeric Pain Scale: 10-Worst Possible Pain Location: Right, Left Location Body Site: Knee Pain Description: Chronic Mental Status Patient Orientation: Person, Time, Situation Attachments: [place] Catheter, IV Transfers SCALE: Activities may be completed with or without assistive devices. 2-Zdigjgdgvj-zduupjx completes the activity by him/herself with no assistance from a helper. 5-Set-up or Clean-up Assistance-helper sets up or cleans up; patient completes activity. [place] assists only prior to or following the activity. 4-Supervision or Touching Assistance-helper provides verbal cues and/or touching/steadying and/or contact guard assistance as patient completes activity. Assistance may be provided throughout the activity or intermittently. 3-Partial/Moderate Assistance-helper does LESS THAN HALF the effort. [place] lifts, holds or supports trunk or limbs, but provides less than half the effort. 2-Substantial/Maximal Assistance-helper does MORE THAN HALF the effort. [place] lifts or holds trunk or limbs and provides more than half the effort. 6-Locgybfhh-kqziqj does ALL the effort. Patient does none of the effort to complete the activity. Or, the assistance of 2 or more helpers is required for the patient to complete the activity. If activity was not attempted, code reason: 7-Patient Refused. 9-Not Applicable-not attempted and the patient did not perform the activity before the current illness, exacerbation or injury. 10-Not Attempted due to Environmental Limitations-(lack of equipment, weather restraints, etc.). 88-Not Attempted due to Medical Conditions or Safety Concerns. Weight Bearing Right Lower Extremity: Right Weight Bearing/Tolerated Left Lower Extremity: Left Weight Bearing/Tolerated Exercises Supine Ex: Ankle pumps, Heel Slides, Straight leg raise, Hip abd/add Supine Reps: 12 (AAROM bilaterally) Assessment Patient declined attempt for OOB activity. PT to increase activity as tolerated by patient. Pillows under bilateral LE's to relieve heel pressure. Continues bilateral knee flexion contractures. 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
--- NOTE | 2020-03-26 10:22 | Progress Note ---
Subjective Date Seen by a Provider: Mar 26, 2020 Time Seen by a Provider: 10:15 Subjective/Events-last exam Pt is a 79 female who presented to the hospital with uti that grew E coli as well as concerns for AMS while at home. Today pt says she is doing much better. Still complains of some neck and knee pains that are related to cervical lordosis and knee contractures. She is ready to go to the LTC facility and is understanding that it is to improve her overall health. We are awaiting insurance confirmation for [facility] Review of Systems General: No Chills, No Night Sweats, No Fatigue, No Malaise HEENT: No Head Aches, No Eye Pain, No Ear Pain, No Dysphasia, No Sinus Congestion, No Post Nasal Drip, No Sore Throat Pulmonary: No Dyspnea, No Cough, No Pleuritic Chest Pain Cardiovascular: No: Chest Pain, Palpitations, Orthopnea, Paroxysmal Noc. Dyspnea, Edema, Lt Headedness Gastrointestinal: No: Nausea, Vomiting, Abdominal Pain, Diarrhea, Constipation, Melena, Hematochezia Genitourinary: No Dysuria, No Frequency, No Incontinence, No Hematuria, No Retention Musculoskeletal: neck pain, leg pain Focused Exam Sepsis Stage: Sepsis Reason for ruling out sepsis: UTI resolving, no elevated white count, no fever, no tachy, no hypotension Possible Source: Genitouriary Lactate Level 03/23/20 11:50: Lactic Acid Level 1.88 Objective Exam Last Set of Vital Signs Vital Signs Date Time Temp Pulse Resp B/P (MAP) Pulse Ox O2 Delivery O2 Flow Rate FiO2 03/26/20 08:00 36.6 84 20 139/71 (93) 94 Room Air 03/25/20 08:00 0.00 Capillary Refill : Less Than 3 SecondsLess Than 3 Seconds I&O Intake and Output 03/25/20 23:59 Intake Total 1727 ml Output Total 900 ml Balance 827 ml Intake Oral 727 ml IV Total 1000 ml Output Urine Total 900 ml # Bowel Movements 1 General: Alert, Oriented X3, Cooperative HEENT: Atraumatic, PERRLA Neck: Supple, No JVD Lungs: Clear to Auscultation, Normal Air Movement Heart: Regular Rate, Normal S1, Normal S2, No Murmurs Abdomen: Normal Bowel Sounds, Soft Extremities: No Clubbing, No Cyanosis, Normal Pulses Psych/Mental Status: Mental Status NL, Mood NL Results Lab Laboratory Tests 03/26/20 05:39 Laboratory Tests Test 03/26/20 05:39 Range/Units White Blood Count 3.8 L 4.3-11.0 10^3/uL Red Blood Count 3.36 L 3.80-5.11 10^6/uL Hemoglobin 9.9 L 11.5-16.0 g/dL Hematocrit 30 L 35-52 % Mean Corpuscular Volume 90 80-99 fL Mean Corpuscular Hemoglobin 30 25-34 pg Mean Corpuscular Hemoglobin Concent 33 32-36 g/dL Red Cell Distribution Width 12.9 10.0-14.5 % Platelet Count 168 130-400 10^3/uL Mean Platelet Volume 9.4 9.0-12.2 fL Sodium Level 140 135-145 MMOL/L Potassium Level 4.0 3.6-5.0 MMOL/L Chloride Level 105 98-107 MMOL/L Carbon Dioxide Level 23 21-32 MMOL/L Anion Gap 12 5-14 MMOL/L Blood Urea Nitrogen 8 7-18 MG/DL Creatinine 0.54 L 0.60-1.30 MG/DL Estimat Glomerular Filtration Rate > 60 BUN/Creatinine Ratio 15 Glucose Level 105 70-105 MG/DL Calcium Level 8.1 L 8.5-10.1 MG/DL Microbiology 03/23/20 Blood Culture - Preliminary, Resulted No growth 03/23/20 Urine Culture - Final, Complete Escherichia coli Meds Home Meds Active Reported Etodolac 400 Mg Tablet 400 Mg PO BID PRN LAST FILLED 03-25-2019 #60/30 DAY SUPPLY Butrans (Buprenorphine) 1 Each Patch.tdwk 1 Patch TD WEEK 5MCG PATCH LAST FILLED 02-24-2020 #4/28 DAY SUPPLY Nitroglycerin 0.4 Mg Tab.subl 0.4 Mg SL UD PRN Potassium Citrate ER (Potassium Citrate) 10 Meq Tablet.er 10 Meq PO DAILY LAST FILLED 11-26-2019 #90/90 DAY SUPPLY Remeron (Mirtazapine) 15 Mg Tablet 15 Mg PO HS LAST FILLED 08-19-2019 #90/90 DAY SUPPLY Alprazolam 0.5 Mg Tablet 0.5 Mg PO DAILY PRN Atorvastatin Calcium 10 Mg Tablet 10 Mg PO DAILY LAST FILLED 08-06-2019 #90/90 DAY SUPPLY Lisinopril 10 Mg Tablet 10 Mg PO DAILY LAST FILLED 06-20-2019 #90/90 DAY SUPPLY Clopidogrel (Clopidogrel Bisulfate) 75 Mg Tablet 75 Mg PO DAILY LAST FILLED 05-20-2019 #90/90 DAY SUPPLY Carvedilol 12.5 Mg Tablet 12.5 Mg PO BID LAST FILLED 11-26-2019 #180/90 DAY SUPPLY Doxazosin Mesylate 2 Mg Tablet 2 Mg PO HS LAST FILLED 08-28-2019 #90/90 DAY SUPPLY Aspirin EC (Aspirin) 81 Mg Tablet.dr 81 Mg PO DAILY Assessment/Plan Assessment/Plan Assess & Plan/Chief Complaint PT is a 79 year old female who presents to the hospital with a UTI w/ concerns for sepsis with initial elevated white count UTI on rocephin Stage 3 sacral decubitus ulcer Cervical lordosis causing neck pain Chronic back pain Anemia (hgb of 9.0) Plan: Continue rocephin for UTI Pt is asymptomatic with hgb of 9.9, continue to monitor and repeat CBC Surgery already consulted for decubitus ulcer, treat per their notes PT/OT consulted for contractures and cervical lordosis for improved ROM and m obility 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 no need for acyclovir at this time. Contacted family about placement in LTC, dispo to [facility] Will keep siddiqui cathether in place for a week until f/u to allow healing of sacral decubitus ulcer Final Diagnosis Sepsis 2/2 UTI with E coli, now resolving Diagnosis/Problems Diagnosis/Problems (1) Sepsis Status: Resolved Qualifiers: Qualified Codes: A41.51 - Sepsis due to Escherichia coli [e. coli] Resolution Date/Time: 03/24/20 @ 10:56 (2) UTI (urinary tract infection) Status: Acute Assessment & Plan: On rocephin Qualifiers: Qualified Codes: N30.01 - Acute cystitis with hematuria (3) Decubitus ulcer Status: Acute Assessment & Plan: being managed by the surgical team Qualifiers: Qualified Codes: L89.316 - Pressure-induced deep tissue damage of right buttock (4) Diabetes mellitus, type 2 Status: Chronic Qualifiers: Qualified Codes: E11.622 - Type 2 diabetes mellitus with other skin ulcer (5) Hypertension Status: Chronic Qualifiers: Qualified Codes: I10 - Essential (primary) hypertension (6) Upper back pain Status: Chronic Assessment & Plan: Consulted PT/OT for ROM exercises to help with neck and leg pain related to contractures (7) Coronary artery disease Status: Chronic (8) Chronic pain Status: Chronic (9) Hyperlipidemia Status: Chronic (10) DVT prophylaxis Status: Acute Assessment & Plan: on lovenox Clinical Quality Measures DVT/VTE Risk/Contraindication: Risk Factor Score Per Nursin RFS Level Per Nursing on Admit: 4+=Very High MI PENA III MED STUDENT Mar 26, 2020 10:22
[2020-03-26 12:00] VITALS: BP 172/81
--- NOTE | 2020-03-26 12:02 | Discharge Summary ---
Diagnosis/Chief Complaint Date of Admission Mar 23, 2020 at 14:25 Date of Discharge Discharge Summary-Simple/Stand Discharge Physical Examination Allergies: Coded Allergies: fentanyl (Verified Allergy, Unknown, 12/06/19) morphine (Verified Allergy, Unknown, TAKES PERCOCET @ HOME, 10/22/15) CAUSES SKIN TO COME OFF FINGERS tetracycline (Verified Allergy, Unknown, 05/12/05) Penicillins (Verified Adverse Reaction, Unknown, Vomiting, 03/23/20) hydromorphone (Unverified Adverse Reaction, Unknown, STATES QUIT YAW THING, TAKES PERCOCET AT HOME, 10/22/15) Uncoded Allergies: PAPER TAPE (Allergy, Mild, 07/28/08) Vitals & I&Os Vital Sign - Last 12Hours Date Time Temp Pulse Resp B/P (MAP) Pulse Ox O2 Delivery O2 Flow Rate FiO2 03/26/20 08:30 Room Air 03/26/20 08:00 36.6 84 20 139/71 (93) 94 03/25/20 08:00 0.00 Intake and Output 03/26/20 00:00 Intake Total 727 ml Output Total 650 ml Balance 77 ml Hospital Course See final discharge diagnosis. Discharge Instructions to patient/family Please see electronic discharge instructions given to patient. Discharge Medications Reviewed and agree with Discharge Medication list on patient's Discharge Instruction sheet Clinical Quality Measures DVT/VTE Risk/Contraindication: Risk Factor Score Per Nursin RFS Level Per Nursing on Admit: 4+=Very High JAYLIN GUTIERREZ MD Mar 26, 2020 12:02
[2020-03-26] MEDS ORDERED: COLL30OI TP (12:04)
--- NOTE | 2020-03-26 12:11 | Discharge Summary ---
Discharge Summary Reconcile Patient Problems Problems Reviewed?: Yes Hospital Course Hospital Course Date of Admission: Mar 23, 2020 at 14:25 Admission Diagnosis : Family Physician/Provider: Misty Mariano MD Date of Discharge: 03/26/20 Discharge Diagnosis: Sepsis UTI Decubitus Ulcer Stage 3 NIDDM HTN CAD Chronic Pain Hospital Course: 79 yo F that was admitted with sepsis 2/2 to UTI. Patient was started on IV antibiotics and IVFs and remained HDS. She was found to have a large stage 3 decub ulcer and siddiqui was placed and wound care was consulted. Patient is unable to care for herself at home at this time and requires d/c to SNF. Will keep siddiqui in place to help with wound healing x 1 week. Will have close f.u with provider at SNF. Labs and Pending Lab Test: Laboratory Tests 03/26/20 05:39: White Blood Count 3.8L, Red Blood Count 3.36L, Hemoglobin 9.9L, Hematocrit 30L, Mean Corpuscular Volume 90, Mean Corpuscular Hemoglobin 30, Mean Corpuscular Hemoglobin Concent 33, Red Cell Distribution Width 12.9, Platelet Count 168, Mean Platelet Volume 9.4, Sodium Level 140, Potassium Level 4.0, Chloride Level 105, Carbon Dioxide Level 23, Anion Gap 12, Blood Urea Nitrogen 8, Creatinine 0.54L, Estimat Glomerular Filtration Rate > 60, BUN/Creatinine Ratio 15, Glucose Level 105, Calcium Level 8.1L Microbiology 03/23/20 Blood Culture - Preliminary, Resulted No growth 03/23/20 Urine Culture - Final, Complete Escherichia coli Home Meds Active Reported Etodolac 400 Mg Tablet 400 Mg PO BID PRN LAST FILLED 03-25-2019 #60/30 DAY SUPPLY Butrans (Buprenorphine) 1 Each Patch.tdwk 1 Patch TD WEEK 5MCG PATCH LAST FILLED 02-24-2020 #4/28 DAY SUPPLY Nitroglycerin 0.4 Mg Tab.subl 0.4 Mg SL UD PRN Potassium Citrate ER (Potassium Citrate) 10 Meq Tablet.er 10 Meq PO DAILY LAST FILLED 11-26-2019 #90/90 DAY SUPPLY Remeron (Mirtazapine) 15 Mg Tablet 15 Mg PO HS LAST FILLED 08-19-2019 #90/90 DAY SUPPLY Alprazolam 0.5 Mg Tablet 0.5 Mg PO DAILY PRN Atorvastatin Calcium 10 Mg Tablet 10 Mg PO DAILY LAST FILLED 08-06-2019 #90/90 DAY SUPPLY Lisinopril 10 Mg Tablet 10 Mg PO DAILY LAST FILLED 06-20-2019 #90/90 DAY SUPPLY Clopidogrel (Clopidogrel Bisulfate) 75 Mg Tablet 75 Mg PO DAILY LAST FILLED 05-20-2019 #90/90 DAY SUPPLY Carvedilol 12.5 Mg Tablet 12.5 Mg PO BID LAST FILLED 11-26-2019 #180/90 DAY SUPPLY Doxazosin Mesylate 2 Mg Tablet 2 Mg PO HS LAST FILLED 08-28-2019 #90/90 DAY SUPPLY Aspirin EC (Aspirin) 81 Mg Tablet. 81 Mg PO DAILY Skilled [facility] (SNF) I certify that SNF services are required to be given on an inpatient basis because of the above named patient's need for fci care on a continuing basis for the conditions(s) for which he/she was receiving inpatient hospital services prior to his/her transfer to the SNF. Care Home Facility Order: Nursing Services, Physical Therapy-Evaluate & Treat Oxygen Delivery Method: Room Air Discharge Diet: Cardiac Diet Daily Activity as Tolerated: Yes Resuscitation Status: Full Code Jaylin Son Mar 26, 2020 12:04 Discharge Physical Exam General: Alert, Oriented X3, No Acute Distress HEENT: Mucous Memb Moist/Brilliant Lungs: Clear to Auscultation, Normal Air Movement Heart: Regular Rate, No Murmurs Abdomen: Normal Bowel Sounds, Soft, No Tenderness, No Masses Extremities: No Edema, No Tenderness/Swelling Skin: Other (Stage 3 decub ulcer) JAYLIN SON MD Mar 26, 2020 12:11
[2020-03-26 13:25] VITALS: BP 172/81
--- NOTE | 2020-03-26 13:40 | NUR ---
telephone report given to alpa philip at [facility]
--- NOTE | 2020-03-26 13:56 | NUR ---
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 BREANNE Brasher is notified of the time of discharge for pt. Final discharge orders and information faxed to [facility] att. Kimmy.
== END 2020-03-26 13:25 | DRG 871 ==
LOC: EDUNIT# 09:09 → ER 09:11 → 4TH 14:25 → EDLOC 14:25
PROVIDERS: ADMIT Family Medicine; ATTEND Family Medicine
DX: A41.9 Sepsis, unspecified organism (principal); L89.153 Pressure ulcer of sacral region, stage 3; N39.0 Urinary tract infection, site not specified; I25.10 Atherosclerotic heart disease of native coronary artery without angina pectoris; E78.00 Pure hypercholesterolemia, unspecified; I10 Essential (primary) hypertension; K21.9 Gastro-esophageal reflux disease without esophagitis; M19.90 Unspecified osteoarthritis, unspecified site; G89.29 Other chronic pain; M54.9 Dorsalgia, unspecified; E87.6 Hypokalemia; E11.40 Type 2 diabetes mellitus with diabetic neuropathy, unspecified; I48.91 Unspecified atrial fibrillation; M40.50 Lordosis, unspecified, site unspecified; D64.9 Anemia, unspecified; F41.9 Anxiety disorder, unspecified; Z20.822 Contact with and (suspected) exposure to COVID-19; Z88.0 Allergy status to penicillin; Z88.5 Allergy status to narcotic agent; Z88.7 Allergy status to serum and vaccine; Z79.82 Long term (current) use of aspirin; Z95.1 Presence of aortocoronary bypass graft; Z95.5 Presence of coronary angioplasty implant and graft; I25.2 Old myocardial infarction; Z79.01 Long term (current) use of anticoagulants
CPT/HCPCS: 36415; 51702; 70450; 71045; 71260; 72125; 74177; 80048; 80053; 81000; 83605; 83615; 84145; 85007; 85025; 85027; 85610; 85730; 86141; 86695; 86696; 87040; 87077; 87088; 87186; 87254; 87635; 90662; 94760

== ENCOUNTER 2020-06-15 20:29 | Inpatient (IN) | payer MEDICARE ==
[~2020-06-15] VITALS: Ht 152 cm; Wt 71.4 kg
[~2020-06-15 20:29] MED LIST changes: +ALPR0.5T7 PO; +BUPR1PAT9 TD; +COLL30OI TP; +LISI10TA25 PO; +MIRT-96 PO; +MIRT15TA6 PO; +NITR0.4T39 SL; +POTA10TA17 PO
[2020-06-15] MEDS ORDERED: ONDANSETRON 4 MG/2 ML (SDV) Z0FRAN ONE (20:30)
[2020-06-15] MEDS ORDERED: LACTATED RINGERS 1,000 ML IV ONE ×2 (20:30→20:45)
[2020-06-15] MEDS ORDERED: ONDANSETRON 4 MG/2 ML (SDV) Z0FRAN IVP ONE (20:45)
[2020-06-15 20:46] LABS: BASOPHILS % (AUTO) 0 % (0-10); EOSINOPHILS # (AUTO) 0.2 10^3/uL (0.0-0.3); EOSINOPHILS % (AUTO) 1 % (0-10); HEMATOCRIT 45 % (35-52); HEMOGLOBIN 14.2 g/dL (11.5-16.0); LYMPHOCYTES % (AUTO) 7 % (12-44); MEAN CORPUSCULAR HEMOGLOBIN 28 pg (25-34); MEAN CORPUSCULAR HGB CONC 32 g/dL (32-36); MEAN CORPUSCULAR VOLUME 88 fL (80-99); MEAN PLATELET VOLUME 9.5 fL (9.0-12.2); MONOCYTES # (AUTO) 0.6 10^3/uL (0.0-1.0); MONOCYTES % (AUTO) 4 % (0-12); NEUTROPHILS # (AUTO) 12.8 10^3/uL (1.8-7.8); NEUTROPHILS % (AUTO) 87 % (42-75); PLATELET COUNT 205 10^3/uL (130-400); WHITE BLOOD COUNT 14.6 10^3/uL (4.3-11.0)
--- NOTE | 2020-06-15 20:49 | ED GI ---
General Chief Complaint: Abdominal/GI Problems Stated Complaint: N/V Source of Information: Patient (VERY LIMITED HISTORIAN), Senior Care Records (NO REPORT FROM PRISON), Old Records (ALL PMH IS FROM OLD CHARTS AND PRISON PAPERS) History of Present Illness Date Seen by Provider: Jun 15, 2020 Time Seen by Provider: 20:29 Initial Comments PT ARRIVES VIA EMS FROM [facility] C/O NAUSEA X 2 DAYS, BEGAN VOMITING ENROUTE TO HOSPITAL C/O UPPER ABDOMINAL PAIN AND MID CHEST PAIN BP WAS 202/120 BY EMS PRIOR TO ARRIVAL NO MEDICATIONS PRIOR TO ARRIVAL NO OTHER INFORMATION IS OBTAINABLE AT THIS TIME PT BEEN A RESIDENT AT [facility] SINCE 03/26/20 PT WAS HOSPITALIZED HERE IN MARCH FOR UTI WITH SEPSIS, HAD STAGE 3 DECUBITUS ULCERS, NIDDM, HTN, CAD, CHRONIC PAIN PCP: DR. JIANG Allergies and Home Medications Allergies Coded Allergies: fentanyl (Verified Allergy, Unknown, 06/15/20) "MAKES ME GO OUT" morphine (Verified Allergy, Unknown, TAKES PERCOCET @ HOME, 10/22/15) CAUSES SKIN TO COME OFF FINGERS tetracycline (Verified Allergy, Unknown, 05/12/05) Penicillins (Verified Adverse Reaction, Unknown, Vomiting, 03/23/20) hydromorphone (Unverified Adverse Reaction, Unknown, STATES QUIT BREATHING, TAKES PERCOCET AT HOME, 10/22/15) Uncoded Allergies: PAPER TAPE (Allergy, Mild, 07/28/08) Home Medications Alprazolam 0.5 Mg Tablet, 0.5 MG PO DAILY PRN for ANXIETY, (Reported) Aspirin 81 Mg Tablet.dr, 81 MG PO DAILY, (Reported) Atorvastatin Calcium 10 Mg Tablet, 10 MG PO DAILY, (Reported) LAST FILLED 08-06-2019 #90/90 DAY SUPPLY Buprenorphine 1 Each Patch.tdwk, 1 PATCH TD WEEK, (Reported) 5MCG PATCH LAST FILLED 02-24-2020 #07/15 DAY SUPPLY Carvedilol 12.5 Mg Tablet, 12.5 MG PO BID, (Reported) LAST FILLED 11-26-2019 #180/90 DAY SUPPLY Collagenase 30 Gm Oint..gm., 0 GM TP BID Prescribed by: JAYLIN GUTIERREZ on 03/26/20 1204 Doxazosin Mesylate 2 Mg Tablet, 2 MG PO HS, (Reported) LAST FILLED 08-28-2019 #90/90 DAY SUPPLY Lisinopril 10 Mg Tablet, 10 MG PO DAILY, (Reported) LAST FILLED 06-20-2019 #90/90 DAY SUPPLY Mirtazapine 15 Mg Tablet, 15 MG PO HS, (Reported) LAST FILLED 08-19-2019 #90/90 DAY SUPPLY Nitroglycerin 0.4 Mg Tab.subl, 0.4 MG SL UD PRN for CHEST PAIN, (Reported) Potassium Citrate 10 Meq Tablet.er, 10 MEQ PO DAILY, (Reported) LAST FILLED 11-26-2019 #90/90 DAY SUPPLY Patient Home Medication List Home Medication List Reviewed: Yes Review of Systems Review of Systems Constitutional: other (UNABLE TO OBTAIN MUCH INFORMATION AT THIS TIME) Cardiovascular: See HPI, Chest Pain Gastrointestinal: See HPI, Abdominal Pain, Nausea, Vomiting Past Okiexps-Ttgiwu-Yxzhpe Hx Past Med/Social Hx: Reviewed and Corrections made Patient Social History Alcohol Use: Denies Use Drug of Choice: DENIES Smoking Status: Never a Smoker 2nd Hand Smoke Exposure: No Recent Hopitalizations: No Immunizations Up To Date PED Vaccines UTD: Yes Date of Pneumonia Vaccine: Dec 20, 2016 Date of Influenza Vaccine: Dec 20, 2016 Seasonal Allergies Seasonal Allergies: No Past Medical History Surgeries: Yes (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) Appendectomy, CABG, Coronary Stent, Gallbladder, Joint Replacement, Orthopedic Respiratory: No Currently Using CPAP: No Currently Using BIPAP: No Cardiac: Yes (CABG,STENTS) Atrial Fibrillation, Coronary Artery Disease, Heart Attack, High Cholesterol, Hypertension Neurological: Yes (PERIPHERAL NEUROPATHY; 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) Neuropathy, Stroke, TIA Reproductive Disorders: No Sexually Transmitted Disease: No HIV/AIDS: No Genitourinary: Yes Kidney Infection, Bladder Infection Gastrointestinal: Yes Gastroesophageal Reflux, Chronic Constipation, Chronic Diarrhea Musculoskeletal: Yes (NECK FX WITH TENDON SPASMS/CHRONIC NECK PAIN; GENERALIZED PAIN ) Arthritis, Chronic Back Pain, Spasms Endocrine: Yes Diabetes, Non-Insulin dep HEENT: Yes Cataract Hearing Impairment: Denies Cancer: No Psychosocial: Yes (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) Anxiety, Depression Integumentary: Yes (STAGE 3 DECUBITUS ULCERS) Blood Disorders: Yes (Vit D deficiency; ANEMIA) Adverse Reaction/Blood Tranf: Yes Family Medical History Congestive heart failure 19 MOTHER Family history: Cardiovascular disease Family history: Diabetes mellitus 19 MOTHER Family history: Hypertension 19 FATHER No Pertinent Family Hx SOCIAL HISTORY: -ETOH--DENIES USE -DRUGS-DENIES USE -SMOKING--DENIES USE PAST SURGICAL HISTORY: -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 0.0oz. 66.015387bo; 23.62 BMI Method:Stated General Appearance: WD/WN, other (MOANING ON ARRIVAL; INCONTINENT OF LIQUID STOOL ON ARRIVAL) HEENT: other (EDENTULOUS, ORAL MUCOSA SLIGHTLY DRY) Neck: normal inspection Respiratory: normal breath sounds, no respiratory distress, no accessory muscle use Cardiovascular: regular rate, rhythm, no murmur Gastrointestinal: abnormal bowel sounds (RARE, HIGH-PITCHED), distended (AND FIRM), tenderness (DIFFUSE TENDERNESS) Extremities: non-tender, no pedal edema Back: no CVA tenderness Neurologic/Psychiatric: no motor/sensory deficits, alert, other (PT IS MOANING AND NOT WANTING TO TALK OR FOLLOW COMMANDS ON ARRIVAL) Skin: normal color, warm/dry, other (BUTTOCKS AREA WITH ERYTHEMA. NO SKIN BREAKDOWN AT THIS TIME. RIGHT BUTTOCK SITE OF PREVIOUS STAGE 3 DECUBITUS ULCER IS NOW SCARRED IN WITHOUT ANY OPEN AREAS OR SIGNS OF INFECITON. ) Focused Exam Lactate Level 06/15/20 20:40: Lactic Acid Level 2.48*H Lactic Acid Level Laboratory Tests Test 06/15/20 20:40 Lactic Acid Level 2.48 MMOL/L (0.50-2.00) *H Progress/Results/Core Measures Results/Orders Lab Results Laboratory Tests Test 06/15/20 20:39 06/15/20 20:40 06/15/20 21:45 Range/Units Glucometer 225 H 70-110 MG/DL White Blood Count 14.6 H 4.3-11.0 10^3/uL Red Blood Count 5.08 3.80-5.11 10^6/uL Hemoglobin 14.2 11.5-16.0 g/dL Hematocrit 45 35-52 % Mean Corpuscular Volume 88 80-99 fL Mean Corpuscular Hemoglobin 28 25-34 pg Mean Corpuscular Hemoglobin Concent 32 32-36 g/dL Red Cell Distribution Width 14.1 10.0-14.5 % Platelet Count 205 130-400 10^3/uL Mean Platelet Volume 9.5 9.0-12.2 fL Immature Granulocyte % (Auto) 0 % Neutrophils (%) (Auto) 87 H 42-75 % Lymphocytes (%) (Auto) 7 L 12-44 % Monocytes (%) (Auto) 4 0-12 % Eosinophils (%) (Auto) 1 0-10 % Basophils (%) (Auto) 0 0-10 % Neutrophils # (Auto) 12.8 H 1.8-7.8 10^3/uL Lymphocytes # (Auto) 1.0 1.0-4.0 10^3/uL Monocytes # (Auto) 0.6 0.0-1.0 10^3/uL Eosinophils # (Auto) 0.2 0.0-0.3 10^3/uL Basophils # (Auto) 0.0 0.0-0.1 10^3/uL Immature Granulocyte # (Auto) 0.1 0.0-0.1 10^3/uL Neutrophils % (Manual) 86 % Lymphocytes % (Manual) 4 % Monocytes % (Manual) 3 % Eosinophils % (Manual) 3 % Basophils % (Manual) 0 % Band Neutrophils 0 % Reactive Lymphocytes 4 % Anisocytosis SLIGHT Elliptocytes SLIGHT Urine Color DARK YELLOW Urine Clarity SL CLOUDY Urine pH 8.0 5-9 Urine Specific Alpine 1.010 L 1.016-1.022 Urine Protein 1+ H NEGATIVE Urine Glucose (UA) NEGATIVE NEGATIVE Urine Ketones NEGATIVE NEGATIVE Urine Nitrite NEGATIVE NEGATIVE Urine Bilirubin NEGATIVE NEGATIVE Urine Urobilinogen 4.0 < = 1.0 MG/DL Urine Leukocyte Esterase 3+ H NEGATIVE Urine RBC (Auto) NEGATIVE NEGATIVE Urine RBC NONE /HPF Urine WBC 5-10 H /HPF Urine Squamous Epithelial Cells 0-2 /HPF Urine Crystals PRESENT H /LPF Urine Triple Phosphate Crystals FEW H /LPF Urine Amorphous Sediment MOD XAVIER PHOSPHATE H /LPF Urine Bacteria FEW H /HPF Urine Casts NONE /LPF Urine Mucus SMALL H /LPF Urine Culture Indicated YES Sodium Level 139 135-145 MMOL/L Potassium Level 4.7 3.6-5.0 MMOL/L Chloride Level 101 98-107 MMOL/L Carbon Dioxide Level 24 21-32 MMOL/L Anion Gap 14 5-14 MMOL/L Blood Urea Nitrogen 14 7-18 MG/DL Creatinine 0.74 0.60-1.30 MG/DL Estimat Glomerular Filtration Rate > 60 BUN/Creatinine Ratio 19 Glucose Level 243 H 70-105 MG/DL Lactic Acid Level 2.48 *H 0.50-2.00 MMOL/L Calcium Level 9.9 8.5-10.1 MG/DL Corrected Calcium 9.7 8.5-10.1 MG/DL Magnesium Level 2.1 1.6-2.4 MG/DL Total Bilirubin 1.0 0.1-1.0 MG/DL Aspartate Amino Transf (AST/SGOT) 14 5-34 U/L Alanine Aminotransferase (ALT/SGPT) 16 0-55 U/L Alkaline Phosphatase 68 40-136 U/L Lactate Dehydrogenase 208 125-220 U/L Total Creatine Kinase 16 L 29-168 U/L Creatine Kinase MB 0.4 <6.6 NG/ML Myoglobin 21.7 10.0-92.0 NG/ML Troponin I < 0.028 <0.028 NG/ML C-Reactive Protein High Sensitivity 9.16 H 0.00-0.50 MG/DL B-Type Natriuretic Peptide 51.2 <100.0 PG/ML Total Protein 7.5 6.4-8.2 GM/DL Albumin 4.3 3.2-4.5 GM/DL Amylase Level 48 25-125 U/L Lipase 19 8-78 U/L Procalcitonin 1.20 H <0.10 NG/ML Prothrombin Time 14.7 12.2-14.7 SEC INR Comment 1.1 0.8-1.4 Activated Partial Thromboplast Time 28 24-35 SEC Coronavirus 2019 (REEMA) Negative Negative Micro Results Microbiology 06/15/20 Influenza Types A,B Antigen (SEUGNDO) - Final, Complete My Orders Orders - ROXI AGUILERA DO Accucheck Stat ONCE (06/15/20 20:32) Ed Iv/Invasive Line Start (06/15/20 20:32) Ekg Tracing (06/15/20 20:32) Catheter(Urinary) Insert & Ass 03,15 (06/15/20 20:32) O2 (06/15/20 20:32) Monitor-Rhythm Ecg Trace Only (06/15/20 20:32) Ct Head Wo-R/O Stroke (06/15/20 20:32) Amylase (06/15/20 20:32) BNP (06/15/20 20:32) Cbc With Automated Diff (06/15/20 20:32) Comprehensive Metabolic Panel (06/15/20 20:32) Creatine Kinase (06/15/20 20:32) Creatine Kinase Mb (06/15/20 20:32) Lactic Acid Analyzer (06/15/20 20:32) Lipase (06/15/20 20:32) Magnesium (06/15/20 20:32) Procalcitonin (Pct) (06/15/20 20:32) Protime With Inr (06/15/20 20:32) Partial Thromboplastin Time (06/15/20 20:32) Ua Culture If Indicated (06/15/20 20:32) Myoglobin Serum (06/15/20 20:32) Troponin I (06/15/20 20:32) Ondansetron Injection (Zofran Injectio (06/15/20 20:45) Ed Iv/Invasive Line Start (06/15/20 20:32) Lactated Ringers (Lr 1000 Ml Iv Solution (06/15/20 20:45) Lactated Ringers (Lr 1000 Ml Iv Solution (06/15/20 20:30) Ondansetron Injection (Zofran Injectio (06/15/20 20:30) Ct Chest/Abdomen/Pelvis Wo (06/15/20 20:39) Manual Differential (06/15/20 20:40) Chest 1 View, Ap/Pa Only (06/15/20 20:52) Urine Culture (06/15/20 20:40) Hs C Reactive Protein (06/15/20 21:40) Erythrocyte Sedimentation Rate (06/15/20 21:40) LDH (06/15/20 21:40) Blood Culture (06/15/20 21:40) Influenza A And B Antigens (06/15/20 21:40) Covid 19 Inhouse Test (06/15/20 21:40) Ceftriaxone For Iv Use (Rocephin For I (06/15/20 21:45) Azithromycin Injection (Zithromax Inject (06/15/20 21:45) Ng Tube Insert & Assessment (06/15/20 21:40) Medications Given in ED Current Medications Medications Dose Ordered Sig/Margarita Route Start Time Stop Time Status Last Admin Dose Admin Azithromycin 500 mg/Sodium Chloride 255 ml @ 250 mls/hr ONCE ONCE IV 06/15/20 21:45 06/15/20 22:46 DC 06/15/20 21:57 250 MLS/HR Ceftriaxone Sodium 1000 mg/ Sterile Water 10 ml @ 200 mls/hr ONCE ONCE IV 06/15/20 21:45 06/15/20 21:47 DC 06/15/20 21:56 200 MLS/HR Lactated Ringer's 1,000 ml @ 0 mls/hr Q0M ONCE IV 06/15/20 20:45 06/15/20 20:46 DC 06/15/20 20:38 0 MLS/HR Ondansetron HCl 8 mg ONCE ONCE IVP 06/15/20 20:45 06/15/20 20:46 DC 06/15/20 20:38 8 MG Vital Signs/I&O 06/15/20 06/15/20 20:30 20:30 Temp 36.1 Pulse 69 Resp 20 B/P (MAP) 173/88 (116) Pulse Ox 98 98 O2 Delivery Room Air Room Air 06/16/20 00:00 Intake Total 1000 ml Balance 1000 ml Progress Progress Note : Progress Note NO DETERIORATION IN PT'S CONDITION DURING ER STAY ATTEMPTED TO PASS NG TUBE X 1, PT UNCOOPERATIVE, AND REFUSES FURTHER ATTEMPTS DUE TO PT'S LISTED ALLERGIES, NO PAIN MEDICATIONS WERE GIVEN--DISCUSSED THIS WITH DR. WILEY WELL. Initial ECG Impression Date: Jun 15, 2020 Initial ECG Impression Time: 20:41 Initial ECG Rate: 67 Initial ECG Rhythm: Normal Sinus Initial ECG Impression: Nonspecific Changes Diagnostic Imaging Comments ALL PER RADIOLOGIST REPORTS AT 2138 CXR-- FINDINGS: Heart size is enlarged with surgical changes from CABG. Calcifications of the aorta. The aorta is tortuous. Minimal opacities within the left lung base. No pneumothorax. The osseous structures are intact. IMPRESSION: 1. Minimal left basilar opacities may represent atelectasis or consolidation. CT HEAD-- FINDINGS: Mild diffuse cerebral volume loss with proportional enlargement of the ventricles and sulci. Mild hypodensities throughout the supratentorial white matter of both cerebral hemispheres. No acute intracranial hemorrhage or abnormal extra-axial fluid collections are present. Calcification of the intracranial ICAs. No hyperdense vessel. The calvarium is intact. The mastoid air cells are clear. The visualized paranasal sinuses are clear. The orbits are normal. IMPRESSION: 1. No acute intracranial abnormality. 2. Mild chronic microangiopathy and volume loss. CT CHEST/ABDOMEN/PELVIS-- FINDINGS: Thyroid: The thyroid is normal. Mediastinum: Heart size is normal without significant pericardial effusion. Calcifications of the aorta and coronary vessels. Thoracic aorta is normal in caliber. No suspicious lymphadenopathy. Lungs and airways: There are scattered reticulonodular opacities within the right upper and right middle lobes. Linear atelectasis or scarring within the lung bases. No pleural effusion or pneumothorax. The airways are normal. Solid organs: The liver is normal. The gallbladder is surgically absent. There is no biliary ductal dilation. Pancreas is normal. Spleen is normal. Adrenal glands are normal. Nonobstructing right renal calculi measuring up to 0.2 cm. No hydronephrosis. Bowel: There is a small hiatal hernia. There are a few mildly dilated loops of bowel within the mid abdomen measuring up to 4.1 cm. There is a transition point in the mid abdomen (series 2 image 65). This there are a few scattered colonic diverticula. The appendix is unremarkable. Peritoneum: There is trace free fluid within the pelvis. No suspicious lymphadenopathy. Vasculature: Calcification of the aorta without aneurysm. Musculoskeletal: Surgical changes from left hip arthroplasty. Multilevel degenerative changes of the spine without suspicious osseous lesion or compression fracture. There is exaggerated thoracic kyphosis. Surgical changes from median sternotomy and CABG. Pelvis: The uterus and adnexa are normal. A Salinas catheter is present within the urinary bladder. IMPRESSION: 1. Multiple reticulonodular opacities within the right upper and middle lobes compatible with atypical infection. 2. Dilated loops of small bowel with a transition point in the mid abdomen. This finding is concerning for a partial small bowel obstruction. 3. Nonobstructing right renal calculi measuring up to 0.2 cm without hydronephrosis. 4. Colonic diverticulosis without findings of diverticulitis. Reviewed: Reviewed by Ms Departure Communication (Admissions) 2143--SPOKE WITH DR. CAMPOS, ACCEPTS PT FOR ADMIT 2145--SPOKE WITH DR. 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 ORDERS NOTED. Impression Primary Impression: UTI (urinary tract infection) Additional Impressions: Sepsis Diabetes mellitus, type 2 Hypertension Small bowel obstruction Pneumonia Disposition: ADMITTED INPATIENT Condition: Stable Admissions Decision to Admit Reason: Admit from ER (General) Decision to Admit/Date: Jun 15, 2020 Time/Decision to Admit Time: 21:45 Departure-Patient Inst. Referrals: PO COX MD (PCP/Family) Primary Care Physician ROXI AGUILERA DO Jun 15, 2020 20:49
[2020-06-15 21:02] LABS: BILIRUBIN,URINE NEGATIVE (NEGATIVE); COLOR,URINE DARK YELLOW; GLUCOSE, URINE (UA) NEGATIVE (NEGATIVE); KETONES,URINE NEGATIVE (NEGATIVE); LEUKOCYTE ESTERASE ,URINE 3+ (NEGATIVE); NITRITE,URINE NEGATIVE (NEGATIVE); PROTEIN,URINE 1+ (NEGATIVE)
[2020-06-15 21:03] LABS: BAND NEUTROPHILS 0 %; BASOPHILS % (MANUAL) 0 %; EOSINOPHILS % (MANUAL) 3 %; LYMPHOCYTES % (MANUAL) 4 %; MONOCYTES % (MANUAL) 3 %; NEUTROPHILS % (MANUAL) 86 %; REACTIVE LYMPHOCYTES 4 %
[2020-06-15 21:04] LABS: ANISOCYTOSIS SLIGHT; ELLIPT/OVALOCYTES SLIGHT
[2020-06-15 21:07] LABS: CLARITY,URINE SL CLOUDY
[2020-06-15 21:11] LABS: ALANINE AMINOTRANSFERASE 16 U/L (0-55); ALBUMIN 4.3 GM/DL (3.2-4.5); ALKALINE PHOSPHATASE 68 U/L (40-136); AMORPHOUS SEDIMENT,UR MOD AMOR PHOSPHATE /LPF; AMYLASE 48 U/L (25-125); BACTERIA,URINE FEW /HPF; BUN/CREATININE RATIO 19; CALCIUM 9.9 MG/DL (8.5-10.1); CARBON DIOXIDE 24 MMOL/L (21-32); CHLORIDE 101 MMOL/L (98-107); CREATINE KINASE 16 U/L (29-168); CREATININE SERUM 0.74 MG/DL (0.60-1.30); GFR ESTIMATED > 60; GLUCOSE 243 MG/DL (70-105); LIPASE 19 U/L (8-78); MAGNESIUM 2.1 MG/DL (1.6-2.4); POTASSIUM 4.7 MMOL/L (3.6-5.0); SODIUM 139 MMOL/L (135-145); SQUAMOUS EPITHELIAL CELL,UR 0-2 /HPF; TOTAL PROTEIN 7.5 GM/DL (6.4-8.2); TRIPLE PHOSPHATE CRYSTAL,UR FEW /LPF
--- NOTE | 2020-06-15 21:29 | Diagnostic Imaging Report ---
EXAMINATION: CT head without contrast. TECHNIQUE: Multiple contiguous axial images were obtained through the brain without the use of intravenous contrast. All CT scans use one or more of the following dose optimizing techniques: automated exposure control, MA and/or KvP adjustment based on a patient size and exam type, or iterative reconstruction. HISTORY: Neuro deficit COMPARISON: CT head 03/23/2020. FINDINGS: Mild diffuse cerebral volume loss with proportional enlargement of the ventricles and sulci. Mild hypodensities throughout the supratentorial white matter of both cerebral hemispheres. No acute intracranial hemorrhage or abnormal extra-axial fluid collections are present. Calcification of the intracranial ICAs. No hyperdense vessel. The calvarium is intact. The mastoid air cells are clear. The visualized paranasal sinuses are clear. The orbits are normal. IMPRESSION: 1. No acute intracranial abnormality. 2. Mild chronic microangiopathy and volume loss. Dictated by: Dictated on workstation # [id number]
[2020-06-15 21:31] LABS: CREATINE KINASE MB 0.4 NG/ML (<6.6)
--- NOTE | 2020-06-15 21:32 | Diagnostic Imaging Report ---
EXAMINATION: Chest 1 view HISTORY: CP COMPARISON: Chest radiograph 03/23/2020 FINDINGS: Heart size is enlarged with surgical changes from CABG. Calcifications of the aorta. The aorta is tortuous. Minimal opacities within the left lung base. No pneumothorax. The osseous structures are intact. IMPRESSION: 1. Minimal left basilar opacities may represent atelectasis or consolidation. Dictated by: Dictated on workstation # [id number]
--- NOTE | 2020-06-15 21:38 | Diagnostic Imaging Report ---
EXAMINATION: CT Chest, Abdomen and Pelvis without intravenous contrast. TECHNIQUE: Multiple contiguous axial images were obtained through the chest, abdomen and pelvis without intravenous contrast. All CT scans use one or more of the following dose optimizing techniques: automated exposure control, MA and/or KvP adjustment based on a patient size and exam type, or iterative reconstruction. HISTORY: Chest and abdominal pain COMPARISON: CT chest, abdomen and pelvis 03/23/2020. FINDINGS: Thyroid: The thyroid is normal. Mediastinum: Heart size is normal without significant pericardial effusion. Calcifications of the aorta and coronary vessels. Thoracic aorta is normal in caliber. No suspicious lymphadenopathy. Lungs and airways: There are scattered reticulonodular opacities within the right upper and right middle lobes. Linear atelectasis or scarring within the lung bases. No pleural effusion or pneumothorax. The airways are normal. Solid organs: The liver is normal. The gallbladder is surgically absent. There is no biliary ductal dilation. Pancreas is normal. Spleen is normal. Adrenal glands are normal. Nonobstructing right renal calculi measuring up to 0.2 cm. No hydronephrosis. Bowel: There is a small hiatal hernia. There are a few mildly dilated loops of bowel within the mid abdomen measuring up to 4.1 cm. There is a transition point in the mid abdomen (series 2 image 65). This there are a few scattered colonic diverticula. The appendix is unremarkable. Peritoneum: There is trace free fluid within the pelvis. No suspicious lymphadenopathy. Vasculature: Calcification of the aorta without aneurysm. Musculoskeletal: Surgical changes from left hip arthroplasty. Multilevel degenerative changes of the spine without suspicious osseous lesion or compression fracture. There is exaggerated thoracic kyphosis. Surgical changes from median sternotomy and CABG. Pelvis: The uterus and adnexa are normal. A Salinas catheter is present within the urinary bladder. IMPRESSION: 1. Multiple reticulonodular opacities within the right upper and middle lobes compatible with atypical infection. 2. Dilated loops of small bowel with a transition point in the mid abdomen. This finding is concerning for a partial small bowel obstruction. 3. Nonobstructing right renal calculi measuring up to 0.2 cm without hydronephrosis. 4. Colonic diverticulosis without findings of diverticulitis. Dictated by: Dictated on workstation # [id number]
[2020-06-15] MEDS ORDERED: AZITHROMYCIN INJECTION 500 MG in NS (IVPB) 250 ML IV ONE (21:45)
[2020-06-15] MEDS ORDERED: cefTRIAXone FOR IV USE 1,000 MG in WATER (STERILE) FOR INJECTION 10 ML IV ONE (21:45)
[2020-06-15 22:05] LABS: INR 1.1 (0.8-1.4); PROTHROMBIN TIME PATIENT 14.7 SEC (12.2-14.7)
[2020-06-15] MEDS ORDERED: VANCOMYCIN INJECTION 1,000 MG in NS (IVPB) 250 ML IV SCH (22:30)
[2020-06-15] MEDS ORDERED: MEROPENEM 1,000 MG in WATER (STERILE) FOR INJECTION 20 ML IV SCH (22:45)
[2020-06-15] MEDS ORDERED: D5 1/2 NS W/KCL 20 MEQ/L 1,000 ML IV ONE (22:53)
[2020-06-15 23:00] VITALS: BP 152/83
[2020-06-15 23:15] VITALS: BP 155/96
[2020-06-15 23:29] VITALS: BP 144/71
[2020-06-15 23:45] VITALS: BP 139/74
[2020-06-15] MEDS ORDERED: ONDANSETRON 4 MG/2 ML (SDV) Z0FRAN IVP PRN (23:45)
[2020-06-16] VITALS (17 sets, daily range): BP systolic 114–178; BP diastolic 58–82
[2020-06-16] MEDS ORDERED: VANCOMYCIN 1 GM/NS 250 ML IVPB IV NR ×2
[2020-06-16] MEDS ORDERED: VANCOMYCIN 1000 MG/VIAL ONE (00:24)
[2020-06-16] MEDS ORDERED: NS (IVPB) 250 ML ONE (00:24)
[2020-06-16] MEDS: MEROPENEM 500 MG/SWFI 10 ML IV PUSH IV SCH ×4 (00:35→05:04)
[2020-06-16] MEDS: D5 1/2 NS W/KCL 20 MEQ/L 1,000 ML IV SCH ×5 (00:35→23:14)
[2020-06-16] MEDS: ENOXAPARIN 40 MG/0.4 ML (LOVENOX) SYR SC SCH ×2 (00:35→23:14)
[2020-06-16 03:47] LABS: BASOPHILS % (AUTO) 0 % (0-10); EOSINOPHILS # (AUTO) 0.1 10^3/uL (0.0-0.3); EOSINOPHILS % (AUTO) 0 % (0-10); HEMATOCRIT 36 % (35-52); HEMOGLOBIN 11.4 g/dL (11.5-16.0); LYMPHOCYTES # (AUTO) 1.1 10^3/uL (1.0-4.0); LYMPHOCYTES % (AUTO) 9 % (12-44); MEAN CORPUSCULAR HEMOGLOBIN 28 pg (25-34); MEAN CORPUSCULAR HGB CONC 32 g/dL (32-36); MEAN CORPUSCULAR VOLUME 89 fL (80-99); MEAN PLATELET VOLUME 10.1 fL (9.0-12.2); MONOCYTES # (AUTO) 0.7 10^3/uL (0.0-1.0); MONOCYTES % (AUTO) 6 % (0-12); NEUTROPHILS # (AUTO) 10.1 10^3/uL (1.8-7.8); NEUTROPHILS % (AUTO) 84 % (42-75); PLATELET COUNT 165 10^3/uL (130-400)
[2020-06-16 03:53] LABS: ALBUMIN 3.4 GM/DL (3.2-4.5); CHLORIDE 102 MMOL/L (98-107); SODIUM 134 MMOL/L (135-145)
[2020-06-16 03:55] LABS: CALCIUM 8.4 MG/DL (8.5-10.1)
[2020-06-16 03:56] LABS: GLUCOSE 243 MG/DL (70-105); TOTAL PROTEIN 5.6 GM/DL (6.4-8.2)
[2020-06-16 03:57] LABS: CARBON DIOXIDE 23 MMOL/L (21-32)
[2020-06-16 03:58] LABS: BILIRUBIN,TOTAL 0.6 MG/DL (0.1-1.0)
[2020-06-16 03:59] LABS: ALKALINE PHOSPHATASE 51 U/L (40-136); CREATININE SERUM 0.64 MG/DL (0.60-1.30); GFR ESTIMATED > 60
[2020-06-16 04:00] LABS: BUN/CREATININE RATIO 19
[2020-06-16 04:02] LABS: ALANINE AMINOTRANSFERASE 10 U/L (0-55)
[2020-06-16] MEDS ORDERED: RT-ALBUTEROL/IPRATROPIUM 3 ML (DUONEB) VIAL INH PRN (04:15)
[2020-06-16] MEDS: inSUlin ASPART (NovoLOG) 1 UNIT/0.01 ML (CHARGE PER UNIT) SC SCH ×4 (05:08→20:35)
--- NOTE | 2020-06-16 07:23 | Consultation - Surgery ---
STEPHEN PITTMAN MED STUDENT 06/16/20 0723: History of Present Illness History of Present Illness Patient Consulted On(roney/time) 06/16/20 07:23 Date Seen by Provider: Jun 16, 2020 Time Seen by Provider: 07:10 History of Present Illness Pt. arrived to hospital via EMS from [facility]. Complained on nausea for two days. Vomited while enroute to hospital. Also complained of abdominal pain and chest pain. BP was elevated prior to arrival per EMS. Pt. has been a resident there since 03-26-20. She had been hospitalized in March of 2020 for UTI, sepsis, decubitus ulcers, NIDDM, HTN, CAD, and chronic pain. Patient is a poor historian. Currently patient is complaining of abdominal pain. She also reports some chest pain. Alert and oriented to self and place. She d enies other complaints. When palpating the patients abdomen she grimaced and complained of pain diffusely. She has a siddiqui to drainage. VSS per monitor. Allergies and Home Medications Allergies Coded Allergies: fentanyl (Verified Allergy, Unknown, 06/15/20) "MAKES ME GO OUT" morphine (Verified Allergy, Unknown, TAKES PERCOCET @ HOME, 10/22/15) CAUSES SKIN TO COME OFF FINGERS tetracycline (Verified Allergy, Unknown, 05/12/05) Penicillins (Verified Adverse Reaction, Unknown, Vomiting, 03/23/20) hydromorphone (Unverified Adverse Reaction, Unknown, STATES QUIT YAW THING, TAKES PERCOCET AT HOME, 10/22/15) Uncoded Allergies: PAPER TAPE (Allergy, Mild, 07/28/08) Home Medications Acetaminophen 500 Mg Tablet, 1,000 MG PO Q6H PRN for PAIN-MILD (1-4), (Reported) Aspirin 81 Mg Tablet.dr, 81 MG PO DAILY, (Reported) Atorvastatin Calcium 10 Mg Tablet, 10 MG PO DAILY, (Reported) Carvedilol 12.5 Mg Tablet, 12.5 MG PO BID, (Reported) HOLD IF BP <80/50 OR PULSE <50 Doxazosin Mesylate 2 Mg Tablet, 2 MG PO HS, (Reported) HOLD IF BP <80/50 OR PULSE <50 Lisinopril 10 Mg Tablet, 10 MG PO DAILY, (Reported) HOLD IF BP <80/50 OR PULSE <50 Mirtazapine 15 Mg Tablet, 15 MG PO HS, (Reported) Nitroglycerin 0.4 Mg Tab.subl, 0.4 MG SL UD PRN for CHEST PAIN, (Reported) Oxycodone HCl/Acetaminophen 1 Each Tablet, 1 EA PO Q6H PRN for PAIN-MODERATE (5- 7), (Reported) Potassium Citrate 10 Meq Tablet.er, 10 MEQ PO DAILY, (Reported) Skin Cleanser Comb No.[id number] [place], 1 APPFUL TP DAILY, (Reported) APPLY TO RIGHT BUTTOCK Past Ehjhyrg-Lexjyg-Qtqldm Hx Patient Social History Drug of Choice: DENIES Smoking Status: Never a Smoker 2nd Hand Smoke Exposure: No Recent Hopitalizations: No Have you traveled recently?: No Immunizations Up To Date PED Vaccines UTD: Yes Date of Pneumonia Vaccine: Dec 20, 2016 Date of Influenza Vaccine: Dec 21, 2019 Seasonal Allergies Seasonal Allergies: No Surgeries History of Surgeries: Yes (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, LUMPECTOMY) Surgeries: Appendectomy, CABG, Coronary Stent, Gallbladder, Joint Replacement, Orthopedic Respiratory History of Respiratory Disorde: No Cardiovascular History of Cardiac Disorders: Yes (CABG,STENTS) Cardiac Disorders: Atrial Fibrillation, Coronary Artery Disease, Heart Attack, High Cholesterol, Hypertension Neurological History of Neurological Disord: Yes (PERIPHERAL NEUROPATHY; 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) Neurological Disorders: Neuropathy, Stroke, TIA Reproductive System : No Hx Reproductive Disorders: No Sexually Transmitted Disease: No HIV/AIDS: 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 Genitourinary History of Genitourinary Disor: Yes Genitourinary Disorders: Kidney Infection, Bladder Infection Gastrointestinal History of Gastrointestinal Di: Yes Gastrointestinal Disorders: Gastroesophageal Reflux, Chronic Constipation, Chronic Diarrhea Musculoskeletal History of Musculoskeletal Dis: Yes (NECK FX WITH TENDON SPASMS/CHRONIC NECK PAIN; GENERALIZED PAIN ) Musculoskeletal Disorders: Arthritis, Chronic Back Pain, Spasms Endocrine History of Endocrine Disorders: Yes Endocrine Disorders: Diabetes, Non-Insulin dep HEENT History of HEENT Disorders: Yes HEENT Disorders: Cataract Hearing Impairment: Denies Cancer History of Cancer: No Psychosocial History of Psychiatric Problem: Yes (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) Behavioral Health Disorders: Anxiety, Depression Integumentary History of Skin or Integumenta: Yes (STAGE 3 DECUBITUS ULCERS) Blood Transfusions History of Blood Disorders: Yes (Vit D deficiency; ANEMIA) Adverse Reaction to a Blood Tr: Yes Family Medical History Significant Family History: No Pertinent Family Hx Family Medial History: Congestive heart failure 19 MOTHER Family history: Cardiovascular disease Family history: Diabetes mellitus 19 MOTHER Family history: Hypertension 19 FATHER Review of Systems-General Constitutional: No chills, No diaphoresis EENTM: No blurred vision, No double vision Respiratory: No cough, No dyspnea on exertion Cardiovascular: chest pain (unable to describe in detail ) Gastrointestinal: abdominal pain (diffuse when palpating ), nausea, vomiting Genitourinary: No dysuria, No frequency; other (siddiqui in place) Musculoskeletal: No back pain, No joint pain Skin: No change in color, No change in hair/nails Psychiatric/Neurological: Denies Anxiety, Denies Depressed All Other Systems Reviewed Negative Unless Noted: Yes (Negative excepted noted.) Physical Exam-General Problems Physical Exam Vital Signs Vital Signs - First Documented 06/16/20 04:07 FiO2 21 Capillary Refill : Less Than 3 Seconds General Appearance: WD/WN, no apparent distress Eyes: Bilateral Eye Normal Inspection, Bilateral Eye PERRL, Bilateral Eye EOMI HEENT: PERRL/EOMI, pharynx normal Neck: non-tender, full range of motion Respiratory: lungs clear, normal breath sounds, no respiratory distress Cardiovascular: normal peripheral pulses, regular rate, rhythm Peripheral Pulses: 2+ Dorsalis Pedis (R), 2+ Left Dors-Pedis (L), 2+ Radial Pulses (R), 2+ Radial Pulses (L) Gastrointestinal: distended; No guarding, No rebound; tenderness (diffuse when palpating) Rectal: deferred Back: normal inspection, no vertebral tenderness Extremities: no pedal edema, no calf tenderness Neurologic/Psychiatric: no motor/sensory deficits, alert Skin: normal color, warm/dry Lymphatic: no adenopathy Data Review Labs Laboratory Tests 06/15/20 20:39: Glucometer 225H 06/15/20 20:40: White Blood Count 14.6H, Red Blood Count 5.08, Hemoglobin 14.2, Hematocrit 45, Mean Corpuscular Volume 88, Mean Corpuscular Hemoglobin 28, Mean Corpuscular Hemoglobin Concent 32, Red Cell Distribution Width 14.1, Platelet Count 205, Mean Platelet Volume 9.5, Immature Granulocyte % (Auto) 0, Neutrophils (%) (Auto) 87H, Lymphocytes (%) (Auto) 7L, Monocytes (%) (Auto) 4, Eosinophils (%) (Auto) 1, Basophils (%) (Auto) 0, Neutrophils # (Auto) 12.8H, Lymphocytes # (Auto) 1.0, Monocytes # (Auto) 0.6, Eosinophils # (Auto) 0.2, Basophils # (Auto) 0.0, Immature Granulocyte # (Auto) 0.1, Neutrophils % (Manual) 86, Lymphocytes % (Manual) 4, Monocytes % (Manual) 3, Eosinophils % (Manual) 3, Basophils % (Manu al) 0, Band Neutrophils 0, Reactive Lymphocytes 4, Anisocytosis SLIGHT, Elliptocytes SLIGHT, Urine Color DARK YELLOW, Urine Clarity SL CLOUDY, Urine pH 8.0, Urine Specific [place] 1.010L, Urine Protein 1+H, Urine Glucose (UA) NEGATIVE, Urine Ketones NEGATIVE, Urine Nitrite NEGATIVE, Urine Bilirubin NEGATIVE, Urine Urobilinogen 4.0, Urine Leukocyte Esterase 3+H, Urine RBC (Auto) NEGATIVE, Urine RBC NONE, Urine WBC 5-10H, Urine Squamous Epithelial Cells 0-2, Urine Crystals PRESENTH, Urine Triple Phosphate Crystals FEWH, Urine Amorphous Sediment MOD XAVIER PHOSPHATEH, Urine Bacteria FEWH, Urine Casts NONE, Urine Mucus SMALLH, Urine Culture Indicated YES, Sodium Level 139, Potassium Level 4.7, Chloride Level 101, Carbon Dioxide Level 24, Anion Gap 14, Blood Urea Nitrogen 14, Creatinine 0.74, Estimat Glomerular Filtration Rate > 60, BUN/Creatinine Ratio 19, Glucose Level 243H, Lactic Acid Level 2.48*H, Calcium Level 9.9, Corrected Calcium 9.7, Magnesium Level 2.1, Total Bilirubin 1.0, Aspartate Amino Transf (AST/SGOT) 14, Alanine Aminotransferase (ALT/SGPT) 16, Alkaline Phosphatase 68, Lactate Dehydrogenase 208, Total Creatine Kinase 16L, Creatine Kinase MB 0.4, Myoglobin 21.7, Troponin I < 0.028, C-Reactive Protein High Sensitivity 9.16H, B-Type Natriuretic Peptide 51.2, Total Protein 7.5, Albumin 4.3, Amylase Level 48, Lipase 19, Procalcitonin 1.20H 06/15/20 21:45: Prothrombin Time 14.7, INR Comment 1.1, Activated Partial Thromboplast Time 28, Coronavirus 2019 (REEMA) Negative 06/15/20 22:15: Lactic Acid Level 1.46, Erythrocyte Sedimentation Rate 17 06/16/20 03:08: White Blood Count 12.0H, Red Blood Count 4.07, Hemoglobin 11.4L, Hematocrit 36, Mean Corpuscular Volume 89, Mean Corpuscular Hemoglobin 28, Mean Corpuscular Hemoglobin Concent 32, Red Cell Distribution Width 14.1, Platelet Count 165, Mean Platelet Volume 10.1, Immature Granulocyte % (Auto) 1, Neutrophils (%) (Auto) 84H, Lymphocytes (%) (Auto) 9L, Monocytes (%) (Auto) 6, Eosinophils (%) (Auto) 0, Basophils (%) (Auto) 0, Neutrophils # (Auto) 10.1H, Lymphocytes # (Auto) 1.1, Monocytes # (Auto) 0.7, Eosinophils # (Auto) 0.1, Basophils # (Auto) 0.0, Immature Granulocyte # (Auto) 0.1, Sodium Level 134L, Potassium Level 4.0, Chloride Level 102, Carbon Dioxide Level 23, Anion Gap 9, Blood Urea Nitrogen 12, Creatinine 0.64, Estimat Glomerular Filtration Rate > 60, BUN/Creatinine Ratio 19, Glucose Level 243H, Calcium Level 8.4L, Corrected Calcium 8.9, Total Bilirubin 0.6, Aspartate Amino Transf (AST/SGOT) 8, Alanine Aminotransferase (ALT/SGPT) 10, Alkaline Phosphatase 51, Total Protein 5.6L, Albumin 3.4 06/16/20 05:07: Glucometer 163H Microbiology 06/15/20 Influenza Types A,B Antigen (SEGUNDO) - Final, Complete 06/15/20 Urine Culture - Preliminary, Resulted Proteus Group Assessment/Plan Assessment/Plan Admission Diagonsis UTI Sepsis SBO Assessment/Plan UTI Sepsis SBO PNA HTN CAD Diabetes mellitus type 2 IVF per medicine team NPO Consider NGT if symptoms worsen. Antiemetics PRN Continue antibiotics Continue conservative managment CAMERON CASTILLO DO 06/16/20 1108: History of Present Illness History of Present Illness History of Present Illness Patient is a poor historian. Patient having some abdominal pain that is kind of all over her abdomen. Patient was having nausea and vomiting. This been going on for about 2 days. Patient states nothing really seems to make it better. Nothing really seems to make it worse. Also with urinary tract infection which she was previously hospitalized for as well. Patient states she is just uncomf ortable overall. Not wanting to provide much information otherwise. Patient had a CT scan that is suggestive of a small bowel obstruction. Patient was supposed to have an NG tube placed in the emergency department but she refused. Allergies and Home Medications Allergies Coded Allergies: fentanyl (Verified Allergy, Unknown, 06/15/20) "MAKES ME GO OUT" morphine (Verified Allergy, Unknown, TAKES PERCOCET @ HOME, 10/22/15) CAUSES SKIN TO COME OFF FINGERS tetracycline (Verified Allergy, Unknown, 05/12/05) Penicillins (Verified Adverse Reaction, Unknown, Vomiting, 03/23/20) hydromorphone (Unverified Adverse Reaction, Unknown, STATES QUIT BREATHING, TAKES PERCOCET AT HOME, 10/22/15) Uncoded Allergies: PAPER TAPE (Allergy, Mild, 07/28/08) Home Medications Acetaminophen 500 Mg Tablet, 1,000 MG PO Q6H PRN for PAIN-MILD (1-4), (Reported) Aspirin 81 Mg Tablet.dr, 81 MG PO DAILY, (Reported) Atorvastatin Calcium 10 Mg Tablet, 10 MG PO DAILY, (Reported) Carvedilol 12.5 Mg Tablet, 12.5 MG PO BID, (Reported) HOLD IF BP <80/50 OR PULSE <50 Doxazosin Mesylate 2 Mg Tablet, 2 MG PO HS, (Reported) HOLD IF BP <80/50 OR PULSE <50 Lisinopril 10 Mg Tablet, 10 MG PO DAILY, (Reported) HOLD IF BP <80/50 OR PULSE <50 Mirtazapine 15 Mg Tablet, 15 MG PO HS, (Reported) Nitroglycerin 0.4 Mg Tab.subl, 0.4 MG SL UD PRN for CHEST PAIN, (Reported) Oxycodone HCl/Acetaminophen 1 Each Tablet, 1 EA PO Q6H PRN for PAIN-MODERATE (5- 7), (Reported) Potassium Citrate 10 Meq Tablet.er, 10 MEQ PO DAILY, (Reported) Skin Cleanser Comb No.[id number] [place], 1 APPFUL TP DAILY, (Reported) APPLY TO RIGHT BUTTOCK Patient Home Medication List Home Medication List Reviewed: Yes Past Uxyslqt-Bggrry-Tbpkmr Hx Reviewed Nursing Assessment Reviewed/Agree w Nursing PMH: Yes Family Medical History Significant Family History: No Pertinent Family Hx Family Medial History: Congestive heart failure 19 MOTHER Family history: Cardiovascular disease Family history: Diabetes mellitus 19 MOTHER Family history: Hypertension 19 FATHER Review of Systems-General Constitutional: No chills, No diaphoresis EENTM: No blurred vision, No double vision Respiratory: cough; No dyspnea on exertion Cardiovascular: chest pain (unable to describe in detail ) Gastrointestinal: abdominal pain (diffuse when palpating ), nausea, vomiting Genitourinary: No dysuria, No frequency; other (siddiqui in place) Musculoskeletal: No back pain, No joint pain Skin: No change in color, No change in hair/nails Psychiatric/Neurological: Denies Anxiety, Denies Depressed All Other Systems Reviewed Negative Unless Noted: Yes (Negative excepted noted.) Physical Exam-General Problems Physical Exam General Appearance: WD/WN, no apparent distress HEENT: PERRL/EOMI (Lying in bed), normal ENT inspection Neck: non-tender, full range of motion Respiratory: chest non-tender, normal breath sounds, no respiratory distress Cardiovascular: regular rate, rhythm, no JVD Gastrointestinal: distended; No guarding, No rebound; tenderness (diffuse when palpating, minimal.) Rectal: deferred Back: normal inspection, no vertebral tenderness Extremities: no pedal edema, no calf tenderness Neurologic/Psychiatric: no motor/sensory deficits, alert, normal mood/affect, oriented x 3 Skin: normal color, warm/dry Lymphatic: no adenopathy Assessment/Plan Assessment/Plan Assessment/Plan UTI Sepsis SBO PNA HTN CAD Diabetes mellitus type 2 IV fluids NPO NG tube however patient refused to have it placed. Small bowel follow-through today. Antiemetics PRN Continue antibiotics Continue conservative managment Supervisory-Addendum Brief Verification & Attestation Participated in pt care: history, MDM, physical Personally performed: exam, history, MDM, supervision of care Care discussed with: Medical Student Procedures: n/a Results interpretation: Verified all documentation Verification and Attestation of Medical Student E/M Service A medical student performed and documented this service in my presence. I reviewed and verified all information documented by the medical student and made modifications to such information, when appropriate. I personally performed the physical exam and medical decision making. Cameron Castillo, Jun 16, 2020,17:08 STEPHEN PITTMAN MED STUDENT Jun 16, 2020 07:23 CAMERON CASTILLO DO Jun 16, 2020 17:08
[2020-06-16] MEDS: PANTOPRAZOLE 40 MG (PROTONIX) VIAL IV SCH (08:12)
[2020-06-16] MEDS ORDERED: ACET-2267 PO (08:57)
[2020-06-16] MEDS ORDERED: [UNRECOGNIZED DRUG - CODE] TP (08:57)
[2020-06-16] MEDS ORDERED: OXYC-556 PO (08:57)
[2020-06-16] MEDS ORDERED: DIATRIZOATE MEGLUM/SODIUM 37% 120 ML (GASTROGRAFIN) PO ONE (09:00)
[2020-06-16] MEDS ORDERED: CEFEPIME INJECTION 2,000 MG in WATER (STERILE) FOR INJECTION 20 ML IV SCH (09:00)
[2020-06-16] MEDS ORDERED: metroNIDAZOLE 500MG/100ML IVPB 100 ML IV SCH (09:00)
--- NOTE | 2020-06-16 10:25 | History & Physical ---
HPI History of Present Illness: 79 yo female came from [facility] in [place] to ER due to severe mid- abdominal pain, vomiting and diarrhea that started yesterday. She states she has never had similar episode and usually even when she gets sick she gets dry heaves but not actual vomiting. She has felt very cold, but unknown if she had fever. Denies chest pain, shortness of breath. Admits runny nose. Date seen by provider: Jun 16, 2020 Time Seen by Provider: 10:30 Attending Physician Lilliana Chisholm MD PCP Misty Mariano MD Consult Date of Admission Jun 15, 2020 at 21:45 Home Medications Home Medications Reviewed patient Home Medication Reconciliation performed by pharmacy medication reconciliations control technician and/or nursing. Patients Allergies have been reviewed. Allergies Coded Allergies: fentanyl (Verified Allergy, Unknown, 06/15/20) "MAKES ME GO OUT" morphine (Verified Allergy, Unknown, TAKES PERCOCET @ HOME, 10/22/15) CAUSES SKIN TO COME OFF FINGERS tetracycline (Verified Allergy, Unknown, 05/12/05) Penicillins (Verified Adverse Reaction, Unknown, Vomiting, 03/23/20) hydromorphone (Unverified Adverse Reaction, Unknown, STATES QUIT BREATHING, TAKES PERCOCET AT HOME, 10/22/15) Uncoded Allergies: PAPER TAPE (Allergy, Mild, 07/28/08) [id number] Hx Patient Social History Drug of Choice: DENIES Smoking Status: Never a Smoker 2nd Hand Smoke Exposure: No Recent Hopitalizations: No Have you traveled recently?: No Immunizations Up To Date Date of Pneumonia Vaccine: Dec 20, 2016 Date of Influenza Vaccine: Dec 21, 2019 Past Medical History PMHx: HTN Hypokalemia Coronary artery disease PSurgHx: Spinal surgery Left hip replacement Heart surgery- bypass Cholecystectomy Family Medical History Significant Family History: No Pertinent Family Hx Other Significan Family Hx: SOCIAL HISTORY: -ETOH--DENIES USE -DRUGS-DENIES USE -SMOKING--DENIES USE PAST SURGICAL HISTORY: -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 -CHOLECYSTECTOMY -APPENDECTOMY -CARDIAC CATHS--STENTS; LAST CARDIAC CATH 2012 -CABG -BILATERAL KNEE SURGERY/REPLACEMENTS -GREAT TOE SURGERY -CERVICAL SPINE FRACTURE WITH SURGERY--PER OLD CHARTS Family History: Congestive heart failure 19 MOTHER Family history: Cardiovascular disease Family history: Diabetes mellitus 19 MOTHER Family history: Hypertension 19 FATHER Review of Systems ([facility]) Constitutional: chills, malaise EENTM: see HPI Respiratory: no symptoms reported Cardiovascular: No chest pain Gastrointestinal: see HPI Genitourinary: No dysuria Musculoskeletal: no symptoms reported Skin: no symptoms reported Psychiatric/Neurological: No Symptoms Reported Reviewed Test Results Reviewed Test Results Lab Laboratory Tests Test 06/15/20 20:39 06/15/20 20:40 06/15/20 21:45 06/15/20 22:15 Range/Units Glucometer 225 H 70-110 MG/DL White Blood Count 14.6 H 4.3-11.0 10^3/uL Red Blood Count 5.08 3.80-5.11 10^6/uL Hemoglobin 14.2 11.5-16.0 g/dL Hematocrit 45 35-52 % Mean Corpuscular Volume 88 80-99 fL Mean Corpuscular Hemoglobin 28 25-34 pg Mean Corpuscular Hemoglobin Concent 32 32-36 g/dL Red Cell Distribution Width 14.1 10.0-14.5 % Platelet Count 205 130-400 10^3/uL Mean Platelet Volume 9.5 9.0-12.2 fL Immature Granulocyte % (Auto) 0 % Neutrophils (%) (Auto) 87 H 42-75 % Lymphocytes (%) (Auto) 7 L 12-44 % Monocytes (%) (Auto) 4 0-12 % Eosinophils (%) (Auto) 1 0-10 % Basophils (%) (Auto) 0 0-10 % Neutrophils # (Auto) 12.8 H 1.8-7.8 10^3/uL Lymphocytes # (Auto) 1.0 1.0-4.0 10^3/uL Monocytes # (Auto) 0.6 0.0-1.0 10^3/uL Eosinophils # (Auto) 0.2 0.0-0.3 10^3/uL Basophils # (Auto) 0.0 0.0-0.1 10^3/uL Immature Granulocyte # (Auto) 0.1 0.0-0.1 10^3/uL Neutrophils % (Manual) 86 % Lymphocytes % (Manual) 4 % Monocytes % (Manual) 3 % Eosinophils % (Manual) 3 % Basophils % (Manual) 0 % Band Neutrophils 0 % Reactive Lymphocytes 4 % Anisocytosis SLIGHT Elliptocytes SLIGHT Urine Color DARK YELLOW Urine Clarity SL CLOUDY Urine pH 8.0 5-9 Urine Specific [place] 1.010 L 1.016-1.022 Urine Protein 1+ H NEGATIVE Urine Glucose (UA) NEGATIVE NEGATIVE Urine Ketones NEGATIVE NEGATIVE Urine Nitrite NEGATIVE NEGATIVE Urine Bilirubin NEGATIVE NEGATIVE Urine Urobilinogen 4.0 < = 1.0 MG/DL Urine Leukocyte Esterase 3+ H NEGATIVE Urine RBC (Auto) NEGATIVE NEGATIVE Urine RBC NONE /HPF Urine WBC 5-10 H /HPF Urine Squamous Epithelial Cells 0-2 /HPF Urine Crystals PRESENT H /LPF Urine Triple Phosphate Crystals FEW H /LPF Urine Amorphous Sediment MOD XAVIER PHOSPHATE H /LPF Urine Bacteria FEW H /HPF Urine Casts NONE /LPF Urine Mucus SMALL H /LPF Urine Culture Indicated YES Sodium Level 139 135-145 MMOL/L Potassium Level 4.7 3.6-5.0 MMOL/L Chloride Level 101 98-107 MMOL/L Carbon Dioxide Level 24 21-32 MMOL/L Anion Gap 14 5-14 MMOL/L Blood Urea Nitrogen 14 7-18 MG/DL Creatinine 0.74 0.60-1.30 MG/DL Estimat Glomerular Filtration Rate > 60 BUN/Creatinine Ratio 19 Glucose Level 243 H 70-105 MG/DL Lactic Acid Level 2.48 *H 1.46 0.50-2.00 MMOL/L Calcium Level 9.9 8.5-10.1 MG/DL Corrected Calcium 9.7 8.5-10.1 MG/DL Magnesium Level 2.1 1.6-2.4 MG/DL Total Bilirubin 1.0 0.1-1.0 MG/DL Aspartate Amino Transf (AST/SGOT) 14 5-34 U/L Alanine Aminotransferase (ALT/SGPT) 16 0-55 U/L Alkaline Phosphatase 68 40-136 U/L Lactate Dehydrogenase 208 125-220 U/L Total Creatine Kinase 16 L 29-168 U/L Creatine Kinase MB 0.4 <6.6 NG/ML Myoglobin 21.7 10.0-92.0 NG/ML Troponin I < 0.028 <0.028 NG/ML C-Reactive Protein High Sensitivity 9.16 H 0.00-0.50 MG/DL B-Type Natriuretic Peptide 51.2 <100.0 PG/ML Total Protein 7.5 6.4-8.2 GM/DL Albumin 4.3 3.2-4.5 GM/DL Amylase Level 48 25-125 U/L Lipase 19 8-78 U/L Procalcitonin 1.20 H <0.10 NG/ML Prothrombin Time 14.7 12.2-14.7 SEC INR Comment 1.1 0.8-1.4 Activated Partial Thromboplast Time 28 24-35 SEC Coronavirus 2019 (REEMA) Negative Negative Erythrocyte Sedimentation Rate 17 0-30 MM/HR Test 06/16/20 03:08 06/16/20 05:07 Range/Units White Blood Count 12.0 H 4.3-11.0 10^3/uL Red Blood Count 4.07 3.80-5.11 10^6/uL Hemoglobin 11.4 L 11.5-16.0 g/dL Hematocrit 36 35-52 % Mean Corpuscular Volume 89 80-99 fL Mean Corpuscular Hemoglobin 28 25-34 pg Mean Corpuscular Hemoglobin Concent 32 32-36 g/dL Red Cell Distribution Width 14.1 10.0-14.5 % Platelet Count 165 130-400 10^3/uL Mean Platelet Volume 10.1 9.0-12.2 fL Immature Granulocyte % (Auto) 1 % Neutrophils (%) (Auto) 84 H 42-75 % Lymphocytes (%) (Auto) 9 L 12-44 % Monocytes (%) (Auto) 6 0-12 % Eosinophils (%) (Auto) 0 0-10 % Basophils (%) (Auto) 0 0-10 % Neutrophils # (Auto) 10.1 H 1.8-7.8 10^3/uL Lymphocytes # (Auto) 1.1 1.0-4.0 10^3/uL Monocytes # (Auto) 0.7 0.0-1.0 10^3/uL Eosinophils # (Auto) 0.1 0.0-0.3 10^3/uL Basophils # (Auto) 0.0 0.0-0.1 10^3/uL Immature Granulocyte # (Auto) 0.1 0.0-0.1 10^3/uL Sodium Level 134 L 135-145 MMOL/L Potassium Level 4.0 3.6-5.0 MMOL/L Chloride Level 102 98-107 MMOL/L Carbon Dioxide Level 23 21-32 MMOL/L Anion Gap 9 5-14 MMOL/L Blood Urea Nitrogen 12 7-18 MG/DL Creatinine 0.64 0.60-1.30 MG/DL Estimat Glomerular Filtration Rate > 60 BUN/Creatinine Ratio 19 Glucose Level 243 H 70-105 MG/DL Calcium Level 8.4 L 8.5-10.1 MG/DL Corrected Calcium 8.9 8.5-10.1 MG/DL Total Bilirubin 0.6 0.1-1.0 MG/DL Aspartate Amino Transf (AST/SGOT) 8 5-34 U/L Alanine Aminotransferase (ALT/SGPT) 10 0-55 U/L Alkaline Phosphatase 51 40-136 U/L Total Protein 5.6 L 6.4-8.2 GM/DL Albumin 3.4 3.2-4.5 GM/DL Glucometer 163 H 70-110 MG/DL Radiology CT chest/abdomen/pelvis 06/15: IMPRESSION: 1. Multiple reticulonodular opacities within the right upper and middle lobes compatible with atypical infection. 2. Dilated loops of small bowel with a transition point in the mid abdomen. This finding is concerning for a partial small bowel obstruction. 3. Nonobstructing right renal calculi measuring up to 0.2 cm without hydronephrosis. 4. Colonic diverticulosis without findings of diverticulitis. Physical Exam-([facility]) Physical Exam Vital Signs VS - Last 72 Hours, by Label 06/15/20 06/15/20 06/15/20 06/15/20 20:30 20:30 22:42 23:00 Temp 36.1 36.6 Pulse 69 72 75 Resp 20 18 B/P (MAP) 173/88 (116) 135/78 152/83 (113) Pulse Ox 98 98 95 96 O2 Delivery Room Air Room Air Room Air Room Air 06/15/20 06/15/20 06/15/20 06/15/20 23:08 23:15 23:29 23:45 Temp 36.4 Pulse 68 72 68 65 Resp 16 20 B/P (MAP) 155/96 (125) 144/71 (95) 139/74 (100) Pulse Ox 97 97 94 O2 Delivery Room Air Room Air Room Air 06/15/20 06/16/20 06/16/20 06/16/20 23:54 00:00 00:15 00:30 Pulse 68 68 68 Resp 30 22 22 B/P (MAP) 146/74 (98) 148/71 (96) 163/72 (102) Pulse Ox 97 96 92 97 O2 Delivery Room Air Room Air Room Air Room Air 06/16/20 06/16/20 06/16/20 06/16/20 01:00 01:00 02:00 04:00 Pulse 70 70 58 61 Resp 20 20 26 B/P (MAP) 148/75 (102) 127/68 (91) 138/66 (89) Pulse Ox 97 96 97 O2 Delivery Room Air Room Air Room Air 06/16/20 06/16/20 06/16/20 06/16/20 04:07 04:24 05:00 05:03 Temp 37.0 Pulse 70 67 Resp 21 B/P (MAP) 138/66 (90) Pulse Ox 96 96 O2 Delivery Room Air Room Air FiO2 21 06/16/20 06/16/20 06/16/20 06/16/20 06:00 06:22 07:11 07:55 Temp 36.5 Pulse 65 60 Resp 26 B/P (MAP) 114/59 (79) O2 Delivery Room Air Room Air Capillary Refill : Less Than 3 Seconds General Appearance: no apparent distress Respiratory: lungs clear, normal breath sounds Cardiovascular: regular rate, rhythm, no murmur Gastrointestinal: normal bowel sounds, soft; No distended; tenderness Extremities: No pedal edema Neurologic/Psychiatric: alert, normal mood/affect Skin: normal color, warm/dry Assessment/Plan Assessment/Plan Admission Status: Inpatient Order (span 2 midnights) Reason for Inpatient Admission: Small bowel obstruction with comorbidities at high risk for decompensation (1) Sepsis Status: Acute Assessment & Plan: Secondary to UTI and possible atypical pneumonia. Lactic acidosis already resolved, leukocytosis improving. Qualifiers: Qualified Codes: A41.9 - Sepsis, unspecified organism; R65.20 - Severe sepsis without septic shock (2) Atypical pneumonia Status: Acute Assessment & Plan: Reticulonodular opacities on CT. Azithromycin and ceftriaxone. (3) UTI (urinary tract infection) Status: Acute Assessment & Plan: Urine culture with proteus. Previous urine cultures with E coli resistant only to ampicillin. Will change to ceftriaxone. Qualifiers: Qualified Codes: N30.00 - Acute cystitis without hematuria (4) Small bowel obstruction Status: Acute Assessment & Plan: Pt declined NG tube placement last night. Small bowel follow through this morning. (5) Coronary artery disease Status: Chronic Qualifiers: Qualified Codes: I25.810 - Atherosclerosis of coronary artery bypass graft(s) without angina pectoris (6) Hypertension Status: Chronic Assessment & Plan: Resume home medications Qualifiers: Qualified Codes: I10 - Essential (primary) hypertension (7) Chronic pain Status: Chronic Assessment & Plan: Resume home pain medications Qualifiers: Qualified Codes: G89.4 - Chronic pain syndrome (8) Anxiety Status: Chronic (9) Hyperlipidemia Status: Chronic (10) DVT prophylaxis Status: Acute Assessment & Plan: Enoxaparin LILLIANA CHISHOLM MD Jun 16, 2020 10:25
[2020-06-16] MEDS ORDERED: KETOROLAC 30 MG/ML VIAL IVP ONE (10:30)
[2020-06-16] MEDS ORDERED: cefTRIAXone FOR IV USE 1,000 MG in WATER (STERILE) FOR INJECTION 10 ML IV SCH (11:00)
--- NOTE | 2020-06-16 15:17 | Diagnostic Imaging Report ---
EXAMINATION: Small bowel exam. INDICATION: Small bowel obstruction. FINDINGS: The CT abdomen/pelvis exam performed on 06/15/2020 noted dilated segments of small bowel with a transitional point in the mid abdomen. This finding was felt to be concerning for a partial small bowel obstruction. On the lean process deployment consultant film of this exam, there are still dilated gas filled segments of small bowel present overlying the mid abdomen and low pelvis. There is also some gas within the colon. The patient swallowed the contrast material without difficulty. There is evidence of the contrast within the colon by 3 hours (normal transit time 30 minutes to 3 hours). There is still a persistent number of dilated segments of small bowel present and there may be a partial or intermittent obstruction. No other abnormality is identified. IMPRESSION: 1. There is no evidence for complete obstruction of the small bowel; however, the persistent dilated segments of small bowel may be related to a partial or intermittent obstruction. A surgical consult would be recommended. 2. These results were discussed with Dr. Soni Chisholm at the time of dictation. Dictated by: Dictated on workstation # [id number]
[2020-06-16] MEDS ORDERED: VANCOMYCIN 1 GM/NS 250 ML IVPB IV SCH ×2 (20:00)
[2020-06-16] MEDS: AZITHROMYCIN 500 MG/NS 250 ML IVPB IV SCH ×2 (20:35)
[2020-06-17] VITALS (7 sets, daily range): BP systolic 149–192; BP diastolic 55–90
[2020-06-17] MEDS: CARVEDILOL 12.5 MG (COREG) TABLET PO SCH ×3 (04:52→20:08)
[2020-06-17 05:39] LABS: HEMOGLOBIN 10.5 g/dL (11.5-16.0); MEAN PLATELET VOLUME 9.5 fL (9.0-12.2)
[2020-06-17 06:18] LABS: BUN/CREATININE RATIO 13; CARBON DIOXIDE 19 MMOL/L (21-32); CHLORIDE 111 MMOL/L (98-107); CREATININE SERUM 0.56 MG/DL (0.60-1.30); GFR ESTIMATED > 60; GLUCOSE 148 MG/DL (70-105); POTASSIUM 4.1 MMOL/L (3.6-5.0); SODIUM 139 MMOL/L (135-145)
[2020-06-17] MEDS: inSUlin ASPART (NovoLOG) 1 UNIT/0.01 ML (CHARGE PER UNIT) SC SCH ×4 (06:20→20:10)
[2020-06-17] MEDS: D5 1/2 NS W/KCL 20 MEQ/L 1,000 ML IV SCH ×3 (06:35→20:07)
--- NOTE | 2020-06-17 06:43 | Progress Note - Surgery ---
STEPHEN PITTMAN MED STUDENT 06/17/20 0643: Subjective Date Seen by a Provider: Jun 17, 2020 Time Seen by a Provider: 06:20 Subjective/Events-last exam Patient is alert and oriented x 3. She reports sleeping well. States she is still having abdominal pain. Currently rates her abdominal pain at a 4/10. Describes it as a constant dull pressure. Nothing makes it worse. Nothing seems to make it better. She denies nausea and vomiting. Reports she's been having some diarrhea, no blood per her report. Denies chest pain, SOB, fevers, chills, and dizziness. She is inquiring as to when she will be allowed to eat and drink. Review of Systems General: No Night Sweats HEENT: No Head Aches, No Visual Changes Pulmonary: No Dyspnea, No Cough Cardiovascular: No: Chest Pain, Palpitations Gastrointestinal: Abdominal Pain (diffuse epigastric pain); No: Nausea, Vomiting Genitourinary: No Dysuria, No Frequency; Other (siddiqui) Musculoskeletal: No: neck pain, back pain Neurological: No: Weakness, Numbness Focused Exam Lactate Level 06/15/20 20:40: Lactic Acid Level 2.48*H 06/15/20 22:15: Lactic Acid Level 1.46 Objective Exam Vital Signs Date Time Temp Pulse Resp B/P (MAP) Pulse Ox O2 Delivery O2 Flow Rate FiO2 06/17/20 05:30 51 18 179/89 (119) 97 Room Air 06/17/20 04:20 36.4 65 16 192/84 (120) 98 Room Air 06/17/20 00:03 Room Air 06/16/20 23:51 36.2 55 20 163/58 (93) 96 Room Air 06/16/20 21:35 95 Room Air 06/16/20 20:00 56 13 178/82 (114) 94 Room Air 06/16/20 20:00 97 Room Air 06/16/20 20:00 35.7 06/16/20 19:00 54 06/16/20 16:00 35.5 06/16/20 16:00 54 26 145/76 (99) 95 Room Air 06/16/20 12:57 54 06/16/20 12:00 52 18 153/67 (95) 97 Room Air 06/16/20 11:56 37.0 06/16/20 11:00 53 28 143/78 (99) 98 Room Air 06/16/20 10:00 152/68 (96) 98 Room Air 06/16/20 09:00 64 9 Room Air 06/16/20 08:00 64 7 138/80 (99) Room Air 06/16/20 07:55 36.5 06/16/20 07:11 60 06/16/20 07:00 62 24 122/61 (81) Room Air I & O 06/17/20 07:00 Intake Total 20 ml Output Total 825 ml Balance -805 ml Capillary Refill : Less Than 3 Seconds General Appearance: No Apparent Distress, WD/WN HEENT: PERRL/EOMI Neck: Full Range of Motion, Non Tender Respiratory: Chest Non Tender, Lungs Clear, Normal Breath Sounds, No Accessory Muscle Use; No Crackles, No Rales, No Rhonci, No Wheezing Cardiovascular: Normal Peripheral Pulses, Extra Beats (regularly irregular) Peripheral Pulses: 2+ Dorsalis Pedis (R), 2+ Left Dors-Pedis (L), 2+ Radial Pulses (R), 2+ Radial Pulses (L) Gastrointestinal: abnormal bowel sounds (hyperactive bowel sounds LUQ and LLQ), distended (unchanged from yesterdays assessment); No guarding, No rebound; tenderness (pain when palpating epigastric region, minimal.) Extremity: Normal Capillary Refill, No Calf Tenderness Neurologic/Psychiatric: Alert, Oriented x3, Normal Mood/Affect Skin: Warm/Dry, Pallor Lymphatic: No Adenopathy Results Lab Laboratory Tests 06/16/20 11:28: Glucometer 152H 06/16/20 16:17: Glucometer 130H 06/16/20 20:34: Glucometer 151H 06/17/20 00:36: Glucometer 142H 06/17/20 05:20: White Blood Count 6.0, Red Blood Count 3.77L, Hemoglobin 10.5L, Hematocrit 34L, Mean Corpuscular Volume 89, Mean Corpuscular Hemoglobin 28, Mean Corpuscular Hemoglobin Concent 31L, Red Cell Distribution Width 13.8, Platelet Count 152, Mean Platelet Volume 9.5, Sodium Level 139, Potassium Level 4.1, Chloride Level 111H, Carbon Dioxide Level 19L, Anion Gap 9, Blood Urea Nitrogen 7, Creatinine 0.56L, Estimat Glomerular Filtration Rate > 60, BUN/Creatinine Ratio 13, Glucose Level 148H, Calcium Level 8.0L Microbiology 06/15/20 Blood Culture - Preliminary, Resulted No growth 06/15/20 Influenza Types A,B Antigen (SEGUNDO) - Final, Complete 06/15/20 Urine Culture - Preliminary, Resulted Proteus vulgaris Assessment/Plan Assessment/Plan Assessment/Plan UTI Sepsis SBO PNA HTN CAD Diabetes mellitus type 2 IV fluids NPO NG tube however patient refused to have it placed. Small bowel follow-through yesterday, persistently dilated loops of small bowel, obstruction may be partial or intermittent. Antiemetics PRN Continue antibiotics Continue conservative managment CAMERON CASTILLO DO 06/17/201918: Subjective Subjective/Events-last exam Patient feeling little bit better today. She is having some abdominal discomfort but vague with symptoms. Having multiple bowel movements she states, that are diarrhea. No new complaints. Denies any nausea vomiting fever sweats chills shortness of breath or chest pain. N.p.o. Objective Exam General Appearance: No Apparent Distress, WD/WN HEENT: PERRL/EOMI Neck: Non Tender, Supple Respiratory: Chest Non Tender, No Accessory Muscle Use, No Respiratory Distress Cardiovascular: Regular Rate, Rhythm, No JVD Gastrointestinal: distended (unchanged from yesterdays assessment), tenderness (pain when palpating epigastric region, minimal.) Extremity: Normal Capillary Refill, No Calf Tenderness Neurologic/Psychiatric: Alert, Normal Mood/Affect Skin: Normal Color, Warm/Dry; No Pallor Lymphatic: No Adenopathy Assessment/Plan Assessment/Plan Assessment/Plan UTI Sepsis SBO PNA HTN CAD Diabetes mellitus type 2 IV fluids NPO NG tube however patient refused to have it placed. Small bowel follow-through yesterday, persistently dilated loops of small bowel, obstruction may be partial or intermittent. Antiemetics PRN Antibiotics for UTI Continue conservative managment If abdomen better start clears. Supervisory-Addendum Brief Verification & Attestation Participated in pt care: history, MDM, physical Personally performed: exam, history, MDM, supervision of care Care discussed with: Medical Student Procedures: n/a Results interpretation: Verified all documentation Verification and Attestation of Medical Student E/M Service A medical student performed and documented this service in my presence. I reviewed and verified all information documented by the medical student and made modifications to such information, when appropriate. I personally performed the physical exam and medical decision making. Cameron Castillo, Jun 17, 2020,19:22 STEPHEN PITTMAN MED STUDENT Jun 17, 2020 06:43 CAMERON CASTILLO DO Jun 17, 2020 19:19
[2020-06-17] MEDS ORDERED: lisINopril 10 MG (PRINIVIL) TABLET ONE (08:16)
[2020-06-17] MEDS: lisINopril 10 MG (PRINIVIL) TABLET PO SCH (08:23)
[2020-06-17] MEDS: PANTOPRAZOLE 40 MG (PROTONIX) VIAL IV SCH (08:23)
[2020-06-17] MEDS: cefTRIAXone FOR IV USE 1,000 MG in WATER (STERILE) FOR INJECTION 10 ML IV SCH (11:46)
--- NOTE | 2020-06-17 12:59 | Progress Note ---
Subjective Subjective/Events-last exam Feeling a little better, denies specific concerns. Focused Exam Lactate Level 06/15/20 20:40: Lactic Acid Level 2.48*H 06/15/20 22:15: Lactic Acid Level 1.46 Objective Exam Last Set of Vital Signs Vital Signs Date Time Temp Pulse Resp B/P (MAP) Pulse Ox O2 Delivery O2 Flow Rate FiO2 06/17/20 12:00 36.4 48 18 187/75 (112) 98 Room Air 06/16/20 04:07 21 Capillary Refill : Less Than 3 Seconds I&O Intake and Output 06/17/20 00:00 Intake Total 270 ml Output Total 600 ml Balance -330 ml Intake Oral 0 ml IV Total 270 ml Output Urine Total 600 ml # Bowel Movements 6 General: Alert, No Acute Distress Lungs: Clear to Auscultation, Normal Air Movement Heart: Regular Rate, No Murmurs Abdomen: Normal Bowel Sounds, Soft, Other (moderate to marked ttp) Extremities: No Edema Neuro: Normal Speech Psych/Mental Status: Mood NL Results/Procedures Lab Laboratory Tests 06/16/20 16:17: Glucometer 130H 06/16/20 20:34: Glucometer 151H 06/17/20 00:36: Glucometer 142H 06/17/20 05:20: White Blood Count 6.0, Red Blood Count 3.77L, Hemoglobin 10.5L, Hematocrit 34L, Mean Corpuscular Volume 89, Mean Corpuscular Hemoglobin 28, Mean Corpuscular Hemoglobin Concent 31L, Red Cell Distribution Width 13.8, Platelet Count 152, Mean Platelet Volume 9.5, Sodium Level 139, Potassium Level 4.1, Chloride Level 111H, Carbon Dioxide Level 19L, Anion Gap 9, Blood Urea Nitrogen 7, Creatinine 0.56L, Estimat Glomerular Filtration Rate > 60, BUN/Creatinine Ratio 13, Glucose Level 148H, Calcium Level 8.0L 06/17/20 11:32: Glucometer 134H Microbiology 06/15/20 Blood Culture - Preliminary, Resulted No growth 06/15/20 Influenza Types A,B Antigen (SEGUNDO) - Final, Complete 06/15/20 Urine Culture - Final, Complete Proteus vulgaris Radiology CT chest/abdomen/pelvis 06/15: IMPRESSION: 1. Multiple reticulonodular opacities within the right upper and middle lobes compatible with atypical infection. 2. Dilated loops of small bowel with a transition point in the mid abdomen. This finding is concerning for a partial small bowel obstruction. 3. Nonobstructing right renal calculi measuring up to 0.2 cm without hydronephrosis. 4. Colonic diverticulosis without findings of diverticulitis. Assessment/Plan Assessment/Plan (1) Sepsis Status: Acute Assessment & Plan: Secondary to UTI and possible atypical pneumonia. Lactic acidosis already resolved, leukocytosis resolved. Qualifiers: Qualified Codes: A41.9 - Sepsis, unspecified organism; R65.20 - Severe sepsis without septic shock (2) Atypical pneumonia Status: Acute Assessment & Plan: Reticulonodular opacities on CT. Azithromycin and ceftriaxone. (3) UTI (urinary tract infection) Status: Acute Assessment & Plan: Urine culture with proteus. Previous urine cultures with E coli resistant only to ampicillin. Will change to ceftriaxone. Qualifiers: Qualified Codes: N30.00 - Acute cystitis without hematuria (4) Small bowel obstruction Status: Acute Assessment & Plan: Pt declined NG tube placement last night. Small bowel follow through this morning. 06/17 small bowel follow through consistent with possible intermittent obstruction. Appreciate surgery recommendations. (5) Coronary artery disease Status: Chronic Qualifiers: Qualified Codes: I25.810 - Atherosclerosis of coronary artery bypass graft(s) without angina pectoris (6) Hypertension Status: Chronic Assessment & Plan: Resume home medications Qualifiers: Qualified Codes: I10 - Essential (primary) hypertension (7) Chronic pain Status: Chronic Assessment & Plan: Resume home pain medications Qualifiers: Qualified Codes: G89.4 - Chronic pain syndrome (8) Anxiety Status: Chronic (9) Hyperlipidemia Status: Chronic (10) DVT prophylaxis Status: Acute Assessment & Plan: Enoxaparin LILLIANA CAMPOS MD Jun 17, 2020 12:59
[2020-06-17] MEDS ORDERED: TROUGH ORDER-PHARMACY XX ONE (19:00)
[2020-06-17] MEDS: MIRTAZAPINE 15 MG (REMERON) TAB PO SCH (20:08)
[2020-06-17] MEDS: AZITHROMYCIN 500 MG/NS 250 ML IVPB IV SCH ×2 (20:08)
[2020-06-17] MEDS: doxAzosin 2 MG (CARDURA) TAB PO SCH (20:10)
[2020-06-17] MEDS: oxyCODONE/APAP 10/325MG (PERCOCET 10) TABLET PO PRN (20:30)
[2020-06-17] MEDS ORDERED: NON-FORMULARY MEDICATION 1 EA EA (Mirtazapine (Remeron) 15 MG) PO SCH (21:00)
[2020-06-17] MEDS: ENOXAPARIN 40 MG/0.4 ML (LOVENOX) SYR SC SCH (22:51)
[2020-06-18 04:00] VITALS: BP 172/73
[2020-06-18] MEDS: D5 1/2 NS W/KCL 20 MEQ/L 1,000 ML IV SCH ×3 (04:18→18:33)
[2020-06-18 05:53] LABS: HEMOGLOBIN 10.4 g/dL (11.5-16.0); MEAN PLATELET VOLUME 9.3 fL (9.0-12.2); WHITE BLOOD COUNT 4.3 10^3/uL (4.3-11.0)
[2020-06-18] MEDS: inSUlin ASPART (NovoLOG) 1 UNIT/0.01 ML (CHARGE PER UNIT) SC SCH ×4 (06:01→20:57)
[2020-06-18 06:15] LABS: BUN/CREATININE RATIO 5; CALCIUM 8.5 MG/DL (8.5-10.1); CARBON DIOXIDE 23 MMOL/L (21-32); CHLORIDE 109 MMOL/L (98-107); GFR ESTIMATED > 60; GLUCOSE 145 MG/DL (70-105); POTASSIUM 4.2 MMOL/L (3.6-5.0); SODIUM 142 MMOL/L (135-145)
[2020-06-18 08:33] VITALS: BP 196/91
[2020-06-18] MEDS: cefTRIAXone FOR IV USE 1,000 MG in WATER (STERILE) FOR INJECTION 10 ML IV SCH (10:00)
[2020-06-18] MEDS: PANTOPRAZOLE 40 MG (PROTONIX) VIAL IV SCH (10:00)
[2020-06-18] MEDS: lisINopril 10 MG (PRINIVIL) TABLET PO SCH (10:02)
[2020-06-18] MEDS: ASPIRIN E.C. 81 MG (ECOTRIN) TAB PO SCH (10:02)
[2020-06-18] MEDS: CARVEDILOL 12.5 MG (COREG) TABLET PO SCH ×2 (10:02→19:47)
[2020-06-18 11:51] VITALS: BP 195/84
--- NOTE | 2020-06-18 12:26 | Progress Note ---
Subjective Subjective/Events-last exam Afebrile, feeling a little better. Anxious to try some intake. Has minimal abdominal pain. Focused Exam Lactate Level 06/15/20 20:40: Lactic Acid Level 2.48*H 06/15/20 22:15: Lactic Acid Level 1.46 Objective Exam Last Set of Vital Signs Vital Signs Date Time Temp Pulse Resp B/P (MAP) Pulse Ox O2 Delivery O2 Flow Rate FiO2 06/18/20 11:51 36.2 55 20 195/84 (121) 98 Room Air 06/16/20 04:07 21 Capillary Refill : Less Than 3 Seconds I&O Intake and Output 06/18/20 00:00 Intake Total 1105 ml Output Total 3175 ml Balance -2070 ml Intake Oral 95 ml IV Total 1010 ml Output Urine Total 3175 ml # Bowel Movements 2 General: Alert, No Acute Distress Lungs: Clear to Auscultation, Normal Air Movement Heart: Regular Rate, No Murmurs Abdomen: Normal Bowel Sounds, Soft, Other (ttp) Neuro: Normal Speech Psych/Mental Status: Mood NL Results/Procedures Lab Laboratory Tests 06/17/20 15:44: Glucometer 126H 06/17/20 20:08: Glucometer 123H 06/18/20 05:34: Glucometer 131H 06/18/20 05:35: White Blood Count 4.3, Red Blood Count 3.76L, Hemoglobin 10.4L, Hematocrit 34L, Mean Corpuscular Volume 90, Mean Corpuscular Hemoglobin 28, Mean Corpuscular Hemoglobin Concent 31L, Red Cell Distribution Width 13.6, Platelet Count 145, Mean Platelet Volume 9.3, Sodium Level 142, Potassium Level 4.2, Chloride Level 109H, Carbon Dioxide Level 23, Anion Gap 10, Blood Urea Nitrogen 3L, Creatinine 0.60, Estimat Glomerular Filtration Rate > 60, BUN/Creatinine Ratio 5, Glucose Level 145H, Calcium Level 8.5 06/18/20 11:08: Glucometer 138H Microbiology 06/15/20 Blood Culture - Preliminary, Resulted No growth 06/15/20 Influenza Types A,B Antigen (SEGUNDO) - Final, Complete 06/15/20 Urine Culture - Final, Complete Proteus vulgaris Radiology CT chest/abdomen/pelvis 06/15: IMPRESSION: 1. Multiple reticulonodular opacities within the right upper and middle lobes compatible with atypical infection. 2. Dilated loops of small bowel with a transition point in the mid abdomen. This finding is concerning for a partial small bowel obstruction. 3. Nonobstructing right renal calculi measuring up to 0.2 cm without hydronephrosis. 4. Colonic diverticulosis without findings of diverticulitis. Assessment/Plan Assessment/Plan (1) Sepsis Status: Resolved Assessment & Plan: Secondary to UTI and possible atypical pneumonia. Lactic acidosis already resolved, leukocytosis resolved. Qualifiers: Qualified Codes: A41.9 - Sepsis, unspecified organism; R65.20 - Severe sepsis without septic shock (2) Atypical pneumonia Status: Acute Assessment & Plan: Reticulonodular opacities on CT. Azithromycin and ceftriaxone. (3) UTI (urinary tract infection) Status: Acute Assessment & Plan: Urine culture with proteus. Previous urine cultures with E coli resistant only to ampicillin. Will change to ceftriaxone. proteus vulgaris, sensitive to ceftriaxone Qualifiers: Qualified Codes: N30.00 - Acute cystitis without hematuria (4) Small bowel obstruction Status: Acute Assessment & Plan: Pt declined NG tube placement last night. Small bowel follow through this morning. 06/17 small bowel follow through consistent with possible intermittent obstruction. Appreciate surgery recommendations. 06/18 try clear liquids today (5) Coronary artery disease Status: Chronic Qualifiers: Qualified Codes: I25.810 - Atherosclerosis of coronary artery bypass graft(s) without angina pectoris (6) Hypertension Status: Chronic Assessment & Plan: Resume home medications Qualifiers: Qualified Codes: I10 - Essential (primary) hypertension (7) Chronic pain Status: Chronic Assessment & Plan: Resume home pain medications Qualifiers: Qualified Codes: G89.4 - Chronic pain syndrome (8) Anxiety Status: Chronic (9) Hyperlipidemia Status: Chronic (10) DVT prophylaxis Status: Acute Assessment & Plan: Enoxaparin LILLIANA CAMPOS MD Jun 18, 2020 12:26
[2020-06-18 16:00] VITALS: BP 196/86
--- NOTE | 2020-06-18 16:01 | Progress Note - Surgery ---
Subjective Date Seen by a Provider: Jun 18, 2020 Time Seen by a Provider: 15:57 Subjective/Events-last exam Patient states she is doing okay. Not really having any abdominal pain now. She is having bowel function. She had a small bowel follow-through showing no obstruction except possibly intermittent or partial small bowel obstruction. Patient tolerating clear liquids. She denies any nausea vomiting fever sweats chills shortness of breath or chest pain at this time. Focused Exam Lactate Level 06/15/20 20:40: Lactic Acid Level 2.48*H 06/15/20 22:15: Lactic Acid Level 1.46 Objective Exam Vital Signs Date Time Temp Pulse Resp B/P (MAP) Pulse Ox O2 Delivery O2 Flow Rate FiO2 06/18/20 11:51 36.2 55 20 195/84 (121) 98 Room Air 06/18/20 08:33 36.1 62 16 196/91 (126) 98 Room Air 06/18/20 08:00 Room Air 06/18/20 06:50 Room Air 06/18/20 04:00 36.1 53 18 172/73 (106) 96 Room Air 06/18/20 01:55 Room Air 06/17/20 23:58 36.7 51 18 149/55 (86) 96 Room Air 06/17/20 20:00 Room Air 06/17/20 19:41 36.0 72 20 182/82 (115) 99 Room Air 06/17/20 16:09 36.1 54 20 188/72 (110) 99 Room Air I & O 06/18/20 07:00 Intake Total 1085 ml Output Total 3050 ml Balance -1965 ml Capillary Refill : Less Than 3 Seconds General Appearance: No Apparent Distress, WD/WN HEENT: PERRL/EOMI Neck: Non Tender, Supple Respiratory: Chest Non Tender, No Accessory Muscle Use, No Respiratory Distress Cardiovascular: Regular Rate, Rhythm, No JVD Peripheral Pulses: 2+ Dorsalis Pedis (R), 2+ Left Dors-Pedis (L), 2+ Radial Pulses (R), 2+ Radial Pulses (L) Gastrointestinal: non tender, soft, no organomegaly Extremity: Normal Capillary Refill, No Calf Tenderness Neurologic/Psychiatric: Alert, Normal Mood/Affect Skin: Normal Color, Warm/Dry; No Pallor Lymphatic: No Adenopathy Results Lab Laboratory Tests 06/17/20 20:08: Glucometer 123H 06/18/20 05:34: Glucometer 131H 06/18/20 05:35: White Blood Count 4.3, Red Blood Count 3.76L, Hemoglobin 10.4L, Hematocrit 34L, Mean Corpuscular Volume 90, Mean Corpuscular Hemoglobin 28, Mean Corpuscular Hemoglobin Concent 31L, Red Cell Distribution Width 13.6, Platelet Count 145, Mean Platelet Volume 9.3, Sodium Level 142, Potassium Level 4.2, Chloride Level 109H, Carbon Dioxide Level 23, Anion Gap 10, Blood Urea Nitrogen 3L, Creatinine 0.60, Estimat Glomerular Filtration Rate > 60, BUN/Creatinine Ratio 5, Glucose Level 145H, Calcium Level 8.5 06/18/20 11:08: Glucometer 138H Microbiology 06/15/20 Blood Culture - Preliminary, Resulted No growth 06/15/20 Influenza Types A,B Antigen (SEGUNDO) - Final, Complete 06/15/20 Urine Culture - Final, Complete Proteus vulgaris Assessment/Plan Assessment/Plan Assessment/Plan UTI Sepsis SBO PNA HTN CAD Diabetes mellitus type 2 IV fluids On clear liquids. If continues to tolerate would advance Small bowel follow-through yesterday, persistently dilated loops of small bowel, obstruction may be partial or intermittent. Antiemetics PRN Antibiotics for UTI Continue conservative management CAMERON WILEY DO Jun 18, 2020 16:01
[2020-06-18] MEDS: doxAzosin 2 MG (CARDURA) TAB PO SCH (19:47)
[2020-06-18] MEDS: MIRTAZAPINE 15 MG (REMERON) TAB PO SCH (19:47)
[2020-06-18] MEDS: AZITHROMYCIN 500 MG/NS 250 ML IVPB IV SCH ×2 (19:47)
[2020-06-18 20:32] VITALS: BP 194/86
[2020-06-18] MEDS: ENOXAPARIN 40 MG/0.4 ML (LOVENOX) SYR SC SCH (21:45)
[2020-06-19] VITALS: BP 191/75
[2020-06-19] MEDS: D5 1/2 NS W/KCL 20 MEQ/L 1,000 ML IV SCH (02:29)
[2020-06-19] MEDS: oxyCODONE/APAP 10/325MG (PERCOCET 10) TABLET PO PRN (03:14)
[2020-06-19 03:30] VITALS: BP 170/77
[2020-06-19 04:58] LABS: HEMOGLOBIN 10.6 g/dL (11.5-16.0); MEAN PLATELET VOLUME 9.1 fL (9.0-12.2); WHITE BLOOD COUNT 5.4 10^3/uL (4.3-11.0)
[2020-06-19 05:12] LABS: CHLORIDE 107 MMOL/L (98-107); POTASSIUM 3.8 MMOL/L (3.6-5.0); SODIUM 140 MMOL/L (135-145)
[2020-06-19 05:13] LABS: CALCIUM 8.6 MG/DL (8.5-10.1)
[2020-06-19 05:14] LABS: GLUCOSE 159 MG/DL (70-105)
[2020-06-19] MEDS: inSUlin ASPART (NovoLOG) 1 UNIT/0.01 ML (CHARGE PER UNIT) SC SCH ×2 (05:14→11:37)
[2020-06-19 05:15] LABS: CARBON DIOXIDE 23 MMOL/L (21-32)
[2020-06-19 05:18] LABS: CREATININE SERUM 0.55 MG/DL (0.60-1.30); GFR ESTIMATED > 60
[2020-06-19 05:19] LABS: BUN/CREATININE RATIO 4
[2020-06-19 07:25] VITALS: BP 191/87
[2020-06-19] MEDS: ASPIRIN E.C. 81 MG (ECOTRIN) TAB PO SCH (08:07)
[2020-06-19] MEDS: PANTOPRAZOLE 40 MG (PROTONIX) VIAL IV SCH (08:07)
[2020-06-19] MEDS: CARVEDILOL 12.5 MG (COREG) TABLET PO SCH (08:07)
[2020-06-19] MEDS: lisINopril 10 MG (PRINIVIL) TABLET PO SCH (08:07)
[2020-06-19] MEDS: cefTRIAXone FOR IV USE 1,000 MG in WATER (STERILE) FOR INJECTION 10 ML IV SCH (11:00)
[2020-06-19 11:30] VITALS: BP 189/81
[2020-06-19] MEDS ORDERED: CEFD300C3 PO (12:18)
--- NOTE | 2020-06-19 12:21 | Discharge Summary ---
Discharge Summary Hospital Course Problems/Diagnosis: (1) Sepsis Status: Resolved Resolution Date/Time: 06/17/20 @ 12:25 Assessment & Plan: Secondary to UTI and possible atypical pneumonia. Lactic acidosis already resolved, leukocytosis resolved. Qualifiers: Qualified Codes: A41.9 - Sepsis, unspecified organism; R65.20 - Severe sepsis without septic shock (2) Atypical pneumonia Status: Acute Assessment & Plan: Reticulonodular opacities on CT. Azithromycin and ceftriaxone. Complete course of cefdinir on d/c. (3) UTI (urinary tract infection) Status: Acute Assessment & Plan: Urine culture with proteus. Previous urine cultures with E coli resistant only to ampicillin. Will change to ceftriaxone. proteus vulgaris, sensitive to ceftriaxone, discharged on cefdinir. Qualifiers: Qualified Codes: N30.00 - Acute cystitis without hematuria (4) Small bowel obstruction Status: Acute Assessment & Plan: Pt declined NG tube placement last night. Small bowel follow through this morning. 06/17 small bowel follow through consistent with possible intermittent obstruction. Appreciate surgery recommendations. 06/18 try clear liquids today 06/19 tolerating liquids, pain resolved (5) Coronary artery disease Status: Chronic Qualifiers: Qualified Codes: I25.810 - Atherosclerosis of coronary artery bypass graft(s) without angina pectoris (6) Hypertension Status: Chronic Assessment & Plan: Resume home medications Qualifiers: Qualified Codes: I10 - Essential (primary) hypertension (7) Chronic pain Status: Chronic Assessment & Plan: Resume home pain medications Qualifiers: Qualified Codes: G89.4 - Chronic pain syndrome (8) Anxiety Status: Chronic (9) Hyperlipidemia Status: Chronic Hospital Course Date of Admission: Jun 15, 2020 at 21:45 Admission Diagnosis : Family Physician/Provider: Misty Mariano MD Date of Discharge: 06/19/20 Discharge Diagnosis: See problem list Hospital Course: See problem list Labs and Pending Lab Test: Laboratory Tests 06/18/20 16:00: Glucometer 129H 06/18/20 20:21: Glucometer 174H 06/19/20 04:43: White Blood Count 5.4, Red Blood Count 3.83, Hemoglobin 10.6L, Hematocrit 33L, Mean Corpuscular Volume 87, Mean Corpuscular Hemoglobin 28, Mean Corpuscular Hemoglobin Concent 32, Red Cell Distribution Width 13.3, Platelet Count 155, M aniya Platelet Volume 9.1, Sodium Level 140, Potassium Level 3.8, Chloride Level 107, Carbon Dioxide Level 23, Anion Gap 10, Blood Urea Nitrogen < 2L, Creatinine 0.55L, Estimat Glomerular Filtration Rate > 60, BUN/Creatinine Ratio 4, Glucose Level 159H, Calcium Level 8.6 06/19/20 11:34: Glucometer 141H Microbiology 06/15/20 Blood Culture - Preliminary, Resulted No growth 06/15/20 Influenza Types A,B Antigen (SEGUNDO) - Final, Complete 06/15/20 Urine Culture - Final, Complete Proteus vulgaris Home Meds Active Reported Tylenol Extra Strength (Acetaminophen) 500 Mg Tablet 1,000 Mg PO Q6H PRN Oxycodone-Acetaminophen 10-325 (Oxycodone HCl/Acetaminophen) 1 Each Tablet 1 Ea PO Q6H PRN Cavilon (Skin Cleanser Comb No.11) 236 Ml [place] 1 Appful TP DAILY APPLY TO RIGHT BUTTOCK Nitroglycerin 0.4 Mg Tab.subl 0.4 Mg SL UD PRN Potassium Citrate ER (Potassium Citrate) 10 Meq Tablet.er 10 Meq PO DAILY Remeron (Mirtazapine) 15 Mg Tablet 15 Mg PO HS Atorvastatin Calcium 10 Mg Tablet 10 Mg PO DAILY Lisinopril 10 Mg Tablet 10 Mg PO DAILY HOLD IF BP <80/50 OR PULSE <50 Carvedilol 12.5 Mg Tablet 12.5 Mg PO BID HOLD IF BP <80/50 OR PULSE <50 Doxazosin Mesylate 2 Mg Tablet 2 Mg PO HS HOLD IF BP <80/50 OR PULSE <50 Aspirin EC (Aspirin) 81 Mg Tablet.dr 81 Mg PO DAILY Assessment/Pt DC Instructions Follow up with physician via nursing facility. Discharge Diet: Cardiac Diet Activity as Tolerated: Yes Discharge Physical Examination Allergies: Coded Allergies: fentanyl (Verified Allergy, Unknown, 06/15/20) "MAKES ME GO OUT" morphine (Verified Allergy, Unknown, TAKES PERCOCET @ HOME, 10/22/15) CAUSES SKIN TO COME OFF FINGERS tetracycline (Verified Allergy, Unknown, 05/12/05) Penicillins (Verified Adverse Reaction, Unknown, Vomiting, 03/23/20) hydromorphone (Unverified Adverse Reaction, Unknown, STATES QUIT BREATHING, TAKES PERCOCET AT HOME, 10/22/15) Uncoded Allergies: PAPER TAPE (Allergy, Mild, 07/28/08) General Appearance: No Apparent Distress, WD/WN Respiratory: Lungs Clear, Normal Breath Sounds Cardiovascular: Regular Rate, Rhythm, No Edema, No Murmur Gastrointestinal: Normal Bowel Sounds, Non Tender, Soft Extremity: No Pedal Edema Skin: Normal Color, Warm/Dry Neurologic/Psychiatric: Alert, Normal Mood/Affect LILLIANA CAMPOS MD Jun 19, 2020 12:21
== END 2020-06-19 13:10 | DRG 871 ==
LOC: EDUNIT# 20:29 → ER 20:30 → ICU 21:45 → 4TH 06-16 23:29
PROVIDERS: ADMIT Family Medicine; ATTEND Family Medicine
DX: A41.9 Sepsis, unspecified organism (principal); J18.9 Pneumonia, unspecified organism; N39.0 Urinary tract infection, site not specified; E87.2 Acidosis; K56.609 Unspecified intestinal obstruction, unspecified as to partial versus complete obstruction; I25.10 Atherosclerotic heart disease of native coronary artery without angina pectoris; I10 Essential (primary) hypertension; G89.4 Chronic pain syndrome; F41.9 Anxiety disorder, unspecified; E78.5 Hyperlipidemia, unspecified; E11.9 Type 2 diabetes mellitus without complications; Z20.822 Contact with and (suspected) exposure to COVID-19; Z79.82 Long term (current) use of aspirin; Z88.5 Allergy status to narcotic agent; Z88.0 Allergy status to penicillin; Z95.1 Presence of aortocoronary bypass graft; I48.91 Unspecified atrial fibrillation; E11.42 Type 2 diabetes mellitus with diabetic polyneuropathy; Z86.73 Personal history of transient ischemic attack (TIA), and cerebral infarction without residual deficits; K21.9 Gastro-esophageal reflux disease without esophagitis; M19.90 Unspecified osteoarthritis, unspecified site
CPT/HCPCS: 36415; 51702; 70450; 71045; 71250; 74176; 74250; 80048; 80053; 81000; 82150; 82550; 82553; 82962; 83036; 83605; 83615; 83690; 83735; 83874; 83880; 84145; 84484; 85007; 85025; 85027; 85610; 85652; 85730; 86141; 87040; 87077; 87088; 87186; 87635; 87804; 93005; 93041; 94664; 94760; 96361; 96365; 96375